=== PATIENT | male | born 1955 | race Caucasian/White ===

== ENCOUNTER 2020-10-01 20:00 | Outpatient (CLI) | payer MEDICARE, OTHER, SELFPAY | END 2020-10-01 20:01 | disposition home or self-care (01) | LOC: SLEEP 10-02 09:19 | PROVIDERS: Family Provider Family Medicine; PCP Family Medicine; Visit Provider Family Medicine | DX: G47.10 Hypersomnia, unspecified (principal); R06.83 Snoring; R53.83 Other fatigue; G47.33 Obstructive sleep apnea (adult) (pediatric) | CPT/HCPCS: 95811 ==

== ENCOUNTER → 2021-08-19 16:14 | Outpatient (BNVA) | payer MEDICARE, SELFPAY | PROVIDERS: Family Provider Family Medicine; PCP Family Medicine; Visit Provider Internal Medicine Cardiovascular Disease | DX: I20.0 Unstable angina (principal); R06.02 Shortness of breath; R07.9 Chest pain, unspecified; I25.2 Old myocardial infarction; I50.22 Chronic systolic (congestive) heart failure; Z79.82 Long term (current) use of aspirin; Z98.890 Other specified postprocedural states | CPT/HCPCS: 80048; 85025; 85610; 87635 ==

== ENCOUNTER 2021-08-26 13:05 | Observation (INO) | payer MEDICARE, SELFPAY ==
--- NOTE | 2021-08-24 17:51 | P.HP_ITS ---
Providers/Chief Complaint Admitting Physician: Juwan Gregory MD Primary Care Provider: Kyle Corrigan MD Chief Complaint: pre-dehydration History of Present Illness Garrett Mares is a 66 year old male past medical history significant for morbid obesity, congestive heart failure, multivessel coronary artery disease with history of prior LAD RCA stents, chronic renal failure with worsening of renal function, questionable compliance with food despite of optimization of medicine and worsening of chest pain shortness of breath with lifestyle limiting characteristics suggestive of unstable angina was admitted for IV hydration before proceeding with left heart cath/PCI. Patient creatinine is 2.0. Patient has been explained all risk benefit and alternative for the procedure patient understand risk for contrast-induced nephropathy leading to transient or permanent dialysis, patient understand risk for major minor bleed hematoma vascular injury urgent emergent CABG stroke and infection. He would like to proceed with it. Medications/Allergies Home Medications Medication Instructions Recorded Confirmed Last Taken Type insulin lispro protamine-lispro 100 unit SUBCUT DAILY 11/29/19 08/25/21 1 Day Ago History 100 unit/mL (75-25) subcutaneous ~08/24/21 pen metformin 1,000 mg tablet 1,000 mg PO BID 11/29/19 08/25/21 1 Day Ago History ~08/24/21 montelukast 10 mg tablet 10 mg PO DAILY 11/29/19 08/25/21 1 Day Ago History ~08/24/21 aspirin 81 mg tablet,delayed 81 mg PO DAILY 90 Days #90 tab 12/03/19 08/25/21 1 Day Ago Rx release ~08/24/21 citalopram 40 mg tablet 40 mg PO DAILY tab 08/18/20 08/25/21 Unknown History insulin glargine U-300 conc 300 120 unit SUBCUT DAILY ml 08/18/20 08/25/21 1 Day Ago History unit/mL (1.5 mL) subcutaneous pen ~08/24/21 ticagrelor 90 mg tablet 90 mg PO BID #180 tab 11/11/20 08/25/21 1 Day Ago Rx ~08/24/21 furosemide 40 mg tablet 40 mg PO DAILY #90 tab 01/04/21 08/25/21 Unknown Rx valsartan 320 mg tablet 320 mg PO DAILY 90 Days #90 tab 01/04/21 08/25/21 1 Day Ago Rx ~08/24/21 carvedilol 25 mg tablet 25 mg PO BID #180 tab 01/08/21 08/25/21 1 Day Ago Rx ~08/24/21 isosorbide mononitrate 60 mg 60 mg PO BID #180 tab 01/14/21 08/25/21 1 Day Ago Rx tablet,extended release 24 hr ~08/24/21 amlodipine 5 mg tablet 5 mg PO DAILY #90 tab 04/09/21 08/25/21 1 Day Ago Rx ~08/24/21 nitroglycerin 0.4 mg sublingual 0.4 mg SUBLINGUAL Q5M PRN #25 tab 07/30/21 08/25/21 Unknown Rx tablet spironolactone 25 mg tablet 25 mg PO DAILY tab 08/19/21 08/25/21 1 Day Ago Hist ory ~08/24/21 gabapentin 100 mg PO TID 08/24/21 08/25/21 1 Day Ago History ~08/24/21 potassium chloride 20 meq PO DAILY 08/24/21 08/25/21 Unknown History rosuvastatin 20 mg PO DAILY 08/24/21 08/25/21 1 Day Ago History ~08/24/21 Allergies Allergy/AdvReac Type Severity Reaction Status Date / Time sulfabenzamide Allergy Unknown Unknown Verified 11/29/19 08:34 PFSH Acute PFSH: Medical History (Updated 08/25/21 @ 20:02 by Juwan Gregory MD) CAD (coronary artery disease) CHF (congestive heart failure) History of non-ST elevation myocardial infarction (NSTEMI) HTN (hypertension) Hyperlipidemia Family History Other CAD (coronary artery disease) Hypertension Social History Smoking and tobacco status: former smoker History of recent travel: No Physical Exam Narrative: EXAM NARRATIVE: GENERAL: Patient is alert, awake and oriented x3. NECK: No jugular vein distension. HEENT: No cyanosis. No icterus. No pallor. HEART: Regular S1 and S2. No murmur, rub or gallop. LUNGS: Clear to auscultate bilaterally. ABDOMEN: Soft, nontender and nondistended. Positive bowel sounds. No guarding, rebound or tenderness. CENTRAL NERVOUS SYSTEM: Grossly nonfocal. EXTREMITIES: Lower extremities without edema bilaterally. Data : 08/25/21 03:30 08/25/21 14:12 A&P Assessment and plan (1) Unstable angina: For worsening of shortness of breath chest pain which is lifestyle limiting and crippling despite of optimization of medicine is suggestive of unstable angina. We will proceed with left heart cath/PCI if indicated. We will admit patient for IV hydration in order to prevent contrast-induced nephropathy. Patient is high risk for developing complications such as bleeding hematoma due to prior history of torturous difficult anatomy and high BMI Status: Acute (2) Renal failure (ARF), acute on chronic: Will start patient on IV hydration I will discontinue all diuretics Status: Acute Qualifiers: Acute renal failure type: unspecified Chronic kidney disease stage: stage 3 (moderate) Chronic kidney disease stage 3 subtype: stage 3b (GFR 30-44) Qualified Code(s): N17.9 - Acute kidney failure, unspecified; N18.32 - Chronic kidney disease, stage 3b (3) CHF (congestive heart failure): Appeared well compensated continue to monitor. Status: Acute Qualifiers: Heart failure type: systolic Heart failure chronicity: chronic Qualified Code(s): I50.22 - Chronic systolic (congestive) heart failure (4) HTN (hypertension): Well-controlled continue current regimen. Status: Acute Qualifiers: Hypertension type: essential hypertension Qualified Code(s): I10 - Essential (primary) hypertension Attestations Medical Necessity Statement*: I am expecting his stay to cross more than 2 midnights. 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
[2021-08-24] MEDS: enoxaparin 40 mg/0.4 mL Syringe SUBCUT (19:09)
[2021-08-24] MEDS: insulin lispro 100 unit/1 mL 14 UNIT SUBCUT (19:10)
[2021-08-24] MEDS: sodium chloride 0.9% 1,000 ML 50 ML IV (19:11)
[2021-08-24 20:05] VITALS: BMI 46.0
--- NOTE | 2021-08-24 20:07 | PC.NURSE ---
admitted into room 106..direct admit...at 1815.alert and oriented x 4.denies pain at present.sr on monitor.plan is to hydrate pt prior to cardiac angiogram in future.oriented to room environment.instructed to contact staff for any chest pain,sob,or for any concerns at all.pt verb understanding of instructions.
[2021-08-24] MEDS: sodium chloride 0.9% 1,000 ML 100 ML IV (20:12)
--- NOTE | 2021-08-24 20:13 | PC.NURSE ---
after ivf's just started at 50 cc/hr as ordered..dr caballero changed rate to 100cc/hr...so used same bag that was ordered for 50cc/hr...so not to charge pt for another bag of ns
[2021-08-24 20:47] LABS: Glucose Point of Care 429 mg/dL (70-110)
[2021-08-24 20:59] VITALS: BP 154/73; PULSE 86; RESP 22; TEMP 36.8; O2SAT 93
[2021-08-24 21:00] VITALS: BP 154/73; PULSE 86; RESP 22; TEMP 36.8; O2SAT 93
[2021-08-24 22:35] LABS: Glucose Point of Care 388 mg/dL (70-110)
[2021-08-24] MEDS: insulin lispro 100 unit/1 mL SUBCUT (23:02)
[2021-08-24] MEDS: ticagrelor 90 mg Tablet PO (23:05)
[2021-08-24] MEDS: gabapentin 100 mg Capsule PO (23:05)
[2021-08-24] MEDS: atorvastatin 40 mg Tablet 80 MG PO (23:05)
[2021-08-24] MEDS: isosorbide mononitrate ER 60 mg Tablet PO (23:06)
[2021-08-24] MEDS: carvedilol 25 mg Tablet PO (23:06)
[2021-08-24 23:30] VITALS: BP 107/62; PULSE 80; RESP 22; TEMP 36.6; O2SAT 95
[2021-08-25] VITALS (9 sets, daily range): BP systolic 118–153; BP diastolic 61–71; PULSE 74–79; RESP 15–21; TEMP 36.1–37.1; O2SAT 90–97
--- NOTE | 2021-08-25 | XACV_ITS ---
Ht: 170 cm Wt: 133 kg BSA: 2.58 m2 Gender: Male : 1955 Any Known Allergies: Sulfa Exam Priority: Routine Procedure(s): Procedure Description: Diagnostic procedure Procedure Description: PCI procedure Procedure Description: Drug Eluting Coronary Stent Procedure Description: PTCA Procedure Description: Miscellaneous Procedure Description: ACT Procedure Description: Coronary Angiography Bri FELDER; Diagnostic Cath Status: Urgent Diagnostic Findings * Left Main has no disease. * Left Anterior Descending has no disease. * Proximal Right Coronary Artery: subtotal occlusion, FAUSTINA: 0 flow. * Mid Right Coronary Artery to Distal Right Coronary Artery: total occlusion, FAUSTINA: 0 flow. * Proximal Circumflex: critical 95% stenosis, FAUSTINA: 3 flow. * Coronary angiography shows right dominance. Interventional Findings * Proximal Right Coronary Artery: 99% stenosis treated with a AB TREK 3.00X12 RX BALLOON, and MDT R FARZAD 3.5X12 TYRESE. 0% residual stenosis, FAUSTINA: 3 flow. * Proximal Circumflex: 95% stenosis treated with a AB TREK 2.50X12 RX BALLOON, MDT R FARZAD 4.0X15 TYRESE, and MDT ANTONINO EUPHORA RX 4.80C20RK BALLOON. 0% residual stenosis, FAUSTINA: 3 flow. Conclusions 1. For unstable angina patient underwent left heart cath after giving IV fluid for chronic venous renal failure in the hospital. Radial approach was switched to femoral approach due to tortuosity and difficult engagement. Please note that patient has high BMI due to body habitus body habitus image quality was not good.. 2. 1-Left main was normal2-LAD has luminal irregularity with patent previously placed ostial and proximal stent3-LCx has ostial high-grade 95% stenosis which is the culprit vessel4-RCA has chronically occluded mid segment, proximal RCA has 95% hazy stenosis. 3. There is total occlusion coronary artery disease with two vessel disease. 4. Proximal Right Coronary Artery was treated with a Balloon, and Drug Eluting Stent. 5. Proximal Circumflex was treated with a Balloon, Drug Eluting Stent, and Balloon. Recommendations * Continue current medical management and risk factor modification. Interventional RX Recommendation: PCI w/o planned CABG Diagnostic RX Recommendation: PCI w/o planned CABG Pressures Phase:Rest AO : 128 / 60 ( 85 ) @ 3:05:00 PM 139 / 66 ( 92 ) @ 3:32:00 PM 131 / 67 ( 88 ) @ 4:20:00 PM 120 / 63 ( 83 ) @ 4:30:00 PM 72 / 35 ( 51 ) @ 4:40:00 PM 138 / 68 ( 96 ) @ 4:46:00 PM 154 / 72 ( 105 ) @ 4:56:00 PM 154 / 67 ( 103 ) @ 5:02:00 PM 140 / 70 ( 98 ) @ 5:15:00 PM Clinical Evaluation EBL: 5mL-10mL Procedural Details Procedure Consent Obtained. Pre-Procedure Time Out. Identified patient by full name and date of as verbalized by the patient/guarantor. Does the consent match the physician's order: Yes. Accurate & Complete Informed Consent: Yes. Inpatient/Outpatient History & Physical on Chart: Yes. If H&P is completed, is and addenduem needed: No; If yes, is the addendum complete: N/A. Visualize and Verify Site with Patient/Guarantor: N/A. Relevant Radiology Images available: N/A. Pre-op teaching completed and patient verbalized understanding. The risks, benefits, and alternatives of sedation and/or procedure were discussed by physician. The patient agrees to continue. Procedure started. [facility] Clinical Fraility Score: 4: Vulnerable. Audiology Director Indications: Worsening Angina. Chest Pain Symptom Assessment: Typical Angina Symptoms. Cardiovascular Instability: Yes, if yes, Persistant Ischemic Symptoms. Correct patient, site and procedure confirmed by cath team. PERRLA. Strong, equal hand manager tax bilaterally. Lungs clear x 5 lobes. IV Site on Arrival: 20 gauge in the left anticubital. IV Fluids: 0.9% NaCl at KVO. 0 mL infused prior to paint laboratory technician. Oxygen started at 2liters/min via nasal canula. Baseline sample Acquired. HR: 81 BPM. Physician notified. right groin was prepped with chloroprep then draped in the usual sterile fashion. right radial was prepped with chloroprep then draped in the usual sterile fashion. Physician arrived. Equipment: 6F - Radial. Cardiac Cath Pack. ACIST Manifold Kit Model BT 2000. Heparinized Saline (2 units/mL), 1000 mL bag. Physician scrubbed in. Immediate Pre-Procedure Time Out. Correct Patient: Yes; Correct Procedure: Yes; Correct Site: Yes; Correct Patient Position: Yes; Correct Supplies: Yes; Dried Flammable Prep: Yes; Blood Products Available: N/A;. Lidocaine 1% infiltrated to the right radial. Arterial access obtained. A 5 angolan TIG catheter in over wire. Catheter removed over the exchange wire. A ClearAccess 5 Fr Joseph Radial Catheter, 110cm was advanced over the wire and used for Left coronary angiography. Catheter removed over the exchange wire. Unable to seat catheter using radial approach. Physician moving to femoral approach. A 5 angolan JR4 catheter in over wire. Family updated. Multiple views taken of right coronary artery. Inventory is CRD 6 FR XB 3.5 GUIDE. Catheter removed over the exchange wire. 6 angolan XB 3.5 guide catheter was inserted over the wire. Guide catheter out. A JJ 6F JL4 100cm Diagnostic Catheter was advanced over the wire and used for Left coronary angiography. Catheter removed over the exchange wire. A 6 angolan AL1 catheter in over wire. Catheter removed over the exchange wire. A 5 angolan TIG catheter in over wire. A 5 angolan AL1 catheter in over wire. Catheter out. Catheter out. A 5 angolan JL4 catheter in over wire. Catheter out. Physician having difficulty trying to engage catheters to left coronary arteries due anatomy tortuorosity. A 5 angolan Joseph catheter in over wire. Lidocaine 1% infiltrated to the right groin. Arterial access obtained. Catheter out. A 5 angolan JL4 catheter in over wire. Multiple views taken of left coronary artery. Catheter removed over the standard wire. 6 angolan XB 3.5 guide catheter was inserted over the wire. Family updated. Inventory is CaseR[place]gar XT .014 190cm Str. Guidewire. [place] guidewire was advanced through the guide catheter to lesion in the prox Circ. SAWYER Frances FARZAD 4.0x15 TYRESE inserted over the wire. Unable to cross lesion. Intact stent removed. Inflation number : 1 A AB TREK 2.50X12 RX BALLOON was prepped and advanced across the Prox CX , then inflated to 16 RAE for 0:21 seconds. Balloon out. Inflation Number : 2 A MDT R FARZAD 4.0X15 TYRESE -Lot Number# [id number] exp date 11/25/2022 was prepped and advanced across the Prox CX. The stent was deployed at 12 RAE for 0:23 seconds. Inflation number : 3 A SAWYER MUÑIZ EUPHORA RX [id number] BALLOON was prepped and advanced across the Prox CX , then inflated to 12 RAE for 0:22 seconds. Balloon and wire out. Guide catheter out. ACT drawn. Results 182 seconds. Therapeutic limits - pre-heparin administration 90-150 seconds and monitoring heparin during a vascular procedure >250 seconds. 6 angolan JR 4 guide catheter was inserted over the wire. [place] guidewire was advanced through the guide catheter to lesion in the prox RCA. Wire out. Guide catheter out. 6 angolan AL 0.75 guide catheter was inserted over the wire. Family updated. [place] guidewire was advanced through the guide catheter to lesion in the prox RCA. Inflation number : 1 A AB TREK 3.00X12 RX BALLOON was prepped and advanced across the Prox RCA , then inflated to 15 RAE for 0:13 seconds. Inflation number: 2 The AB TREK 3.00X12 RX BALLOON was reinflated across the Prox RCA, to 12 RAE for 0:17 seconds. Balloon out. Inventory is CRD 6FR AL .75 GUIDE. Inventory is CRD 6FR JR 4 GUIDE 100cm. Inflation Number : 3 A SAWYER R FARZAD 3.5X12 TYRESE -Lot Number# [id number] exp date 09/11/2022 was prepped and advanced across the Prox RCA. The stent was deployed at 12 RAE for 0:23 seconds. Stent balloon out over wire. ACT drawn. Results 291 seconds. Therapeutic limits - pre-heparin administration 90-150 seconds and monitoring heparin during a vascular procedure >250 seconds. Wire out. Guide catheter out. A Right femoral angiogram was performed to determine safe placement of closure device. A Right femoral angiogram was performed to determine safe placement of closure device. A Perclose ([employer]) was successful obtaining hemostatsis at the Right Femoral artery insertion site. Perclose placed without complications. No signs or symptoms of hematoma noted. Sterile dressing applied per usual sterile fashion. Medication's Wasted: Lidocaine 1% = 10 mL. Total IV fluids: 202 mL. Medication's Wasted: Nitro = 49.6 mg. Medication's Wasted: Heparin = 2000 units. Contrast type used: Omnipaque 300 mgI/mL, 500 mL bottle. Post Procedure: Pulses reassessed and unchanged. A TR Band was successful obtaining hemostatsis at the Right Radial artery insertion site. TR band placed. Hemostasis obtained. PERRLA. Strong, equal hand manager tax bilaterally. No VTE prophylaxis required. Complications: none. Estimated blood loss: 5mL-10mL. Post-op diagnosis: significant ostial circ and RCA disease. Procedure completed. Patient transferred by bed to 1st floor. Vital chart was stopped. Access Site Site: Right Radial artery Sheath Size: 6 Fr Hemostasis Method: TR Band Hemostasis Success: Successful Site: Right Femoral artery Sheath Size: 6 Fr Hemostasis Method: Perclose ([employer]) Hemostasis Success: Successful Procedure Medications Start: 4:52 PM Stop: 4:52 PM Medication: Versed Amount: 1 mg Route: I.V. Start: 4:52 PM Stop: 4:52 PM Medication: Fentanyl Amount: 50 mcg Route: I.V. Start: 4:56 PM Stop: 4:56 PM Medication: Versed Amount: 1 mg Route: I.V. Start: 5:02 PM Stop: 5:02 PM Medication: Nitrogylcerin Amount: 200 mcg Route: I.A. Start: 5:05 PM Stop: 5:05 PM Medication: Heparin Amount: 5000 units Route: I.V. Start: 5:18 PM Stop: 5:18 PM Medication: Fentanyl Amount: 50 mcg Route: I.V. Start: 5:47 PM Stop: 5:47 PM Medication: Verapamil Amount: 5 mg Route: I.A. Start: 5:47 PM Stop: 5:47 PM Medication: Nitrogylcerin Amount: 200 mcg Route: I.A. Start: 5:48 PM Stop: 5:48 PM Medication: Versed Amount: 1 mg Route: I.V. Start: 6:15 PM Stop: 6:15 PM Medication: Fentanyl Amount: 50 mcg Route: I.V. Start: 6:18 PM Stop: 6:18 PM Medication: Versed Amount: 1 mg Route: I.V. Start: 6:36 PM Stop: 6:36 PM Medication: Heparin Amount: 8000 units Route: I.V. Start: 6:42 PM Stop: 6:42 PM Medication: Fentanyl Amount: 25 mcg Route: I.V. Start: 6:50 PM Stop: 6:50 PM Medication: Fentanyl Amount: 25 mcg Route: I.V. Start: 6:53 PM Stop: 6:53 PM Medication: Versed Amount: 1 mg Route: I.V. Start: 6:58 PM Stop: 6:58 PM Medication: Heparin Amount: 6000 units Route: I.V. Start: 7:10 PM Stop: 7:10 PM Medication: Versed Amount: 1 mg Route: I.V. I, the attending physician, have reviewed and verified all procedure medications. Yes, all medications given per verbal order History/Risk Factors Hypertension: Yes Dyslipidemia: Yes Peripheral Arterial Disease (PAD): No Myocardial Infarction (NE): No Obesity: Yes Renal Disease: No Prior Interventions PCI: No CABG: No Valve Surgery: No Report Signatures Finalized by Juwan Gregory MD on 09/07/2021 07:17 PM
[2021-08-25 04:31] LABS: Blood Urea Nitrogen 43 mg/dL (8-23); Calcium 8.6 mg/dL (8.5-10.5); Carbon Dioxide 24 mmol/L (22-29); Glomerular Filtration Rate 37.8 mL/min (90-130); Glucose 198 mg/dL (65-115)
[2021-08-25] MEDS: sodium chloride 0.9% 1,000 ML 100 ML IV ×5 (05:31→20:18)
[2021-08-25 05:50] LABS: Basophils # 0.1 10^3/uL (0.0-0.1); Basophils % 0.6 %; Eosinophils # 0.2 10^3/uL (0.0-0.8); Eosinophils % 2.1 %; Hematocrit 37.3 % (42.0-52.0); Hemoglobin 11.8 g/dL (11.7-16.6); Lymphocytes # 2.7 10^3/uL (0.8-4.8); Lymphocytes % 31.3 %; Mean Corpuscular HGB Conc 31.6 g/dL (30.0-36.0); Mean Corpuscular Volume 94.9 fl (80-94); Mean Platelet Volume 10.3 fL (7.4-10.4); Monocytes % 11.3 %; Neutrophils % 54.3 %; Nucleated Red Blood Cells % 0 %; Platelet Count 359 10^3/cmm (130-400); Red Blood Count 3.93 10^6/uL (4.1-5.3); Red Cell Distribution Width 13.2 % (12.1-15.1); White Blood Count 8.5 10^3/uL (4.0-10.0)
[2021-08-25 06:00] LABS: Anion Gap 16.5 (5-19); Chloride 99 mmol/L (98-107); Osmolality Calculated 296 mOsm/kg (285-295); Potassium 4.5 mmol/L (3.5-5.1); Sodium 135 mmol/L (136-145)
--- NOTE | 2021-08-25 06:19 | PC.NURSE ---
Frequent safety and comfort rounds continue. Orders and/or nursing care completed as indicated. Patient monitored for response to intervention and treatment. Education provided includes npo after midnight for procedure. Patient and/or telephone service representative verbalized understanding. Will continue to monitor.
--- NOTE | 2021-08-25 06:35 | PC.NURSE ---
Patient was npo after midnight for possible cath today. Elevated creatine yesterday. Redraw today was creatine 1.8. Consent signed and patient prepped for surgery in case it should be done. Will pass information to oncoming nurse.
[2021-08-25 06:37] LABS: Glucose Point of Care 251 mg/dL (70-110)
[2021-08-25] MEDS: amlodipine 5 mg Tablet PO (08:43)
[2021-08-25] MEDS: isosorbide mononitrate ER 60 mg Tablet PO ×2 (08:43→22:54)
[2021-08-25] MEDS: losartan 50 mg Tablet 100 MG PO (08:43)
[2021-08-25] MEDS: carvedilol 25 mg Tablet PO ×2 (08:43→22:54)
[2021-08-25] MEDS: gabapentin 100 mg Capsule PO ×3 (08:43→22:53)
[2021-08-25] MEDS: aspirin 81 mg EC Tablet PO (08:43)
[2021-08-25] MEDS: montelukast sodium 10 mg Tablet PO (08:43)
[2021-08-25] MEDS: citalopram 20 mg Tablet 40 MG PO (08:43)
[2021-08-25] MEDS: ticagrelor 90 mg Tablet PO ×2 (08:44→22:54)
--- NOTE | 2021-08-25 10:16 | PC.CHAP ---
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 patternmaker metal visit [] Patient/Family/Request visit [] Outpatient visit [] Follow-up visit [] Physician referral [] Code/Alert [x] Routine visit [] Staff referral [] Actively dying [] Patient sleeping [x] Family support [] [] Out of room [] Palliative care [] [] Receiving care in room [] Pre-surgical visit [] Trauma [] Long length of stay [] ICU visit [] Other: Relational/Emotional Strength [] Patient feels connected with others/family/visitors/staff [] Distress [] Loneliness/isolation [] Abandonment Spirituality of Patient [] Person of Ines [] Attends Yazidi of their Ines [] Believes in Prayer [] Reads Bible or Temple materials [] There are Spiritual issues to be addressed Cyber Systems Engineer Interventions [x] Prayer [x] Active listening [x] Non-anxious presence [x] Spiritual/emotional support [] Crisis/trauma care [] Spiritual counseling [] Bereavement support [] Provided bereavement packet [] Provided Bible/devotional materials [] Provided toy/stuffed animal, coloring book to patient or family member [] Provided Communion [] Anointing/[place] [] Salvation [x] Completed spiritual assessment [] Other: Impact on Illness or Injury [] Angry [] Fearful [] Anxious [] Often cries [] Exhaustion [] Unable to work [] Unable to attend temple [] Unable to walk/stand [] Unable to read [] Unable to drive [] Unable to eat/drink [] Unable to sleep [] Unable to be with family [] Patient intubated [] Other: Summary resting well- and daughter present... see to needs Time spent with patient 5 min
[2021-08-25] MEDS: insulin lispro 100 unit/1 mL SUBCUT ×2 (12:04→22:51)
--- NOTE | 2021-08-25 12:35 | PM.PN ---
Subjective Subjective: Interval history: Patient creatinine 1.8 today. I will continue to IV hydrate him and recheck creatinine in the evening. Further plan will be advised until then we will keep him n.p.o. Patient continues to have episodes of chest pains upon slightest movement with Medications: Reviewed: Yes Vitals/I&O/Wt Last Vital Signs Temp 98.1 F 08/25/21 08:20 Pulse 76 08/25/21 08:20 Resp 20 H 08/25/21 08:20 BP 153/61 08/25/21 08:43 Pulse Ox 97 08/25/21 08:20 08/24/21 08/25/21 08/25/21 22:59 06:59 14:59 Intake Total 0 / 0 2676.667 / 2676.667 Output Total 200 / 200 350 / 350 Balance 0 / 0 2476.667 / 2476.667 -350 / -350 Weight last 48 hrs Weight 293 lb 11.2 oz Physical Exam Narrative: EXAM NARRATIVE: GENERAL: Patient is alert, awake and oriented x3. NECK: No jugular vein distension. HEENT: No cyanosis. No icterus. No pallor. HEART: Regular S1 and S2. No murmur, rub or gallop. LUNGS: Clear to auscultate bilaterally. ABDOMEN: Soft, nontender and nondistended. Positive bowel sounds. No guarding, rebound or tenderness. CENTRAL NERVOUS SYSTEM: Grossly nonfocal. EXTREMITIES: Lower extremities without edema bilaterally. Const: COMMON NORMALS: alert Resp: COMMON NORMALS: clear to auscultation bilaterally AUSCULTATION: clear to auscultation bilaterally Neuro: SENSORIUM/ORIENTATION: Yes alert Data : 08/25/21 03:30 08/25/21 14:12 A&P Assessment and plan (1) Unstable angina: For worsening of shortness of breath chest pain which is lifestyle limiting and crippling despite of optimization of medicine is suggestive of unstable angina. We will proceed with left heart cath/PCI if indicated. We will admit patient for IV hydration in order to prevent contrast-induced nephropathy. Patient is high risk for developing complications such as bleeding hematoma due to prior history of torturous difficult anatomy and high BMI. Patient had episodes of chest pain continue nitro continue optimal medical regimen. Once creatinine is better we will proceed with left heart cath Status: Acute (2) Renal failure (ARF), acute on chronic: Continue IV fluid recheck BMP in the evening Status: Acute Qualifiers: Acute renal failure type: unspecified Chronic kidney disease stage: stage 3 (moderate) Chronic kidney disease stage 3 subtype: stage 3b (GFR 30-44) Qualified Code(s): N17.9 - Acute kidney failure, unspecified; N18.32 - Chronic kidney disease, stage 3b (3) CHF (congestive heart failure): Appeared well compensated continue to monitor. Status: Acute Qualifiers: Heart failure type: systolic Heart failure chronicity: chronic Qualified Code(s): I50.22 - Chronic systolic (congestive) heart failure (4) HTN (hypertension): Well-controlled continue current regimen. Status: Acute Qualifiers: Hypertension type: essential hypertension Qualified Code(s): I10 - Essential (primary) hypertension Attestations Medical Necessity Statement*: Patient require continuation hospitalization for above defined care. 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
[2021-08-25 12:48] LABS: Glucose Point of Care 362 mg/dL (70-110)
[2021-08-25 14:40] LABS: Blood Urea Nitrogen 37 mg/dL (8-23); Calcium 8.5 mg/dL (8.5-10.5); Carbon Dioxide 23 mmol/L (22-29); Chloride 101 mmol/L (98-107); Glomerular Filtration Rate 46.7 mL/min (90-130); Glucose 237 mg/dL (65-115); Osmolality Calculated 292 mOsm/kg (285-295); Sodium 133 mmol/L (136-145)
--- NOTE | 2021-08-25 16:45 | W.PM.OPSUD ---
Surgery/Procedure H&P Update DATE OF PROCEDURE: August 25, 2021 DATE H&P PERFORMED: 08/24/21 H&P UPDATE INFORMATION: I have reviewed H&P completed within last 30 days, I have examined patient prior to procedure and No changes to prior documentation PREOP DIAGNOSIS: Unstable angina, history of coronary artery disease history of stents CHF PATIENT REASSESSED PRIOR TO SEDATION, WITH NO CHANGE NOTED: Yes PHYSICAL EXAM: alert, oriented x 3 and clear to auscultation bilaterally AIRWAY EVAL/ANESTHESIA PLAN: ASA II, Risks, benefits & alternatives of sedation and/or procedure discussed and Patient agrees to continue as planned ADDITIONAL INFORMATION: All risk benefit and alternative for the procedure including contrast-induced nephropathy leading to short-term and long-term permanent dialysis, major minor surgery CABG in case of emergency stroke bleeding major minor transfusion infection hematoma vascular injury was explained to the patient. He understood it and would like to proceed with it. He is a candidate for DAPT. Today patient creatinine after 24 hours of IV fluid improved to 1.5 which is almost his baseline. Since his heart failure patient I would not like to give any more fluid at this point we will proceed with left heart cath/PCI if indicated since patient continues to have unstable angina-like picture despite of optimization of medicine.
[2021-08-25] MEDS: fentaNYL 50 mcg/mL INJ 2mL IVP (20:17)
--- NOTE | 2021-08-25 20:26 | ECG_ITS ---
[facility] Test Date: 2021-08-25 Pat Name: Garrett Mares Department: Room: 108 Gender: Male Electrophysiology Technologist: : 1955 Requested By: Juwan Gregory Order Number: [id number] Rosita MD: Sarahi Rasumssen M.D. Measurements Intervals [place] Rate: 67 P: 84 NH: 236 QRS: -66 QRSD: 150 T: 7 QT: 460 QTc: 488 Interpretive Statements SINUS RHYTHM WITH FIRST DEGREE AV BLOCK WITH OCCASIONAL SUPRAVENTRICULAR PREMATURE COMPLEXES RIGHT BUNDLE BRANCH BLOCK [120+ ms QRS DURATION, UPRIGHT V1, 40+ ms S IN I/aVL/V4/V5/V6] LEFT ANTERIOR FASCICULAR BLOCK [QRS AXIS <= -45, QR IN I, RS IN II] POSSIBLE ANTERIOR MYOCARDIAL INFARCTION , PROBABLY OLD [30 ms Q WAVE IN V3/V4, OR R < 0.2 mV IN V4] Compared to ECG 08/03/2018 09:48:45 Left anterior fascicular block now present Myocardial infarct finding still present Electronically Signed On 08-26-2021 22:37:56 FLUSH TESTER by Sarahi Rasmussen M.D. [id number]
--- NOTE | 2021-08-25 20:29 | PC.NURSE ---
patient back to room from label fuser tender at 1999 Dr. Gregory at bedside at 2014 dressing to right groin redressed at this time due to saturation, bed side orders received from Dr. Gregory for zofran iV 4mg and stat EKG for baseline, patient currently in stable condition.
[2021-08-25] MEDS: ondansetron 2 mg/ML SDV 2 mL 4 MG IVP (20:30)
[2021-08-25 22:45] LABS: Glucose Point of Care 222 mg/dL (70-110)
[2021-08-25] MEDS: HYDROcodone-acetaminophen 5-325 mg Tablet 1 TAB PO (22:52)
[2021-08-25] MEDS: atorvastatin 40 mg Tablet 80 MG PO (22:53)
[2021-08-25 23:24] LABS: Partial Thromboplastin Time > 250.0 SECONDS (23.9-36.7)
[2021-08-26] VITALS (9 sets, daily range): BP systolic 113–143; BP diastolic 47–72; PULSE 72–87; RESP 21–36; TEMP 36.4–37.3; O2SAT 95–97
[2021-08-26 03:49] LABS: Basophils # 0.1 10^3/uL (0.0-0.1); Basophils % 0.5 %; Eosinophils # 0.1 10^3/uL (0.0-0.8); Eosinophils % 0.9 %; Hematocrit 34.7 % (42.0-52.0); Hemoglobin 11.3 g/dL (11.7-16.6); Lymphocytes # 1.9 10^3/uL (0.8-4.8); Lymphocytes % 19.1 %; Mean Corpuscular HGB Conc 32.6 g/dL (30.0-36.0); Mean Corpuscular Hemoglobin 30.2 pg (28.0-34.0); Mean Corpuscular Volume 92.8 fl (80-94); Mean Platelet Volume 9.9 fL (7.4-10.4); Monocytes # 0.9 10^3/uL (0.2-0.9); Neutrophils % 70.2 %; Nucleated Red Blood Cells % 0 %; Platelet Count 343 10^3/cmm (130-400); Red Blood Count 3.74 10^6/uL (4.1-5.3); Red Cell Distribution Width 13.2 % (12.1-15.1); White Blood Count 9.8 10^3/uL (4.0-10.0)
[2021-08-26 04:14] LABS: Blood Urea Nitrogen 31 mg/dL (8-23); Calcium 8.4 mg/dL (8.5-10.5); Carbon Dioxide 22 mmol/L (22-29); Chloride 102 mmol/L (98-107); Glomerular Filtration Rate 43.3 mL/min (90-130); Glucose 237 mg/dL (65-115); Osmolality Calculated 292 mOsm/kg (285-295); Sodium 134 mmol/L (136-145)
[2021-08-26] MEDS: sodium chloride 0.9% 1,000 ML 100 ML IV ×3 (04:16→22:00)
--- NOTE | 2021-08-26 07:10 | PC.NURSE ---
Upon bedside report pt present lying in bed resting and talking to staff. Pts drsg to groin dry and intact no swelling hematoma or bleeding noted. Pt had no c/o pain or discomfort at present time. No needs voiced. Call button in reach. Will cont to monitor.
[2021-08-26] MEDS: isosorbide mononitrate ER 60 mg Tablet PO ×2 (10:01→22:00)
[2021-08-26] MEDS: gabapentin 100 mg Capsule PO ×3 (10:01→22:00)
[2021-08-26] MEDS: citalopram 20 mg Tablet 40 MG PO (10:02)
[2021-08-26] MEDS: losartan 50 mg Tablet 100 MG PO (10:02)
[2021-08-26] MEDS: carvedilol 25 mg Tablet PO ×2 (10:02→22:00)
[2021-08-26] MEDS: aspirin 81 mg EC Tablet PO (10:03)
[2021-08-26] MEDS: ticagrelor 90 mg Tablet PO ×2 (10:03→22:00)
[2021-08-26] MEDS: amlodipine 5 mg Tablet PO (10:03)
[2021-08-26] MEDS: montelukast sodium 10 mg Tablet PO (10:03)
[2021-08-26 10:10] LABS: Glucose Point of Care 355 mg/dL (70-110)
[2021-08-26] MEDS: insulin lispro 100 unit/1 mL SUBCUT ×4 (10:14→22:04)
[2021-08-26 17:04] LABS: Glucose Point of Care 246 mg/dL (70-110)
--- NOTE | 2021-08-26 19:40 | P.PN_ITS ---
Subjective Subjective: Interval history: Patient post PCI appeared to be stable from a coronary disease perspective heart creatinine has slightly worsened patient had high-dose contrast due to complicated PCI large body habitus tortuosity of the arteries and difficult anatomy. Medications: Reviewed: Yes Vitals/I&O/Wt Last Vital Signs Temp 97.5 F L 08/26/21 08:00 Pulse 86 08/26/21 14:00 Resp 36 H 08/26/21 13:27 BP 113/47 08/26/21 13:27 Pulse Ox 95 08/26/21 13:27 08/26/21 08/26/21 08/26/21 06:59 14:59 22:59 Intake Total 1796.667 / 3161.667 963.333 / 963.333 Output Total 1100 / 1450 Balance 696.667 / 1711.667 963.333 / 963.333 Weight last 48 hrs Weight 293 lb 11.2 oz Physical Exam Narrative: EXAM NARRATIVE: GENERAL: Patient is alert, awake and oriented x3. NECK: No jugular vein distension. HEENT: No cyanosis. No icterus. No pallor. HEART: Regular S1 and S2. No murmur, rub or gallop. LUNGS: Clear to auscultate bilaterally. ABDOMEN: Soft, nontender and nondistended. Positive bowel sounds. No guarding, rebound or tenderness. CENTRAL NERVOUS SYSTEM: Grossly nonfocal. EXTREMITIES: Lower extremities without edema bilaterally. Const: COMMON NORMALS: alert Resp: COMMON NORMALS: clear to auscultation bilaterally AUSCULTATION: clear to auscultation bilaterally Neuro: SENSORIUM/ORIENTATION: Yes alert Data : 08/26/21 03:23 08/26/21 03:23 A&P Assessment and plan (1) Unstable angina: Status post PCI to ostial circumflex and ostial RCA. Good angiographic result was achieved continue current regimen. No hematoma of the right groin Status: Acute (2) Renal failure (ARF), acute on chronic: Creatinine slightly worsened I will continue IV fluid since patient got a lot of contrast load Status: Acute Qualifiers: Acute renal failure type: unspecified Chronic kidney disease stage: stage 3 (moderate) Chronic kidney disease stage 3 subtype: stage 3b (GFR 30-44) Qualified Code(s): N17.9 - Acute kidney failure, unspecified; N18.32 - Chronic kidney disease, stage 3b (3) CHF (congestive heart failure): Appear to be stable and could well compensated continue to monitor closely. Status: Acute Qualifiers: Heart failure type: systolic Heart failure chronicity: chronic Q ualified Code(s): I50.22 - Chronic systolic (congestive) heart failure (4) HTN (hypertension): Well-controlled continue current regimen. Status: Acute Qualifiers: Hypertension type: essential hypertension Qualified Code(s): I10 - Essential (primary) hypertension Attestations Medical Necessity Statement*: Patient require continuation hospitalization for the better defined care. Coding Level of Care Code Acute Kitchen Assistant for [facility] Fwd Diagnoses Unstable angina I20.0 Renal failure (ARF), acute on chronic N17.9; N18.32 Acute renal failure type: unspecified Chronic kidney disease stage: stage 3 (moderate) Chronic kidney disease stage 3 subtype: stage 3b (GFR 30-44) CHF (congestive heart failure) I50.22 Heart failure type: systolic Heart failure chronicity: chronic HTN (hypertension) I10 Hypertension type: essential hypertension
[2021-08-26] MEDS: atorvastatin 40 mg Tablet 80 MG PO (21:59)
[2021-08-26 22:05] LABS: Glucose Point of Care 342 mg/dL (70-110)
[2021-08-27] VITALS (7 sets, daily range): BP systolic 108–152; BP diastolic 49–73; PULSE 80–89; RESP 17–20; TEMP 36.5–36.7; O2SAT 97
[2021-08-27 06:50] LABS: Glucose Point of Care 240 mg/dL (70-110)
[2021-08-27 08:26] LABS: Anion Gap 14.5 (5-19); Blood Urea Nitrogen 29 mg/dL (8-23); Calcium 8.2 mg/dL (8.5-10.5); Carbon Dioxide 21 mmol/L (22-29); Chloride 103 mmol/L (98-107); Glomerular Filtration Rate 40.4 mL/min (90-130); Glucose 212 mg/dL (65-115); Osmolality Calculated 290 mOsm/kg (285-295); Potassium 4.5 mmol/L (3.5-5.1); Sodium 134 mmol/L (136-145)
[2021-08-27] MEDS: aspirin 81 mg EC Tablet PO (09:22)
[2021-08-27] MEDS: amlodipine 5 mg Tablet PO (09:23)
[2021-08-27] MEDS: losartan 50 mg Tablet 100 MG PO (09:23)
[2021-08-27] MEDS: citalopram 20 mg Tablet 40 MG PO (09:23)
[2021-08-27] MEDS: montelukast sodium 10 mg Tablet PO (09:23)
[2021-08-27] MEDS: isosorbide mononitrate ER 60 mg Tablet PO (09:23)
[2021-08-27] MEDS: gabapentin 100 mg Capsule PO (09:24)
[2021-08-27] MEDS: carvedilol 25 mg Tablet PO (09:24)
[2021-08-27] MEDS: ticagrelor 90 mg Tablet PO (09:37)
[2021-08-27] MEDS: insulin lispro 100 unit/1 mL SUBCUT ×2 (09:37→12:10)
--- NOTE | 2021-08-27 11:23 | PC.NURSE ---
Pt lying in bed resting with eyes closed. Pt using C-pap during HS. Resp even and non-labored no distress noted. Pt had no c/o pain or discomfort at the present time. No needs voiced. Call button in reach. Will cont to monitor.
[2021-08-27 11:37] LABS: Glucose Point of Care 310 mg/dL (70-110)
--- NOTE | 2021-08-27 11:44 | P.DS_ITS ---
Discharge Providers Date of Discharge: August 27, 2021 Attending Provider at Discharge: Juwan Gregory MD Primary Care Provider: Kyle Corrigan MD Diagnoses at Discharge Discharge Diagnosis (1) Unstable angina: Status: Resolved (2) Renal failure (ARF), acute on chronic: Status: Acute Qualifiers: Acute renal failure type: unspecified Chronic kidney disease stage: stage 3 (moderate) Chronic kidney disease stage 3 subtype: stage 3b (GFR 30-44) Qualified Code(s): N17.9 - Acute kidney failure, unspecified; N18.32 - Chronic kidney disease, stage 3b (3) CHF (congestive heart failure): Status: Acute Qualifiers: Heart failure chronicity: chronic Heart failure type: systolic Qualified Code(s): I50.22 - Chronic systolic (congestive) heart failure (4) HTN (hypertension): Status: Acute Qualifiers: Hypertension type: essential hypertension Qualified Code(s): I10 - Essential (primary) hypertension Reason for Visit 2 Reason for Visit: pre-dehydration Hospital Course Hospital Course 68-year-old male past medical history significant for obesity hypertension hyperlipidemia history of acute coronary syndrome for unstable angina chronic renal failure was admitted to the hospital where IV hydration was performed. Patient underwent left heart cath after stabilizing the renal function and after giving IV fluid. He was noted to have significant ostial 95% circumflex stenosis and significant 99% proximal RCA stenosis. Both were treated with drug-eluting stent. Postop care remains uncomplicated. He was given IV fluid postop. This morning patient is walking around without any difficulty. Creatinine has stabilized. He is being discharged home. We will recheck creatinine in 3 days. We will continue antiplatelet. We will resume home medicine. He will follow-up with Ms. Aishwarya Jones in 7 days and with me in 4 weeks. Physical Exam Narrative: EXAM NARRATIVE: GENERAL: Patient is alert, awake and oriented x3. NECK: No jugular vein distension. HEENT: No cyanosis. No icterus. No pallor. HEART: Regular S1 and S2. No murmur, rub or gallop. LUNGS: Clear to auscultate bilaterally. ABDOMEN: Soft, nontender and nondistended. Positive bowel sounds. No guarding, rebound or tenderness. CENTRAL NERVOUS SYSTEM: Grossly nonfocal. EXTREMITIES: Lower extremities without edema bilaterally. Const: COMMON NORMALS: alert Resp: COMMON NORMALS: clear to auscultation bilaterally AUSCULTATION: clear to auscultation bilaterally Neuro: SENSORIUM/ORIENTATION: Yes alert Discharge Data Data Completed and Pending: Pending at discharge Category Date Time Status PATIENT SCHEDULER request for service Routin e Exams 08/25/21 08:30 Taken Labs from last 24 hours 08/27/21 08/27/21 08/27/21 11:32 07:53 06:34 Sodium 134 L Potassium 4.5 Chloride 103 Carbon Dioxide 21 L Anion Gap 14.5 BUN 29 H Creatinine 1.7 H GFR Calculation 40.4 L Glucose 212 H POC Glucose 310 H 240 H Calculated Osmolal ity 290 Calcium 8.2 L 08/26/21 08/26/21 08/25/21 22:01 16:53 03:30 Sodium 135 L Potassium 4.5 Chloride 99 Carbon Dioxide 24 Anion Gap 16.5 BUN 43 H Creatinine 1.8 H GFR Calculation 37.8 L Glucose 198 H POC Glucose 342 H 246 H Calculated Osmolal ity 296 H Calcium 8.6 Vitals: Last Vital Signs Temp 98.0 F 08/27/21 08:24 Pulse 81 08/27/21 08:24 Resp 20 H 08/27/21 08:24 BP 152/67 08/27/21 08:24 Pulse Ox 97 08/27/21 08:24 Discharge Plan Discharge Patient Disposition: Home Prescriptions: Continued metformin 1,000 mg tablet 1,000 mg PO BID RF: 0 montelukast 10 mg tablet 10 mg PO DAILY RF: 0 Humalog Mix 75-25 KwikPen 100 unit/mL (75-25) insulin pen 100 unit SUBCUT DAILY RF: 0 citalopram 40 mg tablet 40 mg PO DAILY RF: 0 Toujeo SoloStar U-300 Insulin 300 unit/mL (1.5 mL) insulin pen 120 unit SUBCUT DAILY RF: 0 aspirin [Adult Low Dose Aspirin] 81 mg tablet,delayed release (DR/EC) 81 mg PO DAILY 90 Days Qty: 90 RF: 3 Brilinta 90 mg tablet 90 mg PO BID Qty: 180 RF: 3 furosemide [Lasix] 40 mg tablet 40 mg PO DAILY Qty: 90 RF: 3 valsartan 320 mg tablet 320 mg PO DAILY 90 Days Qty: 90 RF: 3 carvedilol 25 mg tablet 25 mg PO BID Qty: 180 RF: 3 isosorbide mononitrate 60 mg tablet extended release 24 hr 60 mg PO BID Qty: 180 RF: 3 amlodipine 5 mg tablet 5 mg PO DAILY Qty: 90 RF: 3 nitroglycerin [Nitrostat] 0.4 mg tablet, sublingual 0.4 mg SUBLINGUAL Q5M PRN (Reason: chest pain) Qty: 25 RF: 2 rosuvastatin 10 mg tablet 20 mg PO DAILY RF: 0 gabapentin 100 mg Tablet 100 mg PO TID RF: 0 potassium chloride 10 mEq Tablet Extended Release 20 meq PO DAILY RF: 0 Discontinued spironolactone 25 mg tablet 25 mg PO DAILY RF: 0 Discharge Orders: Discharge Order (Routine); Ordered 08/27/21 Ordered By: Juwan Gregory Referrals: Juwan Gregory MD [Physician] - ([facility] will be calling to schedule a cardiology followup with Dr. Gregory to be seen in 4 to 6 weeks. If you don't hear from them by Monday, Please give them a call. Thank you) Aishwarya Jones FNP [Nurse Practitioner] - 09/08/21 9:00 am ([facility] will be calling to schedule a post Procedure followup with JOVANNI Montaño to be seen in 1 week. If you don't hear from them by Monday morning, Please give them a call. Thank you) Discharge Diet: Diabetic Discharge Activity: Increase activity as tolerated Patient Instructions: Heart Failure (DC), Coronary Angioplasty (DC), Acute Kidney Injury (DC), Chronic Kidney Disease Diet (DC), CHF Stoplight, Post Angiogram Home Care Instructions Activity Restrictions/Additional Instructions: On Monday, please come to [facility] lab and give them blood for your kidney function test. Please check in at the admissions desk prior to going to the Lab. Thank You. Follow-up with Ms. Aishwarya Jones in 7 days. Follow-up with Dr. Gregory in 4 to 6 weeks. If you have any problem over the weekend call info print press operator and then talked with Dr. Gregory or come to ER. Discharge Attestations Time Spent in Discharge Care*: less than 30 min Specific Discharge Activities: educating patient Quality Metrics Clinical Quality Measures During this hospital stay, did patient experience: None Coding Level of Care Code Established Pt Acute Chg FW DC note Patient Type Established History Detailed Exam Detailed Medical Decision Making Moderate Complexity Diagnoses Unstable angina I20.0 Renal failure (ARF), acute on chronic N17.9; N18.32 Acute renal failure type: unspecified Chronic kidney disease stage: stage 3 (moderate) Chronic kidney disease stage 3 subtype: stage 3b (GFR 30-44) CHF (congestive heart failure) I50.22 Heart failure chronicity: chronic Heart failure type: systolic HTN (hypertension) I10 Hypertension type: essential hypertension
[2021-08-27] MEDS: FUROsemide 10 mg/mL SDV 10mL 80 MG IVP (12:09)
--- NOTE | 2021-08-27 13:26 | PC.CHAP ---
Pastoral Care Encounter/Spiritual Assessment Type of Contact [] Declined forensic manager visit [] Patient/Family/Request visit [] Outpatient visit [xx] Follow-up visit [] Physician referral [] Code/Alert [xx] Routine visit [] Staff referral [] Actively dying [] Patient sleeping [] Family support [] [] Out of room [] Palliative care [] [] Receiving care in room [] Pre-surgical visit [] Trauma [] Long length of stay [] ICU visit [] Other: Relational/Emotional Strength [xx] Patient feels connected with others/family/visitors/staff [] Distress [] Loneliness/isolation [] Abandonment Spirituality of Patient [xx] Person of Ines [] Attends Scientology of their Ines [xx] Believes in Prayer [xx] Reads Bible or Christian materials [] There are Spiritual issues to be addressed Abstract Clerk Interventions [xx] Prayer [xx] Active listening [xx] Non-anxious presence [] Spiritual/emotional support [] Crisis/trauma care [] Spiritual counseling [] Bereavement support [] Provided bereavement packet [xx] Provided Bible/devotional materials [] Provided toy/stuffed animal, coloring book to patient or family member [] Provided Communion [] Anointing/Harvey [] Salvation [xx] Completed spiritual assessment [] Other: Impact on Illness or Injury [] Angry [] Fearful [] Anxious [] Often cries [] Exhaustion [] Unable to work [] Unable to attend restorationism [xx] Unable to walk/stand [] Unable to read [] Unable to drive [] Unable to eat/drink [] Unable to sleep [] Unable to be with family [] Patient intubated [] Other: Summary Patient on oxygen mask but awake and wanting prayer and to talk some. Patient requested I ask nurse to untangle his wires, line, hoses, etc. Abstract Clerk complied and nurse responded immediately. Time spent with patient 6 minutes
== END 2021-08-27 13:30 | disposition home or self-care (01) ==
LOC: CCL 08-27 14:46 → CSU 08-27 14:46
PROVIDERS: Admitting Provider Internal Medicine Cardiovascular Disease; PCP Family Medicine; Visit Provider Internal Medicine Cardiovascular Disease
DX: I20.0 Unstable angina (principal); I12.9 Hypertensive chronic kidney disease with stage 1 through stage 4 chronic kidney disease, or unspecified chronic kidney disease; N18.32 Chronic kidney disease, stage 3b; N17.9 Acute kidney failure, unspecified; I11.0 Hypertensive heart disease with heart failure; I50.22 Chronic systolic (congestive) heart failure; E66.01 Morbid (severe) obesity due to excess calories; Z68.42 Body mass index [BMI] 45.0-49.9, adult; E78.5 Hyperlipidemia, unspecified; E11.9 Type 2 diabetes mellitus without complications; I25.2 Old myocardial infarction; Z79.82 Long term (current) use of aspirin; Z79.4 Long term (current) use of insulin; Z79.84 Long term (current) use of oral hypoglycemic drugs
CPT/HCPCS: 36415; 36416; 80048; 82962; 85025; 85347; 85730; 93005; 93454; 96372; C1725; C1760; C1769; C1874; C1887; C1894; C9600; C9601; G0378; J1644; J1650; J1815; J1940; J2250; J2405; J3010; J3490; J7030; Q9967

== ENCOUNTER 2021-08-30 14:13 | Outpatient (CLI) | payer MEDICARE, SELFPAY ==
[2021-08-30 15:21] LABS: Anion Gap 21.8 (5-19); Blood Urea Nitrogen 37 mg/dL (8-23); Calcium 8.7 mg/dL (8.5-10.5); Carbon Dioxide 18 mmol/L (22-29); Chloride 97 mmol/L (98-107); Glomerular Filtration Rate 37.8 mL/min (90-130); Glucose 137 mg/dL (65-115); Osmolality Calculated 285 mOsm/kg (285-295); Potassium 4.8 mmol/L (3.5-5.1); Sodium 132 mmol/L (136-145)
== END 2021-08-30 14:14 | disposition home or self-care (01) ==
LOC: LAB 14:30
PROVIDERS: PCP Family Medicine; Visit Provider Internal Medicine Cardiovascular Disease
DX: I25.2 Old myocardial infarction (principal); I50.22 Chronic systolic (congestive) heart failure
CPT/HCPCS: 36415; 80048

== ENCOUNTER → 2021-09-08 09:42 | Outpatient (BNVA) | payer MEDICARE, SELFPAY | PROVIDERS: PCP Family Medicine; Visit Provider Nurse Practitioner Family | DX: I25.110 Atherosclerotic heart disease of native coronary artery with unstable angina pectoris (principal) | CPT/HCPCS: 80048 ==

== ENCOUNTER → 2022-05-03 14:40 | Outpatient (BNVA) | payer MEDICARE, SELFPAY | PROVIDERS: PCP Family Medicine; Visit Provider Internal Medicine | DX: I25.110 Atherosclerotic heart disease of native coronary artery with unstable angina pectoris (principal); I13.0 Hypertensive heart and chronic kidney disease with heart failure and stage 1 through stage 4 chronic kidney disease, or unspecified chronic kidney disease; N18.32 Chronic kidney disease, stage 3b; I50.9 Heart failure, unspecified; Z87.891 Personal history of nicotine dependence; N17.9 Acute kidney failure, unspecified; E78.5 Hyperlipidemia, unspecified | CPT/HCPCS: 99213; 99214 ==

== ENCOUNTER 2022-09-26 11:26 | Inpatient (IN) | payer MEDICARE, SELFPAY ==
[2022-09-26] VITALS (51 sets, daily range): BP systolic 144–172; BP diastolic 69–86; PULSE 0–122; RESP 12–32; TEMP 36.8–37.2; O2SAT 92–98; BMI 45.2; BMI 47.7
--- NOTE | 2022-09-26 11:28 | ED_ITS ---
HPI - SOB/Dyspnea General: Chief Complaint: Shortness of Breath/Dyspnea Stated Complaint: RESP. DISTRESS Time Seen by Provider: 09/26/22 11:27 History of Present Illness: HPI Narrative: Mr. Mares is a 67-year-old gentleman with history of CAD, hypertension, h yperlipidemia, CHF, CKD, JOSE JUAN with nighttime BiPAP use presenting to the emergency department due to respiratory distress. He reports a few day history of diarrhea and abdominal symptoms however this morning approximately 1 and half hours prior to arrival he began developing respiratory distress. EMS initially found the patient to be wheezing though he improved with breathing treatment. Respiratory distress subsequently recurred and the patient is now requiring oxygen without a history of baseline oxygen. EMS identified the patient as having low 80s oxygen saturation on room air with associated respiratory distress. Intensity symptoms currently is moderate at rest but becomes severe with exertion. No other specific changes in health, exacerbating, or alleviating factors identified. Onset (ago): day(s) Timing: progressively worsening Severity: severe Exacerbating factors: exertion Relieving factors: nothing Known history of: congestive heart failure and other Review of Systems General: Reports: 10 or more systems reviewed and unremarkable except in HPI and below [facility] ED PFSH: Medical History (Updated 09/30/22 @ 00:01 by ) BMI 45.0-49.9, adult CAD (coronary artery disease) CHF (congestive heart failure) Chronic kidney disease, stage 3b CVA (cerebral vascular accident) Diabetes mellitus, type II Diabetic neuropathy History of non-ST elevation myocardial infarction (NSTEMI) HTN (hypertension) Hyperlipidemia Sleep apnea Surgical History (Updated 09/26/22 @ 19:37 by Gwendolyn Dickerson MD) S/P cervical spinal fusion S/P PTCA (percutaneous transluminal coronary angioplasty) Reports 7 stents and angioplasty x 3 Family History Other CAD (coronary artery disease) Hypertension Social History (Updated 09/26/22 @ 19:40 by Gwendolyn Dickerson MD) Smoking and tobacco status: former smoker Alcohol intake: current Physical Exam Const: COMMON NORMALS: alert GENERAL APPEARANCE: cooperative, well developed and ill appearing (Somewhat) HENMT: COMMON NORMALS: normocephalic and atraumatic HEAD & SCALP: normocephalic and atraumatic THROAT: posterior oropharynx normal Eye: COMMON NORMALS: conjunctivae normal CONJUNCTIVA: Yes conjunctivae normal SCLERA: sclerae normal Neck/C-Spine: COMMON NORMALS: supple GENERAL: Yes trachea midline Resp: EFFORT & INSPECTION: Yes tachypneic and Yes respiratory distress AUSCULTATION: diminished lung sounds Cardio: COMMON NORMALS: regular rate and regular rhythm RATE: regular rate RHYTHM: regular rhythm GI: COMMON NORMALS: Soft to palpation PALPATION: Yes Soft to palpation and No Tenderness to palpation present (GI) Extremity: GENERAL: Yes normal exam except as noted and No edema Neuro: COMMON NORMALS: moves all extremities SENSORIUM/ORIENTATION: Yes alert and No Orientation impaired Psych: COMMON NORMALS: mental status grossly normal and Normal thought process present THOUGHT PROCESS: Normal thought process present Course Vital Signs: Vital signs: Vital Signs Temperature 98.2 F 09/29/22 20:44 Pulse Rate 72 09/29/22 20:44 Respiratory Rate 18 09/29/22 20:44 Blood Pressure 134/74 09/29/22 20:44 Pulse Oximetry 92 09/29/22 20:44 Oxygen Delivery Me thod 09/29/22 16:00 Oxygen Flow Rate 2 09/29/22 08:45 Fraction of Inspir ed Oxygen 30 09/29/22 04:00 MDM - SOB/Dyspnea Medical Decision Making 67-year-old gentleman presenting with shortness of breath. Respiratory distress on initial exam with adequate mentation. RT called to bedside and BiPAP ordered. EKG demonstrates sinus rhythm with right bundle branch block, no STEMI. Labs notable for leukocytosis, normal hemoglobin. ABG on BiPAP is improved with appropriate compensation. Metabolic panel with no significant derangement to explain symptoms. 2-hour delta troponin is negative. BNP is mildly elevated. Viral PCR pending. Chest x-ray with bilateral patchy infiltrates cardiomegaly, no lobar consolidation or pneumothorax. During ED course patient given antibiotics for community-acquired pneumonia as well as RT treatments. Upon reassessment his work of breathing improved with BiPAP. Most likely etiology of patient symptoms is community-acquired pneumonia with respiratory distress requiring BiPAP for acute hypoxic respiratory failure. The results of ED evaluation were discussed with the patient including plan for admission due to requirement for level of care not available if discharged to prevent significant worsening/deterioration. Patient agreeable with plan. Discussed with hospitalist service who was agreeable to admit patient. Medical Records I reviewed the patient's medical records. Lab Data I reviewed the patient's lab results. 09/26/22 12:00 09/26/22 12:00 Labs/Radiology: Radiology Impressions Chest X-Ray 09/26/22 11:34 Impression: 1. Bilateral patchy bilateral opacities which could represent atelectasis, effusion, pneumonia or pulmonary vascular congestion. 2. Cardiomegaly and atherosclerosis. Laboratory Results WBC 15.2 10^3/uL (4.0-10.0) H 09/26/22 12:00 RBC 4.57 10^6/uL (4.1-5.3) 09/26/22 12:00 Hgb 13.5 g/dL (11.7-16.6) 09/26/22 12:00 Hct 41.6 % (42.0-52.0) L 09/26/22 12:00 MCV 91.0 fl (80-94) 09/26/22 12:00 MCH 29.5 pg (28.0-34.0) 09/26/22 12:00 MCHC 32.5 g/dL (30.0-36.0) 09/26/22 12:00 RDW 13.8 % (12.1-15.1) 09/26/22 12:00 Plt Count 306 10^3/cmm (130-400) 09/26/22 12:00 MPV 9.7 fL (7.4-10.4) 09/26/22 12:00 Neut % (Auto) 82.5 % 09/26/22 12:00 Lymph % (Auto) 8.0 % 09/26/22 12:00 Lynn % (Auto) 7.8 % 09/26/22 12:00 Eos % (Auto) 0.9 % 09/26/22 12:00 Baso % (Auto) 0.3 % 09/26/22 12:00 Neut # (Auto) 12.51 10^3/uL (1.8-7.7) H 09/26/22 12:00 Lymph # (Auto) 1.2 10^3/uL (0.8-4.8) 09/26/22 12:00 Lynn # (Auto) 1.2 10^3/uL (0.2-0.9) H 09/26/22 12:00 Eos # (Auto) 0.1 10^3/uL (0.0-0.8) 09/26/22 12:00 Baso # (Auto) 0.0 10^3/uL (0.0-0.1) 09/26/22 12:00 Nucleated RBC % (auto) 0 % 09/26/22 12:00 Nucleated RBCs # 0.0 /100WBC 09/26/22 12:00 Specimen Type Arterial 09/26/22 11:47 Sample Site Radial, left 09/26/22 11:47 ABG pH 7.37 (7.35-7.45) 09/26/22 11:47 ABG pCO2 35.6 mmHg (35-45) 09/26/22 11:47 ABG pO2 91.5 mmHg (80.0-100.0) 09/26/22 11:47 ABG HCO3 20.8 mmol/L (22-26) L 09/26/22 11:47 ABG O2 Saturation 97.8 09/26/22 11:47 ABG Base Excess -3.9 mmol/L (-2.0-2.0) L 09/26/22 11:47 Rishabh Test Pos 09/26/22 11:47 A-a O2 Gradient 19.5 mmHg (5-10) H 09/26/22 11:47 Hematocrit 40.9 % (42-52) L 09/26/22 11:47 Hgb O2 Saturation 96.1 % (95-100) 09/26/22 11:47 Carboxyhemoglobin 1.3 %THgb (0.4-20.1) 09/26/22 11:47 Methemoglobin 0.4 % (0.4-1.5) 09/26/22 11:47 Total Hemoglobin 13.3 g/dL (14-18) L 09/26/22 11:47 Sodium 138.0 mmol/L (131-143) 09/26/22 11:47 Potassium 4.2 mmol/L (3.5-5.0) 09/26/22 11:47 Glucose 124.0 mg/dL (70-115) H 09/26/22 11:47 Ionized Calcium 1.2 mmol/L (1.1-1.4) 09/26/22 11:47 O2 Delivery Device Bipap 09/26/22 11:47 FiO2 40.0 % 09/26/22 11:47 Advisor To Command In [employer] ID Cak 09/26/22 11:47 Sodium 139 mmol/L (136-145) 09/27/22 04:57 Potassium 4.1 mmol/L (3.5-5.1) 09/27/22 04:57 Chloride 103 mmol/L (98-107) 09/27/22 04:57 Carbon Dioxide 23 mmol/L (22-29) 09/27/22 04:57 Anion Gap 17.1 (5-19) 09/27/22 04:57 BUN 7 mg/dL (8-23) L 09/27/22 04:57 Creatinine 1.3 mg/dL (0.7-1.2) H 09/27/22 04:57 GFR Calculation 54.9 mL/min (90-130) L 09/27/22 04:57 Glucose 204 mg/dL (65-115) H 09/27/22 04:57 POC Glucose 314 mg/dL (70-110) H 09/27/22 11:38 Calculated Osmolality 292 mOsm/kg (285-295) 09/27/22 04:57 Lactic Acid 0.9 mmol/L (0.5-2.2) 09/26/22 11:12 Calcium 8.7 mg/dL (8.5-10.5) 09/27/22 04:57 Phosphorus 2.8 mg/dL (2.5-4.5) 09/27/22 04:57 Magnesium 2.2 mg/dL (1.7-2.3) 09/27/22 04:57 Total Bilirubin 0.5 mg/dL (0.15-1.2) 09/26/22 12:00 AST 25 U/L (0-40) 09/26/22 12:00 ALT 37 U/L (0-41) 09/26/22 12:00 Alkaline Phosphatase 57 U/L (40-130) 09/26/22 12:00 Troponin T Baseline 33 ng/L (0-15) H 09/26/22 12:00 Troponin T 120 Minute 32.59 ng/L (0-15) H 09/26/22 15:21 Delta Troponin T -0.41 ABS# (0-10) L 09/26/22 15:21 Troponin T Hi Sens 6Hr 34.48 ng/L (0-15) H 09/26/22 19:01 Troponin T Hi Sens 6Hr Delta 1.48 ng/L (0-12) 09/26/22 19:01 C-Reactive Protein 11.8 mg/L (0.0-4.9) H 09/26/22 12:00 NT-Pro-B Natriuret Pep 1753 pg/mL (0-125) H 09/26/22 12:00 Total Protein 6.6 g/dL (6.6-8.7) 09/26/22 12:00 Albumin 3.8 g/dL (3.5-5.2) 09/26/22 12:00 Globulin 2.8 g/dL (1.3-4.6) 09/26/22 12:00 Procalcitonin 0.09 ng/mL (0-0.5) 09/26/22 12:00 Nasal Influ A H1 2008 PCR Not detected (NOT DETECT) 09/26/22 11:58 Adenovirus (PCR) Not detected (NOT DETECT) 09/26/22 11:58 C. pneumoniae DNA (PCR) Not detected (NOT DETECT) 09/26/22 11:58 Coronavirus 229E (PCR) Not detected (NOT DETECT) 09/26/22 11:58 Human Metapneumovir PCR Not detected (NOT DETECT) 09/26/22 11:58 Influenza A (H1) PCR Not detected (NOT DETECT) 09/26/22 11:58 Influenza A (H3) PCR Not detected (NOT DETECT) 09/26/22 11:58 Influenza Type A (PCR) Not detected (NOT DETECT) 09/26/22 11:58 Influenza Type B (PCR) Not detected (NOT DETECT) 09/26/22 11:58 M. pneumoniae (PCR) Not detected (NOT DETECT) 09/26/22 11:58 Parainfluenza 1 (PCR) Not detected (NOT DETECT) 09/26/22 11:58 Parainfluenza 2 (PCR) Not detected (NOT DETECT) 09/26/22 11:58 Parainfluenza 3 (PCR) Not detected (NOT DETECT) 09/26/22 11:58 Parainfluenza 4 (PCR) Not detected (NOT DETECT) 09/26/22 11:58 RSV Type A (PCR) Not detected (NOT DETECT) 09/26/22 11:58 RSV Type B (PCR) Not detected (NOT DETECT) 09/26/22 11:58 Entero/Rhino (PCR) Not detected (NOT DETECT) 09/26/22 11:58 SARS-CoV-2 (PCR) Not detected (NOT DETECT) 09/26/22 11:58 Critical Care Time Critical Care Time: Critical Care Time: Yes Total Critical Care Time: 35 Attestation: Due to a high probability of clinically significant, possibly life threatening deterioration, the patient required my highest level of attention and preparedness to intervene emergently and I personally spent this critical care time directly and personally managing the patient. This critical care time included obtaining a history; examining the patient; pulse oximetry; ordering and review of laboratory and imaging studies; arranging urgent treatment with development of a management plan; evaluation of patient's response to treatment; frequent reassessment; and, discussions with other providers as applicable. It was exclusive of separately billable procedures. Primary system involved is respiratory Discharge Plan Discharge Patient Disposition: Placed in Observation Admit Provider: Gwendolyn Dickerson Clinical Impression: Pneumonia, Acute respiratory distress, Acute hypoxemic respiratory failure Discharge Diet: Cardiac Discharge Activity: Resume usual activity Coding Level of Care Code ED Button Cutting Machine Operator for Chg Fwd Exam Comprehensive
--- NOTE | 2022-09-26 11:34 | XR_ITS ---
WS: [id number] Portable AP upright chest, 09/26/2022 Clinical Data: Respiratory distress Comparison: Portable chest, 03/18/2018. Findings: There are bilateral patchy bilateral opacities which may represent atelectasis, effusion, p neumonia or pulmonary vascular congestion. The heart is enlarged. No pneumothorax is seen. The aortic arch and descending thoracic aorta show calcification and tortuosity. There are monitor leads on the chest wall. XR/XR chest 1V portable [id number] Impression: 1. Bilateral patchy bilateral opacities which could represent atelectasis, effu kishan, pneumonia or pulmonary vascular congestion. 2. Cardiomegaly and atherosclerosis.
--- NOTE | 2022-09-26 11:35 | ECG_ITS ---
[facility] Test Date: 2022-09-26 Pat Name: Garrett Mares Department: Room: Gender: Male Customer Success Representative: : 1955 Requested By: Luis Carrington Order Number: [id number] Rosita MD: Ryan Sheffield M.D. Measurements Intervals [place] Rate: 89 P: -70 [place]: 196 QRS: -61 QRSD: 138 T: 31 QT: 387 QTc: 472 Interpretive Statements SINUS RHYTHM LEFT AXIS DEVIATION [QRS AXIS < -30] RIGHT BUNDLE BRANCH BLOCK [120+ ms QRS DURATION, UPRIGHT V1, 40+ ms S IN I/aVL/V4/V5/V6] POSSIBLE ANTERIOR MYOCARDIAL INFARCTION , PROBABLY OLD [30 ms Q WAVE IN V3/V4, OR R < 0.2 mV IN V4] INTERPRETATION BASED ON A DEFAULT AGE OF 40 YEARS Compared to ECG 08/25/2021 21:17:22 Left-axis deviation now present First degree AV block no longer present Left anterior fascicular block no longer present Myocardial infarct finding still present Electronically Signed On 09-26-2022 15:00:14 RECYCLING TECHNICIAN by Ryan Sheffield M.D. [id number]
[2022-09-26] MEDS: ipratropium-albuterol 3 mL Neb INHALATION (11:48)
[2022-09-26 11:58] LABS: ABG PCO2 35.6 mmHg (35-45); ABG PH Result 7.37 (7.35-7.45); Alveolar-Arterial Oxygen Gradi 19.5 mmHg (5-10); Arterial Blood Gas Hematocrit 40.9 % (42-52); Base Excess ABG -3.9 mmol/L (-2.0-2.0); Blood Gas Allen Test Pos; Blood Gas Operator Identificat CAK; Blood Gas Sample Site Radial, left; Blood Gas Sample Type Arterial; Carboxyhemoglobin 1.3 %THgb (0.4-20.1); HCO3 ABG 20.8 mmol/L (22-26); HGB O2 Sat 96.1 % (95-100); Ionized Calcium Level - ABG 1.2 mmol/L (1.1-1.4); Methemoglobin 0.4 % (0.4-1.5); Oxygen Device BIPAP; Oxygen Saturation ABG 97.8; PO2 ABG 91.5 mmHg (80.0-100.0); Potassium Level - ABG 4.2 mmol/L (3.5-5.0); Total Hemoglobin 13.3 g/dL (14-18)
[2022-09-26 12:16] LABS: Basophils % 0.3 %; Eosinophils # 0.1 10^3/uL (0.0-0.8); Eosinophils % 0.9 %; Hematocrit 41.6 % (42.0-52.0); Hemoglobin 13.5 g/dL (11.7-16.6); Lymphocytes # 1.2 10^3/uL (0.8-4.8); Mean Corpuscular HGB Conc 32.5 g/dL (30.0-36.0); Mean Corpuscular Hemoglobin 29.5 pg (28.0-34.0); Mean Platelet Volume 9.7 fL (7.4-10.4); Monocytes # 1.2 10^3/uL (0.2-0.9); Monocytes % 7.8 %; Neutrophils # 12.51 10^3/uL (1.8-7.7); Neutrophils % 82.5 %; Nucleated Red Blood Cells % 0 %; Platelet Count 306 10^3/cmm (130-400); Red Blood Count 4.57 10^6/uL (4.1-5.3); Red Cell Distribution Width 13.8 % (12.1-15.1); White Blood Count 15.2 10^3/uL (4.0-10.0)
[2022-09-26 12:35] LABS: Troponin(5th) Baseline 33 ng/L (0-15)
[2022-09-26 12:43] LABS: NT Pro B Type Natriuretic Pept 1753 pg/mL (0-125); Procalcitonin 0.09 ng/mL (0-0.5)
[2022-09-26 12:54] LABS: Alanine Aminotransferase 37 U/L (0-41); Albumin Level 3.8 g/dL (3.5-5.2); Alkaline Phosphatase 57 U/L (40-130); Blood Urea Nitrogen 25 mg/dL (8-23); C Reactive Protein 11.8 mg/L (0.0-4.9); Calcium 8.6 mg/dL (8.5-10.5); Carbon Dioxide 23 mmol/L (22-29); Chloride 104 mmol/L (98-107); Globulin 2.8 g/dL (1.3-4.6); Glomerular Filtration Rate 60.2 mL/min (90-130); Glucose 125 mg/dL (65-115); Osmolality Calculated 286 mOsm/kg (285-295); Sodium 135 mmol/L (136-145); Total Bilirubin 0.5 mg/dL (0.15-1.2); Total Protein 6.6 g/dL (6.6-8.7)
[2022-09-26 12:59] LABS: Anion Gap 12.9 (5-19); Aspartate Amino Transferase 25 U/L (0-40); Potassium 4.9 mmol/L (3.5-5.1)
[2022-09-26] MEDS: cefTRIAXone 1,000 MG in sodium chloride 0.9% (plus) 50 ML 100 MG IV (13:15)
[2022-09-26 13:48] LABS: Lactic Sepsis W/Reflex 0.9 mmol/L (0.5-2.2)
[2022-09-26 13:54] LABS: Adenovirus Not Detected (NOT DETECT); Chlamydia Pneumoniae Not Detected (NOT DETECT); Coronavirus 229E,HKU1,NL63,OC4 Not Detected (NOT DETECT); Human Metapneumovirus Not Detected (NOT DETECT); Human Rhinovirus/Enterovirus Not Detected (NOT DETECT); Influenza A Not Detected (NOT DETECT); Influenza A H1 Not Detected (NOT DETECT); Influenza A H1-2009 Not Detected (NOT DETECT); Influenza A H3 Not Detected (NOT DETECT); Influenza B Not Detected (NOT DETECT); Mycoplasma Pneumoniae Not Detected (NOT DETECT); Parainfluenza Virus Type 1 Not Detected (NOT DETECT); Parainfluenza Virus Type 2 Not Detected (NOT DETECT); Parainfluenza Virus Type 3 Not Detected (NOT DETECT); Parainfluenza Virus Type 4 Not Detected (NOT DETECT); Respiratory Syncytial Virus A Not Detected (NOT DETECT); Respiratory Syncytial Virus B Not Detected (NOT DETECT); SARS-COV-2 Not Detected (NOT DETECT)
--- NOTE | 2022-09-26 14:06 | PC.PHAR ---
pt states he takes care of his own medications-rx filled 12/23/21 90d/s for amlodipine 5mg daily pt states still taking-rx filled 07/26/22 90d/s for celexa 40mg daily-pts daughter states the pt has been taking celexa 40mg po up to three times a day states she fixed the pts pill convention planner back to just one tab once a day- rx filled 09/19/22 90d/s plavix 75mg daily pt not started taking-rx filled 08/22/22 30d/s brilinta 90mg bid pt states medication was too expensive states med is being changed to plavix states not started taking plavix-rx filled 03/23/22 90d/s for kcl 20meq daily pt states taking 10meq daily-rx written 05/03/22 5meq [address] [facility] states never got that rx-rx filled 09/22/22 90d/s for gabapentin 100mg tid pt states he just takes 100mg bid-notes are made in the pharmacy comments
[2022-09-26] MEDS: doxycycline 100 MG in sodium chloride 0.9% (plus) 100 ML IV (14:24)
--- NOTE | 2022-09-26 14:51 | ECG_ITS ---
[facility] Test Date: 2022-09-26 Pat Name: Garrett Mares Department: Room: Gender: Male Cardiovascular Surgical Tech: : 1955 Requested By: Luis Carrington Order Number: [id number] Rosita MD: Ryan Sheffield M.D. Measurements Intervals [place] Rate: 75 P: 0 [place]: 0 QRS: -66 QRSD: 130 T: 23 QT: 401 QTc: 449 Interpretive Statements Sinus rhythm RIGHT BUNDLE BRANCH BLOCK [120+ ms QRS DURATION, UPRIGHT V1, 40+ ms S IN I/aVL/V4/V5/V6] POSSIBLE ANTERIOR MYOCARDIAL INFARCTION , PROBABLY OLD [30 ms Q WAVE IN V3/V4, OR R < 0.2 mV IN V4] Possible INFERIOR MYOCARDIAL INFARCTION , PROBABLY OLD [40+ ms Q WAVE AND/OR ST/T ABNORMALITY IN II/aVF] Compared to ECG 09/26/2022 11:38:32 Sinus rhythm no longer present Left-axis deviation no longer present Myocardial infarct finding still present Electronically Signed On 09-26-2022 15:03:40 SUPPORT TEAM ASSOC by Ryan Sheffield M.D. [id number]
[2022-09-26 15:42] LABS: Troponin 5 2HR 32.59 ng/L (0-15); Troponin 5 2HR Delta -0.41 ABS# (0-10)
--- NOTE | 2022-09-26 16:40 | PM.HP ---
Providers/Chief Complaint Admitting Physician: Gwendolyn Dickerson MD Primary Care Provider: Kyle Corrigan MD Chief Complaint: RESP. DISTRESS History of Present Illness Garrett Mares is a 67 year old male who presented to the emergency room with chief complaint of difficulty breathing. Patient has for the most part been in his usual state of health recently. For about 3 days he has been having nausea, loose stools several times a day and one episode of vomiting. No report of any fever. Not been complaining much of respiratory symptoms. He may have been a little bit more short of breath yesterday. He slept okay last night. He woke up this morning and started going about his usual activities of the day and noted that he was very short of breath. This initially slowly worsened and then acutely worsened to the point that he was not able to breathe not only with exertion but also at rest. Upright positioning same to be best for him. EMS was called. Oxygen saturations were in the 80s. Oxygen therapy was given and initially patient seemed better but he continued to be hypoxic. He was placed on BiPAP and brought in. He continued to be significantly short of breath. Work-up in the emergency room showed bilateral opacities with a broad differential. He received antibiotics for coverage for pneumonia as well as breathing treatment. White count was noted to be 15,000 with left shift. No known sick contacts. In talking with him because he had been having stomach problems, he had some canned chicken noodle soup yesterday. He does not normally eat that kind of soup and noted that it was very salty tasting. He admits to some weight gain recently. He has had some swelling. He thought he might be fluid overloaded. He denies any episodes of chest pain. He has a known history of coronary artery disease with multiple stents. Last intervention was in August 2021. He has known sleep apnea and reports compliance with his CPAP therapy. Hospitalist were contacted for admission for further treatment and evaluation as indicated. Review of Systems Const: Reports: change in appetite, change in weight (gain), fatigue and malaise; Denies: fever(s) or chills Eyes: Denies: change in vision ENMT: Denies: throat pain or nasal congestion Card: Reports: edema, dyspnea on exertion and orthopnea; Denies: chest pain or syncope Resp: Reports: dyspnea; Denies: productive cough, pain on inspiration, hemoptysis or chest congestion GI: Reports: nausea, vomiting (once) and diarrhea (several times per day for 3 days); Denies: abdominal pain, constipation or hematochezia : Reports: difficulty urinating, difficulty starting urination, change in urine stream, nocturia and other (850 ml urinary retention post void documented on floor) Musc: Reports: neck pain (chronic) and muscle weakness (today when unable to breathe) Skin/Breast: Reports: sores; Denies: rash Neuro: Reports: numbness in extremities and weakness in extremities (general more than focal today primarily ); Denies: headache(s) or frequent falls Psych: Reports: anxiety (when could not breathe) Jatinder/Lymph: Denies: easy bruising or easy bleeding Medications/Allergies Home Medications Medication Instructions Recorded Confirmed Last Taken Type montelukast 10 mg tablet 10 mg PO BEDTIME 11/29/19 09/26/22 09/25/22 History citalopram 40 mg tablet 40 mg PO QPM 08/18/20 09/26/22 09/25/22 History see pharmacy comment carvedilol 25 mg tablet 25 mg PO BID #180 tabs 11/08/21 09/26/22 09/25/22 Rx isosorbide mononitrate 60 mg 60 mg PO BID #180 tabs 11/08/21 09/26/22 09/25/22 Rx tablet,extended release 24 hr amlodipine 5 mg tablet 5 mg PO DAILY #90 tabs 12/31/21 09/26/22 09/25/22 Rx rx filled 12/23/21 90 clopidogrel 75 mg tablet (Plavix) 75 mg PO DAILY #90 tabs 09/19/22 09/26/22 Unknown Rx aspirin 81 mg tablet,delayed 81 mg PO QAM 09/26/22 09/26/22 09/25/22 History release (Adult Low Dose Aspirin) furosemide 40 mg tablet 40 mg PO QAM 09/26/22 09/26/22 09/25/22 History gabapentin 100 mg capsule 100 mg PO BID 09/26/22 09/26/22 09/25/22 History insulin degludec 200 unit/mL (3 120 unit SUBCUT QAM 09/26/22 09/26/22 09/25/22 History mL) subcutaneous pen (Tresiba FlexTouch U-200 insulin) insulin lispro-aabc 200 unit/mL (3 See Rx Instructions .Route .COMPLEX 09/26/22 09/26/22 09/25/22 History mL) subcutaneous pen (Lyumjev KwikPen U-200 Insulin) nitroglycerin 0.4 mg sublingual 0.4 mg sublingual Q5M PRN Chest 09/26/22 09/26/22 09/25/22 History tablet (Nitrostat) Pain potassium chloride 20 mEq 10 meq PO QAM 09/26/22 09/26/22 09/25/22 History tablet,extended release rosuvastatin 20 mg tablet 20 mg PO BEDTIME 09/26/22 09/26/22 09/25/22 History ticagrelor 90 mg tablet (Brilinta) 90 mg PO BID 09/26/22 09/26/22 09/25/22 History see pharmacy commet valsartan 320 mg tablet 320 mg PO QAM 09/26/22 09/26/22 09/25/22 History Allergies Allergy/AdvReac Type Severity Reaction Status Date / Time sulfabenzamide Allergy Unknown Unknown Verified 05/03/22 14:53 Additional Medication Information HAS STOPPED taking Brilinta and now taking Plavix as per instruction from Dr Barrios per patient PFSH Acute PFSH: Medical History (Updated 09/26/22 @ 20:03 by Gwendolyn Dickerson MD) BMI 45.0-49.9, adult CAD (coronary artery disease) CHF (congestive heart failure) Chronic kidney disease, stage 3b CVA (cerebral vascular accident) Diabetes mellitus, type II Diabetic neuropathy History of non-ST elevation myocardial infarction (NSTEMI) HTN (hypertension) Hyperlipidemia Sleep apnea Surgical History (Updated 09/26/22 @ 19:37 by Gwendolyn Dickerson MD) S/P cervical spinal fusion S/P PTCA (percutaneous transluminal coronary angioplasty) Reports 7 stents and angioplasty x 3 Family History Other CAD (coronary artery disease) Hypertension Social History (Updated 09/26/22 @ 19:40 by Gwendolyn Dickerson MD) Smoking and tobacco status: former smoker Alcohol intake: current Substance/Drug Use: never Vitals/I&O/Wt Last Vital Signs Temp 98.2 F 09/26/22 11:35 Pulse 78 09/26/22 16:10 Resp 19 H 09/26/22 15:05 BP 144/74 09/26/22 15:00 Pulse Ox 96 09/26/22 16:10 O2 Del Method 09/26/22 11:45 O2 Flow Rate 6 09/26/22 11:35 FiO2 30 09/26/22 16:10 09/26/22 09/26/22 09/26/22 06:59 14:59 22:59 Intake Total 50 / 50 Balance 50 / 50 Weight last 48 hrs Weight 131.088 kg Data 09/26/22 12:00 09/26/22 12:00 Other Labs: Radiology Impressions Chest X-Ray 09/26/22 11:34 Impression: 1. Bilateral patchy bilateral opacities which could represent atelectasis, effusion, pneumonia or pulmonary vascular congestion. 2. Cardiomegaly and atherosclerosis. Laboratory Results WBC 15.2 10^3/uL (4.0-10.0) H 09/26/22 12:00 RBC 4.57 10^6/uL (4.1-5.3) 09/26/22 12:00 Hgb 13.5 g/dL (11.7-16.6) 09/26/22 12:00 Hct 41.6 % (42.0-52.0) L 09/26/22 12:00 MCV 91.0 fl (80-94) 09/26/22 12:00 MCH 29.5 pg (28.0-34.0) 09/26/22 12:00 MCHC 32.5 g/dL (30.0-36.0) 09/26/22 12:00 RDW 13.8 % (12.1-15.1) 09/26/22 12:00 Plt Count 306 10^3/cmm (130-400) 09/26/22 12:00 MPV 9.7 fL (7.4-10.4) 09/26/22 12:00 Neut % (Auto) 82.5 % 09/26/22 12:00 Lymph % (Auto) 8.0 % 09/26/22 12:00 [place] % (Auto) 7.8 % 09/26/22 12:00 Eos % (Auto) 0.9 % 09/26/22 12:00 Baso % (Auto) 0.3 % 09/26/22 12:00 Neut # (Auto) 12.51 10^3/uL (1.8-7.7) H 09/26/22 12:00 Lymph # (Auto) 1.2 10^3/uL (0.8-4.8) 09/26/22 12:00 [place] # (Auto) 1.2 10^3/uL (0.2-0.9) H 09/26/22 12:00 Eos # (Auto) 0.1 10^3/uL (0.0-0.8) 09/26/22 12:00 Baso # (Auto) 0.0 10^3/uL (0.0-0.1) 09/26/22 12:00 Nucleated RBC % (auto) 0 % 09/26/22 12:00 Nucleated RBCs # 0.0 /100WBC 09/26/22 12:00 Specimen Type Arterial 09/26/22 11:47 Sample Site Radial, left 09/26/22 11:47 ABG pH 7.37 (7.35-7.45) 09/26/22 11:47 ABG pCO2 35.6 mmHg (35-45) 09/26/22 11:47 ABG pO2 91.5 mmHg (80.0-100.0) 09/26/22 11:47 ABG HCO3 20.8 mmol/L (22-26) L 09/26/22 11:47 ABG O2 Saturation 97.8 09/26/22 11:47 ABG Base Excess -3.9 mmol/L (-2.0-2.0) L 09/26/22 11:47 Rishabh Test Pos 09/26/22 11:47 A-a O2 Gradient 19.5 mmHg (5-10) H 09/26/22 11:47 Hematocrit 40.9 % (42-52) L 09/26/22 11:47 Hgb O2 Saturation 96.1 % (95-100) 09/26/22 11:47 Carboxyhemoglobin 1.3 %THgb (0.4-20.1) 09/26/22 11:47 Methemoglobin 0.4 % (0.4-1.5) 09/26/22 11:47 Total Hemoglobin 13.3 g/dL (14-18) L 09/26/22 11:47 Sodium 138.0 mmol/L (131-143) 09/26/22 11:47 Potassium 4.2 mmol/L (3.5-5.0) 09/26/22 11:47 Glucose 124.0 mg/dL (70-115) H 09/26/22 11:47 Ionized Calcium 1.2 mmol/L (1.1-1.4) 09/26/22 11:47 O2 Delivery Device Bipap 09/26/22 11:47 FiO2 40.0 % 09/26/22 11:47 Boring Mill Operator For Metal ID Cak 09/26/22 11:47 Sodium 135 mmol/L (136-145) L 09/26/22 12:00 Potassium 4.9 mmol/L (3.5-5.1) 09/26/22 12:00 Chloride 104 mmol/L (98-107) 09/26/22 12:00 Carbon Dioxide 23 mmol/L (22-29) 09/26/22 12:00 Anion Gap 12.9 (5-19) 09/26/22 12:00 BUN 25 mg/dL (8-23) H 09/26/22 12:00 Creatinine 1.2 mg/dL (0.7-1.2) 09/26/22 12:00 GFR Calculation 60.2 mL/min (90-130) L 09/26/22 12:00 Glucose 125 mg/dL (65-115) H 09/26/22 12:00 Calculated Osmolality 286 mOsm/kg (285-295) 09/26/22 12:00 Lactic Acid 0.9 mmol/L (0.5-2.2) 09/26/22 11:12 Calcium 8.6 mg/dL (8.5-10.5) 09/26/22 12:00 Total Bilirubin 0.5 mg/dL (0.15-1.2) 09/26/22 12:00 AST 25 U/L (0-40) 09/26/22 12:00 ALT 37 U/L (0-41) 09/26/22 12:00 Alkaline Phosphatase 57 U/L (40-130) 09/26/22 12:00 Troponin T Baseline 33 ng/L (0-15) H 09/26/22 12:00 Troponin T 120 Minute 32.59 ng/L (0-15) H 09/26/22 15:21 Delta Troponin T -0.41 ABS# (0-10) L 09/26/22 15:21 C-Reactive Protein 11.8 mg/L (0.0-4.9) H 09/26/22 12:00 NT-Pro-B Natriuret Pep 1753 pg/mL (0-125) H 09/26/22 12:00 Total Protein 6.6 g/dL (6.6-8.7) 09/26/22 12:00 Albumin 3.8 g/dL (3.5-5.2) 09/26/22 12:00 Globulin 2.8 g/dL (1.3-4.6) 09/26/22 12:00 Procalcitonin 0.09 ng/mL (0-0.5) 09/26/22 12:00 Nasal Influ A H1 2008 PCR Not detected (NOT DETECT) 09/26/22 11:58 Adenovirus (PCR) Not detected (NOT DETECT) 09/26/22 11:58 C. pneumoniae DNA (PCR) Not detected (NOT DETECT) 09/26/22 11:58 Coronavirus 229E (PCR) Not detected (NOT DETECT) 09/26/22 11:58 Human Metapneumovir PCR Not detected (NOT DETECT) 09/26/22 11:58 Influenza A (H1) PCR Not detected (NOT DETECT) 09/26/22 11:58 Influenza A (H3) PCR Not detected (NOT DETECT) 09/26/22 11:58 Influenza Type A (PCR) Not detected (NOT DETECT) 09/26/22 11:58 Influenza Type B (PCR) Not detected (NOT DETECT) 09/26/22 11:58 M. pneumoniae (PCR) Not detected (NOT DETECT) 09/26/22 11:58 Parainfluenza 1 (PCR) Not detected (NOT DETECT) 09/26/22 11:58 Parainfluenza 2 (PCR) Not detected (NOT DETECT) 09/26/22 11:58 Parainfluenza 3 (PCR) Not detected (NOT DETECT) 09/26/22 11:58 Parainfluenza 4 (PCR) Not detected (NOT DETECT) 09/26/22 11:58 RSV Type A (PCR) Not detected (NOT DETECT) 09/26/22 11:58 RSV Type B (PCR) Not detected (NOT DETECT) 09/26/22 11:58 Entero/Rhino (PCR) Not detected (NOT DETECT) 09/26/22 11:58 SARS-CoV-2 (PCR) Not detected (NOT DETECT) 09/26/22 11:58 Micro: Microbiology 09/26/22 11:34 Blood Culture - Preliminary Blood SPECIMEN COLLECTED 09/26/22 11:22 Blood Culture - Preliminary Blood SPECIMEN COLLECTED A&P Assessment and plan (1) Acute respiratory distress: With hypoxemia requiring oxygen and bipap therapy. Not usually on oxygen, though uses cpap at night at home. Reports seeming fine couple days ago and not too bad yesterday given the GI symptoms he has been experiencing, but acutely worse this am after getting up and trying to attend to usual ADLs. Differential includes infection, pulmonary edema, ischemia, emboli among others. Currently CHF seems more likely based on available information. 2-hour delta without significant change. (2) CHF (congestive heart failure): Acute on chronic systolic CHF. Clinically appears to be cause of acute respiratory issues, especially consider the increased salt intake described, progressive shortness of breath with sudden worsening, edema, imaging, laboratory work up and considering past history. Qualifiers: Heart failure type: systolic Heart failure chronicity: acute on chronic Qualified Code(s): I50.23 - Acute on chronic systolic (congestive) heart failure (3) Pneumonia: Diagnosis per ED. Certainly within differential but seem less likely at this point with more information. Unremarkable procalcitonin. Negative viral panel. Has elevated wbc at presentation and CRP 11.8, but that could be from stress of respiratory distress described. No recent fever. Has had one episode of vomiting and other GI symptoms. Received Rocephin and doxycycline in ED. Blood cultures pending. (4) Urinary retention: Bladder volume at bladder scanning >800 ml after urinating 450 ml. Been a developing issue for him. Not had identified previously. (5) Gastroenteritis: Recent nausea, one episode of vomitng and diarhea for several days. May be viral in nature or related to fluid overload, medications,other comorbidities. (6) Chronic kidney disease, stage 3b: With baseline creatinine around 1.6 per review of old records so suspect he is a fluid overloaded currently. (7) CAD (coronary artery disease): With multiple stents and history of angioplasty. Follows with Dr Barrios outpatient. Rcently changed from Brilinta and aspirin to Plavix and aspirin. On carvedilol and isosobide. Denies chest pain but respiratory symptoms today came on suddenly. Last cardiac catheterization was in August 2021 via femoral approach. At that time patient had angioplasty with stenting of the proximal right coronary artery and proximal circumflex. Qualifiers: Coronary Disease-Associated Artery/Lesion type: [place] artery [place] vs. transplanted heart: [place] heart Associated angina: with unstable angina Qualified Code(s): I25.110 - Atherosclerotic heart disease of [place] coronary artery with unstable angina pectoris (8) HTN (hypertension): Currently controlled. Chronically on amlodipine, coreg, lasix, isosorbide, and valsartan at home. Qualifiers: Hypertension type: essential hypertension Qualified Code(s): I10 - Essential (primary) hypertension (9) Diabetes mellitus, type II: With neuropathy. On high dose insulin therapy at home with 120 units of Tresiba (U200 insulin) daily and 40 unit plus sliding scale (max 150 units) shorter acting insulin. (10) Hyperlipidemia: Chronically on crestor Qualifiers: Hyperlipidemia type: other hyperlipidemia Qualified Code(s): E78.49 - Other hyperlipidemia (11) Sleep apnea: On home cpap. Sleep study from September 2020 did demonstrate nocturnal hypoxemia and an optimal CPAP pressure setting at 14 cm, with auto titrating range of 12-16 recommended. (12) BMI 45.0-49.9, adult: With recent weight gain reported. Obesity hypoventilation may be a contributing factor. Plan Observation admission for now Continue oxygen and BiPAP, weaning as able IV Lasix with close monitoring of urine output Increase usual potassium replacement Monitor renal function Daniel catheter secondary to urinary retention Start Flomax Watch for recurrent GI symptoms that would necessitate further evaluation Continue doxycycline presently Follow-up pending blood cultures EKG as needed recurrent acute symptoms or chest pain Continue serial cardiac enzymes Limited echocardiogram to assess current EF - last was 51% in 2017 Continue home aspirin and Plavix, patient reports he was recently taken off of Brilinta Continue home statin therapy Continue home isosorbide at usual dosing Continue home carvedilol Continue home ARB Holding home amlodipine Monitor blood pressures for need to adjust therapy Lower dose of long and short acting insulin than usual, monitoring blood sugars closely Will need CPAP at night for treatment of usual obstructive sleep apnea once able to come off of continuous BiPAP Other home medications as ordered Supportive care otherwise Findings, concerns and plans were discussed with patient and he was given an opportunity to ask questions Upon discharge anticipate follow-up with primary care provider and possibly cardiology depending on overall clinical course. He may end up going home with transient Daniel catheter and need an outpatient trial of voiding after Flomax has had some time to begin working. He may also require oxygen therapy. He was noted to have nocturnal hypoxemia 2 years ago and with changes in weight may have progressed to the point that he needs supplemental oxygen at night and/or with exertion. Full code Attestations Medical Necessity Statement*: Currently anticipate stay less than 2 midnights in a patient with known coronary artery disease and history of CHF with acute respiratory distress as described. Clinically appears to be secondary to acute on chronic CHF. Plans are as noted above. Coding Level of Care Code Acute Director Of District Office for Luna Booth Diagnoses Acute respiratory distress R06.03 CHF (congestive heart failure) I50.23 Heart failure type: systolic Heart failure chronicity: acute on chronic Pneumonia J18.9 Urinary retention R33.9 Gastroenteritis K52.9 Chronic kidney disease, stage 3b N18.32 CAD (coronary artery disease) I25.110 Coronary Disease-Associated Artery/Lesion type: [place] artery [place] vs. transplanted heart: [place] heart Associated angina: with unstable angina HTN (hypertension) I10 Hypertension type: essential hypertension Diabetes mellitus, type II E11.9 Hyperlipidemia E78.49 Hyperlipidemia type: other hyperlipidemia Sleep apnea G47.30 BMI 45.0-49.9, adult Z68.42
--- NOTE | 2022-09-26 17:40 | ECG_ITS ---
[facility] Test Date: 2022-09-26 Pat Name: Garrett Mares Department: Room: 275 Gender: Male Matchbook Maker: : 1955 Requested By: Luis Carrington Order Number: [id number] Rosita MD: Sarahi Rasmussen M.D. Measurements Intervals [place] Rate: 90 P: 82 WV: 222 QRS: -80 QRSD: 132 T: 43 QT: 336 QTc: 412 Interpretive Statements SINUS RHYTHM WITH FIRST DEGREE AV BLOCK RIGHT BUNDLE BRANCH BLOCK [120+ ms QRS DURATION, UPRIGHT V1, 40+ ms S IN I/aVL/V4/V5/V6] POSSIBLE ANTERIOR MYOCARDIAL INFARCTION , PROBABLY OLD [30 ms Q WAVE IN V3/V4, OR R < 0.2 mV IN V4] INFERIOR MYOCARDIAL INFARCTION , PROBABLY OLD [40+ ms Q WAVE AND/OR ST/T ABNORMALITY IN II/aVF] Compared to ECG 09/26/2022 14:51:55 First degree AV block now present Myocardial infarct finding still present Electronically Signed On 09-28-2022 0:09:26 ADJUNCT WRITING INSTRUCTOR by Sarahi Rasmussen M.D. [id number]
[2022-09-26 17:48] LABS: Glucose Point of Care 84 mg/dL (70-110)
[2022-09-26 20:26] LABS: Troponin 5 6HR 34.48 ng/L (0-15)
[2022-09-26 20:40] LABS: Troponin 5 6HR Delta 1.48 ng/L (0-12)
[2022-09-26] MEDS: tamsulosin 0.4 mg Capsule PO (20:54)
[2022-09-26] MEDS: atorvastatin 40 mg Tablet PO (20:54)
[2022-09-26] MEDS: FUROsemide 10 mg/mL SDV 4mL 40 MG IVP (20:54)
[2022-09-26] MEDS: citalopram 20 mg Tablet 40 MG PO (20:54)
[2022-09-26] MEDS: enoxaparin 40 mg/0.4 mL Syringe SUBCUT (20:54)
[2022-09-26] MEDS: carvedilol 25 mg Tablet PO (20:54)
[2022-09-26] MEDS: isosorbide mononitrate ER 60 mg Tablet PO (20:54)
[2022-09-26] MEDS: montelukast sodium 10 mg Tablet PO (20:54)
[2022-09-26 20:58] LABS: Glucose Point of Care 89 mg/dL (70-110)
[2022-09-27] VITALS (11 sets, daily range): BP systolic 131–150; BP diastolic 69–79; PULSE 62–88; RESP 16–29; TEMP 36.6–37.9; O2SAT 94–98
--- NOTE | 2022-09-27 05:15 | PC.NURSE ---
Patient stated that his blood sugar isn't being checked as frequently as he desired and that nursing staff/doctor weren't staying on top of it. Patient demonstrated to nurse that he has a Andres 2 sensor on his arm, which he uses to check his blood sugar often. Patient also stated that he wasn't being given important snacks for diabetics, such as peanut butter crackers. Patient was given peanut butter crackers and nurse informed patient that his desires on treatment and blood sugar checks would be relayed. Patient had no further needs or questions at this time.
[2022-09-27 05:37] LABS: Anion Gap 17.1 (5-19); Blood Urea Nitrogen 7 mg/dL (8-23); Calcium 8.7 mg/dL (8.5-10.5); Carbon Dioxide 23 mmol/L (22-29); Chloride 103 mmol/L (98-107); Glomerular Filtration Rate 54.9 mL/min (90-130); Glucose 204 mg/dL (65-115); Magnesium 2.2 mg/dL (1.7-2.3); Osmolality Calculated 292 mOsm/kg (285-295); Phosphorus 2.8 mg/dL (2.5-4.5); Potassium 4.1 mmol/L (3.5-5.1); Sodium 139 mmol/L (136-145)
[2022-09-27] MEDS: aspirin 81 mg EC Tablet PO (06:31)
[2022-09-27] MEDS: FUROsemide 10 mg/mL SDV 4mL 40 MG IVP ×2 (06:31→20:16)
[2022-09-27 06:39] LABS: Glucose Point of Care 204 mg/dL (70-110)
--- NOTE | 2022-09-27 08:17 | USCV_ITS ---
Garrett Mares Age: 67 Gender: M : 1955 Exam Date: 09/27/2022 08:35 Ordering Phys: Maurizio Alves MD Technologist: Marino Aguirre Exam Location: [facility] [place] Indication: cardiomyopathty ? ef BP: 134 / 74 HR: 72 Rhythm: Sinus Technical Quality: Adequate MEASUREMENTS (Male / Female) Normal Values 2D ECHO LV Diastolic Diameter PLAX 5.6 cm 4.2 - 5.9 / 3.9 - 5.3 cm LV Systolic Diameter PLAX 3.7 cm IVS Diastolic Thickness 1.1 cm 0.6 - 1.0 / 0.6 - 0.9 cm IVS Systolic Thickness 1.5 cm LVPW Diastolic Thickness 1.4 cm 0.6 - 1.0 / 0.6 - 0.9 cm LVPW Systolic Thickness 1.5 cm LVOT Diameter 2.1 cm LV Ejection Fraction 2D Teich 63.7 % LV Ejection Fraction MOD 2C 68.9 % LV Ejection Fraction 2C AL 69.6 % LA Diameter 4.4 cm M-MODE Aortic Annulus Diameter 3.2 cm LA Ao Ratio MM 1.5 MV E Point Septal Separation 1.1 cm DOPPLER AV Peak Velocity 101.0 cm/s LVOT Peak Velocity 104.0 cm/s AV Area Cont Eq vti 3.6 cm squared AV Area Cont Eq pk 3.5 cm squared MV Area PHT 5.4 cm squared Mitral E to A Ratio 4.7 MV E' Velocity 89.5 cm/s Mitral E to MV E' Ratio 21.9 Mitral E to LV E' Lateral Ratio 20.4 Mitral E to LV E' Septal Ratio 24.1 TR Peak Velocity 97.0 cm/s TR Peak Gradient 3.8 mmHg TV Peak E Velocity 68.0 cm/s Right Atrial Pressure 3.0 mmHg Pulmonary Artery Systolic Pressu 6.8 mmHg FINDINGS Left Ventricle Normal left ventricular size borderline low ejection fraction of 50%( visual). Mild diffuse hypokinesia of the LV apex. Right Ventricle Possibly of normal size Right Atrium Could not be visualized Left Atrium Mildly increased left atrial size. Mitral Valve Thickened mitral valve. Aortic Valve Minimally thickened aortic valve Tricuspid Valve Could not be visualized well Pulmonic Valve Could not be visualized well Pericardium No pericardial effusion. Aorta Normal aortic annulus size. IVC Inferior vena cava not visualized. CONCLUSIONS Normal left ventricular size borderline low ejection fraction of 50%( visual). Mild diffuse hypokinesia of the LV apex. Mildly increased left atrial size. Minimally thickened aortic and mitral valves There is no pericardial effusion. Echo contrast was used for endocardial delineation and LV ejection fraction estimation. Comparison with the previous study is difficult because of the difference in the technical quality. Dr Sarahi Rasmussen MD [facility] (Electronically Signed) Final Date: 27 September 2022 13:54 S
[2022-09-27] MEDS: insulin lispro 100 unit/1 mL SUBCUT ×4 (09:08→22:11)
[2022-09-27] MEDS: insulin glargine 100 units/1 mL 60 UNIT SUBCUT (09:08)
[2022-09-27] MEDS: gabapentin 100 mg Capsule PO ×2 (09:10→17:11)
[2022-09-27] MEDS: losartan 50 mg Tablet 100 MG PO (09:10)
[2022-09-27] MEDS: potassium chloride ER 20 mEq Tablet PO (09:10)
[2022-09-27] MEDS: tamsulosin 0.4 mg Capsule PO (09:10)
[2022-09-27] MEDS: clopidogrel 75 mg Tablet PO (09:11)
[2022-09-27] MEDS: carvedilol 25 mg Tablet PO ×2 (09:14→20:16)
[2022-09-27] MEDS: isosorbide mononitrate ER 60 mg Tablet PO ×2 (09:14→20:15)
[2022-09-27] MEDS: perflutren protein-a microsphr 0.22 mg/mL SDV 3 mL IV (10:17)
--- NOTE | 2022-09-27 10:39 | PC.CHAP ---
Pastoral Care Encounter/Spiritual Assessment Type of Contact [] Declined spinner box visit [] Patient/Family/Request visit [] Outpatient visit [] Follow-up visit [] Physician referral [] Code/Alert [x] Routine visit [] Staff referral [] Actively dying [] Patient sleeping [] Family support [] [] Out of room [] Palliative care [] [] Receiving care in room [] Pre-surgical visit [] Trauma [] Long length of stay [] ICU visit [] Other: Relational/Emotional Strength [x] Patient feels connected with others/family/visitors/staff [] Distress [] Loneliness/isolation [] Abandonment Spirituality of Patient [x] Person of Ines [x] Attends Spiritism of their Ines [x] Believes in Prayer [] Reads Bible or Jainism materials [] There are Spiritual issues to be addressed Solid Waste Landfill Technician Interventions [x] Prayer []x Active listening []x Non-anxious presence x[x] Spiritual/emotional support [] Crisis/trauma care [] Spiritual counseling [] Bereavement support [] Provided bereavement packet [] Provided Bible/devotional materials [] Provided toy/stuffed animal, coloring book to patient or family member [] Provided Communion [] Anointing/[place] [] Salvation [] Completed spiritual assessment [] Other: Impact on Illness or Injury [] Angry [] Fearful [] Anxious [] Often cries [] Exhaustion [] Unable to work [] Unable to attend mandaeism [] Unable to walk/stand [] Unable to read [] Unable to drive [] Unable to eat/drink [] Unable to sleep [] Unable to be with family [] Patient intubated [] Other: Summary patient feeling better Time spent with patient 10 min
[2022-09-27 11:41] LABS: Glucose Point of Care 314 mg/dL (70-110)
[2022-09-27] MEDS: azithromycin 500 MG in sodium chloride 0.9% 250 ML 250 MG IV (11:44)
[2022-09-27] MEDS: acetaminophen 325 mg Tablet 650 MG PO (12:26)
[2022-09-27] MEDS: cefTRIAXone 1,000 MG in sodium chloride 0.9% (plus) 50 ML 100 MG IV (12:53)
--- NOTE | 2022-09-27 13:08 | P.PN_ITS ---
Subjective Subjective: Patient was seen this morning, he sitting up at side of bed, enjoying breakfast, he tells me that he feels a lot better, no history of smoking, Vitals/I&O/Wt Last Vital Signs Temp 98.7 F 09/27/22 12:00 Pulse 69 09/27/22 12:00 Resp 22 H 09/27/22 12:00 BP 143/72 09/27/22 12:00 Pulse Ox 98 09/27/22 12:00 O2 Del Method 09/27/22 12:00 O2 Flow Rate 6 09/26/22 11:35 FiO2 39 09/27/22 12:00 09/26/22 09/27/22 09/27/22 22:59 06:59 14:59 Intake Total 820 / 870 730 / 730 Output Total 2775 / 2775 1999 Balance 820 / 870 -2775 / -1905 -1270 / -1270 Weight last 48 hrs Weight 135.669 kg Weight 138.436 kg Weight 131.088 kg Physical Exam Const: COMMON NORMALS: no acute distress and patient oriented x3 Resp: COMMON NORMALS: normal respiratory effort, No retractions, No use of accessory muscles and clear to auscultation bilaterally AUSCULTATION: clear to auscultation bilaterally Cardio: COMMON NORMALS: regular rate, regular rhythm, S1 normal heart sound p resent and S2 normal heart sound present RATE: regular rate RHYTHM: regular rhythm HEART SOUNDS: S1 normal heart sound present and S2 normal heart sound present GI: COMMON NORMALS: Normal to inspection, nondistended, normoactive bowel sounds present and non-tender Extremity: COMMON NORMALS: no pedal edema Neuro: COMMON NORMALS: patient oriented x3 Psych: COMMON NORMALS: mental status grossly normal Urinary Catheter Management: Daniel: Cath Placed During This Visit: yes Reason for Continuing Indwelling Catheter: Acute Urinary Retention or Obstruction Urinary Catheter Date of Insertion: 09/26/22 Urinary Catheter Time of Insertion: 19:45 Data 09/26/22 12:00 09/27/22 04:57 Micro: Microbiology 09/26/22 11:34 Blood Culture - Preliminary Blood NEGATIVE TO DATE 09/26/22 11:22 Blood Culture - Preliminary Blood NEGATIVE TO DATE A&P Assessment and plan (1) Acute respiratory distress: With hypoxemia requiring oxygen and bipap therapy. Not usually on oxygen, though uses cpap at night at home. Reports seeming fine couple days ago and not too bad yesterday given the GI symptoms he has been experiencing, but acutely worse this am after getting up and trying to attend to usual ADLs. Likely a combination of fluid overload, and pneumonia (2) CHF (congestive heart failure): Acute on chronic systolic CHF. Clinically appears to be cause of acute respiratory issues, especially consider the increased salt intake described, progressive shortness of breath with sudden worsening, edema, imaging, lab oratory work up and considering past history. - -4 L, continue Lasix therapy monitor urine output, monitor creatinine monitor potassium, -Daniel catheter in place Qualifiers: Heart failure type: systolic Heart failure chronicity: acute on chronic Qualified Code(s): I50.23 - Acute on chronic systolic (congestive) heart failure (3) Pneumonia: Diagnosis per ED. Certainly within differential but seem less likely at this point with more information. Unremarkable procalcitonin. Negative viral panel. Has elevated wbc at presentation and CRP 11.8, but that could be from stress of respiratory distress described. No recent fever. Has had one episode of vomiting and other GI symptoms. Received Rocephin and doxycycline in ED. Blood cultures pending. -Continue Rocephin, add azithromycin -Monitor respiratory cultures, blood cultures (4) Urinary retention: Bladder volume at bladder scanning >800 ml after urinating 450 ml. Been a developing issue for him. Not had identified previously. (5) Gastroenteritis: Recent nausea, one episode of vomitng and diarhea for several days. May be viral in nature or related to fluid overload, medications,other comorbidities. (6) Chronic kidney disease, stage 3b: With baseline creatinine around 1.6 per review of old records so suspect he is a fluid overloaded currently. (7) CAD (coronary artery disease): With multiple stents and history of angioplasty. Follows with Dr Barrios outpatient. Rcently changed from Brilinta and aspirin to Plavix and aspirin. On carvedilol and isosobide. Denies chest pain but respiratory symptoms today came on suddenly. Last cardiac catheterization was in August 2021 via femoral approach. At that time patient had angioplasty with stenting of the proximal right coronary artery and proximal circumflex. Qualifiers: Coronary Disease-Associated Artery/Lesion type: [place] artery [place] vs. transplanted heart: [place] heart Associated angina: with unstable angina Qualified Code(s): I25.110 - Atherosclerotic heart disease of [place] coronary artery with unstable angina pectoris (8) HTN (hypertension): Currently controlled. Chronically on amlodipine, coreg, lasix, isosorbide, and valsartan at home. Qualifiers: Hypertension type: essential hypertension Qualified Code(s): I10 - Essential (primary) hypertension (9) Diabetes mellitus, type II: With neuropathy. On high dose insulin therapy at home with 120 units of Tresiba (U200 insulin) daily and 40 unit plus sliding scale (max 150 units) shorter acting insulin. (10) Hyperlipidemia: Chronically on crestor Qualifiers: Hyperlipidemia type: other hyperlipidemia Qualified Code(s): E78.49 - Other hyperlipidemia (11) Sleep apnea: On home cpap. Sleep study from September 2020 did demonstrate nocturnal hypoxemia and an optimal CPAP pressure setting at 14 cm, with auto titrating range of 12-16 recommended. (12) BMI 45.0-49.9, adult: With recent weight gain reported. Obesity hypoventilation may be a contributing factor. Plan Switch to inpatient Plan for today Continue oxygen and BiPAP, weaning as able IV Lasix with close monitoring of urine output Monitor renal function Start antibiotic therapy Attestations Medical Necessity Statement*: Patient requires hospitalization for fluid o verload, pneumonia Coding Level of Care Code Acute [employer] for [facility] Diagnoses Acute respiratory distress R06.03 CHF (congestive heart failure) I50.23 Heart failure type: systolic Heart failure chronicity: acute on chronic Pneumonia J18.9 Urinary retention R33.9 Gastroenteritis K52.9 Chronic kidney disease, stage 3b N18.32 CAD (coronary artery disease) I25.110 Coronary Disease-Associated Artery/Lesion type: [place] artery [place] vs. transplanted heart: [place] heart Associated angina: with unstable angina HTN (hypertension) I10 Hypertension type: essential hypertension Diabetes mellitus, type II E11.9 Hyperlipidemia E78.49 Hyperlipidemia type: other hyperlipidemia Sleep apnea G47.30 BMI 45.0-49.9, adult Z68.42
[2022-09-27 16:55] LABS: Glucose Point of Care 158 mg/dL (70-110)
[2022-09-27] MEDS: enoxaparin 40 mg/0.4 mL Syringe SUBCUT (20:15)
[2022-09-27] MEDS: montelukast sodium 10 mg Tablet PO (20:15)
[2022-09-27] MEDS: atorvastatin 40 mg Tablet PO (20:16)
[2022-09-27] MEDS: citalopram 20 mg Tablet 40 MG PO (20:16)
[2022-09-27 22:04] LABS: Glucose Point of Care 245 mg/dL (70-110)
[2022-09-28] VITALS (9 sets, daily range): BP systolic 108–136; BP diastolic 63–69; PULSE 62–100; RESP 8–19; TEMP 36.6–37; O2SAT 95–98
[2022-09-28 04:56] LABS: Anion Gap 16.7 (5-19); Blood Urea Nitrogen 40 mg/dL (8-23); Calcium 8.3 mg/dL (8.5-10.5); Carbon Dioxide 24 mmol/L (22-29); Chloride 99 mmol/L (98-107); Glomerular Filtration Rate 46.5 mL/min (90-130); Glucose 202 mg/dL (65-115); NT Pro B Type Natriuretic Pept 2132 pg/mL (0-125); Osmolality Calculated 298 mOsm/kg (285-295); Potassium 3.7 mmol/L (3.5-5.1); Sodium 136 mmol/L (136-145)
[2022-09-28] MEDS: aspirin 81 mg EC Tablet PO (05:01)
[2022-09-28 06:24] LABS: Glucose Point of Care 159 mg/dL (70-110)
[2022-09-28] MEDS: losartan 50 mg Tablet 100 MG PO (08:31)
[2022-09-28] MEDS: insulin lispro 100 unit/1 mL SUBCUT ×4 (08:31→21:27)
[2022-09-28] MEDS: gabapentin 100 mg Capsule PO ×2 (08:31→17:00)
[2022-09-28] MEDS: potassium chloride ER 20 mEq Tablet PO (08:31)
[2022-09-28] MEDS: clopidogrel 75 mg Tablet PO (08:31)
[2022-09-28] MEDS: tamsulosin 0.4 mg Capsule PO (08:31)
[2022-09-28] MEDS: insulin glargine 100 units/1 mL 60 UNIT SUBCUT (08:32)
[2022-09-28] MEDS: carvedilol 25 mg Tablet PO ×2 (08:35→20:06)
[2022-09-28] MEDS: isosorbide mononitrate ER 60 mg Tablet PO ×2 (08:35→20:06)
[2022-09-28 12:27] LABS: Glucose Point of Care 225 mg/dL (70-110)
[2022-09-28] MEDS: azithromycin 500 MG in sodium chloride 0.9% 250 ML 250 MG IV (12:31)
[2022-09-28] MEDS: FUROsemide 10 mg/mL SDV 4mL 40 MG IVP (12:32)
--- NOTE | 2022-09-28 12:43 | PM.PN ---
Subjective Subjective: Patient was seen this morning, he tells me that he feels a lot better, still having some edema, some shortness of breath, no fevers, no chills Vitals/I&O/Wt Last Vital Signs Temp 98.2 F 09/28/22 08:30 Pulse 100 09/28/22 08:30 Resp 14 09/28/22 08:30 BP 134/68 09/28/22 08:31 Pulse Ox 95 09/28/22 08:30 O2 Del Method 09/28/22 08:30 O2 Flow Rate 2 09/28/22 08:30 FiO2 30 09/28/22 08:00 09/27/22 09/28/22 09/28/22 22:59 06:59 14:59 Intake Total 240 / 1500 0 / 1500 360 / 360 Output Total 1600 / 4900 700 / 5600 Balance -1360 / -3400 -700 / -4100 360 / 360 Weight last 48 hrs Weight 134.354 kg Weight 135.669 kg Weight 138.436 kg Physical Exam Const: COMMON NORMALS: no acute distress and patient oriented x3 Resp: COMMON NORMALS: normal respiratory effort, No retractions, No use of accessory muscles and clear to auscultation bilaterally AUSCULTATION: clear to auscultation bilaterally Cardio: COMMON NORMALS: regular rate, regular rhythm, S1 normal heart sound present and S2 normal heart sound present RATE: regular rate RHYTHM: regular rhythm HEART SOUNDS: S1 normal heart sound present and S2 normal heart sound present GI: COMMON NORMALS: Normal to inspection, nondistended, normoactive bowel sounds present and non-tender Extremity: NARRATIVE EXTREMITY EXAM: Nonpitting edema Neuro: COMMON NORMALS: patient oriented x3 Psych: COMMON NORMALS: mental status grossly normal Urinary Catheter Management: Daniel: Cath Placed During This Visit: yes Reason for Continuing Indwelling Catheter: Acute Urinary Retention or Obstruction Urinary Catheter Date of Insertion: 09/26/22 Urinary Catheter Time of Insertion: 19:45 Data 09/26/22 12:00 09/28/22 03:30 Micro: Microbiology 09/26/22 11:34 Blood Culture - Preliminary Blood NEGATIVE TO DATE 09/26/22 11:22 Blood Culture - Preliminary Blood NEGATIVE TO DATE A&P Assessment and plan (1) Acute respiratory distress: With hypoxemia requiring oxygen and bipap therapy. Not usually on oxygen, though uses cpap at night at home. Reports seeming fine couple days ago and not too bad yesterday given the GI symptoms he has been experiencing, but acutely worse this am after getting up and trying to attend to usual ADLs. Likely a combination of fluid overload, and pneumonia Cardiac echocardiogram shows ?Normal left ventricular size borderline low ejection fraction of ?50%( visual).? ?Mild diffuse hypokinesia of the LV apex. ?Mildly increased left atrial size. ?Minimally thickened aortic and mitral valves ?There is no pericardial effusion. ?Echo contrast was used for endocardial delineation and LV ?ejection fraction estimation. ?Comparison with the previous study is difficult because of the ?difference in the technical quality. -We will have patient follow-up with cardiology as outpatient, no chest pain presently is on aspirin, Plavix -6-hour troponin 34, no significant delta troponin, no chest pain, (2) CHF (congestive heart failure): Acute on chronic systolic CHF. Clinically appears to be cause of acute respiratory issues, especially consider the increased salt intake described, progressive shortness of breath with sudden worsening, edema, imaging, laboratory work up and considering past history. - -6 L, decrease Lasix therapy to 40 every 24 hours Qualifiers: Heart failure type: systolic Heart failure chronicity: acute on chronic Qualified Code(s): I50.23 - Acute on chronic systolic (congestive) heart failure (3) Pneumonia: Diagnosis per ED. Certainly within differential but seem less likely at this point with more information. Unremarkable procalcitonin. Negative viral panel. Has elevated wbc at presentation and CRP 11.8, but that could be from stress of respiratory distress described. No recent fever. Has had one episode of vomiting and other GI symptoms. Received Rocephin and doxycycline in ED. Blood cultures pending. -Continue Rocephin, add azithromycin -Monitor respiratory cultures, blood cultures (4) Urinary retention: Bladder volume at bladder scanning >800 ml after urinating 450 ml. Been a developing issue for him. Not had identified previously. (5) Gastroenteritis: Recent nausea, one episode of vomitng and diarhea for several days. May be viral in nature or related to fluid overload, medications,other comorbidities. (6) Chronic kidney disease, stage 3b: With baseline creatinine around 1.6 per review of old records so suspect he is a fluid overloaded currently. (7) CAD (coronary artery disease): With multiple stents and history of angioplasty. Follows with Dr Barrios outpatient. Rcently changed from Brilinta and aspirin to Plavix and aspirin. On carvedilol and isosobide. Denies chest pain but respiratory symptoms today came on suddenly. Last cardiac catheterization was in August 2021 via femoral approach. At that time patient had angioplasty with stenting of the proximal right coronary artery and proximal circumflex. Qualifiers: Coronary Disease-Associated Artery/Lesion type: [place] artery [place] vs. transplanted heart: [place] heart Associated angina: with unstable angina Qualified Code(s): I25.110 - Atherosclerotic heart disease of [place] coronary artery with unstable angina pectoris (8) HTN (hypertension): Currently controlled. Chronically on amlodipine, coreg, lasix, isosorbide, and valsartan at home. Qualifiers: Hypertension type: essential hypertension Qualified Code(s): I10 - Essential (primary) hypertension (9) Diabetes mellitus, type II: With neuropathy. On high dose insulin therapy at home with 120 units of Tresiba (U200 insulin) daily and 40 unit plus sliding scale (max 150 units) shorter acting insulin. (10) Hyperlipidemia: Chronically on crestor Qualifiers: Hyperlipidemia type: other hyperlipidemia Qualified Code(s): E78.49 - Other hyperlipidemia (11) Sleep apnea: On home cpap. Sleep study from September 2020 did demonstrate nocturnal hypoxemia and an optimal CPAP pressure setting at 14 cm, with auto titrating range of 12-16 recommended. (12) BMI 45.0-49.9, adult: With recent weight gain reported. Obesity hypoventilation may be a contributing factor. Plan nt Plan for today Continue oxygen and BiPAP, weaning as able Decrease Lasix therapy to once daily given elevated creatinine Monitor renal function Continue antibiotic therapy Attestations Medical Necessity Statement*: Patient requires hospitalization for fluid overload due to systolic CHF, pneumonia Coding Level of Care Code Acute Staff [employer] for [facility] Diagnoses Acute respiratory distress R06.03 CHF (congestive heart failure) I50.23 Heart failure type: systolic Heart failure chronicity: acute on chronic Pneumonia J18.9 Urinary retention R33.9 Gastroenteritis K52.9 Chronic kidney disease, stage 3b N18.32 CAD (coronary artery disease) I25.110 Coronary Disease-Associated Artery/Lesion type: [place] artery [place] vs. transplanted heart: [place] heart Associated angina: with unstable angina HTN (hypertension) I10 Hypertension type: essential hypertension Diabetes mellitus, type II E11.9 Hyperlipidemia E78.49 Hyperlipidemia type: other hyperlipidemia Sleep apnea G47.30 BMI 45.0-49.9, adult Z68.42
[2022-09-28] MEDS: cefTRIAXone 1,000 MG in sodium chloride 0.9% (plus) 50 ML 100 MG IV (15:03)
[2022-09-28 16:41] LABS: Glucose Point of Care 241 mg/dL (70-110)
[2022-09-28] MEDS: enoxaparin 40 mg/0.4 mL Syringe SUBCUT (20:06)
[2022-09-28] MEDS: citalopram 20 mg Tablet 40 MG PO (20:06)
[2022-09-28] MEDS: montelukast sodium 10 mg Tablet PO (20:06)
[2022-09-28 21:08] LABS: Glucose Point of Care 240 mg/dL (70-110)
[2022-09-28] MEDS: atorvastatin 40 mg Tablet PO (21:27)
[2022-09-29] VITALS (10 sets, daily range): BP systolic 124–154; BP diastolic 66–77; PULSE 63–72; RESP 8–22; TEMP 36.4–37.1; O2SAT 92–98
[2022-09-29 05:58] LABS: Anion Gap 13.3 (5-19); Blood Urea Nitrogen 43 mg/dL (8-23); Calcium 8.2 mg/dL (8.5-10.5); Carbon Dioxide 26 mmol/L (22-29); Chloride 101 mmol/L (98-107); Glomerular Filtration Rate 46.5 mL/min (90-130); Glucose 184 mg/dL (65-115); NT Pro B Type Natriuretic Pept 1505 pg/mL (0-125); Osmolality Calculated 298 mOsm/kg (285-295); Potassium 4.3 mmol/L (3.5-5.1); Sodium 136 mmol/L (136-145)
[2022-09-29] MEDS: aspirin 81 mg EC Tablet PO (06:17)
[2022-09-29 06:29] LABS: Glucose Point of Care 180 mg/dL (70-110)
--- NOTE | 2022-09-29 10:50 | P.DS_ITS ---
Discharge Providers Date of Admission: 09/27/22 14:35 Date of Discharge: September 29, 2022 Attending Provider at Admission: Gwendolyn Dickerson MD Attending Provider at Discharge: Maurizio Alves MD Primary Care Provider: Kyle Corrigan MD Diagnoses at Discharge Discharge Diagnosis (1) Acute respiratory distress: Status: Acute (2) CHF (congestive heart failure): Status: Chronic Qualifiers: Heart failure chronicity: acute on chronic Heart failure type: systolic Qualified Code(s): I50.23 - Acute on chronic systolic (congestive) heart failure (3) Pneumonia: Status: Acute (4) Urinary retention: Status: Acute (5) Gastroenteritis: Status: Acute (6) Chronic kidney disease, stage 3b: Status: Chronic (7) CAD (coronary artery disease): Status: Chronic Qualifiers: Associated angina: with unstable angina Coronary Disease-Associated Artery/Lesion type: [place] artery [place] vs. transplanted heart: [place] heart Qualified Code(s): I25.110 - Atherosclerotic heart disease of [place] coronary artery with unstable angina pectoris (8) HTN (hypertension): Status: Acute Qualifiers: Hypertension type: essential hypertension Qualified Code(s): I10 - Essential (primary) hypertension (9) Diabetes mellitus, type II: Status: Acute (10) Hyperlipidemia: Status: Chronic Qualifiers: Hyperlipidemia type: other hyperlipidemia Qualified Code(s): E78.49 - Other hyperlipidemia (11) Sleep apnea: Status: Chronic (12) BMI 45.0-49.9, adult: Status: Chronic Reason for Visit Reason for Visit: RESP. DISTRESS Hospital Course Hospital Course This is a 67-year-old male with a past medical history of morbid obesity, CAD, CHF, CKD stage III, history of CVA, history of type 2 diabetes mellitus, hypertension, hyperlipidemia, sleep apnea who presents to [facility] for shortness of breath Patient was admitted to [facility] for shortness of breath secondary to systolic diastolic CHF exacerbation and pneumonia, admitted to general medical floors requiring BiPAP, overall clinically improved, on 2 1 to 2 L nasal cannula For his pneumonia, received broad-spectrum antibiotic therapy, cultures remain negative to date, remained afebrile, discharged on doxycycline For his acute systolic diastolic CHF exacerbation, patient was diuresed as inpatient, -7 L, overall clinically improved. Discharged on Lasix therapy, spironolactone with close follow-up with cardiology as outpatient Patient's echocardiogram did show borderline low ejection fraction 50%, mild diffuse hypokinesis of the left ventricular apex, he is status post CAD and stenting is on aspirin and Plavix, he had no chest pain complaints, I will have him follow-up with cardiology in the next week or so. He was advised if he has any chest pain or palpitations or worsening shortness of breath go to the emergency room Physical Exam Const: COMMON NORMALS: no acute distress and patient oriented x3 Resp: COMMON NORMALS: normal respiratory effort, No retractions, No use of accessory muscles and clear to auscultation bilaterally AUSCULTATION: clear to auscultation bilaterally Cardio: COMMON NORMALS: regular rate, regular rhythm, S1 normal heart sound present and S2 normal heart sound present RATE: regular rate RHYTHM: regular rhythm HEART SOUNDS: S1 normal heart sound present and S2 normal heart sound present GI: COMMON NORMALS: Normal to inspection, nondistended, normoactive bowel sounds present and non-tender Extremity: COMMON NORMALS: no pedal edema Neuro: COMMON NORMALS: patient oriented x3 Psych: COMMON NORMALS: mental status grossly normal Urinary Catheter Management: Daniel: Cath Placed During This Visit: yes Reason for Continuing Indwelling Catheter: Accurate Measurement of Urinary Output in Critically Ill Patients Urinary Catheter Date of Insertion: 09/26/22 Urinary Catheter Time of Insertion: 19:45 Discharge Data Studies Completed and Pending Completed Studies During Hospitalization Category Date Time Status XR chest 1V portable [id number] Stat Exams 09/26/22 11:34 Completed CV. echo wo/w contrast [id number] Routine Ultrasound 09/27/22 08:17 Completed Pending at discharge Category Date Time Status Basic Metabolic Panel AM LABS Lab 09/30/22 04:00 Ordered Blood Culture Stat Lab 09/26/22 11:34 Results NT Pro B Type Natriuretic Pept QAM Lab 09/30/22 06:00 Ordered Radiology Impressions Chest X-Ray 09/26/22 11:34 Impression: 1. Bilateral patchy bilateral opacities which could represent atelectasis, effusion, pneumonia or pulmonary vascular congestion. 2. Cardiomegaly and atherosclerosis. Laboratory Results WBC 15.2 10^3/uL (4.0-10.0) H 09/26/22 12:00 RBC 4.57 10^6/uL (4.1-5.3) 09/26/22 12:00 Hgb 13.5 g/dL (11.7-16.6) 09/26/22 12:00 Hct 41.6 % (42.0-52.0) L 09/26/22 12:00 MCV 91.0 fl (80-94) 09/26/22 12:00 MCH 29.5 pg (28.0-34.0) 09/26/22 12:00 MCHC 32.5 g/dL (30.0-36.0) 09/26/22 12:00 RDW 13.8 % (12.1-15.1) 09/26/22 12:00 Plt Count 306 10^3/cmm (130-400) 09/26/22 12:00 MPV 9.7 fL (7.4-10.4) 09/26/22 12:00 Neut % (Auto) 82.5 % 09/26/22 12:00 Lymph % (Auto) 8.0 % 09/26/22 12:00 Jackson % (Auto) 7.8 % 09/26/22 12:00 Eos % (Auto) 0.9 % 09/26/22 12:00 Baso % (Auto) 0.3 % 09/26/22 12:00 Neut # (Auto) 12.51 10^3/uL (1.8-7.7) H 09/26/22 12:00 Lymph # (Auto) 1.2 10^3/uL (0.8-4.8) 09/26/22 12:00 Jackson # (Auto) 1.2 10^3/uL (0.2-0.9) H 09/26/22 12:00 Eos # (Auto) 0.1 10^3/uL (0.0-0.8) 09/26/22 12:00 Baso # (Auto) 0.0 10^3/uL (0.0-0.1) 09/26/22 12:00 Nucleated RBC % (auto) 0 % 09/26/22 12:00 Nucleated RBCs # 0.0 /100WBC 09/26/22 12:00 Specimen Type Arterial 09/26/22 11:47 Sample Site Radial, left 09/26/22 11:47 ABG pH 7.37 (7.35-7.45) 09/26/22 11:47 ABG pCO2 35.6 mmHg (35-45) 09/26/22 11:47 ABG pO2 91.5 mmHg (80.0-100.0) 09/26/22 11:47 ABG HCO3 20.8 mmol/L (22-26) L 09/26/22 11:47 ABG O2 Saturation 97.8 09/26/22 11:47 ABG Base Excess -3.9 mmol/L (-2.0-2.0) L 09/26/22 11:47 Rishabh Test Pos 09/26/22 11:47 A-a O2 Gradient 19.5 mmHg (5-10) H 09/26/22 11:47 Hematocrit 40.9 % (42-52) L 09/26/22 11:47 Hgb O2 Saturation 96.1 % (95-100) 09/26/22 11:47 Carboxyhemoglobin 1.3 %THgb (0.4-20.1) 09/26/22 11:47 Methemoglobin 0.4 % (0.4-1.5) 09/26/22 11:47 Total Hemoglobin 13.3 g/dL (14-18) L 09/26/22 11:47 Sodium 138.0 mmol/L (131-143) 09/26/22 11:47 Potassium 4.2 mmol/L (3.5-5.0) 09/26/22 11:47 Glucose 124.0 mg/dL (70-115) H 09/26/22 11:47 Ionized Calcium 1.2 mmol/L (1.1-1.4) 09/26/22 11:47 O2 Delivery Device Bipap 09/26/22 11:47 FiO2 40.0 % 09/26/22 11:47 Senior Sales Engineer ID Cak 09/26/22 11:47 Sodium 136 mmol/L (136-145) 09/29/22 04:53 Potassium 4.3 mmol/L (3.5-5.1) 09/29/22 04:53 Chloride 101 mmol/L (98-107) 09/29/22 04:53 Carbon Dioxide 26 mmol/L (22-29) 09/29/22 04:53 Anion Gap 13.3 (5-19) 09/29/22 04:53 BUN 43 mg/dL (8-23) H 09/29/22 04:53 Creatinine 1.5 mg/dL (0.7-1.2) H 09/29/22 04:53 GFR Calculation 46.5 mL/min (90-130) L 09/29/22 04:53 Glucose 184 mg/dL (65-115) H 09/29/22 04:53 POC Glucose 180 mg/dL (70-110) H 09/29/22 06:24 Calculated Osmolality 298 mOsm/kg (285-295) H 09/29/22 04:53 Lactic Acid 0.9 mmol/L (0.5-2.2) 09/26/22 11:12 Calcium 8.2 mg/dL (8.5-10.5) L 09/29/22 04:53 Phosphorus 2.8 mg/dL (2.5-4.5) 09/27/22 04:57 Magnesium 2.2 mg/dL (1.7-2.3) 09/27/22 04:57 Total Bilirubin 0.5 mg/dL (0.15-1.2) 09/26/22 12:00 AST 25 U/L (0-40) 09/26/22 12:00 ALT 37 U/L (0-41) 09/26/22 12:00 Alkaline Phosphatase 57 U/L (40-130) 09/26/22 12:00 Troponin T Baseline 33 ng/L (0-15) H 09/26/22 12:00 Troponin T 120 Minute 32.59 ng/L (0-15) H 09/26/22 15:21 Delta Troponin T -0.41 ABS# (0-10) L 09/26/22 15:21 Troponin T Hi Sens 6Hr 34.48 ng/L (0-15) H 09/26/22 19:01 Troponin T Hi Sens 6Hr Delta 1.48 ng/L (0-12) 09/26/22 19:01 C-Reactive Protein 11.8 mg/L (0.0-4.9) H 09/26/22 12:00 NT-Pro-B Natriuret Pep 1505 pg/mL (0-125) H 09/29/22 04:53 Total Protein 6.6 g/dL (6.6-8.7) 09/26/22 12:00 Albumin 3.8 g/dL (3.5-5.2) 09/26/22 12:00 Globulin 2.8 g/dL (1.3-4.6) 09/26/22 12:00 Procalcitonin 0.09 ng/mL (0-0.5) 09/26/22 12:00 Nasal Influ A H1 2009 PCR Not detected (NOT DETECT) 09/26/22 11:58 Adenovirus (PCR) Not detected (NOT DETECT) 09/26/22 11:58 C. pneumoniae DNA (PCR) Not detected (NOT DETECT) 09/26/22 11:58 Coronavirus 229E (PCR) Not detected (NOT DETECT) 09/26/22 11:58 Human Metapneumovir PCR Not detected (NOT DETECT) 09/26/22 11:58 Influenza A (H1) PCR Not detected (NOT DETECT) 09/26/22 11:58 Influenza A (H3) PCR Not detected (NOT DETECT) 09/26/22 11:58 Influenza Type A (PCR) Not detected (NOT DETECT) 09/26/22 11:58 Influenza Type B (PCR) Not detected (NOT DETECT) 09/26/22 11:58 M. pneumoniae (PCR) Not detected (NOT DETECT) 09/26/22 11:58 Parainfluenza 1 (PCR) Not detected (NOT DETECT) 09/26/22 11:58 Parainfluenza 2 (PCR) Not detected (NOT DETECT) 09/26/22 11:58 Parainfluenza 3 (PCR) Not detected (NOT DETECT) 09/26/22 11:58 Parainfluenza 4 (PCR) Not detected (NOT DETECT) 09/26/22 11:58 RSV Type A (PCR) Not detected (NOT DETECT) 09/26/22 11:58 RSV Type B (PCR) Not detected (NOT DETECT) 09/26/22 11:58 Entero/Rhino (PCR) Not detected (NOT DETECT) 09/26/22 11:58 SARS-CoV-2 (PCR) Not detected (NOT DETECT) 09/26/22 11:58 Vitals Last Vital Signs Temp 97.6 F 09/29/22 07:47 Pulse 68 09/29/22 08:45 Resp 22 H 09/29/22 07:47 BP 128/66 09/29/22 07:47 Pulse Ox 96 09/29/22 08:45 O2 Del Method 09/29/22 07:47 O2 Flow Rate 2 09/29/22 08:45 FiO2 30 09/29/22 04:00 Discharge Plan Discharge Patient Disposition: Home Condition: Stable Prescriptions: New doxycycline hyclate 100 mg tablet 100 mg PO BID 5 Days Qty: 10 0RF tamsulosin 0.4 mg Capsule 0.4 mg PO DAILY 30 Days Qty: 30 0RF spironolactone [Aldactone] 25 mg tablet 25 mg PO DAILY 30 Days Qty: 30 0RF Continued montelukast 10 mg tablet 10 mg PO BEDTIME citalopram 40 mg tablet 40 mg PO QPM carvedilol 25 mg tablet 25 mg PO BID Qty: 180 3RF isosorbide mononitrate 60 mg tablet extended release 24 hr 60 mg PO BID Qty: 180 3RF clopidogrel [Plavix] 75 mg tablet 75 mg PO DAILY Qty: 90 3RF Rx Instructions: rx filled 09/19/22 90d/s pt not started taking Nitrostat 0.4 mg Tablet, Sublingual 0.4 mg SUBLINGUAL Q5M PRN (Reason: Chest Pain) Rx Instructions: do not exceed 3 doses per episode gabapentin 100 mg capsule 100 mg PO BID Tresiba FlexTouch U-200 200 unit/mL (3 mL) insulin pen 120 unit SUBCUT QAM MDD 150 units Lyumjev KwikPen U-200 Insulin 200 unit/mL (3 mL) insulin pen See Rx Instructions .ROUTE .COMPLEX Rx Instructions: 40 units plus sliding scale (max 150 units) Adult Low Dose Aspirin 81 mg tablet,delayed release (DR/EC) 81 mg PO QAM rosuvastatin 20 mg tablet 20 mg PO BEDTIME potassium chloride 20 mEq tablet extended release 10 meq PO QAM 30 Days Qty: 30 0RF Changed furosemide 40 mg tablet 40 mg PO QAM 30 Days Qty: 30 0RF Discontinued amlodipine 5 mg tablet 5 mg PO DAILY Qty: 90 3RF Brilinta 90 mg tablet 90 mg PO BID valsartan 320 mg tablet 320 mg PO QAM Discharge Orders: Discharge Order (Routine); Ordered 09/29/22 Ordered By: Maurizio Alves Referrals: Joey Barrios M.D [Physician] - 1 week Kyle Corrigan MD [Primary Care Provider] - 1-3 days Discharge Diet: Cardiac Discharge Activity: Resume usual activity Patient Instructions: Opioid Safety Activity Restrictions/Additional Instructions: - If you have worsening shortness of breath please go to the emergency room -I have discharged on Lasix 40 once daily with potassium replacement 10 mEq once a day -If you feel short of breath or you develop edema or gain more than 2 to 3 pounds -You can take an extra Lasix 40 mg in the evening with potassium 10 meq in the evening , for a total of 3 days -If you continue to feel short of breath beyond this, see primary care or go to the emergency room -Please follow-up with cardiology in 1 week -Take antibiotics as prescribed Discharge Attestations Time Spent in Discharge Care*: less than 30 min Quality Metrics Clinical Quality Measures [ No reported AMI, CVA or VTE this stay] Coding Level of Care Code Acute Chg FW DC note Exam Detailed Diagnoses Acute respiratory distress R06.03 CHF (congestive heart failure) I50.23 Heart failure chronicity: acute on chronic Heart failure type: systolic Pneumonia J18.9 Urinary retention R33.9 Gastroenteritis K52.9 Chronic kidney disease, stage 3b N18.32 CAD (coronary artery disease) I25.110 Associated angina: with unstable angina Coronary Disease-Associated Artery/Lesion type: [place] artery [place] vs. transplanted heart: [place] heart HTN (hypertension) I10 Hypertension type: essential hypertension Diabetes mellitus, type II E11.9 Hyperlipidemia E78.49 Hyperlipidemia type: other hyperlipidemia Sleep apnea G47.30 BMI 45.0-49.9, adult Z68.42
[2022-09-29] MEDS: potassium chloride ER 20 mEq Tablet PO (10:52)
[2022-09-29] MEDS: clopidogrel 75 mg Tablet PO (10:52)
[2022-09-29] MEDS: losartan 50 mg Tablet 100 MG PO (10:52)
[2022-09-29] MEDS: tamsulosin 0.4 mg Capsule PO (10:53)
[2022-09-29] MEDS: gabapentin 100 mg Capsule PO (10:53)
[2022-09-29] MEDS: insulin glargine 100 units/1 mL 60 UNIT SUBCUT (10:54)
[2022-09-29 11:12] LABS: Glucose Point of Care 360 mg/dL (70-110)
[2022-09-29] MEDS: isosorbide mononitrate ER 60 mg Tablet PO (11:55)
[2022-09-29] MEDS: FUROsemide 10 mg/mL SDV 4mL 40 MG IVP (11:56)
[2022-09-29] MEDS: azithromycin 500 MG in sodium chloride 0.9% 250 ML 250 MG IV (11:56)
[2022-09-29] MEDS: carvedilol 25 mg Tablet PO (11:56)
[2022-09-29] MEDS: insulin lispro 100 unit/1 mL SUBCUT (11:58)
[2022-09-29] MEDS: cefTRIAXone 1,000 MG in sodium chloride 0.9% (plus) 50 ML 100 MG IV (14:16)
[2022-09-29 16:12] LABS: Glucose Point of Care 200 mg/dL (70-110)
--- NOTE | 2022-09-29 17:38 | PC.NURSE ---
1645 16 [place] adkins catheter placed per aseptic technique. without difficulty. obtained 500 ml of clear yellow urine. Patient tolerated procedure well. 1725 Parient dressed and adkins care taught to patient and his daughter. both vouced understanding. Discharge instructions given to patient and daughter both voiced understanding. 1740 Patient discharged to home with adkins catheter, patient taken to private car per wheel chair per staff. patient in stable condition.
--- NOTE | 2022-09-29 20:39 | PC.NURSE ---
1725 Discharge instructions given to patient and daughter both voiced understanding. CAUTI education given at 1645 both voiced understanding and gave demo.
--- NOTE | 2022-09-29 20:41 | PC.NURSE ---
1740 Patient discharged to home per private car, with family. Taken to car per wheelchair accompained per staff. patient in stable condition. personal belongings with patient and patient dressed in street clothes.
== END 2022-09-29 17:40 | disposition home or self-care (01) | DRG 193 ==
LOC: ER 14:03 → MEDSURG 15:15
PROVIDERS: Admitting Provider Hospitalist; Emergency Provider Emergency Medicine; PCP Family Medicine; Visit Provider Family Medicine
DX: J18.9 Pneumonia, unspecified organism (principal); I50.23 Acute on chronic systolic (congestive) heart failure; I13.0 Hypertensive heart and chronic kidney disease with heart failure and stage 1 through stage 4 chronic kidney disease, or unspecified chronic kidney disease; Z68.42 Body mass index [BMI] 45.0-49.9, adult; N18.32 Chronic kidney disease, stage 3b; E11.22 Type 2 diabetes mellitus with diabetic chronic kidney disease; R33.9 Retention of urine, unspecified; K52.9 Noninfective gastroenteritis and colitis, unspecified; I25.10 Atherosclerotic heart disease of native coronary artery without angina pectoris; Z95.5 Presence of coronary angioplasty implant and graft; E78.49 Other hyperlipidemia; G47.30 Sleep apnea, unspecified; E66.01 Morbid (severe) obesity due to excess calories; Z86.73 Personal history of transient ischemic attack (TIA), and cerebral infarction without residual deficits; Z79.02 Long term (current) use of antithrombotics/antiplatelets; Z79.82 Long term (current) use of aspirin; E11.42 Type 2 diabetes mellitus with diabetic polyneuropathy; I25.2 Old myocardial infarction; Z98.1 Arthrodesis status; Z87.891 Personal history of nicotine dependence
CPT/HCPCS: 36415; 36416; 36600; 51702; 51798; 71045; 80048; 80051; 80053; 82330; 82805; 82962; 83605; 83735; 83880; 84100; 84145; 84484; 85025; 86140; 87040; 87486; 87581; 87633; 93005; 94640; 94660; 94760; 96365; 96367; 96372; 97110; 97161; 99285; C8929; G0378; J0456; J0696; J1650; J1815; J1940; J3490; J7050; Q9956

== ENCOUNTER → 2022-10-26 12:52 | Outpatient (BNVA) | payer MEDICARE, SELFPAY | PROVIDERS: PCP Family Medicine; Visit Provider Urology | DX: R33.9 Retention of urine, unspecified (principal) | CPT/HCPCS: 51798; 81003; 87086; 99203 ==

== ENCOUNTER 2023-03-07 17:49 | Emergency (ER) | payer MEDICARE, SELFPAY ==
--- NOTE | 2023-03-07 17:50 | XRR_ITS ---
PROCEDURE INFORMATION: Exam: XR Chest Exam date and time: 03/07/2023 5:56 PM Age: 67 years old Clinical indication: Shortness of breath; Additional info: SOB TECHNIQUE: Imaging protocol: Radiologic exam of the chest. Views: 1 view. COMPARISON: CR XR chest 1V portable [id number] 09/26/2022 12:02 PM FINDINGS: Lungs: Normal lung volumes. Mild bilateral perihilar interstitial opacities are seen, right greater than left. Some prominence of bilateral hilar regions are seen. These findings may represent mild asymmetric pulmonary edema, although interstitial pneumonia cannot be excluded. Recommend correlation with clinical findings and follow-up. Pleural spaces: No pleural effusion. No pneumothorax. Heart/Mediastinum: The heart size is normal.There is a mildly tortuous thoracic aorta. The trachea is midline. Bones/joints: No acute osseous abnormalities seen. XR/XR chest 1V portable [id number] IMPRESSION: Mild bilateral perihilar interstitial opacities, right greater than left. Some prominence of bilateral hilar regions. These findings may represent mild asymmetric pulmonary edema, although interstitial pneumonia cannot be excluded. Recommend correlation with clinical findings and follow-up.
--- NOTE | 2023-03-07 17:50 | ECG_ITS ---
[facility] Test Date: 2023-03-07 Pat Name: Garrett Mares Department: Room: Gender: Male Director Of Claims: : 1955 Requested By: Song Melendez Order Number: [id number] Rosita MD: Sarahi Rasmussen M.D. Measurements Intervals [place] Rate: 89 P: 105 SD: 243 QRS: -65 QRSD: 132 T: 5 QT: 364 QTc: 445 Interpretive Statements SINUS RHYTHM WITH FIRST DEGREE AV BLOCK RIGHT BUNDLE BRANCH BLOCK [120+ ms QRS DURATION, UPRIGHT V1, 40+ ms S IN I/aVL/V4/V5/V6] POSSIBLE ANTERIOR MYOCARDIAL INFARCTION , PROBABLY OLD [30 ms Q WAVE IN V3/V4, OR R < 0.2 mV IN V4] INFERIOR MYOCARDIAL INFARCTION , PROBABLY OLD [40+ ms Q WAVE AND/OR ST/T ABNORMALITY IN II/aVF] Compared to ECG 09/26/2022 17:40:52 No significant changes Electronically Signed On 03-08-2023 22:17:33 CDT by Sarahi Rasmussen M.D. [id number]
[2023-03-07 17:58] VITALS: BP 189/93; PULSE 92; RESP 20; TEMP 36.6; O2SAT 94; BMI 44.4
[2023-03-07 18:12] VITALS: BP 181/123; PULSE 91; RESP 16; O2SAT 93
[2023-03-07 18:44] VITALS: BP 189/103; PULSE 82; RESP 23; O2SAT 95
--- NOTE | 2023-03-07 18:45 | W.ED.SOB ---
HPI - SOB/Dyspnea General: Chief Complaint: Shortness of Breath/Dyspnea Stated Complaint: SOB Time Seen by Provider: 03/07/23 18:13 History of Present Illness: HPI Narrative: Patient is a 67-year-old male who comes to the ED with shortness of breath. Past medical history of CAD, CHF, CKD stage III, hypertension, hyperlipidemia and diabetes. Patient is not on any oxygen at home. He has been having worsening shortness of breath that started approximately 4 days ago. Shortness of breath worsens with exertion and patient says after getting up and walking a few feet he feels exhausted and shortness of breath worsens. He also reports shortness of breath worsening when he lays flat. Patient says he does not weigh himself daily, so he is unaware of any recent weight change/fluid retention. Denies any new or worsening lower extremity edema. Denies any chest pain, cough, fevers, nausea/vomiting, abdominal pain, bladder or bowel symptoms. Patient says he takes 40 mg of furosemide daily and states that he took an extra 40 mg dose today. Associated symptoms: Reports orthopnea; Deny abdominal pain, chest pain, fever(s), nausea, palpitations or vomiting Review of Systems Const: Denies: fever(s), chills or fatigue Eyes: Denies: change in vision or eye discomfort ENMT: Denies: throat pain, odynophagia, nasal discharge or nasal congestion Card: Reports: dyspnea on exertion and orthopnea; Denies: chest pain, palpitations, edema or swelling of feet/ankles Resp: Reports: dyspnea; Denies: productive cough or non-productive cough GI: Denies: abdominal pain, nausea, vomiting, diarrhea, constipation or hematochezia : Denies: flank pain, difficulty urinating, dysuria or hematuria Musc: Denies: neck pain, back pain or extremity swelling Skin/Breast: Denies: rash or new lesions Neuro: Denies: headache(s), numbness in extremities or weakness in extremities PFS ED PFSH: Medical History BMI 45.0-49.9, adult BPH loc w urin obs/LUTS CAD (coronary artery disease) CHF (congestive heart failure) Chronic kidney disease, stage 3b CVA (cerebral vascular accident) Diabetes mellitus, type II Diabetic neuropathy History of non-ST elevation myocardial infarction (NSTEMI) HTN (hypertension) Hyperlipidemia Sleep apnea Surgical History S/P cervical spinal fusion S/P PTCA (percutaneous transluminal coronary angioplasty) Reports 7 stents and angioplasty x 3 Family History Mother , AT AGE 75 Hypertension Diabetes Father , AT AGE 72 Diabetes Hypertension Other CAD (coronary artery disease) Social History Smoking and tobacco status: former smoker Alcohol intake: current Alcohol intake frequency: few times a month Substance/Drug Use: never Marital status: Current occupational status: retired Physical Exam Const: COMMON NORMALS: patient oriented x3 and alert GENERAL APPEARANCE: cooperative NUTRITIONAL APPEARANCE: obese morbidly obese HENMT: COMMON NORMALS: normocephalic HEAD & SCALP: normocephalic MOUTH: Normal oral and palatal mucosa present THROAT: posterior oropharynx normal and uvula midline Neck/C-Spine: COMMON NORMALS: supple GENERAL: Yes normal visual inspection Resp: COMMON NORMALS: normal respiratory effort, No retractions, No use of accessory muscles and clear to auscultation bilaterally AUSCULTATION: clear to auscultation bilaterally and diminished lung sounds on the right in the lower lung mijares Cardio: COMMON NORMALS: regular rate, regular rhythm, S1 normal heart sound present, S2 normal heart sound present, No gallops present (Cardio), No clicks present (Cardio), No murmurs present (Cardio) and Peripheral pulses 2+ throughout RATE: regular rate RHYTHM: regular rhythm HEART SOUNDS: S1 normal heart sound present and S2 normal heart sound present PERIPHERAL PULSES: Peripheral pulses 2+ throughout GI: COMMON NORMALS: Normal to inspection, nondistended, normoactive bowel sounds present, Soft to palpation, non-tender and no masses PALPATION: Yes Soft to palpation : COMMON NORMALS: Yes no CVA tenderness BLADDER/KIDNEY EXAM: Yes no CVA tenderness Back/Pelvis: COMMON NORMALS: no CVA tenderness Extremity: GENERAL: Yes normal exam except as noted Neuro: COMMON NORMALS: patient oriented x3 SENSORIUM/ORIENTATION: Yes alert GAIT: Yes Normal gait present Skin: GENERAL SKIN EXAM: dry skin Course Vital Signs: Vital signs: Vital Signs Temperature 97.9 F 03/07/23 17:58 Pulse Rate 82 03/07/23 18:44 Respiratory Rate 23 H 03/07/23 18:44 Blood Pressure 189/103 03/07/23 18:44 Pulse Oximetry 95 03/07/23 20:58 Oxygen Delivery Me thod Room Air 03/07/23 18:44 Oxygen Flow Rate 2 03/07/23 20:58 MDM - SOB/Dyspnea Medical Decision Making Patient is a 67-year-old male who comes to the ED with shortness of breath. Past medical history of CAD, CHF, CKD stage III, hypertension, hyperlipidemia and diabetes. Patient is not on any oxygen at home. He has been having worsening shortness of breath that started approximately 4 days ago. Shortness of breath worsens with exertion and patient says after getting up and walking a few feet he feels exhausted and shortness of breath worsens. He also reports shortness of breath worsening when he lays flat. Patient says he does not weigh himself daily, so he is unaware of any recent weight change/fluid retention. Denies any new or worsening lower extremity edema. Denies any chest pain, cough, fevers, nausea/vomiting, abdominal pain, bladder or bowel symptoms. Patient says he takes 40 mg of furosemide daily and states that he took an extra 40 mg dose today. Vitals are stable. Patient appears nontoxic and in no acute distress. He has some diminished lung sounds on the right lower lung but rest of exam is benign. Chest x-ray shows some mild bilateral perihilar interstitial opacities with right greater than left which is likely due to pulmonary edema but interstitial pneumonia cannot be excluded. CBC and CMP unremarkable. COVID-negative. BNP's 2297 which is up slightly from 1505 back in September 2022. Sinus rhythm with first-degree AV block. 89 bpm, no ST segment elevation or depression seen. Patient was given IV Lasix here in the ED and Home O2 eval performed and patient qualified for 2 L of oxygen continuously via nasal cannula. An order was placed with home health for patient to be sent home with oxygen today. He was diagnosed with CHF exacerbation and was discharged home. I sent him with a prescription for an antibiotic just to cover potential secondary lung infection although mild infiltrates in the lung are likely from pulmonary edema. Patient told to follow-up with PCP within the next week for reevaluation and to contact his urban planning teacher tomorrow to set up a follow-up appointment. Patient understood and agreed with plan. Dr. Melendez reviewed case and agreed with plan. Lab Data I reviewed the patient's lab results. 03/07/23 18:28 03/07/23 18:28 Labs/Radiology: Radiology Impressions Chest X-Ray 03/07/23 17:50 IMPRESSION: Mild bilateral perihilar interstitial opacities, right greater than left. Some prominence of bilateral hilar regions. These findings may represent mild asymmetric pulmonary edema, although interstitial pneumonia cannot be excluded. Recommend correlation with clinical findings and follow-up. Laboratory Results WBC 11.7 10^3/uL (4.0-10.0) H 03/07/23 18: RBC 4.72 10^6/uL (4.1-5.3) 03/07/23 18: Hgb 14.0 g/dL (11.7-16.6) 03/07/23 18: Hct 43.1 % (42.0-52.0) 03/07/23 18: MCV 91.3 fl (80-94) 03/07/23 18: MCH 29.7 pg (28.0-34.0) 03/07/23 18: MCHC 32.5 g/dL (30.0-36.0) 03/07/23 18: RDW 14.3 % (12.1-15.1) 03/07/23 18: Plt Count 373 10^3/cmm (130-400) 03/07/23 18: MPV 9.8 fL (7.4-10.4) 03/07/23 18:28 Neut % (Auto) 73.6 % 03/07/23 18: Lymph % (Auto) 15.4 % 03/07/23 18: [place] % (Auto) 8.3 % 03/07/23 18: Eos % (Auto) 1.9 % 03/07/23 18: Baso % (Auto) 0.5 % 03/07/23 18:28 Neut # (Auto) 8.64 10^3/uL (1.8-7.7) H 03/07/23 18:28 Lymph # (Auto) 1.8 10^3/uL (0.8-4.8) 03/07/23 18:28 [place] # (Auto) 1.0 10^3/uL (0.2-0.9) H 03/07/23 18:28 Eos # (Auto) 0.2 10^3/uL (0.0-0.8) 03/07/23 18: Baso # (Auto) 0.1 10^3/uL (0.0-0.1) 03/07/23 18: Nucleated RBC % (auto) 0 % 03/07/23 18: Nucleated RBCs # 0.0 /100WBC 03/07/23 18: PT 13.60 SECONDS (12.1-14.9) 03/07/23 18: INR 1.01 (0.8-1.2) 03/07/23 18: Sodium 138 mmol/L (136-145) 03/07/23 18: Potassium 4.5 mmol/L (3.5-5.1) 03/07/23 18: Chloride 99 mmol/L (98-107) 03/07/23 18: Carbon Dioxide 29 mmol/L (22-29) 03/07/23 18: Anion Gap 14.5 (5-19) 03/07/23 18: BUN 20 mg/dL (8-23) 03/07/23 18: Creatinine 1.1 mg/dL (0.7-1.2) 03/07/23 18: GFR Calculation 66.6 mL/min (90-130) L 03/07/23 18: Glucose 222 mg/dL (65-115) H 03/07/23 18: Calculated Osmolality 295 mOsm/kg (285-295) 03/07/23 18: Calcium 8.5 mg/dL (8.5-10.5) 03/07/23 18: Total Bilirubin 0.6 mg/dL (0.15-1.2) 03/07/23 18: AST 16 U/L (0-40) 03/07/23 18: ALT 29 U/L (0-41) 03/07/23 18: Alkaline Phosphatase 69 U/L (40-130) 03/07/23 18:28 NT-Pro-B Natriuret Pep 2297 pg/mL (0-125) H 03/07/23 18:28 Total Protein 7.0 g/dL (6.6-8.7) 03/07/23 18:28 Albumin 3.9 g/dL (3.5-5.2) 03/07/23 18:28 Globulin 3.1 g/dL (1.3-4.6) 03/07/23 18:28 SARS-CoV-2 Ag (Rapid) negative (Negative) 03/07/23 18:44 EKG Data EKG 1: EKG Interpretation Date: 03/07/23 Interpretation: Sinus rhythm with first-degree AV block. 89 bpm, no ST segment elevation or depression seen. Dr. Melendez reviewed EKG and agreed. Discharge Plan Discharge Patient Disposition: Home Clinical Impression: CHF exacerbation Qualifiers: Heart failure type: unspecified Qualified Code(s): I50.9 - Heart failure, unspecified Condition: Stable Prescriptions: New doxycycline hyclate 100 mg capsule 100 mg PO BID 10 Days Qty: 20 0RF No Action montelukast 10 mg tablet 10 mg PO BEDTIME citalopram 40 mg tablet 40 mg PO QPM Trulicity 1.5 mg/0.5 mL pen injector SUBCUT .WEEKLY tamsulosin 0.4 mg capsule 0.4 mg PO .Twice daily Qty: 180 3RF carvedilol 25 mg tablet 25 mg PO BID Qty: 180 3RF clopidogrel [Plavix] 75 mg tablet 75 mg PO DAILY Qty: 90 3RF furosemide 40 mg tablet 40 mg PO QAM Qty: 90 3RF isosorbide mononitrate 60 mg tablet extended release 24 hr 60 mg PO BID Qty: 180 3RF Nitrostat 0.4 mg tablet, sublingual 0.4 mg SUBLINGUAL Q5M PRN (Reason: Chest Pain) Qty: 25 2RF Rx Instructions: do not exceed 3 doses per episode potassium chloride 10 mEq tablet extended release 10 meq PO QAM Qty: 90 3RF rosuvastatin 20 mg tablet 20 mg PO BEDTIME Qty: 90 3RF gabapentin 100 mg capsule 100 mg PO BID Tresiba FlexTouch U-200 200 unit/mL (3 mL) insulin pen 120 unit SUBCUT QAM MDD 150 units Lyumjev KwikPen U-200 Insulin 200 unit/mL (3 mL) insulin pen See Rx Instructions .ROUTE .COMPLEX Rx Instructions: 40 units plus sliding scale (max 150 units) Adult Low Dose Aspirin 81 mg tablet,delayed release (DR/EC) 81 mg PO QAM Discharge Orders: Discharge ED (Routine); Ordered 03/07/23 Ordered By: Azam Bowers Other Ambulatory Orders: DME: Oxygen (Order) Location: None Selected Ordered By: Azam Bowers Referrals: Kyle Corrigan MD [Primary Care Provider] - Discharge Diet: Regular Discharge Activity: Increase activity as tolerated Patient Instructions: Heart Failure (DC), Using Oxygen at Home (ED) Activity Restrictions/Additional Instructions: Follow-up with primary care doctor within the next week for reevaluation. Contact urban planning teacher tomorrow to set up a follow-up appointment with them as soon as possible. Wear your oxygen as prescribed at 2 L continuously. Continue taking all home medications as prescribed. Return to the ER or your medical provider if condition worsens. Please read and understand discharge instructions. Thank you for choosing [facility] for your healthcare needs today. Please realize this is an emergency room and that we are providing you with a medical screening exam and this may not be complete and all inclusive of all the testing and or work up that you may need to determine your ailment or severity of your illness. It is very important that you follow up as instructed or that you return to the Emergency Department should you have concerns or if your condition changes or worsens in any way. Coding Level of Care Code ED On Site Waste[employer] Systems Technician for Luna Booth
[2023-03-07 18:56] LABS: Basophils # 0.1 10^3/uL (0.0-0.1); Basophils % 0.5 %; Eosinophils # 0.2 10^3/uL (0.0-0.8); Eosinophils % 1.9 %; Hematocrit 43.1 % (42.0-52.0); Lymphocytes # 1.8 10^3/uL (0.8-4.8); Lymphocytes % 15.4 %; Mean Corpuscular HGB Conc 32.5 g/dL (30.0-36.0); Mean Corpuscular Hemoglobin 29.7 pg (28.0-34.0); Mean Corpuscular Volume 91.3 fl (80-94); Mean Platelet Volume 9.8 fL (7.4-10.4); Monocytes % 8.3 %; Neutrophils # 8.64 10^3/uL (1.8-7.7); Neutrophils % 73.6 %; Nucleated Red Blood Cells % 0 %; Platelet Count 373 10^3/cmm (130-400); Red Blood Count 4.72 10^6/uL (4.1-5.3); Red Cell Distribution Width 14.3 % (12.1-15.1); White Blood Count 11.7 10^3/uL (4.0-10.0)
[2023-03-07 19:10] LABS: INR 1.01 (0.8-1.2)
[2023-03-07 19:18] LABS: SARS Covid-2 Antigen negative (Negative)
[2023-03-07 19:28] LABS: Alanine Aminotransferase 29 U/L (0-41); Albumin Level 3.9 g/dL (3.5-5.2); Alkaline Phosphatase 69 U/L (40-130); Anion Gap 14.5 (5-19); Aspartate Amino Transferase 16 U/L (0-40); Blood Urea Nitrogen 20 mg/dL (8-23); Calcium 8.5 mg/dL (8.5-10.5); Carbon Dioxide 29 mmol/L (22-29); Chloride 99 mmol/L (98-107); Globulin 3.1 g/dL (1.3-4.6); Glomerular Filtration Rate 66.6 mL/min (90-130); Glucose 222 mg/dL (65-115); NT Pro B Type Natriuretic Pept 2297 pg/mL (0-125); Osmolality Calculated 295 mOsm/kg (285-295); Potassium 4.5 mmol/L (3.5-5.1); Sodium 138 mmol/L (136-145); Total Bilirubin 0.6 mg/dL (0.15-1.2)
[2023-03-07] MEDS: FUROsemide 10 mg/mL SDV 4mL 40 MG IVP (20:47)
[2023-03-07 20:58] VITALS: O2SAT 82; O2SAT 95
[2023-03-07] MEDS: doxycycline 100 mg Tablet PO (21:47)
== END 2023-03-07 21:48 | disposition home or self-care (01) ==
PROVIDERS: Emergency Medicine; Emergency Provider Physician Assistant; PCP Family Medicine
DX: I13.0 Hypertensive heart and chronic kidney disease with heart failure and stage 1 through stage 4 chronic kidney disease, or unspecified chronic kidney disease (principal); E11.22 Type 2 diabetes mellitus with diabetic chronic kidney disease; N18.32 Chronic kidney disease, stage 3b; I50.9 Heart failure, unspecified; Z79.85 Long-term (current) use of injectable non-insulin antidiabetic drugs; Z79.02 Long term (current) use of antithrombotics/antiplatelets; Z79.4 Long term (current) use of insulin; Z79.82 Long term (current) use of aspirin; Z20.822 Contact with and (suspected) exposure to COVID-19; Z87.891 Personal history of nicotine dependence; I25.10 Atherosclerotic heart disease of native coronary artery without angina pectoris; Z86.73 Personal history of transient ischemic attack (TIA), and cerebral infarction without residual deficits; I25.2 Old myocardial infarction; E78.5 Hyperlipidemia, unspecified
CPT/HCPCS: 36415; 71045; 80053; 83880; 85025; 85610; 87426; 93005; 94760; 96374; 99285; J1940

== ENCOUNTER → 2023-03-29 08:29 | Outpatient (BNVA) | payer MEDICARE, SELFPAY | PROVIDERS: PCP Family Medicine; Referring Provider Family Medicine; Visit Provider Internal Medicine | DX: E11.22 Type 2 diabetes mellitus with diabetic chronic kidney disease (principal); E11.42 Type 2 diabetes mellitus with diabetic polyneuropathy; E11.621 Type 2 diabetes mellitus with foot ulcer; I25.10 Atherosclerotic heart disease of native coronary artery without angina pectoris; Z86.73 Personal history of transient ischemic attack (TIA), and cerebral infarction without residual deficits; L97.509 Non-pressure chronic ulcer of other part of unspecified foot with unspecified severity; I50.9 Heart failure, unspecified; Z79.4 Long term (current) use of insulin; E78.49 Other hyperlipidemia | CPT/HCPCS: 99204 ==

== ENCOUNTER → 2023-05-01 15:36 | Outpatient (BNVA) | payer MEDICARE, SELFPAY | PROVIDERS: PCP Family Medicine; Visit Provider Nurse Practitioner Family | DX: I13.0 Hypertensive heart and chronic kidney disease with heart failure and stage 1 through stage 4 chronic kidney disease, or unspecified chronic kidney disease (principal); E11.22 Type 2 diabetes mellitus with diabetic chronic kidney disease; N18.32 Chronic kidney disease, stage 3b; I50.23 Acute on chronic systolic (congestive) heart failure; Z87.891 Personal history of nicotine dependence; Z79.4 Long term (current) use of insulin; I25.110 Atherosclerotic heart disease of native coronary artery with unstable angina pectoris; E78.5 Hyperlipidemia, unspecified | CPT/HCPCS: 80048; 83880; 99214 ==

== ENCOUNTER 2023-05-09 10:07 | Outpatient (CLI) | payer MEDICARE, SELFPAY ==
--- NOTE | 2023-05-09 10:00 | USCV_ITS ---
Garrett Mares Age: 67 Gender: M : 1955 Exam Date: 05/09/2023 11:05 Ordering Phys: Aishwarya Jones Technologist: MADDISON Exam Location: [facility] Indication: SHORTNESS OF BREATH BP: 132 / 62 HR: 79 Rhythm: Sinus Technical Quality: Poor because of body habitus MEASUREMENTS (Male / Female) Normal Values 2D ECHO LVOT Diameter 2.0 cm LV Ejection Fraction MOD 2C 42.0 % LV Ejection Fraction 2C AL 40.4 % LA Diameter 4.5 cm LA Width 4.2 cm LA Height 5.8 cm RA Width 4.4 cm RA Height 4.0 cm Aorta at Sinotubular Diameter 2.3 cm M-MODE Aortic Annulus Diameter 2.9 cm LA Ao Ratio MM 1.4 MV E Point Septal Separation 1.3 cm DOPPLER AV Peak Velocity 115.0 cm/s LVOT Peak Velocity 51.0 cm/s AV Area Cont Eq vti 1.4 cm squared AV Area Cont Eq pk 1.4 cm squared MV Peak Velocity 114.0 cm/s MV Area PHT 5.0 cm squared Mitral E to A Ratio 2.2 MV E' Velocity 82.0 cm/s TV Peak E Velocity 57.0 cm/s PV Peak Velocity 72.0 cm/s RV Acceleration Time 0.1 s RV Ejection Time 0.3 s RV AcT/ET 0.3 FINDINGS Left Ventricle Technically limited quality echocardiogram because of poor ultrasonic windows. Even with contrast limited visualization. Grossly LV systolic function is mildly reduced. Regional wall motion normalities cannot accurately be assessed because of limited visualization. Right Ventricle Not well visualized Right Atrium Not well visualized Left Atrium Not well visualized Mitral Valve Not well visualized. Trace mitral regurgitation. Aortic Valve Not well visualized. No significant stenosis. Tricuspid Valve Not well visualized Pulmonic Valve Not well visualized Pericardium Not well visualized Aorta Normal in size IVC Not well visualized CONCLUSIONS Technically limited quality echocardiogram because of poor ultrasonic windows. Even with contrast limited visualization. Grossly LV systolic function is mildly reduced. Regional wall motion abnormalities cannot accurately be assessed because of limited visualization. Trace mitral regurgitation. Valves are not well visualized Comparison with prior echocardiograms not possible because of very limited visualization of cardiac structures. Joey Barrios MD (Electronically Signed) Final Date: 20 May 2023 12:48 S
[2023-05-09] MEDS: perflutren protein-a microsphr 0.22 mg/mL SDV 3 mL IV (11:38)
== END 2023-05-09 10:08 | disposition home or self-care (01) ==
LOC: RAD 10:08
PROVIDERS: PCP Family Medicine; Visit Provider Nurse Practitioner Family
DX: I25.10 Atherosclerotic heart disease of native coronary artery without angina pectoris (principal); I50.9 Heart failure, unspecified
CPT/HCPCS: C8929; Q9956

== ENCOUNTER 2023-05-28 15:56 | Observation (INO) | payer MEDICARE, SELFPAY ==
--- NOTE | 2023-05-28 16:03 | ECG_ITS ---
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 Measurements Intervals [place] Rate: 80 P: 112 SD: 251 QRS: -66 QRSD: 135 T: -12 QT: 430 QTc: 498 Interpretive Statements SINUS RHYTHM WITH FIRST DEGREE AV BLOCK Right bundle branch block PROBABLE ANTERIOR MYOCARDIAL INFARCTION , OF INDETERMINATE AGE [35 ms Q WAVE IN V3/V4] INFERIOR MYOCARDIAL INFARCTION , PROBABLY OLD [40+ ms Q WAVE AND/OR ST/T ABNORMALITY IN II/aVF] Compared to ECG 03/07/2023 18:23:22 Myocardial infarct finding still present Electronically Signed On 05-28-2023 18:25:51 CDT by Ryan Sheffield M.D. [id number] f
--- NOTE | 2023-05-28 16:03 | XRR_ITS ---
PROCEDURE INFORMATION: Exam: XR Chest Exam date and time: 05/28/2023 4:29 PM Age: 67 years old Clinical indication: Chest wall pain; Prior surgery; Surgery date: 6+ months; Surgery type: Stints; Additional info: Chest pain TECHNIQUE: Imaging protocol: Radiologic exam of the chest. Views: 1 view. COMPARISON: CR (CHEST, ) 03/07/2023 5:56 PM FINDINGS: Lungs: Unremarkable. No consolidation. Pleural spaces: Unremarkable. No pleural effusion. No pneumothorax. Heart/Mediastinum: Cardiac silhouette is mild-moderately enlarged. Bones/joints: Unremarkable for age. XR/XR chest 1V portable [id number] IMPRESSION: Cardiomegaly otherwise negative chest.
[2023-05-28 16:04] VITALS: BP 144/74; PULSE 86; RESP 22; O2SAT 91
--- NOTE | 2023-05-28 16:13 | W.ED.CHESTPA ---
HPI - Chest Pain General: Chief Complaint: Chest Pain Stated Complaint: CP Time Seen by Provider: 05/28/23 16:03 Source: patient Mode of arrival: ambulatory History of Present Illness: 67-year-old male with history of coronary disease presents emergency room with complaint of left-sided chest pain began 2 hours ago had accompanying shortness of breath. He was at rest at the time but the chest pain initiated. He did take 2 sublingual nitro with moderate relief of symptoms. He has known history of coronary disease previous stents in the past as well as a history of COPD. MD complaint: chest pain Onset (ago): hour(s) Timing of current episode: episodic Prior episodes: Yes Onset: during rest Pain location: left chest Associated symptoms: Deny abdominal pain, diaphoresis, dyspnea, fever(s), leg edema, nausea, palpitations, sense of impending doom, syncope or vomiting Treatment prior to arrival: aspirin and nitroglycerin Review of Systems Const: Denies: fever(s), chills or diaphoresis ENMT: Denies: ear or mastoid pain, nasal discharge or nasal congestion Card: Denies: palpitations or syncope Resp: Denies: dyspnea GI: Denies: abdominal pain, nausea or vomiting : Denies: flank pain, dysuria, urinary frequency or urinary urgency Skin/Breast: Denies: rash or pruritus PFSH ED PFSH: Medical History BMI 45.0-49.9, adult BPH loc w urin obs/LUTS CAD (coronary artery disease) CHF (congestive heart failure) Chronic kidney disease, stage 3b CVA (cerebral vascular accident) Diabetes mellitus, type II Diabetic neuropathy History of non-ST elevation myocardial infarction (NSTEMI) HTN (hypertension) Hyperlipidemia Sleep apnea Surgical History S/P cervical spinal fusion S/P PTCA (percutaneous transluminal coronary angioplasty) Reports 7 stents and angioplasty x 3 Family History Mother , AT AGE 75 Hypertension Diabetes Father , AT AGE 72 Diabetes Hypertension Other CAD (coronary artery disease) Social History Smoking and tobacco status: former smoker Alcohol intake: current Alcohol intake frequency: few times a month Substance/Drug Use: never Marital status: Current occupational status: retired Physical Exam Const: GENERAL APPEARANCE: cooperative and comfortable ORIENTATION/CONSCIOUSNESS: Yes awake, Yes oriented to person, Yes oriented to place and Yes oriented to time HENMT: COMMON NORMALS: normocephalic, atraumatic and hearing grossly normal bilaterally HEAD & SCALP: normocephalic and atraumatic Resp: COMMON NORMALS: normal respiratory effort, No retractions, No use of accessory muscles and clear to auscultation bilaterally AUSCULTATION: clear to auscultation bilaterally Cardio: COMMON NORMALS: regular rate, regular rhythm and No murmurs present (Cardio) RATE: regular rate RHYTHM: regular rhythm GI: COMMON NORMALS: Soft to palpation and No hepatosplenomegaly present AUSCULTATION: Yes normoactive bowel sounds PALPATION: Yes Soft to palpation, No Tenderness to palpation present (GI), No Guarding due to palpation present (GI) and Yes No hepatosplenomegaly present Extremity: COMMON NORMALS: normal to inspection, capillary refill normal, no clubbing, cyanosis or edema, no calf tenderness and no pedal edema Neuro: SENSORIUM/ORIENTATION: Yes oriented to person, Yes oriented to place and Yes oriented to time Skin: COMMON NORMALS: no rashes or lesions noted GENERAL SKIN EXAM: no rashes or lesions noted Course Vital Signs: Vital signs: Vital Signs Pulse Rate 73 05/28/23 18:24 Respiratory Rate 22 H 05/28/23 16:04 Blood Pressure 151/80 05/28/23 18:24 Pulse Oximetry 98 05/28/23 18:24 Oxygen Delivery Me thod Room Air 05/28/23 16:53 MDM - Chest Pain Medical Decision Making Serial troponins unchanged. EKG does not show acute ST changes. Patient has significant cardiac risk factors and history with unstable angina recommend that we hospitalize and do early cardiac stress testing. Medical Records I reviewed the patient's medical records. Lab Data I reviewed the patient's lab results. 05/28/23 16:14 05/28/23 17:17 Radiology Impressions Chest X-Ray 05/28/23 16:03 IMPRESSION: Cardiomegaly otherwise negative chest. Laboratory Results WBC 10.7 10^3/uL (4.0-10.0) H 08/13/23 16:14 RBC 4.31 10^6/uL (4.1-5.3) 05/28/23 16:14 Hgb 12.8 g/dL (11.7-16.6) 05/28/23 16:14 Hct 40.8 % (42.0-52.0) L 05/28/23 16:14 MCV 94.7 fl (80-94) H 05/28/23 16:14 MCH 29.7 pg (28.0-34.0) 05/28/23 16:14 MCHC 31.4 g/dL (30.0-36.0) 05/28/23 16:14 RDW 14.1 % (12.1-15.1) 05/28/23 16:14 Plt Count 272 10^3/cmm (130-400) 05/28/23 16:14 MPV 10.1 fL (7.4-10.4) 05/28/23 16:14 Neut % (Auto) 71.2 % 05/28/23 16:14 Lymph % (Auto) 17.9 % 05/28/23 16:14 [place] % (Auto) 8.7 % 05/28/23 16:14 Eos % (Auto) 1.4 % 05/28/23 16:14 Baso % (Auto) 0.4 % 05/28/23 16:14 Neut # (Auto) 7.59 10^3/uL (1.8-7.7) 05/28/23 16:14 Lymph # (Auto) 1.9 10^3/uL (0.8-4.8) 05/28/23 16:14 [place] # (Auto) 0.9 10^3/uL (0.2-0.9) 05/28/23 16:14 Eos # (Auto) 0.2 10^3/uL (0.0-0.8) 05/28/23 16:14 Baso # (Auto) 0.0 10^3/uL (0.0-0.1) 05/28/23 16:14 Nucleated RBC % (auto) 0 % 05/28/23 16:14 Nucleated RBCs # 0.0 /100WBC 05/28/23 16:14 Sodium 137 mmol/L (136-145) 05/28/23 17:17 Potassium 3.7 mmol/L (3.5-5.1) 05/28/23 17:17 Chloride 99 mmol/L (98-107) 05/28/23 17:17 Carbon Dioxide 27 mmol/L (22-29) 05/28/23 17:17 Anion Gap 14.7 (5-19) 05/28/23 17:17 BUN 30 mg/dL (8-23) H 05/28/23 17:17 Creatinine 1.4 mg/dL (0.7-1.2) H 05/28/23 17:17 GFR Calculation 50.4 mL/min (90-130) L 05/28/23 17:17 Glucose 44 mg/dL (65-115) L 05/28/23 17:17 POC Glucose 62 mg/dL (70-110) L 05/28/23 18:36 Calculated Osmolality 287 mOsm/kg (285-295) 05/28/23 17:17 Calcium 8.8 mg/dL (8.5-10.5) 05/28/23 17:17 Total Bilirubin 0.6 mg/dL (0.15-1.2) 05/28/23 17:17 AST 16 U/L (0-40) 05/28/23 17:17 ALT 15 U/L (0-41) 05/28/23 17:17 Alkaline Phosphatase 57 U/L (40-130) 05/28/23 17:17 Troponin T Baseline 58 ng/L (0-15) H 05/28/23 17:17 Troponin T 120 Minute 59.57 ng/L (0-15) H 05/28/23 19:16 Delta Troponin T 1.57 ABS# (0-10) 05/28/23 19:16 Total Protein 6.7 g/dL (6.6-8.7) 05/28/23 17:17 Albumin 3.2 g/dL (3.5-5.2) L 05/28/23 17:17 Globulin 3.5 g/dL (1.3-4.6) 05/28/23 17:17 EKG Data EKG 1: EKG interpretation date: 05/28/23 EKG interpretation time: 16:14 Prior EKG tracings: available for review Interpretation: Normal sinus rhythm. Q waves in 3 and aVF no acute ST segment elevation elevation. There is a first-degree AV block unchanged from February 2023 Discharge Plan Discharge Patient Disposition: Admitted As Inpatient Admit Provider: Juwan Arambula Clinical Impression: Unstable angina pectoris, Diabetes mellitus, type II, History of continuous positive airway pressure (CPAP) therapy at home, Chronic kidney disease, stage 3b, CAD (coronary artery disease), CHF (congestive heart failure) Condition: Stable Coding Level of Care Code ED [place] Operator for Luna Booth
[2023-05-28] MEDS: aspirin 81 mg Chew Tablet 243 MG PO (16:31)
[2023-05-28 16:46] VITALS: BP 128/84; PULSE 79
[2023-05-28] MEDS: nitroglycerin 1 gm/inch oint Pkt 0.5 INCH TOPICAL (16:46)
[2023-05-28 16:53] VITALS: BP 172/98; PULSE 76; O2SAT 94
[2023-05-28 17:29] LABS: Basophils % 0.4 %; Eosinophils # 0.2 10^3/uL (0.0-0.8); Eosinophils % 1.4 %; Hematocrit 40.8 % (42.0-52.0); Hemoglobin 12.8 g/dL (11.7-16.6); Lymphocytes # 1.9 10^3/uL (0.8-4.8); Lymphocytes % 17.9 %; Mean Corpuscular HGB Conc 31.4 g/dL (30.0-36.0); Mean Corpuscular Hemoglobin 29.7 pg (28.0-34.0); Mean Corpuscular Volume 94.7 fl (80-94); Mean Platelet Volume 10.1 fL (7.4-10.4); Monocytes # 0.9 10^3/uL (0.2-0.9); Monocytes % 8.7 %; Neutrophils # 7.59 10^3/uL (1.8-7.7); Neutrophils % 71.2 %; Nucleated Red Blood Cells % 0 %; Platelet Count 272 10^3/cmm (130-400); Red Blood Count 4.31 10^6/uL (4.1-5.3); Red Cell Distribution Width 14.1 % (12.1-15.1); White Blood Count 10.7 10^3/uL (4.0-10.0)
[2023-05-28 17:58] LABS: Troponin(5th) Baseline 58 ng/L (0-15)
--- NOTE | 2023-05-28 18:03 | ECG_ITS ---
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 Measurements Intervals [place] Rate: 73 P: 95 MT: 254 QRS: -49 QRSD: 144 T: -60 QT: 420 QTc: 465 Interpretive Statements SINUS RHYTHM WITH FIRST DEGREE AV BLOCK LEFT AXIS DEVIATION [QRS AXIS < -30] RIGHT BUNDLE BRANCH BLOCK [120+ ms QRS DURATION, UPRIGHT V1, 40+ ms S IN I/aVL/V4/V5/V6] POSSIBLE ANTERIOR MYOCARDIAL INFARCTION , OF INDETERMINATE AGE [30 ms Q WAVE IN V3/V4, OR R < 0.2 mV IN V4] Compared to ECG 05/28/2023 16:10:05 Left-axis deviation now present Myocardial infarct finding still present Electronically Signed On 05-28-2023 18:27:55 CDT by Ryan Sheffield M.D. [id number]
[2023-05-28 18:07] LABS: Alanine Aminotransferase 15 U/L (0-41); Albumin Level 3.2 g/dL (3.5-5.2); Alkaline Phosphatase 57 U/L (40-130); Anion Gap 14.7 (5-19); Aspartate Amino Transferase 16 U/L (0-40); Blood Urea Nitrogen 30 mg/dL (8-23); Calcium 8.8 mg/dL (8.5-10.5); Carbon Dioxide 27 mmol/L (22-29); Chloride 99 mmol/L (98-107); Globulin 3.5 g/dL (1.3-4.6); Glomerular Filtration Rate 50.4 mL/min (90-130); Glucose 44 mg/dL (65-115); Osmolality Calculated 287 mOsm/kg (285-295); Potassium 3.7 mmol/L (3.5-5.1); Sodium 137 mmol/L (136-145); Total Bilirubin 0.6 mg/dL (0.15-1.2); Total Protein 6.7 g/dL (6.6-8.7)
[2023-05-28 18:24] VITALS: BP 151/80; PULSE 73; O2SAT 98
[2023-05-28 18:39] LABS: Glucose Point of Care 62 mg/dL (70-110)
[2023-05-28 19:51] LABS: Troponin 5 2HR 59.57 ng/L (0-15)
[2023-05-28 19:54] LABS: Troponin 5 2HR Delta 1.57 ABS# (0-10)
--- NOTE | 2023-05-28 20:53 | P.HP_ITS ---
Providers/Chief Complaint Admitting Physician: Juwan Arambula MD Primary Care Provider: Kyle Corrigan MD Chief Complaint: CP History of Present Illness Garrett Mares is a 67 year old male with history of coronary disease, uses 2 L of oxygen at baseline, lives with the family, presented with chief complaint of chest pain which started around noon. Patient is stating that he was resting when all of a sudden his heart experiencing left-sided pain which he is able to pinpoint it is reproducible as well, he did not notice any fever, nausea or vomiting, patient is stating that he is consistent with his diuretic regimen but he is not making much progress despite making aggressive urine, he is taking Lasix 40 mg p.o. twice daily along potassium supplementation. He follows up with Dr. Barrios outpatient, at the time of evaluation patient is chest pain- free Patient is stating that at home unknown he took 2 nitroglycerin 5 minutes apart which did not relieve his pain and that prompted his visit to the ER. Review of Systems Const: Denies: fever(s) Eyes: Denies: change in vision ENMT: Denies: throat pain Card: Reports: chest pain Resp: Denies: dyspnea GI: Denies: abdominal pain : Denies: flank pain Musc: Denies: neck pain Skin/Breast: Denies: rash Medications/Allergies Home Medications Medication Instructions Recorded Confirmed Last Taken Type montelukast 10 mg tablet 10 mg PO BEDTIME 11/29/19 05/28/23 05/27/23 History citalopram 40 mg tablet 40 mg PO QPM 08/18/20 05/28/23 05/28/23 History aspirin 81 mg tablet,delayed 81 mg PO [facility] 09/26/22 05/28/23 05/28/23 History release (Adult Low Dose Aspirin) gabapentin 100 mg capsule 100 mg PO BID 09/26/22 05/28/23 05/28/23 History insulin degludec 200 unit/mL (3 120 unit SUBCUT QA 09/26/22 05/28/23 05/28/23 History mL) subcutaneous pen (Tresiba FlexTouch U-200 insulin) carvedilol 25 mg tablet 25 mg PO BID #180 tabs 12/26/22 05/28/23 05/28/23 Rx clopidogrel 75 mg tablet (Plavix) 75 mg PO DAILY #90 tabs 12/26/22 05/28/23 05/28/23 Rx isosorbide mononitrate 60 mg 60 mg PO BID #180 tabs 12/26/22 05/28/23 05/28/23 Rx tablet,extended release 24 hr nitroglycerin 0.4 mg sublingual 0.4 mg sublingual Q5M PRN Chest 12/26/22 05/28/23 05/28/23 Rx tablet (Nitrostat) Pain #25 tabs rosuvastatin 20 mg tablet 20 mg PO BEDTIME #90 tabs 12/26/22 05/28/23 05/27/23 Rx FreeStyle Andres 2 Sensor (flash #4 ea 04/28/23 05/28/23 Unknown Rx glucose sensor) furosemide 40 mg tablet 40 mg PO BID 05/28/23 05/28/23 05/28/23 History insulin aspart U-100 100 unit/mL 40 sliding scale dose SUBCUT TID 05/28/23 05/28/23 05/28/23 History (3 mL) subcutaneous pen (Novolog FlexPen U-100 Insulin aspart) potassium chloride 10 mEq 10 meq PO BID 05/28/23 05/28/23 05/28/23 History tablet,extended release spironolactone 25 mg tablet 25 mg PO DAILY 05/28/23 05/28/23 05/28/23 History tamsulosin 0.4 mg capsule 0.4 mg PO BID 05/28/23 05/28/23 05/28/23 History Allergies Allergy/AdvReac Type Severity Reaction Status Date / Time sulfabenzamide Allergy Unknown Unknown Verified 05/01/23 16:01 Sulfa (Sulfonamide Allergy Unknown Verified 05/28/23 16:33 Antibiotics) PFSH Acute PFSH: Medical History BMI 45.0-49.9, adult BPH loc w urin obs/LUTS CAD (coronary artery disease) CHF (congestive heart failure) Chronic kidney disease, stage 3b CVA (cerebral vascular accident) Diabetes mellitus, type II Diabetic neuropathy History of non-ST elevation myocardial infarction (NSTEMI) HTN (hypertension) Hyperlipidemia Sleep apnea Surgical History S/P cervical spinal fusion S/P PTCA (percutaneous transluminal coronary angioplasty) Reports 7 stents and angioplasty x 3 Family History Mother , AT AGE 75 Hypertension Diabetes Father , AT AGE 72 Diabetes Hypertension Other CAD (coronary artery disease) Social History Smoking and tobacco status: former smoker Alcohol intake: current Alcohol intake frequency: few times a month Substance/Drug Use: never Marital status: Current occupational status: retired Vitals/I&O/Wt Last Vital Signs Pulse 73 05/28/23 18:24 Resp 22 H 05/28/23 16:04 BP 151/80 05/28/23 18:24 Pulse Ox 98 05/28/23 18:24 O2 Del Method Room Air 05/28/23 16:53 Weight last 48 hrs Weight 136.078 kg Physical Exam Narrative: Patient clinically fluid overload Currently on 2 L Distended abdomen nontender Positive crackles Morbidly obese GCS 15 Nonfocal neuro exam S1, S2 Pleasant and cooperative Appears stated age No genital swelling 3+ edema of legs Data 05/28/23 16:14 05/28/23 17:17 A&P Assessment and plan (1) Unstable angina pectoris: (2) HTN (hypertension): Qualifiers: Hypertension type: essential hypertension Qualified Code(s): I10 - Essential (primary) hypertension (3) CHF (congestive heart failure): (4) CAD (coronary artery disease): (5) Diabetes mellitus, type II: (6) Sleep apnea: (7) Chronic kidney disease, stage 3b: (8) BPH loc w urin obs/LUTS: Plan Unstable angina No active chest pain Patient's pain is reproducible Considering significant history and negative delta troponin I will add Lexiscan stress test for tomorrow N.p.o. after midnight Check D-dimer BNP has worsened Requested echo Acute preserved ejection fraction heart exacerbation Requested echo I will start him on IV Lasix along potassium Type 2 diabetes: I will add scheduled Premeal insulin along Lantus Check A1c level Dyslipidemia continue atorvastatin Patient has metabolic syndrome Will need a lot of counseling and education before discharge Hypertension: Hold spironolactone and ESTHELA inhibitor/ARB Manage pressure with Imdur and hydralazine, Coreg N.p.o. for midnight Stress test in the morning Full code Lives with family at home Attestations Medical Necessity Statement*: Is being discharged within 48 hours after stress test if it is negative Diagnoses Unstable angina pectoris I20.0 HTN (hypertension) I10 Hypertension type: essential hypertension CHF (congestive heart failure) I50.9 CAD (coronary artery disease) I25.10 Diabetes mellitus, type II E11.9 Sleep apnea G47.30 Chronic kidney disease, stage 3b N18.32 BPH loc w urin obs/LUTS N40.1
[2023-05-28 21:29] VITALS: BP 174/77; PULSE 76; RESP 23; O2SAT 99
--- NOTE | 2023-05-28 21:39 | ECG_ITS ---
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 Interpretive Statements NAME OF STUDY: LEXISCAN SESTAMIBI STRESS TEST INDICATION: Unstable Angina PROCEDURE: At the baseline, the blood pressure was 165/97 mmHg, oxygen saturation 98% with a heart rate of 88 bpm. The electrocardiogram showed sinus rhythm with first-degree AV block. Right bundle branch block. Left anterior fascicular block. The Lexiscan was infused over a period of 20 seconds. A total of 0.4 milligrams of Lexiscan was infused. The stress phase was continued for a total of 5 minutes. Heart rate at the end of the stress phase was 71 bpm, oxygen saturation 98% with a blood pressure 162/90 mmHg. The EKG at the peak infusion revealed no significant ST-T wave changes. Sestamibi was injected 20 seconds after the Lexiscan infusion. Blood pressure at the end of the recovery phase was 32 over 94 mmHg, oxygen saturation 97% with a heart rate of 90 bpm. CONCLUSION: 1. No significant EKG changes with the LexiScan infusion. 2. No LexiScan induced chest pain or cardiac arrhythmia. 3. Normal blood pressure and heart rate response. 4. Sestamibi/sestamibi perfusion scan pending; see separate report. Electronically Signed On 05-30-2023 12:22:24 CDT by Love Reynaga M.D. [id number]
[2023-05-28 22:00] VITALS: PULSE 83
[2023-05-28 22:00] LABS: D Dimer 1.04 ug/mIFEU (0-0.59)
[2023-05-28 22:12] LABS: Estmated Average Glucose 189; Hemoglobin A1C 8.2 % (4.0-6.0)
[2023-05-28 22:14] LABS: Glucose Point of Care 134 mg/dL (70-110)
[2023-05-28 22:22] LABS: Troponin 5 6HR 50.15 ng/L (0-15)
[2023-05-28] MEDS: FUROsemide 10 mg/mL SDV 10mL 60 MG IVP (22:28)
[2023-05-28] MEDS: montelukast sodium 10 mg Tablet PO (22:30)
[2023-05-28] MEDS: heparin 5,000 unit/mL INJ 1 mL 5000 UNIT SUBCUT (22:30)
--- NOTE | 2023-05-28 23:20 | ECG_ITS ---
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 Measurements Intervals [place] Rate: 81 P: 54 CA: 229 QRS: -64 QRSD: 152 T: -16 QT: 440 QTc: 511 Interpretive Statements SINUS RHYTHM WITH FIRST DEGREE AV BLOCK RIGHT BUNDLE BRANCH BLOCK [120+ ms QRS DURATION, UPRIGHT V1, 40+ ms S IN I/aVL/V4/V5/V6] LEFT ANTERIOR FASCICULAR BLOCK [QRS AXIS <= -45, QR IN I, RS IN II] Compared to ECG 05/28/2023 18:14:02 Left anterior fascicular block now present Left-axis deviation no longer present Myocardial infarct finding no longer present Electronically Signed On 05-29-2023 10:23:52 CDT by Ryan Sheffield M.D. [id number]
[2023-05-29] VITALS (12 sets, daily range): BP systolic 123–172; BP diastolic 58–87; PULSE 62–84; RESP 14–22; TEMP 36.4–37.1; O2SAT 93–98
[2023-05-29 05:39] LABS: Basophils # 0.1 10^3/uL (0.0-0.1); Basophils % 0.5 %; Eosinophils # 0.1 10^3/uL (0.0-0.8); Eosinophils % 1.4 %; Hematocrit 39.8 % (42.0-52.0); Hemoglobin 12.2 g/dL (11.7-16.6); Lymphocytes # 1.4 10^3/uL (0.8-4.8); Lymphocytes % 13.6 %; Mean Corpuscular HGB Conc 30.7 g/dL (30.0-36.0); Mean Corpuscular Hemoglobin 29.2 pg (28.0-34.0); Mean Corpuscular Volume 95.2 fl (80-94); Mean Platelet Volume 9.7 fL (7.4-10.4); Monocytes % 10.1 %; Neutrophils # 7.55 10^3/uL (1.8-7.7); Neutrophils % 74.1 %; Nucleated Red Blood Cells % 0 %; Platelet Count 270 10^3/cmm (130-400); Red Blood Count 4.18 10^6/uL (4.1-5.3); Red Cell Distribution Width 14.2 % (12.1-15.1); White Blood Count 10.2 10^3/uL (4.0-10.0)
[2023-05-29 06:00] LABS: Anion Gap 15.4 (5-19); Blood Urea Nitrogen 33 mg/dL (8-23); Calcium 8.7 mg/dL (8.5-10.5); Carbon Dioxide 31 mmol/L (22-29); Chloride 99 mmol/L (98-107); Glomerular Filtration Rate 50.4 mL/min (90-130); Glucose 154 mg/dL (65-115); Magnesium 2.1 mg/dL (1.7-2.3); Osmolality Calculated 302 mOsm/kg (285-295); Potassium 4.4 mmol/L (3.5-5.1); Sodium 141 mmol/L (136-145)
[2023-05-29 06:15] LABS: Glucose Point of Care 146 mg/dL (70-110)
[2023-05-29] MEDS: aspirin 81 mg EC Tablet PO (06:15)
[2023-05-29] MEDS: insulin lispro 100 unit/1 mL 15 UNIT SUBCUT ×3 (06:15→17:47)
[2023-05-29] MEDS: regadenoson 0.4 Mg/5 ml Syringe IVP (07:27)
--- NOTE | 2023-05-29 07:45 | PC.NURSE ---
at the stress test
--- NOTE | 2023-05-29 08:00 | NMCV_ITS ---
NM mark anthony perf SPECT r/s* [id number] Garrett Mares Age: 67 Gender: M : 1955 Exam Date: 05/29/2023 06:30 Ordering Phys: Juwan Arambula MD Technologist: GÉNESIS Hughes Exam Location: [facility] Indications: CHEST PAIN STRESS TEST Please see separate stress test report in [facility] for full findings IMAGE PROTOCOL Rest/Stress 1 Lexiscan Day Radiopharmaceutical Dose (mCi) Administration Site Administered by Rest: Tc-99m 11.0 IV GÉNESIS Coelho Sestamibi Stress:Tc-99m 33.0 IV GÉNESIS Coelho Sestamibi Rest: 29-May-2023 60 Discovery 630 Stress: 29-May-2023 30 Discovery 630 0.4mg Lexiscan. Supine position only as patient was unable to lay prone. SPECT RESULTS Technical Quality: Good Raw Data Analysis: Normal, Soft tissue attenuation Image Corrections: No attenuation or motion correction applied Summed Stress Score: 19 Summed Rest Score: 14 Summed Difference Score: 5 PERFUSION FINDINGS Moderate to large area of moderate to severely decreased aseptic in the basal mid and apical inferior, basal and mid inferolateral, apical lateral, apical anterior, mid anterior and apex. Some reversibility was noted in the inferolateral, inferior and apical anterior regions. FUNCTIONAL RESULTS (calculated via Gated SPECT) Stress Image LV EF (%): 28 Stress EDV (mL):211 TID: 1.01 Stress ESV (mL):152 FUNCTIONAL FINDINGS: LV wall motion analysis revealing severe diffuse hypokinesia of the left ventricle. LV cavity was moderately dilated. IMPRESSIONS #1. Myocardial perfusion imaging revealing moderate to large area of persistent decreased tracer uptake in the inferior, inferolateral, apical and apical anterior regions suggesting myocardial scarring in the distribution of the left circumflex artery, right coronary artery and possible distal and descending artery. small areas of reversibility, may suggest tacho-infarction ischemia. #2 diminished LV ejection fraction 28%. #3 multiple wall motion abnormalities as mentioned above #4 moderately dilated LV cavity Compared to the study from 03/19/2018, patient appears to have more ischemic burden. The LV ejection fraction remains essentially unchanged Dr Sarahi Rasmussen MD [facility] (Electronically Signed) Final Date: 29 May 2023 15:59 S
--- NOTE | 2023-05-29 08:34 | USCV_ITS ---
Garrett Mares Age: 67 Gender: M : 1955 Exam Date: 05/29/2023 10:00 Ordering Phys: Azam Nye MD Technologist: Marino Aguirre Exam Location: [facility] [place] Indication: CHF BP: / HR: Rhythm: Sinus Technical Quality: Technically difficult study MEASUREMENTS (Male / Female) Normal Values FINDINGS Left Ventricle Right Ventricle Right Atrium Left Atrium Mitral Valve Aortic Valve Tricuspid Valve Pulmonic Valve Pericardium Aorta IVC CONCLUSIONS There is a limited echocardiogram performed to assess LV systolic function. This is technically very limited quality echocardiogram with poor visualization. LV systolic function cannot be assessed as cardiac structures are not visualized Joey Barrios MD (Electronically Signed) Final Date: 29 May 2023 18:08 S
[2023-05-29] MEDS: gabapentin 100 mg Capsule PO ×2 (08:42→17:48)
[2023-05-29] MEDS: clopidogrel 75 mg Tablet PO (08:42)
[2023-05-29] MEDS: carvedilol 25 mg Tablet PO ×2 (08:42→17:48)
[2023-05-29] MEDS: potassium chloride ER 10 mEq Tablet PO ×2 (08:42→17:47)
[2023-05-29] MEDS: isosorbide mononitrate ER 60 mg Tablet PO ×2 (08:42→17:47)
[2023-05-29] MEDS: sennosides-docusate Tablet 1 TAB PO (08:42)
[2023-05-29] MEDS: tamsulosin 0.4 mg Capsule PO ×2 (08:42→17:47)
[2023-05-29] MEDS: insulin lispro 100 unit/1 mL 30 UNIT SUBCUT (09:02)
[2023-05-29] MEDS: heparin 5,000 unit/mL INJ 1 mL 5000 UNIT SUBCUT (09:03)
[2023-05-29] MEDS: FUROsemide 10 mg/mL SDV 10mL 60 MG IVP ×2 (09:03→20:55)
[2023-05-29 11:18] LABS: Glucose Point of Care 244 mg/dL (70-110)
[2023-05-29 16:26] LABS: Glucose Point of Care 267 mg/dL (70-110)
--- NOTE | 2023-05-29 19:30 | PM.PN ---
Subjective Subjective: Patient went for stress test this morning. He denies any active chest pain. He continues to endorse dyspnea on exertion. Denies fevers, chills, nausea or emesis. Medications: Reviewed: Yes Vitals/I&O/Wt Last Vital Signs Pulse 79 05/29/23 16:23 Resp 21 H 05/29/23 16:23 BP 142/87 05/29/23 16:23 Pulse Ox 98 05/29/23 16:23 O2 Del Method Nasal Cannula 05/29/23 09:15 O2 Flow Rate 2 05/29/23 09:15 05/29/23 05/29/23 05/29/23 06:59 14:59 22:59 Intake Total 480 / 720 240 / 240 240 / 480 Output Total 2900 / 2900 1800 / 1800 Balance -2420 / -2180 -1560 / -1560 240 / -1320 Weight last 48 hrs Weight 143.108 kg Weight 136.078 kg Physical Exam Narrative: General: Patient is awake and alert. Pleasant. Head: Normocephalic. Atraumatic. EOM intact. Neck: Elevated JVD. Cardiovascular: RRR. No gallops. Bilateral lower extremity edema is present. Lungs: Breath sounds diminished bilateral bases, no use of accessory muscles, no crackles or wheezes. Skin: No jaundice. No rashes. Abdomen: Normal bowel sounds, abdomen soft and nontender. Genito Urinary: Genital exam not performed since complaints not related. Rectal: Rectal exam not performed since no symptoms indicated blood loss. Extremities: No cyanosis or clubbing. Musculoskeletal: No swollen or erythematous joints. Neurological: Moves all 4 extremities. No myoclonus. Urinary Catheter Management: Daniel: Cath Placed During This Visit: yes Reason for Continuing Indwelling Catheter: Other Urinary Catheter Date of Insertion: 05/28/23 Urinary Catheter Time of Insertion: 21:00 Data 05/29/23 05:24 05/29/23 05:24 A&P Assessment and plan (1) Unstable angina pectoris: Associated with history of coronary artery disease with prior stents Stress test reviewed, abnormal Limited echo pending Continuous telemetry monitoring Continue DAPT with Plavix and aspirin Continue Coreg Cardiology consultation (2) CHF (congestive heart failure): Acute on chronic heart failure with preserved ejection fraction Limited echo pending Continue diuresis Strict I's and O's Daily weights (3) HTN (hypertension): Aldactone and ESTHELA/ARB was held on admission Continue Imdur Continue beta-alana Continue endralazine Qualifiers: Hypertension type: essential hypertension Qualified Code(s): I10 - Essential (primary) hypertension (4) Hyperlipidemia: Continue statin Qualifiers: Hyperlipidemia type: other hyperlipidemia Qualified Code(s): E78.49 - Other hyperlipidemia (5) Diabetes mellitus, type II: Continue current insulin regiment Avoid hypoglycemia (6) Sleep apnea: CPAP while sleeping (7) Chronic kidney disease, stage 3b: Renal function close to baseline Avoid nephrotoxins Plan DVT prophylaxis: Heparin CODE STATUS: Full code Attestations Medical Necessity Statement*: Patient with abnormal stress test in the setting of chest pain with known coronary disease as well as congestive heart failure requiring ongoing hospitalization for IV diuresis and cardiology evaluation. Coding Level of Care Code Acute Code for [facility] Diagnoses Unstable angina pectoris I20.0 CHF (congestive heart failure) I50.9 HTN (hypertension) I10 Hypertension type: essential hypertension Hyperlipidemia E78.49 Hyperlipidemia type: other hyperlipidemia Diabetes mellitus, type II E11.9 Sleep apnea G47.30 Chronic kidney disease, stage 3b N18.32
[2023-05-29] MEDS: montelukast sodium 10 mg Tablet PO (20:54)
[2023-05-29] MEDS: atorvastatin 40 mg Tablet 80 MG PO (20:54)
--- NOTE | 2023-05-29 21:12 | PC.NURSE ---
patient starting to have hematuria in [place], heparin held per Dr Arambula
[2023-05-29 22:13] LABS: Glucose Point of Care 224 mg/dL (70-110)
[2023-05-30] VITALS (10 sets, daily range): BP systolic 108–154; BP diastolic 61–93; PULSE 70–80; RESP 16–25; TEMP 36.4–37.1; O2SAT 90–98
[2023-05-30 05:02] LABS: Albumin Level 3.3 g/dL (3.5-5.2); Anion Gap 10.9 (5-19); Blood Urea Nitrogen 37 mg/dL (8-23); Calcium 8.4 mg/dL (8.5-10.5); Carbon Dioxide 33 mmol/L (22-29); Chloride 96 mmol/L (98-107); Glomerular Filtration Rate 46.5 mL/min (90-130); Glucose 153 mg/dL (65-115); Magnesium 2.1 mg/dL (1.7-2.3); Potassium 3.9 mmol/L (3.5-5.1); Sodium 136 mmol/L (136-145)
[2023-05-30] MEDS: insulin lispro 100 unit/1 mL 15 UNIT SUBCUT ×2 (06:34→11:16)
[2023-05-30 06:35] LABS: Glucose Point of Care 153 mg/dL (70-110)
[2023-05-30] MEDS: NON-FORMULARY MEDICATION (Insulin Degludec [Tresiba Flextouch U-200] 200 unit/mL (3 mL) in 120 EACH SUBCUT (06:35)
[2023-05-30] MEDS: aspirin 81 mg EC Tablet PO (06:36)
[2023-05-30] MEDS: potassium chloride ER 10 mEq Tablet PO ×2 (09:09→18:47)
[2023-05-30] MEDS: isosorbide mononitrate ER 60 mg Tablet PO ×2 (09:09→18:47)
[2023-05-30] MEDS: tamsulosin 0.4 mg Capsule PO ×2 (09:09→18:47)
[2023-05-30] MEDS: sennosides-docusate Tablet 1 TAB PO (09:09)
[2023-05-30] MEDS: gabapentin 100 mg Capsule PO ×2 (09:09→18:47)
[2023-05-30] MEDS: carvedilol 25 mg Tablet PO ×2 (09:09→18:47)
[2023-05-30] MEDS: clopidogrel 75 mg Tablet PO (09:09)
--- NOTE | 2023-05-30 09:32 | PC.CHAP ---
Pastoral Care Encounter/Spiritual Assessment Type of Contact [] Declined shed hand visit [] Patient/Family/Request visit [] Outpatient visit [] Follow-up visit [] Physician referral [] Code/Alert [x] Routine visit [] Staff referral [] Actively dying [] Patient sleeping [] Family support [] [] Out of room [] Palliative care [] [] Receiving care in room [] Pre-surgical visit [] Trauma [] Long length of stay [] ICU visit [] Other: Relational/Emotional Strength [x] Patient feels connected with others/family/visitors/staff [] Distress [] Loneliness/isolation [] Abandonment Spirituality of Patient [x] Person of Ines [] Attends Episcopalian of their Ines [x] Believes in Prayer [] Reads Bible or Adventist materials [] There are Spiritual issues to be addressed Antique Repairer Interventions [x] Prayer [x] Active listening [] Non-anxious presence [x] Spiritual/emotional support [] Crisis/trauma care [] Spiritual counseling [] Bereavement support [] Provided bereavement packet [] Provided Bible/devotional materials [] Provided toy/stuffed animal, coloring book to patient or family member [] Provided Communion [] Anointing/[place] [] Salvation x[] Completed spiritual assessment [] Other: Impact on Illness or Injury [] Angry [] Fearful [] Anxious [] Often cries [] Exhaustion [] Unable to work [] Unable to attend nondenominational [] Unable to walk/stand [] Unable to read [] Unable to drive [] Unable to eat/drink [] Unable to sleep [] Unable to be with family [] Patient intubated [] Other: Summary Time spent with patient 5 min
--- NOTE | 2023-05-30 10:02 | US_ITS ---
WS: [id number] Abdominal ultrasound, limited. History: Evaluate for ascites. Comparison: None. All 4 quadrants are imaged by ultrasound to evaluate for ascites. There is no peritoneal fluid identi fied. IMPRESSION: No peritoneal ascites.
[2023-05-30] MEDS: FUROsemide 10 mg/mL SDV 10mL 60 MG IVP ×2 (11:16→20:47)
[2023-05-30 11:33] LABS: Glucose Point of Care 246 mg/dL (70-110)
--- NOTE | 2023-05-30 11:56 | P.CONIM_ITS ---
Providers/Reason For Consult Consulting Physician/Specialty*: Dr. Reynaga, Cardiology Reason for Consult*: Abnormal stress test, CHF Attending Physician: Azam Nye MD Primary Care Provider: Kyle Corrigan MD History of Present Illness History of Present Illness Garrett Mares is a 67 year old male with past medical h/o morbid obesity (BMI- 49), JOSE JUAN/OHS on BiPap, on home oxygen 2L , hypertension, CHF, CAD (TYRESE to proximal circumflex and proximal RCA 08/25/2021), IDDM, diabetic neuropathy, HLD and CHF. He presented with chest pains on and off and worsening lower extremity swelling. He took NTG that did not help much. He tells me he takes 2 waterpills and makes urine but still kept retaining fluid over last several weeks and hence came to the hospital. Troponin T 58--> 60-->50. EKG with first degree AV block and bifascicular block. No significant ST-T wave changes. Minimal tacho-infarct ischemia on stress test. No actibe chest pains. I was asked to evaluate the patient with concern for drop in LV function 28% on last stress test. However, his previous echo was very TDS and LVEF on that was assessed at 50%. His 2 echos since then are uninterpretable . His last stress test in 2018 showed LVEF of 25%. Review of Systems Const: Denies: fever(s) Eyes: Denies: change in vision ENMT: Denies: throat pain Card: Reports: chest pain Resp: Reports: dyspnea; Denies: productive cough, non-productive cough, wheezing, pain on inspiration or chest congestion GI: Reports: bloating; Denies: abdominal pain, nausea, vomiting or hematochezia : Reports: hematuria; Denies: flank pain, dysuria or oliguria Musc: Reports: extremity swelling; Denies: neck pain or extremity pain Skin/Breast: Denies: rash Neuro: Denies: headache(s) or weakness in extremities Medications/Allergies Home Medications Medication Instructions Recorded Confirmed Last Taken Type montelukast 10 mg tablet 10 mg PO BEDTIME 11/29/19 05/28/23 05/27/23 History citalopram 40 mg tablet 40 mg PO QPM 08/18/20 05/28/23 05/28/23 History aspirin 81 mg tablet,delayed 81 mg PO QAM 09/26/22 05/28/23 05/28/23 History release (Adult Low Dose Aspirin) gabapentin 100 mg capsule 100 mg PO BID 09/26/22 05/28/23 05/28/23 History insulin degludec 200 unit/mL (3 120 unit SUBCUT QAM 09/26/22 05/28/23 05/28/23 History mL) subcutaneous pen (Tresiba FlexTouch U-200 insulin) carvedilol 25 mg tablet 25 mg PO BID #180 tabs 12/26/22 05/28/23 05/28/23 Rx clopidogrel 75 mg tablet (Plavix) 75 mg PO DAILY #90 tabs 12/26/22 05/28/23 05/28/23 Rx isosorbide mononitrate 60 mg 60 mg PO BID #180 tabs 12/26/22 05/28/23 05/28/23 Rx tablet,extended release 24 hr nitroglycerin 0.4 mg sublingual 0.4 mg sublingual Q5M PRN Chest 12/26/22 05/28/23 05/28/23 Rx tablet (Nitrostat) Pain #25 tabs rosuvastatin 20 mg tablet 20 mg PO BEDTIME #90 tabs 12/26/22 05/28/23 05/27/23 Rx FreeStyle Andres 2 Sensor (flash #4 ea 04/28/23 05/28/23 Unknown Rx glucose sensor) furosemide 40 mg tablet 40 mg PO BID 05/28/23 05/28/23 05/28/23 History insulin aspart U-100 100 unit/mL 40 sliding scale dose SUBCUT TID 05/28/2305/28/23 History (3 mL) subcutaneous pen (Novolog FlexPen U-100 Insulin aspart) potassium chloride 10 mEq 10 meq PO BID 05/28/23 05/28/23 05/28/23 History tablet,extended release spironolactone 25 mg tablet 25 mg PO DAILY 05/28/23 05/28/23 05/28/23 History tamsulosin 0.4 mg capsule 0.4 mg PO BID 05/28/23 05/28/23 05/28/23 History Allergies Allergy/AdvReac Type Severity Reaction Status Date / Time sulfabenzamide Allergy Unknown Unknown Verified 05/01/23 16:01 Sulfa (Sulfonamide Allergy Unknown Verified 05/28/23 16:33 Antibiotics) Current Medications Generic Name Dose Route Start Last Admin Trade Name Yenifer PRN Reason Stop Dose Admin Aspirin 81 mg 05/29/23 06:00 05/30/23 06:36 Aspirin 81 Mg Ec Tablet PO 81 mg QAM [facility] Administration Atorvastatin Calcium 80 mg 05/29/23 21:00 05/29/23 20:54 Atorvastatin 40 Mg Tablet PO 80 mg BEDTIME [facility] Administration Carvedilol 25 mg 05/29/23 09:00 05/30/23 09:09 Carvedilol 25 Mg Tablet PO 25 mg BID [facility] Administration Clopidogrel Bisulfate 75 mg 05/29/23 09:00 05/30/23 09:09 Clopidogrel 75 Mg Tablet PO 75 mg DAILY [facility] Administration Furosemide 60 mg 05/28/23 21:39 05/30/23 11:16 Furosemide 10 Mg/Ml Sdv 10ml IVP 60 mg Q12H [facility] Administration Gabapentin 100 mg 05/29/23 09:00 05/30/23 09:09 Gabapentin 100 Mg Capsule PO 100 mg BID [facility] Administration Heparin Sodium (Porcine) 5,000 unit 05/28/23 21:39 05/30/23 10:53 Heparin 5,000 Unit/Ml Inj 1 Ml SUBCUT Not Given Q12H [facility] Insulin Human Lispro 15 unit 05/29/23 07:00 05/30/23 11:16 Insulin Lispro 100 Unit/1 Ml SUBCUT 15 unit TIDAC [facility] Administration Isosorbide Mononitrate 60 mg 05/29/23 09:00 05/30/23 09:09 Isosorbide Mononitrate Er 60 Mg Tablet PO 60 mg BID [facility] Administration Montelukast Sodium 10 mg 05/28/23 21:39 05/29/23 20:54 Montelukast Sodium 10 Mg Tablet PO 10 mg BEDTIME [facility] Administration Non-Formulary Medication 120 unit 05/29/23 06:00 05/30/23 06:35 Insulin Degludec [Tresiba Flextouch U-200] SUBCUT 120 unit QAM [facility] Administration Potassium Chloride 10 meq 05/29/23 09:00 05/30/23 09:09 Potassium Chloride Er 10 Meq Tablet PO 10 meq BID [facility] Administration Senna/Docusate Sodium 1 tab 05/29/23 09:00 05/30/23 09:09 Sennosides-Docusate Tablet PO 1 tab DAILY [facility] Administration Tamsulosin HCl 0.4 mg 05/29/23 09:00 05/30/23 09:09 Tamsulosin 0.4 Mg Capsule PO 0.4 mg BID [facility] Administration PFSH Acute PFSH: Medical History BMI 45.0-49.9, adult BPH loc w urin obs/LUTS CAD (coronary artery disease) CHF (congestive heart failure) Chronic kidney disease, stage 3b CVA (cerebral vascular accident) Diabetes mellitus, type II Diabetic neuropathy History of non-ST elevation myocardial infarction (NSTEMI) HTN (hypertension) Hyperlipidemia Sleep apnea Surgical History S/P cervical spinal fusion S/P PTCA (percutaneous transluminal coronary angioplasty) Reports 7 stents and angioplasty x 3 Family History Mother , AT AGE 75 Hypertension Diabetes Father , AT AGE 72 Diabetes Hypertension Other CAD (coronary artery disease) Social History Smoking and tobacco status: former smoker Alcohol intake: current Alcohol intake frequency: few times a month Substance/Drug Use: never Marital status: Current occupational status: retired Vitals/I&O/Wt Last Vital Signs Temp 97.5 F L 05/30/23 10:57 Pulse 80 05/30/23 10:57 Resp 24 H 05/30/23 10:57 BP 154/90 05/30/23 10:57 Pulse Ox 97 05/30/23 10:57 O2 Del Method Nasal Cannula 05/30/23 10:57 O2 Flow Rate 2 05/30/23 08:07 05/29/23 05/30/23 05/30/23 22:59 06:59 14:59 Intake Total 461 / 701 100 / 801 236 / 236 Output Total 250 / 0 850 / 2900 Balance 211 / -1349 -750 / -2099 236 / 236 Weight last 48 hrs Weight 304 lb 7 oz Weight 315 lb 8 oz Weight 300 lb Physical Exam Const: COMMON NORMALS: no acute distress, patient oriented x3 and alert GENERAL APPEARANCE: cooperative, comfortable, well kempt, well hydrated and other (morbid obesity) HENMT: COMMON NORMALS: hearing grossly normal bilaterally, external ears normal and moist oral mucous membranes FACE & SINUS: normal facial exam NOSE: Normal septum present and No nasal discharge present; no Epistaxis present EXTERNAL EAR: Yes external ears normal MOUTH: lip normal Eye: COMMON NORMALS: EOMs intact bilaterally and no scleral icterus GENERAL EYE: appearance normal, both eyes and all related structures ALIGNMENT: Yes alignment normal Neck/C-Spine: COMMON NORMALS: no lymphadenopathy, supple and no JVD GENERAL: Yes normal visual inspection and Yes trachea midline CAROTIDS: Yes normal carotid upstroke Lymph: LYMPHATIC: no lymphadenopathy noted Chest: COMMONS NORMALS: normal inspection of the chest and normal palpation of entire chest wall CHEST: Yes Symmetrical chest wall rise and No tenderness Resp: COMMON NORMALS: clear to auscultation bilaterally EFFORT & INSPECTION: Yes able to speak in complete sentences, No tachypneic, No respiratory distress, No pursed lip breathing, No labored and No Actively coughing AUSCULTATION: clear to auscultation bilaterally, no crackles, no rales, no rhonchi and no wheezes Cardio: COMMON NORMALS: no JVD, regular rate, regular rhythm, S1 normal heart sound present, S2 normal heart sound present and Peripheral pulses 2+ throughout PALPATION: normal PMI RATE: regular rate RHYTHM: regular rhythm HEART SOUNDS: S1 normal heart sound present, S2 normal heart sound present, no click, no gallops and no murmurs BRUITS: no carotid bruits PERIPHERAL PULSES: Peripheral pulses 2+ throughout, radial pulses present, posterior tibial pulses present and dorsalis pedis present GI: COMMON NORMALS: non-tender AUSCULTATION: Yes normoactive bowel sounds PALPATION: No Tenderness to palpation present (GI), No Guarding due to pa lpation present (GI) and No Rigid due to palpation PERCUSSION: tympanic to percussion OTHER: Abdominal distention, firm to palpation. No fluid thrill. Lower abdominal wall edema+ Extremity: GENERAL: No clubbing, No cyanosis, Yes edema (3+ extending above knees) and No pallor Neuro: COMMON NORMALS: patient oriented x3, CN's II-XII intact bilaterally and no focal motor deficits SENSORIUM/ORIENTATION: Yes alert Psych: COMMON NORMALS: Normal thought process present and speech normal APPEARANCE: Yes well kempt SPEECH: Yes normal speech MOOD & AFFECT: Yes euthymic mood THOUGHT PROCESS: Normal thought process present THOUGHT CONTENT: Yes Normal thought content present Urinary Catheter Management: Daniel: Cath Placed During This Visit: yes Reason for Continuing Indwelling Catheter: Other Urinary Catheter Date of Insertion: 05/28/23 Urinary Catheter Time of Insertion: 21:00 Data 05/29/23 05:24 05/30/23 03:33 Other data: Lexiscan sestamibi stress test (05/29/23) ?IMPRESSIONS ?#1.? Myocardial perfusion imaging revealing moderate to large area of ?persistent decreased tracer uptake in the inferior, inferolateral, apical and ?apical anterior regions suggesting myocardial scarring in the distribution of ?the left circumflex artery, right coronary artery and possible distal and ?descending artery.? small areas of reversibility, may suggest tacho-infarction ?ischemia. ?#2 diminished LV ejection fraction 28%. ?#3 multiple wall motion abnormalities as mentioned above ?#4 moderately dilated LV cavity ?Compared to the study from 03/19/2018, patient appears to have more ischemic ?burden.? The LV ejection fraction remains essentially unchanged 09/27/22 Procedure(s): CV. echo wo/w contrast [id number] ?CONCLUSIONS ?Normal left ventricular size borderline low ejection fraction of ?50%( visual).? ?Mild diffuse hypokinesia of the LV apex. ?Mildly increased left atrial size. ?Minimally thickened aortic and mitral valves ?There is no pericardial effusion. ?Echo contrast was used for endocardial delineation and LV ?ejection fraction estimation. ?Comparison with the previous study is difficult because of the ?difference in the technical quality. Date of Service: 08/25/21 Procedure(s): INSTRUMENTAL MUSICIAN request for service Conclusions ? 1. For unstable angina patient underwent left heart cath after giving IV fluid for chronic venous renal failure in the hospital.? Radial approach was switched to femoral approach due to tortuosity and difficult engagement. Please note that patient has high BMI due to body habitus body habitus image quality was not good.. ? 2. 1-Left main was normal2-LAD has luminal irregularity with patent previously placed ostial and proximal stent3-LCx has ostial high-grade 95% stenosis which is the culprit vessel4-RCA has chronically occluded mid segment, proximal RCA has 95% hazy stenosis. ? 3. There is total occlusion coronary artery disease with two vessel disease. ? 4. Proximal Right Coronary Artery was treated with a Balloon, and Drug Eluting Stent. ? 5. Proximal Circumflex was treated with a Balloon, Drug Eluting Stent, and Balloon. 03/19/18 Request for Cardiac Stress Test CONCLUSION: 1. Unremarkable Lexiscan infusion.? 2. Nuclear imaging to follow.? Electronically Signed On 03-19-2018 18:08:08 CDT by Ryan Sheffield M.D. 03/19/18 NM MIBI/MIBI Stress/Rest [id number] ?IMPRESSIONS ?Medium-size area of old myocardial infarction versus scarring noted in mid to ?distal anterior and basal to distal inferior wall without tacho-infarct ?ischemia.? Left ventricle function is severely depressed.? There is anterior ?wall and inferior wall severe hypokinesis ?Juwan Gregory MD ? (Electronically Signed) INSTRUMENTAL MUSICIAN REPORTS Registration Date: 01/25/18 ?Procedure Summary ?#1 Left main ?#2 LAD has patent ostial and mid stent ?#3 LCx is luminal irregularities ?#4 RCA has proximal hazy 70% and mid 99% stenosis most likely thrombus ?Successful PCI to proximal and mid RCA with drug-eluting stent ?Successful PCI to mid and proximal RCA. Lesion was prepared with 2.5 x 15 ?AB TREK balloon, followed by deployment of MDT FARZAD 3.0 x 18 mm stent ?posted at high RAE of 12 mid and 3.0X18 mm in proximal segment to ensure ?proper approximation. Excellent angiographic result with FAUSTINA-3 flow was achieved. A&P Assessment and plan (1) Chest pain: Chest pain likely 2/2 CHF -troponins flat, no EKG changes. Mild tacho-infarct ischemia in inferior/IL and apical area. -No ongoing symptoms This is not ACS. May D/C heparin gtt -no left heart cath warranted at this time -Will continue to treat medically and assess his symptoms as an outpatient. (2) CHF (congestive heart failure): HFrEF (LVEF=28%) by stress test and some degree of cRV failure (by symptoms). Echo cannot be interpreted.No CT chest for patient in system -3.8 L LOS, currently on lasix 60 mg IV Q 12 with spironolactone -will add low dose metolazone in morning based on renal function and UO. -will consider adding entresto based on renal function on discharge. If unable to add entresto, will start on isodril-Hydralazine combo. -will benefit from outpatient cardiac MRI to assess function and viability. (3) CAD (coronary artery disease): continue ASA, statin , plavix and ISMN (4) Hyperlipidemia: Qualifiers: Hyperlipidemia type: other hyperlipidemia Qualified Code(s): E78.49 - Other hyperlipidemia (5) Diabetes mellitus, type II: (6) Sleep apnea: (7) Chronic kidney disease, stage 3b: Plan Morbid obesity Thank you for allowing me to participate in patient's care. Please feel free to call with questions or concerns. Coding Level of Care Code 47998 Diagnoses Chest pain R07.9 CHF (congestive heart failure) I50.9 CAD (coronary artery disease) I25.10 Hyperlipidemia E78.49 Hyperlipidemia type: other hyperlipidemia Diabetes mellitus, type II E11.9 Sleep apnea G47.30 Chronic kidney disease, stage 3b N18.32
--- NOTE | 2023-05-30 14:04 | PM.PN ---
Subjective Subjective: Patient is up to bedside chair this morning. He reports no further chest pain overnight. Continues to endorse dyspnea on exertion. Endorses severe lower extremity swelling. Reports he has been elevating his legs and doing what he can at home but history seems to continue to worsen. Also endorses associated weight gain. Medications: Reviewed: Yes Vitals/I&O/Wt Last Vital Signs Temp 97.5 F L 05/30/23 10:57 Pulse 80 05/30/23 10:57 Resp 24 H 05/30/23 10:57 BP 154/90 05/30/23 10:57 Pulse Ox 97 05/30/23 10:57 O2 Del Method Nasal Cannula 05/30/23 10:57 O2 Flow Rate 2 05/30/23 08:07 05/29/23 05/30/23 05/30/23 22:59 06:59 14:59 Intake Total 461 / 701 100 / 801 476 / 476 Output Total 250 / 2050 850 / 2900 Balance 211 / -1349 -750 / -2099 476 / 476 Weight last 48 hrs Weight 138.091 kg Weight 143.108 kg Weight 136.078 kg Physical Exam Narrative: General: Patient is awake and alert. Pleasant. Sitting in bedside chair. Head: Normocephalic. Atraumatic. EOM intact. Neck: Elevated JVD. Cardiovascular: RRR. No gallops. 3+ bilateral lower extremity edema to waist is present. Lungs: Breath sounds diminished bilateral bases, no use of accessory muscles, no crackles or wheezes. Skin: No jaundice. No rashes. Abdomen: Normal bowel sounds, abdomen supple and nontender. Extremities: No cyanosis or clubbing. Musculoskeletal: No swollen or erythematous joints. Neurological: Moves all 4 extremities. No myoclonus. Urinary Catheter Management: Daniel: Cath Placed During This Visit: yes Reason for Continuing Indwelling Catheter: Other Urinary Catheter Date of Insertion: 05/28/23 Urinary Catheter Time of Insertion: 21:00 Data 05/29/23 05:24 05/30/23 03:33 A&P Assessment and plan (1) Unstable angina pectoris: Associated with history of coronary artery disease with prior stents Stress test reviewed, abnormal Limited echo obtained, unfortunately poor visualization Continuous telemetry monitoring Continue DAPT with Plavix and aspirin Continue Coreg Cardiology consultation (2) CHF (congestive heart failure): Acute on chronic heart failure with preserved ejection fraction Remains severely fluid overloaded Continue IV diuresis Strict I's and O's, currently net -4.3 L Daily weights (3) HTN (hypertension): Aldactone and ESTHELA/ARB was held on admission Continue Imdur Continue beta-alana Continue hydralazine Qualifiers: Hypertension type: essential hypertension Qualified Code(s): I10 - Essential (primary) hypertension (4) Hyperlipidemia: Continue statin Qualifiers: Hyperlipidemia type: other hyperlipidemia Qualified Code(s): E78.49 - Other hyperlipidemia (5) Diabetes mellitus, type II: Blood sugars elevated Continue long-acting insulin Increase mealtime insulin Avoid hypoglycemia (6) Sleep apnea: CPAP while sleeping (7) Chronic kidney disease, stage 3b: Renal function close to baseline Avoid nephrotoxins Continue to monitor kidney function while on IV diuresis Plan DVT prophylaxis: Heparin CODE STATUS: Full code Attestations Medical Necessity Statement*: Patient requires ongoing hospitalization for heart failure exacerbation requiring IV diuresis, telemetry monitoring, electrolyte monitoring, and cardiology evaluation. Coding Level of Care Code Acute Code for [facility] Fwd Diagnoses Unstable angina pectoris I20.0 CHF (congestive heart failure) I50.9 HTN (hypertension) I10 Hypertension type: essential hypertension Hyperlipidemia E78.49 Hyperlipidemia type: other hyperlipidemia Diabetes mellitus, type II E11.9 Sleep apnea G47.30 Chronic kidney disease, stage 3b N18.32
[2023-05-30 17:15] LABS: Glucose Point of Care 259 mg/dL (70-110)
[2023-05-30] MEDS: insulin lispro 100 unit/1 mL 22 UNIT SUBCUT (18:48)
[2023-05-30] MEDS: montelukast sodium 10 mg Tablet PO (20:25)
[2023-05-30] MEDS: atorvastatin 40 mg Tablet 80 MG PO (20:25)
[2023-05-30] MEDS: heparin 5,000 unit/mL INJ 1 mL 5000 UNIT SUBCUT (20:47)
[2023-05-31] VITALS (12 sets, daily range): BP systolic 120–144; BP diastolic 70–98; PULSE 57–73; RESP 16–22; TEMP 35.8–37.5; O2SAT 96–98
[2023-05-31] MEDS: morphine IR 15 mg Tablet PO (03:53)
[2023-05-31 06:27] LABS: Albumin Level 3.3 g/dL (3.5-5.2); Blood Urea Nitrogen 38 mg/dL (8-23); Calcium 8.6 mg/dL (8.5-10.5); Carbon Dioxide 35 mmol/L (22-29); Chloride 97 mmol/L (98-107); Glomerular Filtration Rate 46.5 mL/min (90-130); Glucose 101 mg/dL (65-115); Magnesium 2.3 mg/dL (1.7-2.3); Phosphorus 3.8 mg/dL (2.5-4.5); Sodium 139 mmol/L (136-145)
[2023-05-31 06:31] LABS: Anion Gap 11.5 (5-19); Potassium 4.5 mmol/L (3.5-5.1)
[2023-05-31 06:32] LABS: Glucose Point of Care 117 mg/dL (70-110)
[2023-05-31] MEDS: aspirin 81 mg EC Tablet PO (06:38)
[2023-05-31] MEDS: NON-FORMULARY MEDICATION (Insulin Degludec [Tresiba Flextouch U-200] 200 unit/mL (3 mL) in 120 EACH SUBCUT (06:38)
[2023-05-31] MEDS: insulin lispro 100 unit/1 mL 22 UNIT SUBCUT ×3 (06:40→18:13)
[2023-05-31] MEDS: polyethylene glycol 3350 Pkt 17 gm PO ×2 (08:44→18:13)
[2023-05-31] MEDS: potassium chloride ER 10 mEq Tablet PO ×2 (08:46→18:14)
[2023-05-31] MEDS: isosorbide mononitrate ER 60 mg Tablet PO ×2 (08:46→18:14)
[2023-05-31] MEDS: sennosides-docusate Tablet 1 TAB PO (08:47)
[2023-05-31] MEDS: carvedilol 25 mg Tablet PO ×2 (08:47→18:14)
[2023-05-31] MEDS: tamsulosin 0.4 mg Capsule PO ×2 (08:47→18:14)
[2023-05-31] MEDS: gabapentin 100 mg Capsule PO ×2 (08:47→18:14)
[2023-05-31] MEDS: clopidogrel 75 mg Tablet PO (08:47)
[2023-05-31] MEDS: metOLazone 5 MG Tablet PO (08:48)
--- NOTE | 2023-05-31 08:58 | P.PN_ITS ---
Subjective Subjective: Patient complains of 1 episode of chest discomfort last night that was described as sharp and stabbing and was relieved by morphine. No chest discomfort while walking to the restroom. He was seen sitting bedside in a recliner. Medications: Reviewed: Yes Vitals/I&O/Wt Last Vital Signs Temp 99.5 F 05/31/23 07:40 Pulse 57 L 05/31/23 07:56 Resp 17 05/31/23 07:56 BP 144/76 05/31/23 07:40 Pulse Ox 96 05/31/23 07:56 O2 Del Method Nasal Cannula 05/31/23 07:56 O2 Flow Rate 2 05/31/23 07:56 05/30/23 05/31/23 05/31/23 22:59 06:59 14:59 Intake Total 696 / 1394 Output Total 2350 / 2350 600 / 2950 Balance -1654 / -956 -600 / -1556 Weight last 48 hrs Weight 308 lb 11.2 oz Weight 304 lb 7 oz Physical Exam Const: COMMON NORMALS: no acute distress, patient oriented x3 and alert GENERAL APPEARANCE: cooperative, comfortable, well kempt, well hydrated and other (morbid obesity) HENMT: COMMON NORMALS: hearing grossly normal bilaterally, external ears normal and moist oral mucous membranes FACE & SINUS: normal facial exam NOSE: Normal septum present and No nasal discharge present; no Epistaxis present EXTERNAL EAR: Yes external ears normal MOUTH: lip normal Eye: COMMON NORMALS: EOMs intact bilaterally and no scleral icterus GENERAL EYE: appearance normal, both eyes and all related structures ALIGNMENT: Yes alignment normal Neck/C-Spine: COMMON NORMALS: no lymphadenopathy, supple and no JVD GENERAL: Yes normal visual inspection and Yes trachea midline CAROTIDS: Yes normal carotid upstroke Lymph: LYMPHATIC: no lymphadenopathy noted Chest: COMMONS NORMALS: normal inspection of the chest and normal palpation of entire chest wall CHEST: Yes Symmetrical chest wall rise and No tenderness Resp: COMMON NORMALS: clear to auscultation bilaterally EFFORT & INSPECTIO N: Yes able to speak in complete sentences, No tachypneic, No respiratory distress, No pursed lip breathing, No labored and No Actively coughing AUSCULTATION: clear to auscultation bilaterally, no crackles, no rales, no rhonchi and no wheezes Cardio: COMMON NORMALS: no JVD, regular rate, regular rhythm, S1 normal heart sound present, S2 normal heart sound present and Peripheral pulses 2+ throughout PALPATION: normal PMI RATE: regular rate RHYTHM: regular rhythm HEART SOUNDS: S1 normal heart sound present, S2 normal heart sound present, no click, no gallops and no murmurs BRUITS: no carotid bruits PERIPHERAL PULSES: Peripheral pulses 2+ throughout, radial pulses present, posterior tibial pulses present and dorsalis pedis present GI: COMMON NORMALS: Soft to palpation and non-tender AUSCULTATION: Yes normoactive bowel sounds PALPATION: Yes Soft to palpation, No Tenderness to palpation present (GI), No Guarding due to palpation present (GI) and No Rigid due to palpation PERCUSSION: tympanic to percussion OTHER: Abdominal distention, firm to palpation. No fluid thrill. Lower abdominal wall edema+ Extremity: GENERAL: No cyanosis, Yes edema (3+ extending above knees) and No pallor Neuro: COMMON NORMALS: patient oriented x3, CN's II-XII intact bilaterally and no focal motor deficits SENSORIUM/ORIENTATION: Yes alert Psych: COMMON NORMALS: Normal thought process present and speech normal APPEARANCE: Yes well kempt SPEECH: Yes normal speech MOOD & AFFECT: Yes euthymic mood THOUGHT PROCESS: Normal thought process present THOUGHT CON TENT: Yes Normal thought content present Urinary Catheter Management: Daniel: Cath Placed During This Visit: yes Reason for Continuing Indwelling Catheter: Other Urinary Catheter Date of Insertion: 05/28/23 Urinary Catheter Time of Insertion: 21:00 Data 05/29/23 05:24 05/31/23 05:37 A&P Assessment and plan (1) Chest pain: Chest pain likely 2/2 CHF -troponins flat, no EKG changes. Mild tacho-infarct ischemia in inferior/IL and apical area. This is not ACS. off heparin gtt -no left heart cath warranted at this time -Will continue to treat medically and assess his symptoms as an outpatient. (2) CHF (congestive heart failure): HFrEF (LVEF=28%) by stress test and some degree of RV failure (by symptoms). Echo cannot be interpreted.No CT chest for patient in system -5.8 L LOS, daily weight and 1500 ml fluid restriction currently on lasix 60 mg IV Q 12 with spironolactone -Low dose metolazone was addedd -will consider adding entresto based on renal function on discharge. If unable to add entresto, will start on isodril-Hydralazine combo. -will benefit from outpatient cardiac MRI to assess function and viability. (3) CAD (coronary artery disease): continue ASA, statin , plavix and ISMN (4) Hyperlipidemia: Qualifiers: Hyperlipidemia type: other hyperlipidemia Qualified Code(s): E78.49 - Other hyperlipidemia (5) Diabetes mellitus, type II: (6) Sleep apnea: JOSE JUAN/OHS on CPAP (7) Chronic kidney disease, stage 3b: Plan Morbid obesity Thank you for allowing me to participate in patient's care. Please feel free to call with questions or concerns. Attestations Medical Necessity Statement*: needs hospital stay for decompensated CHF Coding Level of Care Code 99090 Diagnoses Chest pain R07.9 CHF (congestive heart failure) I50.9 CAD (coronary artery disease) I25.10 Hyperlipidemia E78.49 Hyperlipidemia type: other hyperlipidemia Diabetes mellitus, type II E11.9 Sleep apnea G47.30 Chronic kidney disease, stage 3b N18.32
[2023-05-31] MEDS: FUROsemide 10 mg/mL SDV 10mL 60 MG IVP ×2 (09:41→21:04)
[2023-05-31] MEDS: heparin 5,000 unit/mL INJ 1 mL 5000 UNIT SUBCUT ×2 (09:43→21:05)
--- NOTE | 2023-05-31 10:25 | P.PN_ITS ---
Subjective Subjective: Patient denies chest pain overnight. Continues to endorse significant shortness of breath with minimal exertion. Edema similar to yesterday's exam. Plan start Zaroxolyn today. Discussed with patient and he is in agreement. Denies fevers, chills, nausea or emesis. Medications: Reviewed: Yes Vitals/I&O/Wt Last Vital Signs Temp 99.5 F 05/31/23 07:40 Pulse 57 L 05/31/23 07:56 Resp 17 05/31/23 07:56 BP 144/76 05/31/23 07:40 Pulse Ox 96 05/31/23 07:56 O2 Del Method Nasal Cannula 05/31/23 07:56 O2 Flow Rate 2 05/31/23 07:56 05/30/23 05/31/23 05/31/23 22:59 06:59 14:59 Intake Total 696 / 1394 480 / 480 Output Total 2350 / 2350 600 / 2950 Balance -1654 / -956 -600 / -1556 480 / 480 Weight last 48 hrs Weight 140.024 kg Weight 138.091 kg Physical Exam Narrative: General: Patient is awake, alert, and sitting in bedside chair. Head: Normocephalic. Atraumatic. EOM intact. Neck: Elevated JVD. Cardiovascular: RRR. No gallops. 3+ bilateral lower extremity edema to waist, similar to yesterday's exam. Lungs: Breath sounds diminished bilateral bases, no use of accessory muscles, no crackles or wheezes. Skin: No jaundice. No rashes. Abdomen: Normal bowel sounds, abdomen supple and nontender. Extremities: No cyanosis or clubbing. Musculoskeletal: No swollen or erythematous joints. Neurological: Moves all 4 extremities. No myoclonus. Urinary Catheter Management: Daniel: Cath Placed During This Visit: yes Reason for Continuing Indwelling Catheter: Other Urinary Catheter Date of Insertion: 05/28/23 Urinary Catheter Time of Insertion: 21:00 Data 05/29/23 05:24 05/31/23 05:37 A&P Assessment and plan (1) Unstable angina pectoris: Associated with history of coronary artery disease with prior stents Poor visualizations on both recent echoes Continuous telemetry monitoring Continue DAPT with Plavix and aspirin Continue Coreg Cardiology following, w/ presentation favoring symptomatic CHF, not ACS (2) CHF (congestive heart failure): Acute on chronic heart failure with preserved ejection fraction Remains severely fluid overloaded Continue IV diuresis Strict I's and O's Daily weights Trial of Zaroxolyn today Hold off on Aldactone given potassium level and initiate duration of metolazone Appreciate cardiology recommendations (3) HTN (hypertension): Aldactone and ESTHELA/ARB was held on admission Continue Imdur Continue beta-alana Continue hydralazine Qualifiers: Hypertension type: essential hypertension Qualified Code(s): I10 - Essential (primary) hypertension (4) Hyperlipidemia: Continue statin Qualifiers: Hyperlipidemia type: other hyperlipidemia Qualified Code(s): E78.49 - Other hyperlipidemia (5) Diabetes mellitus, type II: A.m. glucose satisfactory, continue with current long-acting insulin Daytime glucose readings elevated, continue with current dose, may need to increase again Avoid hypoglycemia (6) Sleep apnea: CPAP while sleeping (7) Chronic kidney disease, stage 3b: Renal function close to baseline Avoid nephrotoxins Continue to monitor kidney function while on IV diuresis Plan DVT prophylaxis: Heparin CODE STATUS: Full code Attestations Medical Necessity Statement*: Patient remains severely fluid overloaded heart failure exacerbation requiring ongoing hospitalization for IV and oral diuresis, telemetry monitoring, and leong pportive care. Coding Level of Care Code Acute Code for [facility] Fwd Diagnoses Unstable angina pectoris I20.0 CHF (congestive heart failure) I50.9 HTN (hypertension) I10 Hypertension type: essential hypertension Hyperlipidemia E78.49 Hyperlipidemia type: other hyperlipidemia Diabetes mellitus, type II E11.9 Sleep apnea G47.30 Chronic kidney disease, stage 3b N18.32
[2023-05-31 11:13] LABS: Glucose Point of Care 135 mg/dL (70-110)
[2023-05-31 16:25] LABS: Glucose Point of Care 166 mg/dL (70-110)
[2023-05-31] MEDS: montelukast sodium 10 mg Tablet PO (21:04)
[2023-05-31] MEDS: atorvastatin 40 mg Tablet 80 MG PO (21:04)
[2023-06-01] VITALS (10 sets, daily range): BP systolic 128–168; BP diastolic 48–82; PULSE 54–80; RESP 13–26; TEMP 36.6–36.7; O2SAT 91–97
[2023-06-01 03:55] LABS: Basophils % 0.4 %; Eosinophils # 0.2 10^3/uL (0.0-0.8); Hematocrit 41.1 % (42.0-52.0); Hemoglobin 12.7 g/dL (11.7-16.6); Lymphocytes # 1.5 10^3/uL (0.8-4.8); Lymphocytes % 13.9 %; Mean Corpuscular HGB Conc 30.9 g/dL (30.0-36.0); Mean Corpuscular Hemoglobin 29.1 pg (28.0-34.0); Mean Corpuscular Volume 94.3 fl (80-94); Mean Platelet Volume 9.4 fL (7.4-10.4); Monocytes # 1.1 10^3/uL (0.2-0.9); Monocytes % 10.3 %; Neutrophils # 7.77 10^3/uL (1.8-7.7); Nucleated Red Blood Cells % 0 %; Platelet Count 292 10^3/cmm (130-400); Red Blood Count 4.36 10^6/uL (4.1-5.3); White Blood Count 10.6 10^3/uL (4.0-10.0)
[2023-06-01 04:26] LABS: Magnesium 2.4 mg/dL (1.7-2.3)
[2023-06-01] MEDS: NON-FORMULARY MEDICATION (Insulin Degludec [Tresiba Flextouch U-200] 200 unit/mL (3 mL) in 120 EACH SUBCUT (06:16)
[2023-06-01] MEDS: aspirin 81 mg EC Tablet PO (06:19)
[2023-06-01 06:48] LABS: Glucose Point of Care 65 mg/dL (70-110)
[2023-06-01] MEDS: metOLazone 5 MG Tablet PO (09:23)
[2023-06-01] MEDS: heparin 5,000 unit/mL INJ 1 mL 5000 UNIT SUBCUT ×2 (09:23→21:27)
[2023-06-01] MEDS: tamsulosin 0.4 mg Capsule PO ×2 (09:23→17:21)
[2023-06-01] MEDS: isosorbide mononitrate ER 60 mg Tablet PO ×2 (09:23→17:22)
[2023-06-01] MEDS: gabapentin 100 mg Capsule PO ×2 (09:23→17:22)
[2023-06-01] MEDS: clopidogrel 75 mg Tablet PO (09:23)
[2023-06-01] MEDS: potassium chloride ER 10 mEq Tablet PO ×2 (09:23→17:21)
[2023-06-01] MEDS: carvedilol 25 mg Tablet PO ×2 (09:23→17:22)
[2023-06-01] MEDS: sennosides-docusate Tablet 1 TAB PO (09:23)
[2023-06-01] MEDS: FUROsemide 10 mg/mL SDV 10mL 60 MG IVP (09:24)
[2023-06-01] MEDS: polyethylene glycol 3350 Pkt 17 gm PO ×2 (09:24→17:22)
[2023-06-01 09:49] LABS: Anion Gap 14.5 (5-19); Blood Urea Nitrogen 41 mg/dL (8-23); Calcium 9.3 mg/dL (8.5-10.5); Carbon Dioxide 37 mmol/L (22-29); Chloride 94 mmol/L (98-107); Glomerular Filtration Rate 46.5 mL/min (90-130); Glucose 54 mg/dL (65-115); Osmolality Calculated 300 mOsm/kg (285-295); Potassium 4.5 mmol/L (3.5-5.1); Sodium 141 mmol/L (136-145)
--- NOTE | 2023-06-01 10:38 | PM.PN ---
Subjective Subjective: doing well. concerns about finger sticks Medications: Reviewed: Yes Vitals/I&O/Wt Last Vital Signs Temp 97.8 F 06/01/23 07:35 Pulse 59 L 06/01/23 08:00 Resp 17 06/01/23 08:00 BP 162/82 06/01/23 07:35 Pulse Ox 94 06/01/23 08:00 O2 Del Method Nasal Cannula 06/01/23 08:00 O2 Flow Rate 2 06/01/23 08:00 05/31/23 06/01/23 06/01/23 22:59 06:59 14:59 Intake Total 840 / 1320 0 / 1320 240 / 240 Output Total 1150 / 2250 1865 / 4115 Balance -310 / -930 -1865 / -2795 240 / 240 Weight last 48 hrs Weight 298 lb Weight 308 lb 11.2 oz Physical Exam Const: COMMON NORMALS: no acute distress, patient oriented x3 and alert GENERAL APPEARANCE: cooperative, comfortable, well kempt, well hydrated and other (morbid obesity) HENMT: COMMON NORMALS: hearing grossly normal bilaterally, external ears normal and moist oral mucous membranes FACE & SINUS: normal facial exam EXTERNAL EAR: Yes external ears normal Eye: COMMON NORMALS: EOMs intact bilaterally and no scleral icterus GENERAL EYE: appearance normal, both eyes and all related structures ALIGNMENT: Yes alignment normal Neck/C-Spine: COMMON NORMALS: no lymphadenopathy, supple and no JVD GENERAL: Yes normal visual inspection and Yes trachea midline CAROTIDS: Yes normal carotid upstroke Chest: COMMONS NORMALS: normal inspection of the chest and normal palpation of entire chest wall CHEST: Yes Symmetrical chest wall rise and No tenderness Resp: COMMON NORMALS: clear to auscultation bilaterally EFFORT & INSPECTION: Yes able to speak in complete sentences and No respiratory distress AUSCULTATION: clear to auscultation bilaterally, no crackles, no rales, no rhonchi and no wheezes Cardio: COMMON NORMALS: no JVD, regular rate, regular rhythm, S1 normal heart sound present, S2 normal heart sound present and Peripheral pulses 2+ throughout PALPATION: normal PMI RATE: regular rate RHYTHM: regular rhythm HEART SOUNDS: S1 normal heart sound present, S2 normal heart sound present, no click, no gallops and no murmurs BRUITS: no carotid bruits PERIPHERAL PULSES: Peripheral pulses 2+ throughout, radial pulses present, posterior tibial pulses present and dorsalis pedis present GI: COMMON NORMALS: Soft to palpation and non-tender AUSCULTATION: Yes normoactive bowel sounds PALPATION: Yes Soft to palpation, No Tenderness to palpation present (GI), No Guarding due to palpation present (GI) and No Rigid due to palpation PERCUSSION: tympanic to percussion OTHER: Abdominal distention, firm to palpation. No fluid thrill. Lower abdominal wall edema+ Extremity: GENERAL: No clubbing, No cyanosis, Yes edema (trace ) and No pallor Neuro: COMMON NORMALS: patient oriented x3, CN's II-XII intact bilaterally and no focal motor deficits SENSORIUM/ORIENTATION: Yes alert Psych: COMMON NORMALS: Normal thought process present and speech normal APPEARANCE: Yes well kempt SPEECH: Yes normal speech MOOD & AFFECT: Yes euthymic mood THOUGHT PROCESS: Normal thought process present THOUGHT CONTENT: Yes Normal thought content present Urinary Catheter Management: Daniel: Cath Placed During This Visit: yes Reason for Continuing Indwelling Catheter: Accurate Measurement of Urinary Output in Critically Ill Patients Urinary Catheter Date of Insertion: 05/28/23 Urinary Catheter Time of Insertion: 21:00 Data 06/01/23 03:39 06/02/23 03:06 A&P Assessment and plan (1) Chest pain: Chest pain likely 2/2 CHF -troponins flat, no EKG changes. Mild tacho-infarct ischemia in inferior/IL and apical area. This is not ACS. off heparin gtt -no left heart cath warranted at this time -Will continue to treat medically and assess his symptoms as an outpatient. (2) CHF (congestive heart failure): HFrEF (LVEF=28%) by stress test and some degree of RV failure (by symptoms). Echo cannot be interpreted.No CT chest for patient in system -12 L LOS, daily weight and 1500 ml fluid restriction will change to PO lasix and Low dose metolazone was addedd -will d/c metolazone in am -will consider adding entresto based on renal function on discharge. If unable to add entresto, will start on isodril-Hydralazine combo. -will benefit from outpatient cardiac MRI to assess function and viability. (3) CAD (coronary artery disease): continue ASA, statin , plavix and ISMN (4) Hyperlipidemia: Qualifiers: Hyperlipidemia type: other hyperlipidemia Qualified Code(s): E78.49 - Other hyperlipidemia (5) Diabetes mellitus, type II: (6) Sleep apnea: JOSE JUAN/OHS on CPAP (7) Chronic kidney disease, stage 3b: Plan Morbid obesity Thank you for allowing me to participate in patient's care. Please feel free to call with questions or concerns. Attestations Medical Necessity Statement*: needs hospital stay for medication optimization Coding Level of Care Code Acute Code for [facility] Fwd Diagnoses Chest pain R07.9 CHF (congestive heart failure) I50.9 CAD (coronary artery disease) I25.10 Hyperlipidemia E78.49 Hyperlipidemia type: other hyperlipidemia Diabetes mellitus, type II E11.9 Sleep apnea G47.30 Chronic kidney disease, stage 3b N18.32
[2023-06-01] MEDS: insulin lispro 100 unit/1 mL 22 UNIT SUBCUT (11:35)
[2023-06-01 11:48] LABS: Glucose Point of Care 399 mg/dL (70-110)
[2023-06-01 11:48] LABS: Glucose Point of Care 502 mg/dL (70-110)
--- NOTE | 2023-06-01 15:09 | P.PN_ITS ---
Subjective Subjective: Patient denies chest pain overnight. Continues to endorse significant shortness of breath with minimal exertion. Edema similar to yesterday's exam. Plan start Zaroxolyn today. Discussed with patient and he is in agreement. Denies fevers, chills, nausea or emesis. Medications: Reviewed: Yes Vitals/I&O/Wt Last Vital Signs Temp 97.9 F 06/01/23 12:00 Pulse 64 06/01/23 12:00 Resp 16 06/01/23 12:00 BP 128/48 06/01/23 12:00 Pulse Ox 97 06/01/23 12:00 O2 Del Method Nasal Cannula 06/01/23 12:00 O2 Flow Rate 2 06/01/23 08:00 06/01/23 06/01/23 06/01/23 06:59 14:59 22:59 Intake Total 0 / 1320 480 / 480 Output Total 1865 / 4115 1999 Balance -1865 / -2795 -1520 / -1520 Weight last 48 hrs Weight 135.171 kg Weight 140.024 kg Physical Exam Narrative: General: Patient is awake, alert, and sitting in bedside chair. Head: Normocephalic. Atraumatic. EOM intact. Neck: Elevated JVD. Cardiovascular: RRR. No gallops. 3+ bilateral lower extremity edema to waist, similar to yesterday's exam. Lungs: Breath sounds diminished bilateral bases, no use of accessory muscles, no crackles or wheezes. Skin: No jaundice. No rashes. Abdomen: Normal bowel sounds, abdomen supple and nontender. Extremities: No cyanosis or clubbing. Musculoskeletal: No swollen or erythematous joints. Neurological: Moves all 4 extremities. No myoclonus. Urinary Catheter Management: Daniel: Cath Placed During This Visit: yes Reason for Continuing Indwelling Catheter: Accurate Measurement of Urinary Output in Critically Ill Patients Urinary Catheter Date of Insertion: 05/28/23 Urinary Catheter Time of Insertion: 21:00 Data 06/01/23 03:39 06/01/23 03:39 A&P Assessment and plan (1) CHF (congestive heart failure): Acute on chronic heart failure with preserved ejection fraction Remains fluid overloaded, but responding to diuresis Continue IV and oral diuresis Strict I's and O's Daily weights Appreciate cardiology recommendations (2) Heart disease: Presentation not consisent with ACS, evalatuated by cardiology Continue DAPT with Plavix and aspirin Continue Coreg (3) HTN (hypertension): Aldactone and ESTHELA/ARB was held on admission Continue Imdur Continue beta-alana Continue hydralazine Qualifiers: Hypertension type: essential hypertension Qualified Code(s): I10 - Essential (primary) hypertension (4) Hyperlipidemia: Continue statin Qualifiers: Hyperlipidemia type: other hyperlipidemia Qualified Code(s): E78.49 - Other hyperlipidemia (5) Diabetes mellitus, type II: Continue long acting insulin Daytime blood glucose uncontrolled, increasing scheduled mealtime insulin Start sliding scale insulin correction, high intensity Avoid hypoglycemia (6) Sleep apnea: CPAP while sleeping (7) Chronic kidney disease, stage 3b: Renal function close to baseline Avoid nephrotoxins Continue to monitor kidney function while on IV diuresis Plan DVT prophylaxis: Heparin CODE STATUS: Full code Attestations Medical Necessity Statement*: Patient remains in volume overload state and congestive heart failure exacerbation requiring on going hospitalization for IV diuresis and cardiology evaluation. Coding Level of Care Code Acute Code for [facility] Diagnoses CHF (congestive heart failure) I50.9 Heart disease I51.9 HTN (hypertension) I10 Hypertension type: essential hypertension Hyperlipidemia E78.49 Hyperlipidemia type: other hyperlipidemia Diabetes mellitus, type II E11.9 Sleep apnea G47.30 Chronic kidney disease, stage 3b N18.32
[2023-06-01] MEDS: insulin lispro 100 unit/1 mL 30 UNIT SUBCUT (17:21)
[2023-06-01] MEDS: FUROsemide 40 mg Tablet 80 MG PO (17:21)
--- NOTE | 2023-06-01 17:47 | PC.NURSE ---
Patient reports itching in the buttocks region received orders for hydroxyzine 50mg TID prn
[2023-06-01] MEDS: insulin lispro 100 unit/1 mL SUBCUT (18:18)
[2023-06-01] MEDS: hyDROXYzine 25 mg Capsule 50 MG PO (18:18)
--- NOTE | 2023-06-01 18:28 | PC.NURSE ---
8 units of insulin given for blood glucose reading of 181 per chaka reading.
[2023-06-01 21:00] LABS: Glucose Point of Care 88 mg/dL (70-110)
[2023-06-01] MEDS: atorvastatin 40 mg Tablet 80 MG PO (21:26)
[2023-06-01] MEDS: montelukast sodium 10 mg Tablet PO (21:26)
[2023-06-02] VITALS (9 sets, daily range): BP systolic 124–166; BP diastolic 50–86; PULSE 60–79; RESP 15–25; TEMP 36.3–37.5; O2SAT 90–96
[2023-06-02 03:45] LABS: Albumin Level 3.5 g/dL (3.5-5.2); Anion Gap 13.5 (5-19); Blood Urea Nitrogen 49 mg/dL (8-23); Calcium 9.6 mg/dL (8.5-10.5); Carbon Dioxide 40 mmol/L (22-29); Chloride 90 mmol/L (98-107); Glomerular Filtration Rate 33.4 mL/min (90-130); Glucose 80 mg/dL (65-115); Phosphorus 4.1 mg/dL (2.5-4.5); Potassium 4.5 mmol/L (3.5-5.1); Sodium 139 mmol/L (136-145)
[2023-06-02 06:12] LABS: Glucose Point of Care 178 mg/dL (70-110)
[2023-06-02] MEDS: aspirin 81 mg EC Tablet PO (06:19)
[2023-06-02] MEDS: NON-FORMULARY MEDICATION (Insulin Degludec [Tresiba Flextouch U-200] 200 unit/mL (3 mL) in 120 EACH SUBCUT (06:20)
--- NOTE | 2023-06-02 08:10 | PM.PN ---
Subjective Subjective: No new complaints. Creatinine increased Medications: Reviewed: Yes Vitals/I&O/Wt Last Vital Signs Temp 97.6 F 06/02/23 04:39 Pulse 62 06/02/23 06:00 Resp 22 H 06/02/23 04:39 BP 139/63 06/02/23 04:39 Pulse Ox 91 06/02/23 04:39 O2 Del Method Nasal Cannula 06/01/23 20:00 O2 Flow Rate 2 06/01/23 20:00 06/01/23 06/02/23 06/02/23 22:59 06:59 14:59 Intake Total 380 / 860 Output Total 825 / 2825 1450 / 4275 Balance -825 / -2345 -1070 / -3415 Weight last 48 hrs Weight 298 lb Physical Exam Const: COMMON NORMALS: no acute distress, patient oriented x3 and alert GENERAL APPEARANCE: cooperative, comfortable, well kempt, well hydrated and other (morbid obesity) HENMT: COMMON NORMALS: hearing grossly normal bilaterally, external ears normal and moist oral mucous membranes FACE & SINUS: normal facial exam NOSE: Normal septum present and No nasal discharge present; no Epistaxis present EXTERNAL EAR: Yes external ears normal MOUTH: lip normal Eye: COMMON NORMALS: EOMs intact bilaterally and no scleral icterus GENERAL EYE: appearance normal, both eyes and all related structures ALIGNMENT: Yes alignment normal Neck/C-Spine: COMMON NORMALS: no lymphadenopathy, supple and no JVD GENERAL: Yes normal visual inspection and Yes trachea midline CAROTIDS: Yes normal carotid upstroke Lymph: LYMPHATIC: no lymphadenopathy noted Chest: COMMONS NORMALS: normal inspection of the chest and normal palpation of entire chest wall CHEST: Yes Symmetrical chest wall rise and No tenderness Resp: COMMON NORMALS: clear to auscultation bilaterally EFFORT & INSPECTION: Yes able to speak in complete sentences, No tachypneic, No respiratory distress, No pursed lip breathing, No labored and No Actively coughing AUSCULTATION: clear to auscultation bilaterally, no crackles, no rales, no rhonchi and no wheezes Cardio: COMMON NORMALS: no JVD, regular rate, regular rhythm, S1 normal heart sound present, S2 normal heart sound present and Peripheral pulses 2+ throughout PALPATION: normal PMI RATE: regular rate RHYTHM: regular rhythm HEART SOUNDS: S1 normal heart sound present, S2 normal heart sound present, no click, no gallops and no murmurs BRUITS: no carotid bruits PERIPHERAL PULSES: Peripheral pulses 2+ throughout, radial pulses present, posterior tibial pulses present and dorsalis pedis present GI: COMMON NORMALS: Soft to palpation and non-tender AUSCULTATION: Yes normoactive bowel sounds PALPATION: Yes Soft to palpation, No Tenderness to palpation present (GI), No Guarding due to palpation present (GI) and No Rigid due to palpation PERCUSSION: tympanic to percussion OTHER: Abdominal distention, firm to palpation. No fluid thrill. Lower abdominal wall edema+ (improved) Extremity: GENERAL: No clubbing, No cyanosis, Yes edema (trace-1+) and No pallor Neuro: COMMON NORMALS: patient oriented x3, CN's II-XII intact bilaterally and no focal motor deficits SENSORIUM/ORIENTATION: Yes alert Psych: COMMON NORMALS: Normal thought process present and speech normal APPEARANCE: Yes well kempt SPEECH: Yes normal speech MOOD & AFFECT: Yes euthymic mood THOUGHT PROCESS: Normal thought process present THOUGHT CONTENT: Yes Normal thought content present Urinary Catheter Management: Daniel: Cath Placed During This Visit: yes Reason for Continuing Indwelling Catheter: Accurate Measurement of Urinary Output in Critically Ill Patients Urinary Catheter Date of Insertion: 05/28/23 Urinary Catheter Time of Insertion: 21:00 Data 06/01/23 03:39 06/02/23 03:06 A&P Assessment and plan (1) Chest pain: Chest pain likely 2/2 CHF; no recurrence -troponins flat, no EKG changes. Mild tacho-infarct ischemia in inferior/IL and apical area. This is not ACS. off heparin gtt -no left heart cath warranted at this time -Will continue to treat medically and assess his symptoms as an outpatient. (2) CHF (congestive heart failure): HFrEF (LVEF=28%) by stress test and some degree of RV failure (by symptoms). Echo cannot be interpreted.No CT chest for patient in system -12 L LOS, daily weight and 1500 ml fluid restriction will hold PO lasix and metolazone -will consider adding entresto based on renal function on discharge. If unable to add entresto based on BP, will start on isodril-Hydralazine combo. -will benefit from outpatient cardiac MRI to assess function and viability if possible. (3) CAD (coronary artery disease): continue ASA, statin , plavix and ISMN (4) Hyperlipidemia: Qualifiers: Hyperlipidemia type: other hyperlipidemia Qualified Code(s): E78.49 - Other hyperlipidemia (5) Diabetes mellitus, type II: (6) Sleep apnea: JOSE JUAN/OHS on CPAP Contraction alkalosis: will add acetazolamide in morning if metabolic alkalosis worsens (7) Chronic kidney disease, stage 3b: Plan Morbid obesity Thank you for allowing me to participate in patient's care. Please feel free to call with questions or concerns. Attestations Medical Necessity Statement*: needs hospital stay for med titration for CHF and MIRI on CKD Coding Level of Care Code 31079 Diagnoses Chest pain R07.9 CHF (congestive heart failure) I50.9 CAD (coronary artery disease) I25.10 Hyperlipidemia E78.49 Hyperlipidemia type: other hyperlipidemia Diabetes mellitus, type II E11.9 Sleep apnea G47.30 Chronic kidney disease, stage 3b N18.32
[2023-06-02] MEDS: clopidogrel 75 mg Tablet PO (08:40)
[2023-06-02] MEDS: heparin 5,000 unit/mL INJ 1 mL 5000 UNIT SUBCUT ×2 (08:40→21:30)
[2023-06-02] MEDS: isosorbide mononitrate ER 60 mg Tablet PO ×2 (08:40→17:37)
[2023-06-02] MEDS: potassium chloride ER 10 mEq Tablet PO ×2 (08:40→17:37)
[2023-06-02] MEDS: gabapentin 100 mg Capsule PO ×2 (08:40→17:37)
[2023-06-02] MEDS: tamsulosin 0.4 mg Capsule PO ×2 (08:40→17:37)
[2023-06-02] MEDS: sennosides-docusate Tablet 1 TAB PO (08:41)
[2023-06-02] MEDS: polyethylene glycol 3350 Pkt 17 gm PO (08:42)
[2023-06-02] MEDS: carvedilol 25 mg Tablet PO ×2 (08:47→17:37)
--- NOTE | 2023-06-02 10:34 | P.PN_ITS ---
Subjective Subjective: Patient reports edema is slightly better. Was able to work with therapy. Denies fevers, chills, nausea or emesis. Discussed bump in creatinine and he is agreeable to staying. Medications: Reviewed: Yes Vitals/I&O/Wt Last Vital Signs Temp 97.4 F L 06/02/23 08:52 Pulse 62 06/02/23 08:52 Resp 15 06/02/23 08:52 BP 134/50 06/02/23 08:52 Pulse Ox 95 06/02/23 08:15 O2 Del Method Nasal Cannula 06/02/23 08:15 O2 Flow Rate 2 06/02/23 08:15 06/01/23 06/02/23 06/02/23 22:59 06:59 14:59 Intake Total 380 / 860 Output Total 825 / 2825 1450 / 4275 Balance -825 / -2345 -1070 / -3415 Weight last 48 hrs Weight 135.171 kg Physical Exam Narrative: General: Patient is awake, alert, and sitting in bedside chair. Appears fatigued. Head: Normocephalic. Atraumatic. EOM intact. Neck: Elevated JVD. Cardiovascular: RRR. No gallops. 2+ bilateral lower extremity edema. Lungs: Breath sounds diminished bilateral bases, no use of accessory muscles, no crackles or wheezes. Skin: No jaundice. No rashes. Abdomen: Normal bowel sounds, abdomen supple and nontender. Extremities: No cyanosis or clubbing. Musculoskeletal: No swollen or erythematous joints. Neurological: Moves all 4 extremities. No myoclonus. Urinary Catheter Management: Daniel: Cath Placed During This Visit: yes Reason for Continuing Indwelling Catheter: Accurate Measurement of Urinary Output in Critically Ill Patients Urinary Catheter Date of Insertion: 05/28/23 Urinary Catheter Time of Insertion: 21:00 Data 06/01/23 03:39 06/02/23 03:06 A&P Assessment and plan (1) CHF (congestive heart failure): Acute on chronic heart failure with preserved ejection fraction Continue oral Lasix Hold further metolazone given bump in creatinine Strict I's and O's Daily weights Appreciate cardiology recommendations Possibility of adding Entresto in the future (2) Heart disease: Continue aspirin and Plavix Continue Coreg (3) HTN (hypertension): Aldactone and ESTHELA/ARB was held on admission Continue Imdur Continue beta-alana Continue hydralazine Qualifiers: Hypertension type: essential hypertension Qualified Code(s): I10 - Essential (primary) hypertension (4) Hyperlipidemia: Continue statin Qualifiers: Hyperlipidemia type: other hyperlipidemia Qualified Code(s): E78.49 - Other hyperlipidemia (5) Diabetes mellitus, type II: Continue long acting insulin Daytime blood glucose uncontrolled, increasing scheduled mealtime insulin Start sliding scale insulin correction, high intensity Avoid hypoglycemia (6) Sleep apnea: CPAP while sleeping (7) Chronic kidney disease, stage 3b: Renal function now elevated to Avoid nephrotoxins Continue to monitor kidney function Repeat creatinine in the morning Plan DVT prophylaxis: Heparin CODE STATUS: Full code Attestations Medical Necessity Statement*: Patient in heart failure exacerbation requiring diuresis and careful monitoring of kidney function now with elevated creatinine requiring ongoing hospitalization for serial labs and close monitoring. Coding Level of Care Code Acute Code for [facility] Fwd Diagnoses CHF (congestive heart failure) I50.9 Heart disease I51.9 HTN (hypertension) I10 Hypertension type: essential hypertension Hyperlipidemia E78.49 Hyperlipidemia type: other hyperlipidemia Diabetes mellitus, type II E11.9 Sleep apnea G47.30 Chronic kidney disease, stage 3b N18.32
[2023-06-02] MEDS: insulin lispro 100 unit/1 mL 40 UNIT SUBCUT ×2 (11:10→17:37)
[2023-06-02 11:48] LABS: Glucose Point of Care 378 mg/dL (70-110)
[2023-06-02] MEDS: insulin lispro 100 unit/1 mL SUBCUT (12:25)
--- NOTE | 2023-06-02 15:56 | PC.NURSE ---
orders to hold 1600 lasix d/t increased creatinine of 2.0
[2023-06-02 17:37] LABS: Glucose Point of Care 189 mg/dL (70-110)
[2023-06-02 21:07] LABS: Glucose Point of Care 139 mg/dL (70-110)
[2023-06-02] MEDS: montelukast sodium 10 mg Tablet PO (21:29)
[2023-06-02] MEDS: atorvastatin 40 mg Tablet 80 MG PO (21:29)
[2023-06-03] VITALS (7 sets, daily range): BP systolic 123–156; BP diastolic 5–87; PULSE 69–73; RESP 18–29; TEMP 36.6–37.1; O2SAT 92–96
[2023-06-03 03:29] LABS: Albumin Level 3.6 g/dL (3.5-5.2); Anion Gap 9.5 (5-19); Blood Urea Nitrogen 50 mg/dL (8-23); Calcium 9.4 mg/dL (8.5-10.5); Chloride 89 mmol/L (98-107); Glomerular Filtration Rate 40.3 mL/min (90-130); Glucose 94 mg/dL (65-115); Phosphorus 4.1 mg/dL (2.5-4.5); Potassium 4.5 mmol/L (3.5-5.1); Sodium 135 mmol/L (136-145)
[2023-06-03 03:33] LABS: Carbon Dioxide 41 mmol/L (22-29)
[2023-06-03 06:30] LABS: Glucose Point of Care 88 mg/dL (70-110)
[2023-06-03] MEDS: aspirin 81 mg EC Tablet PO (06:31)
[2023-06-03] MEDS: NON-FORMULARY MEDICATION (Insulin Degludec [Tresiba Flextouch U-200] 200 unit/mL (3 mL) in 120 EACH SUBCUT (06:31)
[2023-06-03] MEDS: tamsulosin 0.4 mg Capsule PO (08:43)
[2023-06-03] MEDS: isosorbide mononitrate ER 60 mg Tablet PO (08:43)
[2023-06-03] MEDS: carvedilol 25 mg Tablet PO (08:43)
[2023-06-03] MEDS: gabapentin 100 mg Capsule PO (08:43)
[2023-06-03] MEDS: acetaZOLAMIDE 250 mg Tablet PO (08:43)
[2023-06-03] MEDS: clopidogrel 75 mg Tablet PO (08:44)
[2023-06-03] MEDS: potassium chloride ER 10 mEq Tablet PO (08:44)
[2023-06-03] MEDS: heparin 5,000 unit/mL INJ 1 mL 5000 UNIT SUBCUT (08:45)
[2023-06-03] MEDS: polyethylene glycol 3350 Pkt 17 gm PO (09:01)
[2023-06-03] MEDS: sennosides-docusate Tablet 1 TAB PO (09:01)
[2023-06-03] MEDS: insulin lispro 100 unit/1 mL SUBCUT (11:28)
[2023-06-03] MEDS: insulin lispro 100 unit/1 mL 40 UNIT SUBCUT (11:30)
--- NOTE | 2023-06-03 15:59 | PC.NURSE ---
pt received discharge this morning.states he called to come and pick him up.at 14:00..still no ride. called.states she just received call from pt to come and pick him up. showed up about 15:00.then she disappeared and was not available by phone.was found at [facility] waiting room by staff.discharge instructions given and explained.pt verb understanding of instructions.discharged via w/c to exit at this time.spouse to drive pt home
--- NOTE | 2023-06-06 14:48 | PM.DCS ---
Discharge Providers Date of Admission: 05/28/23 21:39 Date of Discharge: June 06, 2023 Attending Provider at Admission: Juwan Arambula MD Attending Provider at Discharge: Azam Nye MD Consults: Cardiology Primary Care Provider: Kyle Corrigan MD Diagnoses at Discharge Discharge Diagnosis (1) Chest pain: Status: Resolved (2) CHF (congestive heart failure): Status: Chronic (3) CAD (coronary artery disease): Status: Chronic (4) Hyperlipidemia: Status: Chronic Qualifiers: Hyperlipidemia type: other hyperlipidemia Qualified Code(s): E78.49 - Other hyperlipidemia (5) Diabetes mellitus, type II: Status: Acute (6) Sleep apnea: Status: Chronic (7) Chronic kidney disease, stage 3b: Status: Chronic Reason for Visit Reason for Visit: CP Hospital Course Hospital Course Garrett Mares is a 67-year-old male with a past medical history significant for coronary artery disease status post multiple stents, chronic hypoxic respiratory failure on 2L, insulin dependent type 2 diabetes mellitus, and hypertension who presented with chest pain. Initial concern was for unstable angina. Cardiology consulted and followed. Acute coronary syndrome considered but ruled out. Patient found to have acute on chronic heart failure with preserved ejection fraction. He was treated with IV diuresis. He worked well with therapy. Home health was establish. CHF education provided. Symptoms improved. Patient discharged to home in stable condition. He is to follow up with cardiology for cardiac MRI referral and PCP for further care. Physical Exam Narrative: General: Patient is awake and alert. No acute distress. Head:? Normocephalic. Atraumatic. EOM intact. Neck: Elevated JVD. Cardiovascular: RRR. No gallops.? 1+ bilateral lower extremity edema. Lungs: Breath sounds diminished bilateral bases, no use of accessory muscles, no crackles or wheezes. Skin: No jaundice. No rashes. Abdomen: Normal bowel sounds, abdomen supple and nontender. Extremities: No cyanosis or clubbing. Musculoskeletal: No swollen or erythematous joints. Neurological: Moves all 4 extremities. No myoclonus. Urinary Catheter Management: Daniel: Cath Placed During This Visit: yes, but has since been removed by the nurse Reason for Continuing Indwelling Catheter: Accurate Measurement of Urinary Output in Critically Ill Patients Urinary Catheter Date of Insertion: 05/28/23 Urinary Catheter Time of Insertion: 21:00 Date Urinary Catheter Removed: 06/03/23 Time Urinary Catheter Discontinued: 10:49 Discharge Data Studies Completed and Pending Completed Studies During Hospitalization Category Date Time Status Sestamibi Stress Test Request Routine Exams 05/28/23 21:39 Completed XR chest 1V portable [id number] Stat Exams 05/28/23 16:03 Completed NM mark anthony perf SPECT r/s* [id number] Routine Nuc Med 05/29/23 08:00 Completed CV. echo limited [id number] Routine Ultrasound 05/29/23 08:34 Completed US abdomen lmt fluid [id number] Routine Ultrasound 05/30/23 10:02 Completed Radiology Impressions Chest X-Ray 05/28/23 16:03 IMPRESSION: Cardiomegaly otherwise negative chest. Laboratory Results WBC 10.6 10^3/uL (4.0-10.0) H 06/01/23 03:39 RBC 4.36 10^6/uL (4.1-5.3) 06/01/23 03:39 Hgb 12.7 g/dL (11.7-16.6) 06/01/23 03:39 Hct 41.1 % (42.0-52.0) L 06/01/23 03:39 MCV 94.3 fl (80-94) H 06/01/23 03:39 MCH 29.1 pg (28.0-34.0) 06/01/23 03:39 MCHC 30.9 g/dL (30.0-36.0) 06/01/23 03:39 RDW 14.0 % (12.1-15.1) 06/01/23 03:39 Plt Count 292 10^3/cmm (130-400) 06/01/23 03:39 MPV 9.4 fL (7.4-10.4) 06/01/23 03:39 Neut % (Auto) 73.0 % 06/01/23 03:39 Lymph % (Auto) 13.9 % 06/01/23 03:39 Toole % (Auto) 10.3 % 06/01/23 03:39 Eos % (Auto) 2.0 % 06/01/23 03:39 Baso % (Auto) 0.4 % 06/01/23 03:39 Neut # (Auto) 7.77 10^3/uL (1.8-7.7) H 06/01/23 03:39 Lymph # (Auto) 1.5 10^3/uL (0.8-4.8) 06/01/23 03:39 Toole # (Auto) 1.1 10^3/uL (0.2-0.9) H 06/01/23 03:39 Eos # (Auto) 0.2 10^3/uL (0.0-0.8) 06/01/23 03:39 Baso # (Auto) 0.0 10^3/uL (0.0-0.1) 06/01/23 03:39 Nucleated RBC % (auto) 0 % 06/01/23 03:39 Nucleated RBCs # 0.0 /100WBC 06/01/23 03:39 D-Dimer 1.04 ug/mIFEU (0-0.59) H 05/28/23 21:37 Sodium 135 mmol/L (136-145) L 06/03/23 02:55 Potassium 4.5 mmol/L (3.5-5.1) 06/03/23 02:55 Chloride 89 mmol/L (98-107) L 06/03/23 02:55 Carbon Dioxide 41 mmol/L (22-29) H 06/03/23 02:55 Anion Gap 9.5 (5-19) 06/03/23 02:55 BUN 50 mg/dL (8-23) H 06/03/23 02:55 Creatinine 1.7 mg/dL (0.7-1.2) H 06/03/23 02:55 GFR Calculation 40.3 mL/min (90-130) L 06/03/23 02:55 Glucose 94 mg/dL (65-115) 06/03/23 02:55 POC Glucose 88 mg/dL (70-110) 06/03/23 06:24 Estimat Average Glucose 189 05/28/23 16:19 Hemoglobin A1c 8.2 % (4.0-6.0) H 05/28/23 16:19 Calculated Osmolality 300 mOsm/kg (285-295) H 06/01/23 03:39 Calcium 9.4 mg/dL (8.5-10.5) 06/03/23 02:55 Phosphorus 4.1 mg/dL (2.5-4.5) 06/03/23 02:55 Magnesium 2.4 mg/dL (1.7-2.3) H 06/01/23 03:39 Total Bilirubin 0.6 mg/dL (0.15-1.2) 05/28/23 17:17 AST 16 U/L (0-40) 05/28/23 17:17 ALT 15 U/L (0-41) 05/28/23 17:17 Alkaline Phosphatase 57 U/L (40-130) 05/28/23 17:17 Troponin T Baseline 58 ng/L (0-15) H 05/28/23 17:17 Troponin T 120 Minute 59.57 ng/L (0-15) H 05/28/23 19:16 Delta Troponin T 1.57 ABS# (0-10) 05/28/23 19:16 Troponin T Hi Sens 6Hr 50.15 ng/L (0-15) H 05/28/23 21:37 Troponin T Hi Sens 6Hr Delta -7.85 ng/L (0-12) L 05/28/23 21:37 Total Protein 6.7 g/dL (6.6-8.7) 05/28/23 17:17 Albumin 3.6 g/dL (3.5-5.2) 06/03/23 02:55 Globulin 3.5 g/dL (1.3-4.6) 05/28/23 17:17 Vitals Last Vital Signs Temp 98.3 F 06/03/23 12:00 Pulse 73 06/03/23 12:00 Resp 18 06/03/23 12:00 BP 133/5 06/03/23 12:00 Pulse Ox 96 06/03/23 12:00 O2 Del Method Nasal Cannula 06/03/23 12:00 O2 Flow Rate 1 06/03/23 07:50 Discharge Plan Discharge Patient Disposition: Home Health Service Condition: Stable Prescriptions: Continued montelukast 10 mg tablet 10 mg PO BEDTIME citalopram 40 mg tablet 40 mg PO QPM carvedilol 25 mg tablet 25 mg PO BID Qty: 180 3RF clopidogrel [Plavix] 75 mg tablet 75 mg PO DAILY Qty: 90 3RF isosorbide mononitrate 60 mg tablet extended release 24 hr 60 mg PO BID Qty: 180 3RF Nitrostat 0.4 mg tablet, sublingual 0.4 mg SUBLINGUAL Q5M PRN (Reason: Chest Pain) Qty: 25 2RF Rx Instructions: do not exceed 3 doses per episode rosuvastatin 20 mg tablet 20 mg PO BEDTIME Qty: 90 3RF (DME) FreeStyle Andres 2 Sensor Kit See Rx Instructions .ROUTE .MEDSUPPLY Qty: 4 5RF Rx Instructions: change every 14 days gabapentin 100 mg capsule 100 mg PO BID insulin degludec [Tresiba FlexTouch U-200] 200 unit/mL (3 mL) insulin pen 120 unit SUBCUT QAM MDD 150 units aspirin [Adult Low Dose Aspirin] 81 mg tablet,delayed release (DR/EC) 81 mg PO QAM spironolactone 25 mg tablet 25 mg PO DAILY Novolog FlexPen U-100 Insulin 100 unit/mL (3 mL) insulin pen 40 sliding scale dose SUBCUT TID potassium chloride 10 mEq tablet extended release 10 meq PO BID tamsulosin 0.4 mg capsule 0.4 mg PO BID Changed furosemide 40 mg tablet 60 mg PO BID 30 Days Qty: 90 1RF Discharge Orders: Discharge Order (Routine); Ordered 06/03/23 Ordered By: Azam Nye Ref[facility]: [facility] [place]) [Outside] Aishwarya Jones FNP [Nurse Practitioner] - 4-7 days (Hospital Follow Up, MRI referral Please call Aishwarya Jones's Office on Monday at [phone] to schedule a follow up appointment for 4-7 days. Thank you.) Kyle Corrigan MD [Primary Care Provider] - 06/05/23 1:30 pm Discharge Diet: Advance as tolerated, Usual diet, Cardiac and Low Salt Discharge Activity: Resume usual activity, Increase activity as tolerated and As per PT/OT instructions Patient Instructions: Furosemide (By mouth) (Lasix), Heart Failure (DC), CHF Stoplight, Chest Pain Stoplight, Opioid Safety Activity Restrictions/Additional Instructions: 1. Increase activity as tolerated. 2. Keep daily weights, record on log 3. Low sodium diet, recommend salt substitute such as Ms. Dash or similar Discharge Attestations Time Spent in Discharge Care*: greater than 30 min Quality Metrics Clinical Quality Measures [ No reported AMI, CVA or VTE this stay] Coding Level of Care Code Acute Code for [facility] Fwd Diagnoses Chest pain R07.9 CHF (congestive heart failure) I50.9 CAD (coronary artery disease) I25.10 Hyperlipidemia E78.49 Hyperlipidemia type: other hyperlipidemia Diabetes mellitus, type II E11.9 Sleep apnea G47.30 Chronic kidney disease, stage 3b N18.32
== END 2023-06-03 16:04 | disposition home health service (06) ==
LOC: ER 16:50 → CSU 20:34
PROVIDERS: Admitting Provider Internal Medicine; Emergency Provider Family Medicine; PCP Family Medicine; Visit Provider Internal Medicine
DX: I13.0 Hypertensive heart and chronic kidney disease with heart failure and stage 1 through stage 4 chronic kidney disease, or unspecified chronic kidney disease (principal); I50.20 Unspecified systolic (congestive) heart failure; N18.32 Chronic kidney disease, stage 3b; E11.22 Type 2 diabetes mellitus with diabetic chronic kidney disease; E11.40 Type 2 diabetes mellitus with diabetic neuropathy, unspecified; I25.110 Atherosclerotic heart disease of native coronary artery with unstable angina pectoris; I25.2 Old myocardial infarction; E78.5 Hyperlipidemia, unspecified; I44.0 Atrioventricular block, first degree; I45.2 Bifascicular block; G47.33 Obstructive sleep apnea (adult) (pediatric); E66.01 Morbid (severe) obesity due to excess calories; Z86.73 Personal history of transient ischemic attack (TIA), and cerebral infarction without residual deficits; Z79.82 Long term (current) use of aspirin; Z79.02 Long term (current) use of antithrombotics/antiplatelets; Z79.4 Long term (current) use of insulin; Z87.891 Personal history of nicotine dependence; Z95.5 Presence of coronary angioplasty implant and graft; Z99.81 Dependence on supplemental oxygen; Z88.2 Allergy status to sulfonamides
CPT/HCPCS: 36415; 36416; 51702; 71045; 76705; 78452; 80048; 80053; 80069; 82962; 83036; 83735; 84484; 85025; 85378; 93005; 93017; 93308; 94660; 96361; 96372; 96374; 96375; 96376; 97110; 97116; 97161; 99285; A9500; G0378; J1644; J1815; J1940; J2785; J3370

== ENCOUNTER → 2023-06-29 12:51 | Outpatient (BNVA) | payer MEDICARE, SELFPAY | PROVIDERS: PCP Family Medicine; Visit Provider Internal Medicine | DX: E78.49 Other hyperlipidemia; E11.22 Type 2 diabetes mellitus with diabetic chronic kidney disease; N18.30 Chronic kidney disease, stage 3 unspecified; E11.649 Type 2 diabetes mellitus with hypoglycemia without coma; Z79.4 Long term (current) use of insulin | CPT/HCPCS: 99215 ==

== ENCOUNTER 2023-06-30 11:23 | Emergency (ER) | payer MEDICARE, SELFPAY ==
[2023-06-30 11:24] VITALS: BP 118/83; PULSE 105; RESP 18; TEMP 36.6; O2SAT 91; BMI 45.1
--- NOTE | 2023-06-30 11:29 | ECG_ITS ---
[facility] Test Date: 2023-06-30 Pat Name: Garrett Mares Department: Room: Gender: Male Icing Coater: : 1955 Requested By: Song Melendez Order Number: [id number] Rosita MD: Love Reynaga M.D. Measurements Intervals [place] Rate: 105 P: 79 [place]: 273 QRS: 264 QRSD: 161 T: 16 QT: 347 QTc: 459 Interpretive Statements SINUS TACHYCARDIA WITH FIRST DEGREE AV BLOCK RIGHT AXIS DEVIATION [QRS AXIS > 100] RIGHT BUNDLE BRANCH BLOCK [120+ ms QRS DURATION, UPRIGHT V1, 40+ ms S IN I/aVL/V4/V5/V6] POSSIBLE ANTERIOR MYOCARDIAL INFARCTION , PROBABLY OLD [30 ms Q WAVE IN V3/V4, OR R < 0.2 mV IN V4] Compared to ECG 05/28/2023 23:20:58 Right-axis deviation now present Myocardial infarct finding now present Sinus rhythm no longer present Left anterior fascicular block no longer present Electronically Signed On 06-30-2023 18:55:56 CDT by Love Reynaga M.D. [email or web address]
--- NOTE | 2023-06-30 11:37 | XR_ITS ---
WS: [id number] Exam: XR shoulder LT min 2V* [id number] Date/Time of Exam: 06/30/2023 11:37 AM Reason For Exam: injury No acute fracture or dislocation. Soft tissues are unremarkable. Small calcification seen along the i nferior margin of the glenoid fossa. IMPRESSION: 1. No fracture or other significant finding.
[2023-06-30 11:44] LABS: Basophils % 0.3 %; Eosinophils # 0.1 10^3/uL (0.0-0.8); Eosinophils % 0.4 %; Hematocrit 49.6 % (37-53); Lymphocytes # 1.4 10^3/uL (0.8-4.8); Lymphocytes % 9.8 %; Mean Corpuscular HGB Conc 32.1 g/dL (30-55); Mean Corpuscular Hemoglobin 28.4 pg (27-33); Mean Corpuscular Volume 88.7 fl (82-101); Mean Platelet Volume 9.9 fL (7.4-10.4); Monocytes # 1.1 10^3/uL (0.2-0.9); Monocytes % 7.8 %; Neutrophils # 11.23 10^3/uL (1.8-7.7); Neutrophils % 81.3 %; Nucleated Red Blood Cells % 0 %; Platelet Count 340 10^3/cmm (157-399); Red Blood Count 5.59 10^6/uL (3.85-5.65); Red Cell Distribution Width 13.9 % (12.1-15.1); White Blood Count 13.83 10^3/uL (3.29-11.43)
--- NOTE | 2023-06-30 12:03 | ED_ITS ---
HPI - Fall General: Chief Complaint: Fall Stated Complaint: weakness, fluid retention Time Seen by Provider: 06/30/23 11:24 Source: patient and EMS Mode of arrival: EMS Limitations: no limitations History of Present Illness: 68-year-old male states that he got up this morning to go to the bathroom and fell on the floor and states was not able to get back up. He states he typically walks with a cane did not use his cane when he got up this morning. States he had fell also a couple days ago and landed on his left shoulder is been having some left shoulder pain denies hitting his head denies any head or neck pain he denies any confusion he had some mild weakness but no severe weakness. Associated symptoms-after fall: Denies abdominal pain, chest pain, headache(s) or neck pain Review of Systems Const: Denies: fever(s), chills, body aches or change in appetite Eyes: Denies: blurry vision or eye discomfort ENMT: Denies: throat pain or dental pain Card: Denies: chest pain Resp: Denies: dyspnea GI: Denies: abdominal pain, nausea, vomiting or diarrhea : Denies: dysuria Musc: Reports: extremity pain; Denies: neck pain or back pain Skin/Breast: Denies: rash Neuro: Denies: headache(s) PFSH ED PFSH: Medical History BMI 45.0-49.9, adult BPH loc w urin obs/LUTS CAD (coronary artery disease) CHF (congestive heart failure) Chronic kidney disease, stage 3b CVA (cerebral vascular accident) Diabetes mellitus, type II Diabetic neuropathy History of non-ST elevation myocardial infarction (NSTEMI) HTN (hypertension) Hyperlipidemia Sleep apnea Surgical History S/P cervical spinal fusion S/P PTCA (percutaneous transluminal coronary angioplasty) Reports 7 stents and angioplasty x 3 Family History Mother , AT AGE 75 Hypertension Diabetes Father , AT AGE 72 Diabetes Hypertension Other CAD (coronary artery disease) Social History Smoking and tobacco status: former smoker Alcohol intake: current Alcohol intake frequency: few times a month Substance/Drug Use: never Marital status: Current occupational status: retired Physical Exam Const: COMMON NORMALS: no acute distress, patient oriented x3 and healthy appearing HENMT: COMMON NORMALS: normocephalic and atraumatic HEAD & SCALP: normocephalic and atraumatic Eye: COMMON NORMALS: Equal, round and reactive pupils present and EOMs intact bilaterally PUPIL: Yes Equal, round and reactive pupils present Neck/C-Spine: COMMON NORMALS: full ROM and supple Chest: COMMONS NORMALS: normal inspection of the chest and normal palpation of entire chest wall Resp: COMMON NORMALS: normal respiratory effort, No retractions, No use of accessory muscles and clear to auscultation bilaterally AUSCULTATION: clear to auscultation bilaterally Cardio: COMMON NORMALS: regular rate, regular rhythm and No murmurs present (Cardio) RATE: regular rate RHYTHM: regular rhythm GI: COMMON NORMALS: Normal to inspection, nondistended, normoactive bowel mikki nds present, Soft to palpation, non-tender and no masses PALPATION: Yes Soft to palpation Extremity: COMMON NORMALS: full ROM NARRATIVE EXTREMITY EXAM: Tenderness to left shoulder Neuro: COMMON NORMALS: patient oriented x3, moves all extremities and no focal motor deficits Psych: COMMON NORMALS: mental status grossly normal, Normal thought process present and cooperative THOUGHT PROCESS: Normal thought process present Skin: COMMON NORMALS: no rashes or lesions noted and no wounds GENERAL SKIN EXAM: no rashes or lesions noted Course Vital Signs: Vital signs: Vital Signs Temperature 97.9 F 06/30/23 11:24 Pulse Rate 105 H 06/30/23 11:24 Respiratory Rate 18 06/30/23 11:24 Blood Pressure 118/83 06/30/23 11:24 Pulse Oximetry 91 06/30/23 11:24 Oxygen Delivery Me thod Room Air 06/30/23 11:24 MDM - Fall Medical Decision Making Patient presents after a fall has been having some generalized weakness blood work here is all normal he feels much improved after fluids he is able to a mbulate with a walker. Patient's x-ray of his shoulder here is normal. His vital signs here been normal patient's son came and got him did discharge him with a walker to use at home he is to follow-up with PCP and return if worsening. Medical Records I reviewed the patient's medical records. Lab Data I reviewed the patient's lab results. 06/30/23 11:35 06/30/23 11:35 Laboratory Results WBC 13.83 10^3/uL (3.29-11.43) H 06/30/23 11:35 RBC 5.59 10^6/uL (3.85-5.65) 06/30/23 11:35 Hgb 15.90 g/dL (11.27-16.99) 06/30/23 11:35 Hct 49.6 % (37-53) 06/30/23 11:35 MCV 88.7 fl (82-101) 06/30/23 11:35 MCH 28.4 pg (27-33) 06/30/23 11:35 MCHC 32.1 g/dL (30-55) 06/30/23 11:35 RDW 13.9 % (12.1-15.1) 06/30/23 11:35 Plt Count 340 10^3/cmm (157-399) 06/30/23 11:35 MPV 9.9 fL (7.4-10.4) 06/30/23 11:35 Neut % (Auto) 81.3 % 06/30/23 11:35 Lymph % (Auto) 9.8 % 06/30/23 11:35 Falls % (Auto) 7.8 % 06/30/23 11:35 Eos % (Auto) 0.4 % 06/30/23 11:35 Baso % (Auto) 0.3 % 06/30/23 11:35 Neut # (Auto) 11.23 10^3/uL (1.8-7.7) H 06/30/23 11:35 Lymph # (Auto) 1.4 10^3/uL (0.8-4.8) 06/30/23 11:35 Falls # (Auto) 1.1 10^3/uL (0.2-0.9) H 06/30/23 11:35 Eos # (Auto) 0.1 10^3/uL (0.0-0.8) 06/30/23 11:35 Baso # (Auto) 0.0 10^3/uL (0.0-0.1) 06/30/23 11:35 Nucleated RBC % (auto) 0 % 06/30/23 11:35 Nucleated RBCs # 0.0 /100WBC 06/30/23 11:35 Sodium 133 mmol/L (136-145) L 06/30/23 11:35 Potassium 5.0 mmol/L (3.5-5.1) 06/30/23 11:35 Chloride 94 mmol/L (98-107) L 06/30/23 11:35 Carbon Dioxide 27 mmol/L (22-29) 06/30/23 11:35 Anion Gap 17.0 (5-19) 06/30/23 11:35 BUN 64 mg/dL (8-23) H 06/30/23 11:35 Creatinine 1.9 mg/dL (0.7-1.2) H 06/30/23 11:35 GFR Calculation 35.3 mL/min (90-130) L 06/30/23 11:35 Glucose 217 mg/dL (65-115) H 06/30/23 11:35 Calculated Osmolality 301 mOsm/kg (285-295) H 06/30/23 11:35 Calcium 9.9 mg/dL (8.5-10.5) 06/30/23 11:35 Total Bilirubin 0.5 mg/dL (0.15-1.2) 06/30/23 11:35 AST 16 U/L (0-40) 06/30/23 11:35 ALT 21 U/L (0-41) 06/30/23 11:35 Alkaline Phosphatase 74 U/L (40-130) 06/30/23 11:35 Creatine Kinase 164 U/L (39-308) 06/30/23 11:35 NT-Pro-B Natriuret Pep 3602 pg/mL (0-125) H 06/30/23 11:35 Total Protein 8.1 g/dL (6.6-8.7) 06/30/23 11:35 Albumin 4.0 g/dL (3.5-5.2) 06/30/23 11:35 Globulin 4.1 g/dL (1.3-4.6) 06/30/23 11:35 Urine Color Yellow (Yellow) 06/30/23 12:35 Urine Appearance Cloudy (CLEAR) A 06/30/23 12:35 Urine pH 7 (5-7) 06/30/23 12:35 Ur Specific [place] 1.005 (1.005-1.030) 06/30/23 12:35 Urine Protein Neg (Negative) 06/30/23 12:35 Urine Glucose (UA) 4+ (Normal) H 06/30/23 12:35 Urine Ketones Negative (Negative) 06/30/23 12:35 Urine Blood 2+ (Negative) H 06/30/23 12:35 Urine Nitrate Negative (Negative) 06/30/23 12:35 Urine Bilirubin Neg (Negative) 06/30/23 12:35 Urine Urobilinogen Norm mg/dL (Negative) 06/30/23 12:35 Ur Leukocyte Esterase Trace (Negative) H 06/30/23 12:35 Urine RBC 0-4 /hpf (0-2) H 06/30/23 12:35 Urine WBC 0-4 /hpf (0-5) H 06/30/23 12:35 Ur Squamous Epith Cells 0-4 /hpf (0-5) H 06/30/23 12:35 Amorphous Sediment Not Reportable 06/30/23 12:35 Urine Bacteria 4+ /hpf (NONE) H 06/30/23 12:35 Urine Mucus 1+ /hpf 06/30/23 12:35 All radiology interpretation(s) finalized by discharge Discharge Plan Discharge Patient Disposition: Home Condition: Stable Prescriptions: New Naprosyn 500 mg tablet 500 mg PO BID PRN (Reason: pain) Qty: 20 0RF No Action montelukast 10 mg tablet 10 mg PO BEDTIME citalopram 40 mg tablet 40 mg PO QPM carvedilol 25 mg tablet 25 mg PO BID Qty: 180 3RF clopidogrel [Plavix] 75 mg tablet 75 mg PO DAILY Qty: 90 3RF isosorbide mononitrate 60 mg tablet extended release 24 hr 60 mg PO BID Qty: 180 3RF Nitrostat 0.4 mg tablet, sublingual 0.4 mg SUBLINGUAL Q5M PRN (Reason: Chest Pain) Qty: 25 2RF Rx Instructions: do not exceed 3 doses per episode rosuvastatin 20 mg tablet 20 mg PO BEDTIME Qty: 90 3RF (DME) FreeStyle Andres 2 Sensor Kit See Rx Instructions .ROUTE .MEDSUPPLY Qty: 4 5RF Rx Instructions: change every 14 days nystatin 100,000 unit/gram ointment See Rx Instructions .ROUTE .COMPLEX Rx Instructions: topically as directed gabapentin 100 mg capsule 100 mg PO BID insulin degludec [Tresiba FlexTouch U-200] 200 unit/mL (3 mL) insulin pen 120 unit SUBCUT QAM MDD 150 units aspirin [Adult Low Dose Aspirin] 81 mg tablet,delayed release (DR/EC) 81 mg PO QAM spironolactone 25 mg tablet 25 mg PO DAILY insulin aspart U-100 [Novolog FlexPen U-100 Insulin] 100 unit/mL (3 mL) insu hailee pen 40 sliding scale dose SUBCUT TID potassium chloride 10 mEq tablet extended release 10 meq PO BID tamsulosin 0.4 mg capsule 0.4 mg PO BID furosemide 40 mg tablet 60 mg PO BID 30 Days Qty: 90 1RF Discharge Orders: Discharge ED (Routine); Ordered 06/30/23 Ordered By: Song Melendez Other Ambulatory Orders: DME: Ej (Order) Location: None Selected Ordered By: Song Melendez Referrals: Kyle Corrigan MD [Primary Care Provider] - Patient Instructions: Opioid Safety, Pain Management Coding Level of Care Code ED Sulfide Head Operator for Luna Booth
[2023-06-30 12:10] LABS: Alanine Aminotransferase 21 U/L (0-41); Alkaline Phosphatase 74 U/L (40-130); Aspartate Amino Transferase 16 U/L (0-40); Blood Urea Nitrogen 64 mg/dL (8-23); Calcium 9.9 mg/dL (8.5-10.5); Carbon Dioxide 27 mmol/L (22-29); Chloride 94 mmol/L (98-107); Creatine Phosphokinase 164 U/L (39-308); Globulin 4.1 g/dL (1.3-4.6); Glomerular Filtration Rate 35.3 mL/min (90-130); Glucose 217 mg/dL (65-115); NT Pro B Type Natriuretic Pept 3602 pg/mL (0-125); Osmolality Calculated 301 mOsm/kg (285-295); Sodium 133 mmol/L (136-145); Total Bilirubin 0.5 mg/dL (0.15-1.2); Total Protein 8.1 g/dL (6.6-8.7)
[2023-06-30 12:50] LABS: Add Urine Microscopic? YES; Bilirubin Urine Neg (Negative); Blood Urine 2+ (Negative); Glucose Urine UA 4+ (Normal); Ketones Urine Negative (Negative); Leukocyte Esterase Urine Trace (Negative); Nitrate Urine Negative (Negative); Protein Urine Neg (Negative); Specific Gravity, Urine 1.005 (1.005-1.030); Urine Appearance Cloudy (CLEAR); Urine Color Yellow (Yellow); Urobilinogen Urine Norm (Negative); pH Urine 7 (5-7)
[2023-06-30 12:51] LABS: Add Urine Culture? Yes; Bacteria Urine 4+ /hpf; Mucus Urine 1+ /hpf; RBC Urine 0-4 /hpf (0-2); Squamous Epithelial Cell Urine 0-4 /hpf (0-5); WBC Urine 0-4 /hpf (0-5)
--- NOTE | 2023-07-03 08:49 | PC.SOCIAL ---
HH Consult Spoke with Yariel at [facility] she reports that they discharged patient related to being independent with ADLs so they likely cannot accept patient back to services. Called and discussed options with patient. He is going to schedule a follow up appointment with Dr. Corrigan.
== END 2023-06-30 15:40 | disposition home or self-care (01) ==
PROVIDERS: Emergency Provider Emergency Medicine; PCP Family Medicine
DX: R53.1 Weakness (principal); Z79.02 Long term (current) use of antithrombotics/antiplatelets; Z79.82 Long term (current) use of aspirin; Z79.4 Long term (current) use of insulin; Z87.891 Personal history of nicotine dependence; I25.10 Atherosclerotic heart disease of native coronary artery without angina pectoris; I13.0 Hypertensive heart and chronic kidney disease with heart failure and stage 1 through stage 4 chronic kidney disease, or unspecified chronic kidney disease; E11.22 Type 2 diabetes mellitus with diabetic chronic kidney disease; N18.32 Chronic kidney disease, stage 3b; I50.9 Heart failure, unspecified; Z86.73 Personal history of transient ischemic attack (TIA), and cerebral infarction without residual deficits; I25.2 Old myocardial infarction; E78.5 Hyperlipidemia, unspecified
CPT/HCPCS: 73030; 80053; 81001; 82550; 83880; 85025; 87086; 93005; 99285

== ENCOUNTER 2023-09-03 15:24 | Emergency (ER) | payer MEDICARE, SELFPAY ==
[2023-09-03 15:25] VITALS: BP 147/97; PULSE 102; TEMP 37.4; O2SAT 94; BMI 48.4
--- NOTE | 2023-09-03 15:26 | XRR_ITS ---
PROCEDURE INFORMATION: Exam: XR Chest Exam date and time: 09/03/2023 3:39 PM Age: 68 years old Clinical indication: Cough and dyspnea; Prior surgery; Surgery date: 6+ months; Patient HX: Dyspnea; Cough; Ex smoker; HX cardiac stents TECHNIQUE: Imaging protocol: Radiologic exam of the chest. Views: 1 view. COMPARISON: CR (CHEST, ) 05/28/2023 4:29 PM FINDINGS: Lungs: Unremarkable. No consolidation. Pleural spaces: Unremarkable. No pleural effusion. No pneumothorax. Heart/Mediastinum: Cardiomegaly is identified. Bones/joints: Unremarkable. XR/XR chest 1V portable [id number] IMPRESSION: There are no acute concerning abnormalities.
--- NOTE | 2023-09-03 15:39 | ED_ITS ---
HPI - SOB/Dyspnea General: Chief Complaint: Upper Respiratory Infection Stated Complaint: FLU LIKE SYMPTOMS Time Seen by Provider: 09/03/23 15:25 Source: patient Mode of arrival: EMS History of Present Illness: HPI Narrative: 68-year-old male with flulike symptoms cough and congestion at home presents de nies chest pain no fever sweats chills myalgias headache no vomiting or diarrhea. No hemoptysis. Denies any hemoptysis. MD elicited complaint: shortness of breath and cough Exacerbating factors: nothing Relieving factors: nothing Known history of: congestive heart failure Associated symptoms: Reports chest congestion and cough; Deny abdominal pain, chest pain, diaphoresis, dizziness, extremity pain, fever(s), hemoptysis, lightheadedness, myalgias, nausea, orthopnea, palpitations, paresthesias, polydipsia, polyuria, rash, sense of impending doom, syncope or vomiting Review of Systems Const: Denies: fever(s), chills or diaphoresis Card: Denies: chest pain, palpitations, lightheadedness, syncope or orthopnea Resp: Reports: chest congestion; Denies: dyspnea or hemoptysis GI: Denies: abdominal pain, nausea or vomiting : Denies: dysuria, urinary frequency or urinary urgency Musc: Denies: neck pain, back pain or extremity pain Skin/Breast: Denies: rash Neuro: Denies: dizziness Endo: Denies: polyuria or polydipsia PFSH ED PFSH: Medical History BMI 45.0-49.9, adult BPH loc w urin obs/LUTS CAD (coronary artery disease) CHF (congestive heart failure) Chronic kidney disease, stage 3b CVA (cerebral vascular accident) Diabetes mellitus, type II Diabetic neuropathy History of non-ST elevation myocardial infarction (NSTEMI) HTN (hypertension) Hyperlipidemia Sleep apnea Surgical History S/P cervical spinal fusion S/P PTCA (percutaneous transluminal coronary angioplasty) Reports 7 stents and angioplasty x 3 Family History Mother , AT AGE 75 Hypertension Diabetes Father , AT AGE 72 Diabetes Hypertension Other CAD (coronary artery disease) Social History Smoking and tobacco/nicotine status: former use of tobacco/nicotine Alcohol intake: current Alcohol intake frequency: few times a month Substance/Drug Use: never Marital status: Current occupational status: retired Physical Exam Const: COMMON NORMALS: no acute distress GENERAL APPEARANCE: cooperative an d comfortable ORIENTATION/CONSCIOUSNESS: Yes awake, Yes oriented to person, Yes oriented to place and Yes oriented to time HENMT: COMMON NORMALS: normocephalic, atraumatic and hearing grossly normal bilaterally HEAD & SCALP: normocephalic and atraumatic Resp: COMMON NORMALS: normal respiratory effort, No retractions, No use of accessory muscles and clear to auscultation bilaterally AUSCULTATION: clear to auscultation bilaterally Cardio: COMMON NORMALS: regular rate, regular rhythm and No murmurs present (Cardio) RATE: regular rate RHYTHM: regular rhythm GI: COMMON NORMALS: Soft to palpation and No hepatosplenomegaly present AU SCULTATION: Yes normoactive bowel sounds PALPATION: Yes Soft to palpation, No Tenderness to palpation present (GI), No Guarding due to palpation present (GI) and Yes No hepatosplenomegaly present Extremity: COMMON NORMALS: normal to inspection, capillary refill normal, no clubbing, cyanosis or edema, no calf tenderness and no pedal edema Neuro: SENSORIUM/ORIENTATION: Yes oriented to person, Yes oriented to place and Yes oriented to time Skin: COMMON NORMALS: no rashes or lesions noted GENERAL SKIN EXAM: no rashes or lesions noted Course Vital Signs: Vital signs: Vital Signs Temperature 99.4 F 09/03/23 15:25 Pulse Rate 102 H 09/03/23 15:25 Blood Pressure 147/97 09/03/23 15:25 Pulse Oximetry 94 09/03/23 15:25 Oxygen Delivery Me thod Room Air 09/03/23 15:25 MDM - SOB/Dyspnea Medical Decision Making Patient is having productive cough he has no leukocytosis no acute infiltrates on chest x-ray his breathing is improved. We will discharge him home continue to use albuterol as needed doxycycline for 10 days prednisone taper starting tomorrow return if is further problems. Differential Diagnosis Likely acute exacerbation of chronic obstructive airways disease, congestive heart failure and community acquired pneumonia Medical Records I reviewed the patient's medical records. Lab Data I reviewed the patient's lab results. 09/03/23 15:34 09/03/23 15:34 Labs/Radiology: Laboratory Results WBC 10.86 10^3/uL (3.29-11.43) 09/03/23 15:34 RBC 4.54 10^6/uL (3.85-5.65) 09/03/23 15:34 Hgb 13.00 g/dL (11.27-16.99) 09/03/23 15:34 Hct 40.5 % (37-53) 09/03/23 15:34 MCV 89.2 fl (82-101) 09/03/23 15:34 MCH 28.6 pg (27-33) 09/03/23 15:34 MCHC 32.1 g/dL (30-55) 09/03/23 15:34 RDW 15.9 % (12.1-15.1) H 09/03/23 15:34 Plt Count 341 10^3/cmm (157-399) 09/03/23 15:34 MPV 9.7 fL (7.4-10.4) 09/03/23 15:34 Neut % (Auto) 74.5 % 09/03/23 15:34 Lymph % (Auto) 12.6 % 09/03/23 15:34 [place] % (Auto) 11.2 % 09/03/23 15:34 Eos % (Auto) 0.8 % 09/03/23 15:34 Baso % (Auto) 0.4 % 09/03/23 15:34 Neut # (Auto) 8.09 10^3/uL (1.8-7.7) H 09/03/23 15:34 Lymph # (Auto) 1.4 10^3/uL (0.8-4.8) 09/03/23 15:34 [place] # (Auto) 1.2 10^3/uL (0.2-0.9) H 09/03/23 15:34 Eos # (Auto) 0.1 10^3/uL (0.0-0.8) 09/03/23 15:34 Baso # (Auto) 0.0 10^3/uL (0.0-0.1) 09/03/23 15:34 Nucleated RBC % (auto) 0 % 09/03/23 15:34 Nucleated RBCs # 0.0 /100WBC 09/03/23 15:34 Sodium 136 mmol/L (136-145) 09/03/23 15:34 Potassium 3.9 mmol/L (3.5-5.1) 09/03/23 15:34 Chloride 100 mmol/L (98-107) 09/03/23 15:34 Carbon Dioxide 28 mmol/L (22-29) 09/03/23 15:34 Anion Gap 11.9 (5-19) 09/03/23 15:34 BUN 22 mg/dL (8-23) 09/03/23 15:34 Creatinine 1.2 mg/dL (0.7-1.2) 09/03/23 15:34 GFR Calculation 60.0 mL/min (90-130) L 09/03/23 15:34 Glucose 88 mg/dL (65-115) 09/03/23 15:34 Calculated Osmolality 285 mOsm/kg (285-295) 09/03/23 15:34 Calcium 8.8 mg/dL (8.5-10.5) 09/03/23 15:34 Total Bilirubin 0.9 mg/dL (0.15-1.2) 09/03/23 15:34 AST 15 U/L (0-40) 09/03/23 15:34 ALT 16 U/L (0-41) 09/03/23 15:34 Alkaline Phosphatase 63 U/L (40-130) 09/03/23 15:34 Total Protein 7.0 g/dL (6.6-8.7) 09/03/23 15:34 Albumin 3.5 g/dL (3.5-5.2) 09/03/23 15:34 Globulin 3.5 g/dL (1.3-4.6) 09/03/23 15:34 Ethyl Alcohol < 10 mg/dL (0-10) 09/03/23 15:34 Influenza Type A Ag negative (Negative) 09/03/23 15:48 Influenza Type B Ag negative (Negative) 09/03/23 15:48 SARS-CoV-2 Ag (Rapid) negative (Negative) 09/03/23 15:48 All radiology interpretation(s) finalized by discharge Discharge Plan Discharge Patient Disposition: Home Clinical Impression: Upper respiratory infection Condition: Stable Prescriptions: New doxycycline hyclate 100 mg capsule 100 mg PO BID 10 Days Qty: 20 0RF prednisone 20 mg tablet 20 mg PO TID Qty: 15 0RF Rx Instructions: 1 p.o. 3 times daily x3 days, 1 p.o. twice daily x2 days, 1 p.o. daily x2 days albuterol sulfate 90 mcg/actuation HFA aerosol inhaler 2 inh INHALATION Q4H PRN (Reason: shortness of breath or wheezing) Qty: 18 0RF No Action montelukast 10 mg tablet 10 mg PO BEDTIME citalopram 40 mg tablet 40 mg PO QPM carvedilol 25 mg tablet 25 mg PO BID Qty: 180 3RF clopidogrel [Plavix] 75 mg tablet 75 mg PO DAILY Qty: 90 3RF isosorbide mononitrate 60 mg tablet extended release 24 hr 60 mg PO BID Qty: 180 3RF Nitrostat 0.4 mg tablet, sublingual 0.4 mg SUBLINGUAL Q5M PRN (Reason: Chest Pain) Qty: 25 2RF Rx Instructions: do not exceed 3 doses per episode rosuvastatin 20 mg tablet 20 mg PO BEDTIME Qty: 90 3RF (DME) FreeStyle Andres 2 Sensor Kit See Rx Instructions .ROUTE .MEDSUPPLY Qty: 4 5RF Rx Instructions: change every 14 days nystatin 100,000 unit/gram ointment See Rx Instructions .ROUTE .COMPLEX Rx Instructions: topically as directed Naprosyn 500 mg tablet 500 mg PO BID PRN (Reason: pain) Qty: 20 0RF gabapentin 100 mg capsule 100 mg PO BID insulin degludec [Tresiba FlexTouch U-200] 200 unit/mL (3 mL) insulin pen 120 unit SUBCUT QAM MDD 150 units aspirin [Adult Low Dose Aspirin] 81 mg tablet,delayed release (DR/EC) 81 mg PO QAM spironolactone 25 mg tablet 25 mg PO DAILY insulin aspart U-100 [Novolog FlexPen U-100 Insulin] 100 unit/mL (3 mL) insulin pen 40 sliding scale dose SUBCUT TID potassium chloride 10 mEq tablet extended release 10 meq PO BID tamsulosin 0.4 mg capsule 0.4 mg PO BID furosemide 40 mg tablet 60 mg PO BID 30 Days Qty: 90 1RF Discharge Orders: Discharge ED (Routine); Ordered 09/03/23 Ordered By: Juanpablo Montes Referrals: Kyle Corrigan MD [Primary Care Provider] - Discharge Diet: Usual diet Discharge Activity: Increase activity as tolerated Patient Instructions: Opioid Safety, Pain Management Activity Restrictions/Additional Instructions: Thank you for choosing [facility] for your healthcare needs today. Please realize this is an emergency room and that we are providing you with a medical screening exam and this may not be complete and all inclusive of all the testing and or work up that you may need to determine your ailment or severity of your illness. It is very important that you follow up as instructed or that you return to the Emergency Department should you have concerns or if your condition changes or worsens in any way. Labs and imaging reviewed. We will discharge patient home on doxycycline steroid taper use albuterol as needed. Flu and COVID are pending we will contact patient when those are resulted. 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
--- NOTE | 2023-09-03 15:43 | ECG_ITS ---
[facility] Test Date: 2023-09-03 Pat Name: Garrett Mares Department: Room: Gender: Male Otolaryngology Surgeon: : 1955 Requested By: Juanpablo Hess Order Number: [id number] Rosita MD: Sarahi Rasmussen M.D. Measurements Intervals [place] Rate: 98 P: 0 [place]: 0 QRS: -66 QRSD: 140 T: -11 QT: 417 QTc: 533 Interpretive Statements ATRIAL FIBRILLATION RIGHT BUNDLE BRANCH BLOCK [120+ ms QRS DURATION, UPRIGHT V1, 40+ ms S IN I/aVL/V4/V5/V6] POSSIBLE ANTERIOR MYOCARDIAL INFARCTION , PROBABLY OLD [30 ms Q WAVE IN V3/V4, OR R < 0.2 mV IN V4] INFERIOR MYOCARDIAL INFARCTION , PROBABLY OLD [40+ ms Q WAVE AND/OR ST/T ABNORMALITY IN II/aVF] Compared to ECG 06/30/2023 11:29:37 Sinus tachycardia no longer present First degree AV block no longer present Right-axis deviation no longer present Myocardial infarct finding still present Electronically Signed On 09-03-2023 22:08:52 ENTERPRISE APPLICATION ADMINISTRATOR by Sarahi Rasmussen M.D. [id number]
[2023-09-03 16:01] LABS: Basophils % 0.4 %; Eosinophils # 0.1 10^3/uL (0.0-0.8); Eosinophils % 0.8 %; Hematocrit 40.5 % (37-53); Lymphocytes # 1.4 10^3/uL (0.8-4.8); Lymphocytes % 12.6 %; Mean Corpuscular HGB Conc 32.1 g/dL (30-55); Mean Corpuscular Hemoglobin 28.6 pg (27-33); Mean Corpuscular Volume 89.2 fl (82-101); Mean Platelet Volume 9.7 fL (7.4-10.4); Monocytes # 1.2 10^3/uL (0.2-0.9); Monocytes % 11.2 %; Neutrophils # 8.09 10^3/uL (1.8-7.7); Neutrophils % 74.5 %; Nucleated Red Blood Cells % 0 %; Platelet Count 341 10^3/cmm (157-399); Red Blood Count 4.54 10^6/uL (3.85-5.65); Red Cell Distribution Width 15.9 % (12.1-15.1); White Blood Count 10.86 10^3/uL (3.29-11.43)
[2023-09-03 16:13] LABS: Alanine Aminotransferase 16 U/L (0-41); Albumin Level 3.5 g/dL (3.5-5.2); Alkaline Phosphatase 63 U/L (40-130); Anion Gap 11.9 (5-19); Aspartate Amino Transferase 15 U/L (0-40); Blood Urea Nitrogen 22 mg/dL (8-23); Calcium 8.8 mg/dL (8.5-10.5); Carbon Dioxide 28 mmol/L (22-29); Chloride 100 mmol/L (98-107); Creatinine Clr Calc Pharmacy 76.1863; Globulin 3.5 g/dL (1.3-4.6); Glucose 88 mg/dL (65-115); Osmolality Calculated 285 mOsm/kg (285-295); Potassium 3.9 mmol/L (3.5-5.1); Sodium 136 mmol/L (136-145); Total Bilirubin 0.9 mg/dL (0.15-1.2)
[2023-09-03 16:17] LABS: Alcohol Level < 10 mg/dL (0-10)
[2023-09-03 16:45] LABS: Influenza A by IFA negative (Negative); Influenza B by IFA negative (Negative)
[2023-09-03 16:46] LABS: SARS Covid-2 Antigen negative (Negative)
== END 2023-09-03 16:51 | disposition home or self-care (01) ==
PROVIDERS: Emergency Provider Family Medicine; PCP Family Medicine
DX: J06.9 Acute upper respiratory infection, unspecified (principal); Z79.02 Long term (current) use of antithrombotics/antiplatelets; Z79.82 Long term (current) use of aspirin; Z79.4 Long term (current) use of insulin; Z11.52 Encounter for screening for COVID-19; I25.10 Atherosclerotic heart disease of native coronary artery without angina pectoris; I13.0 Hypertensive heart and chronic kidney disease with heart failure and stage 1 through stage 4 chronic kidney disease, or unspecified chronic kidney disease; E11.22 Type 2 diabetes mellitus with diabetic chronic kidney disease; N18.32 Chronic kidney disease, stage 3b; I50.9 Heart failure, unspecified; Z86.73 Personal history of transient ischemic attack (TIA), and cerebral infarction without residual deficits; E11.40 Type 2 diabetes mellitus with diabetic neuropathy, unspecified; I25.2 Old myocardial infarction; E78.5 Hyperlipidemia, unspecified; Z87.891 Personal history of nicotine dependence
CPT/HCPCS: 36415; 71045; 80053; 80307; 85025; 87426; 87804; 93005; 99285

== ENCOUNTER 2023-10-17 16:33 | Observation (INO) | payer MEDICARE, SELFPAY ==
[2023-10-17 16:40] VITALS: BP 116/58; PULSE 83; TEMP 36.5; O2SAT 93; BMI 45.9
[2023-10-17 16:59] LABS: Glucose Point of Care > 600 mg/dL (70-110)
[2023-10-17 17:31] LABS: Basophils % 0.5 %; Eosinophils # 0.1 10^3/uL (0.0-0.8); Eosinophils % 0.6 %; Hematocrit 44.9 % (37-53); Lymphocytes % 11.3 %; Mean Corpuscular HGB Conc 34.7 g/dL (30-55); Mean Corpuscular Hemoglobin 30.1 pg (27-33); Mean Corpuscular Volume 86.7 fl (82-101); Mean Platelet Volume 10.7 fL (7.4-10.4); Monocytes # 0.8 10^3/uL (0.2-0.9); Neutrophils # 6.68 10^3/uL (1.8-7.7); Neutrophils % 78.4 %; Nucleated Red Blood Cells % 0 %; Platelet Count 295 10^3/cmm (157-399); Red Blood Count 5.18 10^6/uL (3.85-5.65); Red Cell Distribution Width 13.1 % (12.1-15.1); White Blood Count 8.52 10^3/uL (3.29-11.43)
[2023-10-17] MEDS: sodium chloride 0.9% 1,000 ML 999 ML IV ×2 (17:43→18:55)
[2023-10-17 18:00] VITALS: BP 151/83; PULSE 77; O2SAT 90
[2023-10-17 18:02] LABS: Alanine Aminotransferase 18 U/L (0-41); Albumin Level 3.8 g/dL (3.5-5.2); Alkaline Phosphatase 96 U/L (40-130); Aspartate Amino Transferase 15 U/L (0-40); Blood Urea Nitrogen 37 mg/dL (8-23); Calcium 9.6 mg/dL (8.5-10.5); Carbon Dioxide 28 mmol/L (22-29); Chloride 83 mmol/L (98-107); Globulin 3.5 g/dL (1.3-4.6); Glomerular Filtration Rate 50.2 mL/min (90-130); Magnesium 2.4 mg/dL (1.7-2.3); Osmolality Calculated 303 mOsm/kg (285-295); Sodium 129 mmol/L (136-145); Total Bilirubin 0.7 mg/dL (0.15-1.2); Total Protein 7.3 g/dL (6.6-8.7)
[2023-10-17 18:07] LABS: Glucose 572 mg/dL (65-115); Ketone (Acetest) Serum Negative (Negative)
[2023-10-17 18:19] LABS: Anion Gap 22.2 (5-19); Potassium 4.2 mmol/L (3.5-5.1)
[2023-10-17 18:30] VITALS: BP 147/70; PULSE 82; RESP 18; O2SAT 93
--- NOTE | 2023-10-17 18:48 | ED_ITS ---
HPI - Weakness 2 General: Chief complaint: Weakness Stated complaint: fall with weakness Time Seen by Provider: 10/17/23 16:41 History of Present Illness: 68-year-old male presents emergency depa rtment complaining of weakness and elevated blood sugar. Patient endorses he has not used his insulin for about 1 month. Patient reports he is only been intermittently using his other medications. Upon further exploration, the patient has been severely depressed. He has not had any active suicidal ideations but has endorsed that he wishes his maker would take him. Patient reports he has plenty of insulin he could have used. He has had disrupted sleep where he cannot sleep at night and he takes intermittent naps during the day. He has had low energy. He barely gets out of bed. Today, he fell forward because his knees buckled on him. He is also developed a tremor in both arms but worse in the right arm, starting 2 days ago. He reports that he has had some trouble with his memory. He has been excessively thirsty and urinating more than usual. Glucose was greater than 600 on arrival. Associated symptoms: Denies chest pain, chills, dysuria, fever(s), nausea, syncope or vomiting Review of Systems 2 General: Reports: 10 or more systems reviewed and unremarkable except in HPI and below Narrative: Review of systems is positive for polyuria, polydipsia, malaise, depression, interrupted sleep, trouble with concentration, anhedonia, generalized weakness, legs giving out on him today, abrasions on both knees, not taking his medications as prescribed. Denies nausea, vomiting, diarrhea, overt altered mental status, focal neurologic deficits, chest pain, fever. Const: Denies: fever(s), chills or body aches Eyes: Denies: change in vision ENMT: Denies: throat pain Card: Denies: chest pain, edema or syncope Resp: Denies: dyspnea or productive cough GI: Denies: abdominal pain, nausea, vomiting or diarrhea : Denies: flank pain or dysuria Musc: Denies: neck pain, back pain or extremity pain Skin/Breast: Denies: erythema Neuro: Denies: numbness in extremities or lack of coordination PFSH ED 2 PFSH: Medical History BMI 45.0-49.9, adult BPH loc w urin obs/LUTS CAD (coronary artery disease) CHF (congestive heart failure) Chronic kidney disease, stage 3b CVA (cerebral vascular accident) Diabetes mellitus, type II Diabetic neuropathy History of non-ST elevation myocardial infarction (NSTEMI) HTN (hypertension) Hyperlipidemia Sleep apnea Surgical History S/P cervical spinal fusion S/P PTCA (percutaneous transluminal coronary angioplasty) Reports 7 stents and angioplasty x 3 Family History Mother , AT AGE 75 Hypertension Diabetes Father , AT AGE 72 Diabetes Hypertension Other CAD (coronary artery disease) Social History Smoking and tobacco/nicotine status: former use of tobacco/nicotine Alcohol intake: current Alcohol intake frequency: few times a month Substance/Drug Use: never Marital status: Current occupational status: retired Physical Exam 2 Narrative: EXAM NARRATIVE: Obese, restricted affect, no distress. Patient has a coarse tremor in his upper extremities, right greater than left. It reminds me of the nonpurposeful movements seen in patients with metabolic disturbances. He has normal alertness and orientation. His abdomen is soft and nontender. Suspect peripheral arterial disease right lower extremity greater than left lower extremity. There is mild edema in bilateral ankles. Patient screens positive for depression. He denies suicidal ideation. No psychotic content Const: COMMON NORMALS: no limitations and alert EXAM LIMITATIONS: no altered mental status HENMT: COMMON NORMALS: normocephalic, atraumatic and external ears normal H EAD & SCALP: normocephalic and atraumatic EXTERNAL EAR: Yes external ears normal MOUTH: no muffled voice Eye: COMMON NORMALS: EOMs intact bilaterally, conjunctivae normal and no scleral icterus CONJUNCTIVA: Yes conjunctivae normal Neck/C-Spine: COMMON NORMALS: no JVD GENERAL: Yes normal visual inspection and Yes trachea midline Resp: COMMON NORMALS: normal respiratory effort, No use of accessory muscles and clear to auscultation bilaterally AUSCULTATION: clear to auscultation bilaterally Cardio: COMMON NORMALS: no JVD, regular rate and regular rhythm RATE: r egular rate RHYTHM: regular rhythm GI: COMMON NORMALS: Soft to palpation and non-tender PALPATION: Yes Soft to palpation and No Guarding due to palpation present (GI) Extremity: COMMON NORMALS: normal to inspection Neuro: COMMON NORMALS: moves all extremities, no focal motor deficits and no sensory deficits noted SENSORIUM/ORIENTATION: Yes alert SPEECH: speech normal Psych: COMMON NORMALS: mental status grossly normal, Normal thought process present, cooperative and speech normal SPEECH: Yes normal speech THOUGHT PROCESS: Normal thought process present Skin: COMMON NORMALS: turgor normal and no jaundice GENERAL SKIN EXAM: t urgor normal Course 2 Vital Signs: Vital signs: Vital Signs Temperature 97.7 F 10/17/23 16:40 Pulse Rate 82 10/17/23 18:30 Respiratory Rate 18 10/17/23 18:30 Blood Pressure 147/70 10/17/23 18:30 Pulse Oximetry 93 10/17/23 18:30 Oxygen Delivery Me thod Room Air 10/17/23 18:30 MDM - Weakness Medical Decision Making 68-year-old male with metabolic syndrome who has recently been suffering from increasing depression. He has stopped taking his medications and has stopped caring about anything. His glucose is greater than 600. He has normal mental status. No signs of coma. Concern would be dehydration, DKA, renal failure, electrolyte abnormalities, etc. Additionally, the patient's major depression will need to be addressed. I will also need to screen for any infectious etiology. Update 1930 The patient's serum ketones are negative. The urine ketones are 1+. The anion gap is increased. The glucose is elevated. This is not likely traditional diabetic ketoacidosis with negative serum ketones and normal bicarb. With that being said he still requires aggressive treatment. I have ordered him 15 units of IV insulin and 2 L of IV fluids. He has pseudohyponatremia. His BUN is 37 and his creatinine is 1.4. This should be corrected with IV fluids. Urine analysis did suggest a UTI. Urine culture was sent and Rocephin was ordered. He is not septic. My plan is to admit the patient due to his hyperglycemia, major depression with anhedonia and no will to live, UTI and weakness. Discussed with Dr Arambula for obs admission. Lab Data 10/17/23 17:16 10/17/23 17:16 Laboratory Results WBC 8.52 10^3/uL (3.29-11.43) 10/17/23 17:16 RBC 5.18 10^6/uL (3.85-5.65) 10/17/23 17:16 Hgb 15.60 g/dL (11.27-16.99) 10/17/23 17:16 Hct 44.9 % (37-53) 10/17/23 17:16 MCV 86.7 fl (82-101) 10/17/23 17:16 MCH 30.1 pg (27-33) 10/17/23 17:16 MCHC 34.7 g/dL (30-55) 10/17/23 17:16 RDW 13.1 % (12.1-15.1) 10/17/23 17:16 Plt Count 295 10^3/cmm (157-399) 10/17/23 17:16 MPV 10.7 fL (7.4-10.4) H 10/17/23 17:16 Neut % (Auto) 78.4 % 10/17/23 17:16 Lymph % (Auto) 11.3 % 10/17/23 17:16 [place] % (Auto) 9.0 % 10/17/23 17:16 Eos % (Auto) 0.6 % 10/17/23 17:16 Baso % (Auto) 0.5 % 10/17/23 17:16 Neut # (Auto) 6.68 10^3/uL (1.8-7.7) 10/17/23 17:16 Lymph # (Auto) 1.0 10^3/uL (0.8-4.8) 10/17/23 17:16 [place] # (Auto) 0.8 10^3/uL (0.2-0.9) 10/17/23 17:16 Eos # (Auto) 0.1 10^3/uL (0.0-0.8) 10/17/23 17:16 Baso # (Auto) 0.0 10^3/uL (0.0-0.1) 10/17/23 17:16 Nucleated RBC % (auto) 0 % 10/17/23 17:16 Nucleated RBCs # 0.0 /100WBC 10/17/23 17:16 Sodium 129 mmol/L (136-145) L 10/17/23 17:16 Potassium 4.2 mmol/L (3.5-5.1) 10/17/23 17:16 Chloride 83 mmol/L (98-107) L 10/17/23 17:16 Carbon Dioxide 28 mmol/L (22-29) 10/17/23 17:16 Anion Gap 22.2 (5-19) H 10/17/23 17:16 BUN 37 mg/dL (8-23) H 10/17/23 17:16 Creatinine 1.4 mg/dL (0.7-1.2) H 10/17/23 17:16 GFR Calculation 50.2 mL/min (90-130) L 10/17/23 17:16 Glucose 572 mg/dL (65-115) H* 10/17/23 17:16 POC Glucose > 600 mg/dL (70-110) H* 10/17/23 16:57 Calculated Osmolality 303 mOsm/kg (285-295) H 10/17/23 17:16 Calcium 9.6 mg/dL (8.5-10.5) 10/17/23 17:16 Magnesium 2.4 mg/dL (1.7-2.3) H 10/17/23 17:16 Total Bilirubin 0.7 mg/dL (0.15-1.2) 10/17/23 17:16 AST 15 U/L (0-40) 10/17/23 17:16 ALT 18 U/L (0-41) 10/17/23 17:16 Alkaline Phosphatase 96 U/L (40-130) 10/17/23 17:16 Total Protein 7.3 g/dL (6.6-8.7) 10/17/23 17:16 Albumin 3.8 g/dL (3.5-5.2) 10/17/23 17:16 Globulin 3.5 g/dL (1.3-4.6) 10/17/23 17:16 Urine Color Light yellow (Yellow) 10/17/23 18:48 Urine Appearance Sl hazy (CLEAR) A 10/17/23 18:48 Urine pH 5 (5-7) 10/17/23 18:48 Ur Specific [place] 1.010 (1.005-1.030) 10/17/23 18:48 Urine Protein Neg (Negative) 10/17/23 18:48 Urine Glucose (UA) 4+ (Normal) H 10/17/23 18:48 Urine Ketones 1+ (Negative) H 10/17/23 18:48 Urine Blood Neg (Negative) 10/17/23 18:48 Urine Nitrate Positive (Negative) H 10/17/23 18:48 Urine Bilirubin Neg (Negative) 10/17/23 18:48 Urine Urobilinogen Norm mg/dL (Negative) 10/17/23 18:48 Ur Leukocyte Esterase Trace (Negative) H 10/17/23 18:48 Urine RBC 0-4 /hpf (0-2) H 10/17/23 18:48 Urine WBC 25-40 /hpf (0-5) H 10/17/23 18:48 Ur Squamous Epith Cells 0-4 /hpf (0-5) H 10/17/23 18:48 Ur Transition Epith Cell 0-4 /hpf 10/17/23 18:48 Amorphous Sediment Not Reportable 10/17/23 18:48 Urine Bacteria 1+ /hpf (NONE) H 10/17/23 18:48 Urine Mucus None /hpf 10/17/23 18:48 Serum Ketones Negative (Negative) 10/17/23 17:16 No radiology studies performed this visit Discharge Plan Discharge Patient Disposition: Placed in Observation Clinical Impression: Chronic hyperglycemia, Coarse tremors, Generalized weakness, Fall from standing, Abrasion of knee, bilateral, Acute UTI Major depression Qualifiers: Major depression recurrence: single episode Active/Remission status: currently active Major depression episode severity: severe Psychotic features: without psychotic features Qualified Code(s): F32.2 - Major depressive disorder, single episode, severe without psychotic features Coding Level of Care Code ED 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
[2023-10-17] MEDS: insulin regular-human 100 units/1 mL 15 UNIT IVP (18:52)
[2023-10-17 18:58] LABS: Blood Urine Neg (Negative); Glucose Urine UA 4+ (Normal); Ketones Urine 1+ (Negative); Protein Urine Neg (Negative); Urine Appearance SL Hazy (CLEAR); Urine Color Light yellow (Yellow); pH Urine 5 (5-7)
[2023-10-17 18:59] LABS: Add Urine Microscopic? YES; Bilirubin Urine Neg (Negative); Leukocyte Esterase Urine Trace (Negative); Nitrate Urine Positive (Negative); Urobilinogen Urine Norm (Negative)
[2023-10-17 19:12] LABS: RBC Urine 0-4 /hpf (0-2); Squamous Epithelial Cell Urine 0-4 /hpf (0-5); Transitional Epi Cells Urine 0-4 /hpf; WBC Urine 25-40 /hpf (0-5)
[2023-10-17 19:13] LABS: Add Urine Culture? Yes; Bacteria Urine 1+ /hpf
[2023-10-17 19:30] VITALS: BP 147/70; PULSE 88; O2SAT 94
[2023-10-17] MEDS: cefTRIAXone 1,000 MG in sodium chloride 0.9% (plus) 50 ML 100 MG IV (20:09)
[2023-10-17 21:04] VITALS: BP 132/112; PULSE 87; O2SAT 93
--- NOTE | 2023-10-17 21:14 | P.HP_ITS ---
Providers/Chief Complaint 2 Admitting Physician: Juwan Arambula MD Primary Care Provider: Kyle Corrigan MD Chief Complaint: fall with weakness History of Present Illness Garrett Mares is a 68 year old male history of insulin-dependent diabetes, takes 16 is of Lantus in the morning and 40 at night along sliding scale, lives alone but daughter check on him, has been struggling with depression, stating that he present to the hospital today for worsening of his weakness, excessive thirst and polyuria. Patient has not taken insulin for the last 30 days attributing this to his severe depression, patient is stating that he is depressed because of losing custody of his grandson who is 5 years old, he has no purpose to live but he has no ideation to hurt himself he is denying suicidal ideation, patient stating that he would like to be treated now and then continue with his insulin at home, his daughter was put on phone she heard our conversation, she was not aware that he was avoiding insulin for last 1 month. Patient has enough refills at home. He has not noticed any chest pain, cough, diarrhea, abdominal pain, fever. He is denying urinary tract infection symptoms. He has received antibiotics in the ER for possible UTI he has hyperglycemia without ketones, I have requested insulin drip we do not have ICU beds we will treat him in the ER because patient does not want to be transferred, he is in a gap is 22 without significant acidosis anion gap will most likely close in next few hours, will keep him n.p.o. start DKA protocol Start normal saline with potassium supplementation Review of Systems 2 Const: Denies: fever(s) Eyes: Denies: change in vision ENMT: Denies: throat pain Card: Denies: chest pain Resp: Denies: dyspnea GI: Denies: abdominal pain : Denies: flank pain Musc: Denies: neck pain Medications/Allergies Home Medications Medication Instructions Recorded Confirmed Last Taken Type montelukast 10 mg tablet 10 mg PO BEDTIME 11/29/19 06/30/23 06/29/23 History citalopram 40 mg tablet 40 mg PO QPM 08/18/20 06/30/23 06/29/23 History aspirin 81 mg tablet,delayed 81 mg PO QAM 09/26/22 06/30/23 06/29/23 History release (Adult Low Dose Aspirin) gabapentin 100 mg capsule 100 mg PO BID 09/26/22 06/30/23 06/29/23 History insulin degludec 200 unit/mL (3 120 unit SUBCUT QAM 09/26/22 06/30/23 06/29/23 History mL) subcutaneous pen (Tresiba FlexTouch U-200 insulin) carvedilol 25 mg tablet 25 mg PO BID #180 tabs 12/26/22 06/30/23 06/29/23 Rx clopidogrel 75 mg tablet (Plavix) 75 mg PO DAILY #90 tabs 12/26/22 06/30/23 06/29/23 Rx isosorbide mononitrate 60 mg 60 mg PO BID #180 tabs 12/26/22 06/30/23 06/29/23 Rx tablet,extended release 24 hr nitroglycerin 0.4 mg sublingual 0.4 mg sublingual Q5M PRN Chest 12/26/22 06/30/23 05/28/23 Rx tablet (Nitrostat) Pain #25 tabs rosuvastatin 20 mg tablet 20 mg PO BEDTIME #90 tabs 12/26/22 06/30/23 06/29/23 Rx FreeStyle Andres 2 Sensor (flash #4 ea 04/28/23 06/30/23 Unknown Rx glucose sensor) insulin aspart U-100 100 unit/mL 40 sliding scale dose SUBCUT TID 05/28/23 06/30/23 05/28/23 History (3 mL) subcutaneous pen (Novolog FlexPen U-100 Insulin aspart) potassium chloride 10 mEq 10 meq PO BID 05/28/23 06/30/23 06/29/23 History tablet,extended release spironolactone 25 mg tablet 25 mg PO DAILY 05/28/23 06/30/23 06/29/23 History tamsulosin 0.4 mg capsule 0.4 mg PO BID 05/28/23 06/30/23 06/29/23 History furosemide 40 mg tablet 60 mg (1.5 x 40 mg) PO BID 30 days 06/03/23 06/30/23 06/29/23 Rx #90 tabs naproxen 500 mg tablet (Naprosyn) 500 mg PO BID PRN pain #20 tabs 06/30/23 Unknown Rx nystatin 100,000 unit/gram topical See Rx Instructions .Route .COMPLEX 06/30/23 06/30/23 Unknown History ointment albuterol sulfate 90 mcg/actuation 2 inh inhalation Q4H PRN shortness 09/03/23 Unknown Rx aerosol inhaler of breath or wheezing #18 grams prednisone 20 mg tablet 20 mg PO TID #15 tabs 09/03/23 Unknown Rx Allergies Allergy/AdvReac Type Severity Reaction Status Date / Time sulfabenzamide Allergy Unknown Unknown Verified 10/17/23 16:44 Sulfa (Sulfonamide Allergy Unknown Verified 10/17/23 16:44 Antibiotics) PFSH Acute 2 PFSH: Medical History BPH loc w urin obs/LUTS Chronic kidney disease, stage 3b Diabetic neuropathy CVA (cerebral vascular accident) BMI 45.0-49.9, adult Sleep apnea Diabetes mellitus, type II CAD (coronary artery disease) Hyperlipidemia CHF (congestive heart failure) HTN (hypertension) History of non-ST elevation myocardial infarction (NSTEMI) Surgical History S/P cervical spinal fusion S/P PTCA (percutaneous transluminal coronary angioplasty) Reports 7 stents and angioplasty x 3 Family History Mother , AT AGE 75 Hypertension Diabetes Father , AT AGE 72 Diabetes Hypertension Other CAD (coronary artery disease) Social History Smoking and tobacco/nicotine status: former use of tobacco/nicotine Alcohol intake: current Alcohol intake frequency: few times a month Substance/Drug Use: never Marital status: Current occupational status: retired Vitals/I&O/Wt Last Vital Signs Temp 97.7 F 10/17/23 16:40 Pulse 87 10/17/23 21:04 Resp 18 10/17/23 18:30 BP 132/112 10/17/23 21:04 Pulse Ox 93 10/17/23 21:04 O2 Del Method Room Air 10/17/23 21:04 10/17/23 10/17/23 10/17/23 06:59 14:59 22:59 Intake Total 1000 / 1000 Balance 1000 / 1000 Weight last 48 hrs Weight 125.191 kg Physical Exam 2 Narrative: Awake and alert GCS 15 Morbid obese Metabolic syndrome Pleasant and cooperative Smell of urine in the room S1, S2 Nonfocal neuroexam Currently on room air Hemodynamically stable Awake and alert Not endorsing suicidal ideation Daughter was over the phone Data 10/17/23 17:16 10/17/23 17:16 A&P Assessment and plan (1) Major depression: Qualifiers: Active/Remission status: currently active Major depression episode severity: severe Major depression recurrence: single episode Psychotic features: without psychotic features Qualified Code(s): F32.2 - Major depressive disorder, single episode, severe without psychotic features (2) HTN (hypertension): Qualifiers: Hypertension type: essential hypertension Qualified Code(s): I10 - Essential (primary) hypertension (3) Diabetes mellitus, type II: (4) Chronic hyperglycemia: (5) BMI 45.0-49.9, adult: (6) Chronic kidney disease, stage 3b: (7) BPH loc w urin obs/LUTS: (8) History of continuous positive airway pressure (CPAP) therapy at home: (9) Sleep apnea: (10) Weakness: (11) Generalized weakness: Plan Hyperglycemia without DKA Patient has metabolic syndrome High anion gap gap without acidosis Serum ketones negative Will treat with DKA protocol Had normal saline with potassium supplementation and fluid Turn of insulin drip if potassium below 3.5 or anion gap closes Patient takes Lantus 6 units in the morning and 40 at night Check A1c level Patient is stating that he has not taken insulin last 35 days because of his severe depression No active suicidal ideation Patient is motivated to start taking his insulin back, daughter was made aware of his severe depression Patient has chronic kidney disease creatinine seems around baseline, Hypertension Add amlodipine and chlorthalidone low-dose Patient is stating that he has enough refills of insulin at home, I will admit him to ICU start insulin drip: IV fluids Patient is known complaining any signs of UTI he has received ceftriaxone in the ER I would not repeat the antibiotic dose at this point Full code Spent a lot of time in the ER counseling patient, depression screening, May benefit from a psych consult in the morning Attestations 2 Medical Necessity Statement*: More than 2 midnights anticipated for management of DKA, signs of depression Diagnoses Major depression F32.2 Active/Remission status: currently active Major depression episode severity: severe Major depression recurrence: single episode Psychotic features: without psychotic features Essential hypertension I10 Hypertension type: essential hypertension Diabetes mellitus, type II E11.9 Chronic hyperglycemia R73.9 BMI 45.0-49.9, adult Z68.42 Chronic kidney disease, stage 3b N18.32 BPH loc w urin obs/LUTS N40.1 History of continuous positive airway pressure (CPAP) therapy at home Z99.89 Sleep apnea G47.30 Weakness R53.1 Generalized weakness R53.1
[2023-10-17 21:21] LABS: Glucose Point of Care 374 mg/dL (70-110)
[2023-10-17 22:06] LABS: Estmated Average Glucose 289; Hemoglobin A1C 11.7 % (4.0-6.0)
[2023-10-17 22:22] LABS: Procalcitonin 0.08 ng/mL (0-0.5); Thyroid Stimulating Hormone 2.08 uIU/mL (0.27-4.20)
[2023-10-17 22:32] LABS: Blood Urea Nitrogen 36 mg/dL (8-23); Calcium 9.2 mg/dL (8.5-10.5); Carbon Dioxide 28 mmol/L (22-29); Chloride 92 mmol/L (98-107); Glomerular Filtration Rate 54.7 mL/min (90-130); Glucose 268 mg/dL (65-115); Osmolality Calculated 296 mOsm/kg (285-295); Sodium 134 mmol/L (136-145)
[2023-10-17 22:36] LABS: Anion Gap 17.8 (5-19); Potassium 3.8 mmol/L (3.5-5.1)
[2023-10-17] MEDS: heparin 5,000 unit/mL INJ 1 mL 5000 UNIT SUBCUT (23:39)
[2023-10-17] MEDS: chlorthalidone 25 mg Tablet 12.5 MG PO (23:39)
[2023-10-17 23:44] LABS: Glucose Point of Care 267 mg/dL (70-110)
[2023-10-17 23:47] VITALS: BP 133/76; PULSE 82; RESP 13; TEMP 36.8; O2SAT 91
[2023-10-18] VITALS (9 sets, daily range): BP systolic 132–157; BP diastolic 49–79; PULSE 74–86; RESP 15–18; TEMP 36.5–36.9; O2SAT 93–96; BMI 44.8
[2023-10-18] MEDS: insulin glargine 100 units/1 mL 60 UNIT SUBCUT ×2 (00:12→21:44)
[2023-10-18 00:48] LABS: Vitamin B12 824 pg/mL (232-1245)
[2023-10-18 01:35] LABS: Basophils % 0.5 %; Eosinophils % 0.4 %; Hematocrit 41.8 % (37-53); Lymphocytes # 1.3 10^3/uL (0.8-4.8); Lymphocytes % 16.8 %; Mean Corpuscular HGB Conc 33.7 g/dL (30-55); Mean Corpuscular Hemoglobin 29.6 pg (27-33); Mean Corpuscular Volume 87.8 fl (82-101); Mean Platelet Volume 10.4 fL (7.4-10.4); Monocytes # 0.8 10^3/uL (0.2-0.9); Neutrophils # 5.55 10^3/uL (1.8-7.7); Neutrophils % 71.9 %; Nucleated Red Blood Cells % 0 %; Platelet Count 295 10^3/cmm (157-399); Red Blood Count 4.76 10^6/uL (3.85-5.65); Red Cell Distribution Width 13.2 % (12.1-15.1); White Blood Count 7.72 10^3/uL (3.29-11.43)
--- NOTE | 2023-10-18 01:49 | PC.NURSE ---
When assessing the patient for suicide risk patient stated he sometimes wishes to go to sleep and not wake up. He elaborated that he does not have a plan to harm himself. He stated that he's been feeling very depressed recently.
[2023-10-18 01:55] LABS: Anion Gap 19.8 (5-19); Blood Urea Nitrogen 36 mg/dL (8-23); Calcium 8.9 mg/dL (8.5-10.5); Carbon Dioxide 25 mmol/L (22-29); Chloride 94 mmol/L (98-107); Glomerular Filtration Rate 54.7 mL/min (90-130); Glucose 318 mg/dL (65-115); Osmolality Calculated 301 mOsm/kg (285-295); Potassium 3.8 mmol/L (3.5-5.1); Sodium 135 mmol/L (136-145)
[2023-10-18 01:57] LABS: C Reactive Protein 12.3 mg/L (0.0-4.9); Magnesium 2.3 mg/dL (1.7-2.3); Phosphorus 5.5 mg/dL (2.5-4.5)
--- NOTE | 2023-10-18 03:20 | PC.NURSE ---
Pt found to have urinated in bed. Total linen change performed. Emily care provided. Pt repositioned and offered water. Pt tolerated well.
[2023-10-18 05:46] LABS: Anion Gap 18.6 (5-19); Blood Urea Nitrogen 34 mg/dL (8-23); Calcium 9.1 mg/dL (8.5-10.5); Carbon Dioxide 26 mmol/L (22-29); Chloride 95 mmol/L (98-107); Glucose 272 mg/dL (65-115); Osmolality Calculated 299 mOsm/kg (285-295); Potassium 3.6 mmol/L (3.5-5.1); Sodium 136 mmol/L (136-145)
[2023-10-18 06:22] LABS: Glucose Point of Care 326 mg/dL (70-110)
[2023-10-18] MEDS: insulin lispro 100 unit/1 mL SUBCUT ×3 (08:47→18:02)
[2023-10-18] MEDS: escitalopram 10 mg Tablet 20 MG PO (08:48)
[2023-10-18] MEDS: chlorthalidone 25 mg Tablet 12.5 MG PO (08:48)
[2023-10-18] MEDS: amlodipine 10 mg Tablet PO (08:48)
[2023-10-18] MEDS: heparin 5,000 unit/mL INJ 1 mL 5000 UNIT SUBCUT ×2 (08:49→21:44)
[2023-10-18] MEDS: flu vacc pf 2023-24 (6 mos+) 60 MCG IM (10:12)
--- NOTE | 2023-10-18 10:34 | PC.CHAP ---
Pastoral Care Encounter/Spiritual Assessment Type of Contact [] Declined senior telecommunications engineer visit [] Patient/Family/Request visit [] Outpatient visit [] Follow-up visit [] Physician referral [] Code/Alert [x] Routine visit [] Staff referral [] Actively dying [] Patient sleeping [] Family support [] [] Out of room [] Palliative care [] [] Receiving care in room [] Pre-surgical visit [] Trauma [] Long length of stay [] ICU visit [] Other: Relational/Emotional Strength [] Patient feels connected with others/family/visitors/staff [] Distress [x] Loneliness/isolation [] Abandonment Spirituality of Patient [] Person of Ines [] Attends Restorationism of their Ines [] Believes in Prayer [] Reads Bible or Sabianist materials [] There are Spiritual issues to be addressed Counter Manager Interventions [x] Prayer [x] Active listening [] Non-anxious presence [] Spiritual/emotional support [] Crisis/trauma care [] Spiritual counseling [] Bereavement support [] Provided bereavement packet [] Provided Bible/devotional materials [] Provided toy/stuffed animal, coloring book to patient or family member [] Provided Communion [] Anointing/[place] [] Salvation [] Completed spiritual assessment [] Other: Impact on Illness or Injury [] Angry [] Fearful [] Anxious [] Often cries [] Exhaustion [] Unable to work [] Unable to attend scientologist [] Unable to walk/stand [] Unable to read [] Unable to drive [] Unable to eat/drink [] Unable to sleep [] Unable to be with family [] Patient intubated [] Other: Summary Time spent with patient 15 min
[2023-10-18 11:14] LABS: Glucose Point of Care 483 mg/dL (70-110)
[2023-10-18 11:14] LABS: Glucose Point of Care > 600 mg/dL (70-110)
[2023-10-18 17:15] LABS: Glucose Point of Care 256 mg/dL (70-110)
--- NOTE | 2023-10-18 20:19 | P.PN_ITS ---
Subjective 2 Subjective: He reports he is feeling slightly better. Denies nausea or vomiting. Having some diarrhea. Vitals/I&O/Wt Last Vital Signs Temp 98.0 F 10/18/23 11:11 Pulse 83 10/18/23 18:45 Resp 16 10/18/23 18:45 BP 138/79 10/18/23 16:00 Pulse Ox 93 10/18/23 18:45 O2 Del Method Room Air 10/18/23 18:45 10/18/23 10/18/23 10/18/23 06:59 14:59 22:59 Intake Total 600 / 600 240 / 840 Output Total 550 / 550 650 / 1200 Balance 50 / 50 -410 / -360 Weight last 48 hrs Weight 125.9 kg Weight 125.191 kg Physical Exam 2 Narrative: Awake, alert, responsive. Const: COMMON NORMALS: alert GENERAL APPEARANCE: cooperative NUTRITIONAL APPEARANCE: obese ORIENTATION/CONSCIOUSNESS: Yes awake HENMT: COMMON NORMALS: oropharynx normal Neck/C-Spine: COMMON NORMALS: no JVD Resp: COMMON NORMALS: normal respiratory effort and clear to auscultation bilaterally AUSCULTATION: clear to auscultation bilaterally Cardio: COMMON NORMALS: no JVD, regular rhythm, S1 normal heart sound present, S2 normal heart sound present and No murmurs present (Cardio) RHYTHM: regular rhythm HEART SOUNDS: S1 normal heart sound present and S2 normal heart sound present GI: COMMON NORMALS: Normal to inspection, nondistended, normoactive bowel sounds present, Soft to palpation and non-tender PALPATION: Yes Soft to palpation Extremity: COMMON NORMALS: no joint enlargement and no pedal edema Neuro: COMMON NORMALS: moves all extremities SENSORIUM/ORIENTATION: Yes alert Skin: COMMON NORMALS: no rashes or lesions noted GENERAL SKIN EXAM: no rashes or lesions noted Data 10/18/23 01:27 10/18/23 05:16 A&P Assessment and plan (1) Major depression: Qualifiers: Active/Remission status: currently active Major depression episode severity: severe Major depression recurrence: single episode Psychotic features: without psychotic features Qualified Code(s): F32.2 - Major depressive disorder, single episode, severe without psychotic features (2) HTN (hypertension): Qualifiers: Hypertension type: essential hypertension Qualified Code(s): I10 - Essential (primary) hypertension (3) Diabetes mellitus, type II: (4) Chronic hyperglycemia: (5) BMI 45.0-49.9, adult: (6) Chronic kidney disease, stage 3b: (7) BPH loc w urin obs/LUTS: (8) History of continuous positive airway pressure (CPAP) therapy at home: (9) Sleep apnea: (10) Weakness: (11) Generalized weakness: Plan Hyperglycemia without DKA Patient has metabolic syndrome Combined acid-base disorder. High anion gap gap acidosis. Contraction alkalosis. Continue IV hydration. Continue subcutaneous insulin. Reassess chemistry. Anion gap noted with some improvement down to 18 on review. Reviewed BUN, still elevated at 34. Reviewed bicarb, slightly better at 26. Potassium reviewed, noted 3.6.Will give 20 mill equivalents of potassium. Reviewed magnesium, calcium, phosphorus.Reviewed Renal function. ReviewedTSH. Reviewed vitals, CBC. Reviewed A1c level, noted uncontrolled diabetes, A1c 11.7. Will benefit from optimization of diabetes control and treatment of depression as he has missed insulin in the last 35 days. Follow-up with primary provider. Depression: Lexapro. No suicidal ideation. Consider psychiatry consultation versus follow-up. Patient has chronic kidney disease creatinine seems around baseline, Hypertension: amlodipine and chlorthalidone UA with possible UTI: He is not having symptoms. Received a dose of ceftriaxone in ER antibiotic was not continued on admission. Follow-up urine culture. Discussed with him. Will request to confirm home medications. Attestations 2 Medical Necessity Statement*: Continue admission for assessment management of metabolic derangement with combined acid-base disorder, hyperglycemia, uncontrolled diabetes, depression. Diagnoses Major depression F32.2 Active/Remission status: currently active Major depression episode severity: severe Major depression recurrence: single episode Psychotic features: without psychotic features Essential hypertension I10 Hypertension type: essential hypertension Diabetes mellitus, type II E11.9 Chronic hyperglycemia R73.9 BMI 45.0-49.9, adult Z68.42 Chronic kidney disease, stage 3b N18.32 BPH loc w urin obs/LUTS N40.1 History of continuous positive airway pressure (CPAP) therapy at home Z99.89 Sleep apnea G47.30 Weakness R53.1 Generalized weakness R53.1
[2023-10-18 21:02] LABS: Glucose Point of Care 337 mg/dL (70-110)
[2023-10-18] MEDS: potassium chloride ER 20 mEq Tablet PO (21:44)
[2023-10-18 21:59] LABS: Phosphorus 3.5 mg/dL (2.5-4.5)
[2023-10-19] VITALS (8 sets, daily range): BP systolic 115–170; BP diastolic 68–88; PULSE 69–93; RESP 15–18; TEMP 36.6–37; O2SAT 95–98
[2023-10-19 05:09] LABS: Basophils % 0.5 %; Eosinophils # 0.1 10^3/uL (0.0-0.8); Eosinophils % 1.4 %; Hematocrit 43.2 % (37-53); Lymphocytes # 1.5 10^3/uL (0.8-4.8); Lymphocytes % 26.1 %; Mean Corpuscular HGB Conc 33.6 g/dL (30-55); Mean Corpuscular Hemoglobin 29.8 pg (27-33); Mean Corpuscular Volume 88.7 fl (82-101); Mean Platelet Volume 10.3 fL (7.4-10.4); Monocytes # 0.8 10^3/uL (0.2-0.9); Monocytes % 13.5 %; Neutrophils # 3.38 10^3/uL (1.8-7.7); Neutrophils % 58.3 %; Nucleated Red Blood Cells % 0 %; Platelet Count 297 10^3/cmm (157-399); Red Blood Count 4.87 10^6/uL (3.85-5.65); Red Cell Distribution Width 13.5 % (12.1-15.1); White Blood Count 5.79 10^3/uL (3.29-11.43)
[2023-10-19 05:36] LABS: Alanine Aminotransferase 14 U/L (0-41); Albumin Level 3.5 g/dL (3.5-5.2); Alkaline Phosphatase 64 U/L (40-130); Anion Gap 15.9 (5-19); Aspartate Amino Transferase 14 U/L (0-40); Blood Urea Nitrogen 31 mg/dL (8-23); Calcium 9.3 mg/dL (8.5-10.5); Carbon Dioxide 28 mmol/L (22-29); Chloride 97 mmol/L (98-107); Globulin 2.3 g/dL (1.3-4.6); Glomerular Filtration Rate 54.7 mL/min (90-130); Glucose 274 mg/dL (65-115); Magnesium 2.6 mg/dL (1.7-2.3); Osmolality Calculated 300 mOsm/kg (285-295); Potassium 3.9 mmol/L (3.5-5.1); Sodium 137 mmol/L (136-145); Total Bilirubin 0.5 mg/dL (0.15-1.2); Total Protein 5.8 g/dL (6.6-8.7)
[2023-10-19 06:37] LABS: Glucose Point of Care 234 mg/dL (70-110)
[2023-10-19] MEDS: escitalopram 10 mg Tablet 20 MG PO (09:26)
[2023-10-19] MEDS: amlodipine 10 mg Tablet PO (09:26)
[2023-10-19] MEDS: chlorthalidone 25 mg Tablet 12.5 MG PO (09:27)
[2023-10-19] MEDS: heparin 5,000 unit/mL INJ 1 mL 5000 UNIT SUBCUT ×2 (09:27→21:20)
[2023-10-19] MEDS: insulin lispro 100 unit/1 mL SUBCUT ×3 (09:27→17:31)
[2023-10-19 11:11] LABS: Glucose Point of Care 299 mg/dL (70-110)
[2023-10-19 14:31] LABS: Adenovirus Not Detected (NOT DETECT); Chlamydia Pneumoniae Not Detected (NOT DETECT); Coronavirus 229E,HKU1,NL63,OC4 Not Detected (NOT DETECT); Human Metapneumovirus Not Detected (NOT DETECT); Human Rhinovirus/Enterovirus Not Detected (NOT DETECT); Influenza A Not Detected (NOT DETECT); Influenza A H1 Not Detected (NOT DETECT); Influenza A H1-2009 Not Detected (NOT DETECT); Influenza A H3 Not Detected (NOT DETECT); Influenza B Not Detected (NOT DETECT); Mycoplasma Pneumoniae Not Detected (NOT DETECT); Parainfluenza Virus Type 1 Not Detected (NOT DETECT); Parainfluenza Virus Type 2 Not Detected (NOT DETECT); Parainfluenza Virus Type 3 Not Detected (NOT DETECT); Parainfluenza Virus Type 4 Not Detected (NOT DETECT); Respiratory Syncytial Virus A Not Detected (NOT DETECT); Respiratory Syncytial Virus B Not Detected (NOT DETECT); SARS-COV-2 Not Detected (NOT DETECT)
[2023-10-19 17:15] LABS: Glucose Point of Care 347 mg/dL (70-110)
[2023-10-19 20:43] LABS: Glucose Point of Care 438 mg/dL (70-110)
--- NOTE | 2023-10-19 20:54 | P.PN_ITS ---
Subjective 2 Subjective: He feels he is still lacking energy. Feeling depressed. He is agreeable to see psychiatry. Would be willing to admit to neuropsychiatric floor if indicated. Vitals/I&O/Wt Last Vital Signs Temp 98.2 F 10/19/23 19:00 Pulse 88 10/19/23 19:00 Resp 17 10/19/23 19:00 BP 138/74 10/19/23 19:00 Pulse Ox 97 10/19/23 19:00 O2 Del Method Nasal Cannula 10/19/23 19:00 O2 Flow Rate 2 10/19/23 03:14 10/19/23 10/19/23 10/19/23 06:59 14:59 22:59 Intake Total 720 / 720 Output Total 400 / 2000 Balance -400 / -1160 720 / 720 Weight last 48 hrs Weight 127.204 kg Weight 125.9 kg Physical Exam 2 Narrative: Awake, alert, responsive. Const: COMMON NORMALS: alert GENERAL APPEARANCE: cooperative NUTRITIONAL APPEARANCE: obese ORIENTATION/CONSCIOUSNESS: Yes awake HENMT: COMMON NORMALS: oropharynx normal Neck/C-Spine: COMMON NORMALS: no JVD Resp: COMMON NORMALS: normal respiratory effort and clear to auscultation bilaterally AUSCULTATION: clear to auscultation bilaterally Cardio: COMMON NORMALS: no JVD, regular rhythm, S1 normal heart sound present, S2 normal heart sound present and No murmurs present (Cardio) RHYTHM: regular rhythm HEART SOUNDS: S1 normal heart sound present and S2 normal heart sound present GI: COMMON NORMALS: Normal to inspection, nondistended, normoactive bowel sounds present, Soft to palpation and non-tender PALPATION: Yes Soft to palpation Extremity: COMMON NORMALS: no joint enlargement and no pedal edema Neuro: COMMON NORMALS: moves all extremities SENSORIUM/ORIENTATION: Yes alert Skin: COMMON NORMALS: no rashes or lesions noted GENERAL SKIN EXAM: no rashes or lesions noted Data 10/19/23 04:52 10/19/23 04:52 Micro: Microbiology 10/17/23 18:48 Urine Culture - Preliminary Urine,Clean Catch Coag negative Staphylococcus A&P Assessment and plan (1) Major depression: Qualifiers: Active/Remission status: currently active Major depression episode severity: severe Major depression recurrence: single episode Psychotic features: without psychotic features Qualified Code(s): F32.2 - Major depressive disorder, single episode, severe without psychotic features (2) HTN (hypertension): Qualifiers: Hypertension type: essential hypertension Qualified Code(s): I10 - Essential (primary) hypertension (3) Diabetes mellitus, type II: (4) Chronic hyperglycemia: (5) BMI 45.0-49.9, adult: (6) Chronic kidney disease, stage 3b: (7) BPH loc w urin obs/LUTS: (8) History of continuous positive airway pressure (CPAP) therapy at home: (9) Sleep apnea: (10) Weakness: (11) Generalized weakness: Plan Hyperglycemia without DKA Patient has metabolic syndrome Combined acid-base disorder. Reviewed vitals, anion gap, bicarb, no longer having acidosis. Still some contraction alkalosis. Bicarb 28. Reviewed BUN, creatinine, improvement in BUN, creatinine slightly worse at 1.3. Will restart some IV fluid. Potassium reviewed, 3.9. Magnesium reviewed, 2.6. Phosphorus reviewed. 3.5. He feels he is still lacking energy. Noted TSH is WNL. Hyperglycemia: Reviewed Accu-Cheks, still hyperglycemic. Increase Lantus to 64 units. Lack of energy: Given his persistent symptoms obtained respiratory viral panel, reviewed, noted negative. Reassess metabolic parameters but suspect possibly secondary to depression.Discussed with psychiatrist, appreciate consultation. UTI? Reviewed A1c level, noted uncontrolled diabetes, A1c 11.7. Will benefit from optimization of diabetes control and treatment of depression as he has missed insulin in the last 35 days. Follow-up with primary provider. Depression: Lexapro. Discussed with psychiatrist, appreciate consultation. Patient has chronic kidney disease creatinine seems around baseline, Hypertension: amlodipine and chlorthalidone UA with possible UTI: Still feeling tired. CoagulaseNegative staph growing in urine. Possibly Enterococcus. Follow-up. Will request to confirm home medications. Attestations 2 Medical Necessity Statement*: Continue hospitalization for assessment management of hyperglycemia, fatigue, possible UTI, depression. Diagnoses Major depression F32.2 Active/Remission status: currently active Major depression episode severity: severe Major depression recurrence: single episode Psychotic features: without psychotic features Essential hypertension I10 Hypertension type: essential hypertension Diabetes mellitus, type II E11.9 Chronic hyperglycemia R73.9 BMI 45.0-49.9, adult Z68.42 Chronic kidney disease, stage 3b N18.32 BPH loc w urin obs/LUTS N40.1 History of continuous positive airway pressure (CPAP) therapy at home Z99.89 Sleep apnea G47.30 Weakness R53.1 Generalized weakness R53.1
[2023-10-19] MEDS: insulin glargine 100 units/1 mL 64 UNIT SUBCUT (21:20)
[2023-10-19] MEDS: trazodone 50 mg Tablet 25 MG PO (21:20)
[2023-10-19] MEDS: lactated ringers 1,000 ML 30 ML IV (21:47)
[2023-10-20 03:31] VITALS: BP 176/92; PULSE 103; RESP 15; TEMP 36.6; O2SAT 95
[2023-10-20 05:32] LABS: Basophils % 0.4 %; Eosinophils % 0.1 %; Hematocrit 49.2 % (37-53); Lymphocytes # 0.6 10^3/uL (0.8-4.8); Lymphocytes % 8.8 %; Mean Corpuscular HGB Conc 32.1 g/dL (30-55); Mean Corpuscular Hemoglobin 29.4 pg (27-33); Mean Corpuscular Volume 91.4 fl (82-101); Mean Platelet Volume 10.7 fL (7.4-10.4); Monocytes # 0.9 10^3/uL (0.2-0.9); Monocytes % 12.5 %; Neutrophils # 5.48 10^3/uL (1.8-7.7); Neutrophils % 77.9 %; Nucleated Red Blood Cells % 0 %; Platelet Count 297 10^3/cmm (157-399); Red Blood Count 5.38 10^6/uL (3.85-5.65); Red Cell Distribution Width 13.6 % (12.1-15.1); White Blood Count 7.04 10^3/uL (3.29-11.43)
[2023-10-20 05:56] LABS: Alanine Aminotransferase 14 U/L (0-41); Albumin Level 3.5 g/dL (3.5-5.2); Alkaline Phosphatase 67 U/L (40-130); Aspartate Amino Transferase 14 U/L (0-40); Blood Urea Nitrogen 31 mg/dL (8-23); Calcium 9.6 mg/dL (8.5-10.5); Carbon Dioxide 26 mmol/L (22-29); Chloride 98 mmol/L (98-107); Globulin 3.4 g/dL (1.3-4.6); Glucose 270 mg/dL (65-115); Osmolality Calculated 300 mOsm/kg (285-295); Sodium 137 mmol/L (136-145); Total Bilirubin 0.5 mg/dL (0.15-1.2); Total Protein 6.9 g/dL (6.6-8.7)
[2023-10-20 06:42] LABS: Glucose Point of Care 382 mg/dL (70-110)
[2023-10-20 07:33] VITALS: PULSE 80; RESP 16; O2SAT 98
[2023-10-20 08:00] VITALS: BP 138/74; PULSE 80; RESP 18; TEMP 36.8; O2SAT 80
[2023-10-20] MEDS: escitalopram 10 mg Tablet 20 MG PO (09:12)
[2023-10-20] MEDS: insulin lispro 100 unit/1 mL SUBCUT ×3 (09:12→22:06)
[2023-10-20] MEDS: heparin 5,000 unit/mL INJ 1 mL 5000 UNIT SUBCUT ×2 (09:12→22:06)
[2023-10-20] MEDS: amlodipine 10 mg Tablet PO (09:12)
[2023-10-20] MEDS: chlorthalidone 25 mg Tablet 12.5 MG PO (09:13)
[2023-10-20 11:03] LABS: Glucose Point of Care > 600 mg/dL (70-110)
[2023-10-20 11:03] LABS: Glucose Point of Care 598 mg/dL (70-110)
[2023-10-20 12:00] VITALS: BP 144/83; PULSE 85; RESP 18; TEMP 36.9; O2SAT 97
[2023-10-20] MEDS: insulin lispro 100 unit/1 mL 22 UNIT SUBCUT (12:10)
--- NOTE | 2023-10-20 13:07 | W.PM.NPUH&PS ---
Providers/Chief Complaint Admitting Physician: Juwan Arambula MD Primary Care Provider: Kyle Corrigan MD Chief Complaint: fall with weakness HPI NPU History of Present Illness Garrett Mares is a 68 year old male who presented to the emergency department with the following report: Chief complaint: Weakness Stated complaint: fall with weakness Time Seen by Provider: 10/17/23 16:41 History of Present Illness: 68-year-old male presents emergency department complaining of weakness and elevated blood sugar. Patient endorses he has not used his insulin for about 1 month. Patient reports he is only been intermittently using his other medications. Upon further exploration, the patient has been severely depressed. He has not had any active suicidal ideations but has endorsed that he wishes his maker would take him. Patient reports he has plenty of insulin he could have used. He has had disrupted sleep where he cannot sleep at night and he takes intermittent naps during the day. He has had low energy. He barely gets out of bed. Today, he fell forward because his knees buckled on him. He is also developed a tremor in both arms but worse in the right arm, starting 2 days ago. He reports that he has had some trouble with his memory. He has been excessively thirsty and urinating more than usual. Glucose was greater than 600 on arrival. Associated symptoms: Denies chest pain, chills, dysuria, fever(s), nausea, syncope or vomiting He was admitted to [facility] for definitive treatment of those issues. It was noted that he was having significant distress surrounding his circumstances and a psychiatric consult was requested. Patient presents reporting that he has never had inpatient psychiatric care but has had some limited outpatient services. He reports he has been on Lexapro for his depression and anxiety for a long time but could not give an exact answer. He spent much of the time talking about the distress that he has gone through over the past 2 years trying to make sure his granddaughter was safe and getting custody of her. He continues to lament over the possibility of things changing and her not being safe. We reviewed his psychosocial history and there was no significant contributory issues from his developmental, addiction, family histories. We discussed the importance of him having someone to talk to and the recommendation for mental health follow-up. We also discussed the risks, benefits and alternatives of increasing the Lexapro to 30 mg p.o. daily and he understood and agreed to proceed as is documented in this note. Meds NPU Home Medications Medication Instructions Recorded Confirmed Last Taken Type montelukast 10 mg tablet 10 mg PO BEDTIME 11/29/19 10/18/23 06/29/23 History citalopram 40 mg tablet 40 mg PO QPM 08/18/20 10/18/23 06/29/23 History aspirin 81 mg tablet,delayed 81 mg PO QAM 09/26/22 10/18/23 06/29/23 History release (Adult Low Dose Aspirin) gabapentin 100 mg capsule 100 mg PO BID 09/26/22 10/18/23 06/29/23 History insulin degludec 200 unit/mL (3 60 unit SUBCUT QAM 09/26/22 10/18/23 06/29/23 History mL) subcutaneous pen (Tresiba FlexTouch U-200 insulin) carvedilol 25 mg tablet 25 mg PO BID #180 tabs 12/26/22 10/18/23 06/29/23 Rx clopidogrel 75 mg tablet (Plavix) 75 mg PO DAILY #90 tabs 12/26/22 10/18/23 06/29/23 Rx isosorbide mononitrate 60 mg 60 mg PO BID #180 tabs 12/26/22 10/18/23 06/29/23 Rx tablet,extended release 24 hr nitroglycerin 0.4 mg sublingual 0.4 mg sublingual Q5M PRN Chest 12/26/22 10/18/23 05/28/23 Rx tablet (Nitrostat) Pain #25 tabs rosuvastatin 20 mg tablet 20 mg PO BEDTIME #90 tabs 12/26/22 10/18/23 06/29/23 Rx FreeStyle Andres 2 Sensor (flash #4 ea 04/28/23 10/18/23 Unknown Rx glucose sensor) insulin aspart U-100 100 unit/mL 40 sliding scale dose SUBCUT TID 05/28/23 10/18/23 05/28/23 History (3 mL) subcutaneous pen (Novolog FlexPen U-100 Insulin aspart) potassium chloride 10 mEq 10 meq PO BID 05/28/23 10/18/23 06/29/23 History tablet,extended release spironolactone 25 mg tablet 25 mg PO DAILY 0810/18/23 06/29/23 History tamsulosin 0.4 mg capsule 0.4 mg PO BID 05/28/23 10/18/23 06/29/23 History furosemide 40 mg tablet 60 mg (1.5 x 40 mg) PO BID 30 days 06/03/23 10/18/23 06/29/23 Rx #90 tabs naproxen 500 mg tablet (Naprosyn) 500 mg PO BID PRN pain #20 tabs 06/30/23 10/18/23 Unknown Rx albuterol sulfate 90 mcg/actuation 2 inh inhalation Q4H PRN shortness 09/03/23 10/18/23 Unknown Rx aerosol inhaler of breath or wheezing #18 grams Allergies Allergy/AdvReac Type Severity Reaction Status Date / Time sulfabenzamide Allergy Unknown Unknown Verified 10/17/23 16:44 Sulfa (Sulfonamide Allergy Unknown Verified 10/17/23 16:44 Antibiotics) PFSH NPU PFSH: Medical History BPH loc w urin obs/LUTS Chronic kidney disease, stage 3b Diabetic neuropathy CVA (cerebral vascular accident) BMI 45.0-49.9, adult Sleep apnea Diabetes mellitus, type II CAD (coronary artery disease) Hyperlipidemia CHF (congestive heart failure) HTN (hypertension) History of non-ST elevation myocardial infarction (NSTEMI) Surgical History S/P cervical spinal fusion S/P PTCA (percutaneous transluminal coronary angioplasty) Reports 7 stents and angioplasty x 3 Family History Mother , AT AGE 75 Hypertension Diabetes Father , AT AGE 72 Diabetes Hypertension Other CAD (coronary artery disease) Social History Smoking and tobacco/nicotine status: former use of tobacco/nicotine Alcohol intake: current Alcohol intake frequency: few times a month Substance/Drug Use: never Marital status: Current occupational status: retired Mental Status Exam MSE Comments: This is a morbidly obese white male hospital gown with adequate grooming and eye contact. No abnormal movements. Cooperative with exam in mild distress. Speech was mostly normal rate and volume. Mood described as a little depressed and anxious, affect congruent. Thought process organized. Thought content: Patient denied suicidal or homicidal ideation, there were no delusions reported or noted, he denied any auditory or visual hallucinations. Attention and concentration appeared intact and memory appeared reliable but none were formally tested. He is alert and oriented x 3. Insight and judgment fair, impulse control fair. Vitals/I&O/Wt Last Vital Signs Temp 98.4 F 10/20/23 12:00 Pulse 85 10/20/23 12:00 Resp 18 10/20/23 12:00 BP 144/83 10/20/23 12:00 Pulse Ox 97 10/20/23 12:00 O2 Del Method Room Air 10/20/23 07:33 O2 Flow Rate 2 10/19/23 20:00 10/19/23 10/20/23 10/20/23 22:59 06:59 14:59 Intake Total 240 / 960 1280 / 1280 Balance 240 / 960 1280 / 1280 Weight last 48 hrs Weight 127.488 kg Weight 127.204 kg Data NPU 10/21/23 05:01 10/21/23 05:01 Micro: Microbiology 10/17/23 18:48 Urine Culture - Final Urine,Clean Catch Staphylococcus epidermidis Microbiology 10/17/23 18:48 Urine,Clean Catch Urine Culture - Final Staphylococcus epidermidis A&P Assessment and plan (1) Major depression: Qualifiers: Active/Remission status: currently active Major depression episode severity: severe Major depression recurrence: single episode Psychotic features: without psychotic features Qualified Code(s): F32.2 - Major depressive disorder, single episode, severe without psychotic features (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: (3) HTN (hypertension): Qualifiers: Hypertension type: essential hypertension Qualified Code(s): I10 - Essential (primary) hypertension (4) CHF (congestive heart failure): (5) CAD (coronary artery disease): (6) Heart disease: (7) Hyperlipidemia: Qualifiers: Hyperlipidemia type: other hyperlipidemia Qualified Code(s): E78.49 - Other hyperlipidemia (8) Diabetes mellitus, type II: (9) Chronic hyperglycemia: (10) BMI 45.0-49.9, adult: Plan This is a 68-year-old white male with a long history of depression and significant challenges surrounding the custody of his grandchild presenting with significant depression and anxiety but denying lethality and open to medication changes. 1. Continue current medication. Except: Increase Lexapro to 30 mg p.o. daily. 2. No credible lethality noted. 3. No need for inpatient psychiatric services. Agree with discharge when medically appropriate. 4. Recommend outpatient mental health referral. Attestations NPU Medical Necessity Statement*: N/A. Please see primary team note for medical necessity. Coding Level of Care Code Acute Code for [facility] Fwd Diagnoses Major depression F32.2 Active/Remission status: currently active Major depression episode severity: severe Major depression recurrence: single episode Psychotic features: without psychotic features Adjustment disorder with mixed disturbance of emotions and conduct F43.25 Essential hypertension I10 Hypertension type: essential hypertension Acute on chronic systolic congestive heart failure I50.9 Coronary artery disease involving [place] coronary artery of [place] heart with unstable angina pectoris I25.10 Heart disease I51.9 Other hyperlipidemia E78.49 Hyperlipidemia type: other hyperlipidemia Diabetes mellitus, type II E11.9 Chronic hyperglycemia R73.9 BMI 45.0-49.9, adult Z68.42
[2023-10-20] MEDS: escitalopram 10 mg Tablet PO (14:28)
[2023-10-20] MEDS: linezolid premix 600 MG/300 ML PREMIX 300 MG IV (14:29)
[2023-10-20 15:43] LABS: Glucose Point of Care 515 mg/dL (70-110)
[2023-10-20 15:44] LABS: Glucose Point of Care 438 mg/dL (70-110)
[2023-10-20 16:00] VITALS: BP 132/87; PULSE 92; RESP 18; TEMP 37.4; O2SAT 96
[2023-10-20 17:00] LABS: Glucose Point of Care 258 mg/dL (70-110)
[2023-10-20 20:00] VITALS: BP 138/82; PULSE 77; PULSE 79; RESP 16; RESP 18; TEMP 36.8; O2SAT 93; O2SAT 97
[2023-10-20 21:57] LABS: Glucose Point of Care 289 mg/dL (70-110)
[2023-10-20] MEDS: insulin glargine 100 units/1 mL 64 UNIT SUBCUT (22:05)
[2023-10-20] MEDS: trazodone 50 mg Tablet 25 MG PO (22:06)
--- NOTE | 2023-10-20 22:24 | P.PN_ITS ---
Subjective 2 Subjective: Very hyperglycemic this morning, blood glucose up into 500s. Still feels he is lacking energy, not feeling improved. Vitals/I&O/Wt Last Vital Signs Temp 98.2 F 10/20/23 20:00 Pulse 77 10/20/23 20:00 Resp 16 10/20/23 20:00 BP 138/82 10/20/23 20:00 Pulse Ox 97 10/20/23 20:00 O2 Del Method Room Air 10/20/23 20:00 O2 Flow Rate 2 10/19/23 20:00 10/20/23 10/20/23 10/20/23 06:59 14:59 22:59 Intake Total 1280 / 1280 1100 / 2380 Balance 1280 / 1280 1100 / 2380 Weight last 48 hrs Weight 127.488 kg Weight 127.204 kg Physical Exam 2 Narrative: Awake, alert, responsive. Const: COMMON NORMALS: alert GENERAL APPEARANCE: cooperative NUTRITIONAL APPEARANCE: obese ORIENTATION/CONSCIOUSNESS: Yes awake HENMT: COMMON NORMALS: oropharynx normal Neck/C-Spine: COMMON NORMALS: no JVD Resp: COMMON NORMALS: normal respiratory effort and clear to auscultation bilaterally AUSCULTATION: clear to auscultation bilaterally Cardio: COMMON NORMALS: no JVD, regular rhythm, S1 normal heart sound present, S2 normal heart sound present and No murmurs present (Cardio) RHYTHM: regular rhythm HEART SOUNDS: S1 normal heart sound present and S2 normal heart sound present GI: COMMON NORMALS: Normal to inspection, nondistended, normoactive bowel sounds present, Soft to palpation and non-tender PALPATION: Yes Soft to palpation Extremity: COMMON NORMALS: no joint enlargement and no pedal edema Neuro: COMMON NORMALS: moves all extremities SENSORIUM/ORIENTATION: Yes alert Skin: COMMON NORMALS: no rashes or lesions noted GENERAL SKIN EXAM: no rashes or lesions noted Data 10/20/23 04:50 10/20/23 04:50 Micro: Microbiology 10/17/23 18:48 Urine Culture - Final Urine,Clean Catch Staphylococcus epidermidis A&P Assessment and plan (1) Major depression: Qualifiers: Active/Remission status: currently active Major depression episode severity: severe Major depression recurrence: single episode Psychotic features: without psychotic features Qualified Code(s): F32.2 - Major depressive disorder, single episode, severe without psychotic features (2) HTN (hypertension): Qualifiers: Hypertension type: essential hypertension Qualified Code(s): I10 - Essential (primary) hypertension (3) Diabetes mellitus, type II: (4) Chronic hyperglycemia: (5) BMI 45.0-49.9, adult: (6) Chronic kidney disease, stage 3b: (7) BPH loc w urin obs/LUTS: (8) History of continuous positive airway pressure (CPAP) therapy at home: (9) Sleep apnea: (10) Weakness: (11) Generalized weakness: Plan Hyperglycemia without DKA Patient has metabolic syndrome Hyperglycemia: Severe hyperglycemia, BG up into 500s. Risk of DKA. Reviewed accuchecks. Increase SSI. Reviewed Accu-Cheks, still hyperglycemic. Increase Lantus to 70 units. Monitor for hypoglycemia. Combined acid-base disorder. AG reviewed, worse to 17. Increased insulin as above. Treat hyperglycemia. Increase IV fluid rate. With risk for fluid overload, monitor. He feels he is still lacking energy. Lack of energy: Worsened hyperglycemia. Treat as above. Risk of developing DKA. Anion gap with worsening of 17. Insulin increased. Continue IV hydration. Additionally appears to be having UTI, Staph epidermidis on review of urine culture. Obtain blood culture. Additionally active depression, Discussed with psychiatrist. Appreciate consultation. Reviewed A1c level, noted uncontrolled diabetes, A1c 11.7. Will benefit from optimization of diabetes control and treatment of depression as he has missed insulin in the last 35 days. Follow-up with primary provider. Depression: Lexapro. Discussed with psychiatrist. Patient has chronic kidney disease creatinine seems around baseline, Hypertension: amlodipine and chlorthalidone Requested to confirm home medications. Attestations 2 Medical Necessity Statement*: Continue admission for assessment of management of severe hyperglycemia, worsening anion gap metabolic acidosis, staphylococcal UTI. Symptomatic depression. Diagnoses Major depression F32.2 Active/Remission status: currently active Major depression episode severity: severe Major depression recurrence: single episode Psychotic features: without psychotic features Essential hypertension I10 Hypertension type: essential hypertension Diabetes mellitus, type II E11.9 Chronic hyperglycemia R73.9 BMI 45.0-49.9, adult Z68.42 Chronic kidney disease, stage 3b N18.32 BPH loc w urin obs/LUTS N40.1 History of continuous positive airway pressure (CPAP) therapy at home Z99.89 Sleep apnea G47.30 Weakness R53.1 Generalized weakness R53.1
[2023-10-21] VITALS (7 sets, daily range): BP systolic 125–144; BP diastolic 65–82; PULSE 77–95; RESP 16–18; TEMP 36.8–39.1; O2SAT 94–98; BMI 45.6
[2023-10-21] MEDS: linezolid premix 600 MG/300 ML PREMIX 300 MG IV ×2 (01:03→16:22)
[2023-10-21 05:39] LABS: Basophils % 0.5 %; Eosinophils % 0.5 %; Hematocrit 45.4 % (37-53); Lymphocytes # 0.5 10^3/uL (0.8-4.8); Lymphocytes % 9.9 %; Mean Corpuscular Hemoglobin 29.3 pg (27-33); Mean Corpuscular Volume 88.7 fl (82-101); Mean Platelet Volume 10.7 fL (7.4-10.4); Monocytes % 18.3 %; Neutrophils # 3.84 10^3/uL (1.8-7.7); Neutrophils % 70.3 %; Nucleated Red Blood Cells % 0 %; Platelet Count 257 10^3/cmm (157-399); Red Blood Count 5.12 10^6/uL (3.85-5.65); Red Cell Distribution Width 13.4 % (12.1-15.1); White Blood Count 5.47 10^3/uL (3.29-11.43)
[2023-10-21 06:08] LABS: Alanine Aminotransferase 17 U/L (0-41); Albumin Level 3.1 g/dL (3.5-5.2); Alkaline Phosphatase 51 U/L (40-130); Anion Gap 15.7 (5-19); Aspartate Amino Transferase 18 U/L (0-40); Blood Urea Nitrogen 25 mg/dL (8-23); Carbon Dioxide 26 mmol/L (22-29); Chloride 95 mmol/L (98-107); Globulin 3.3 g/dL (1.3-4.6); Glomerular Filtration Rate 66.4 mL/min (90-130); Glucose 151 mg/dL (65-115); Osmolality Calculated 283 mOsm/kg (285-295); Potassium 3.7 mmol/L (3.5-5.1); Sodium 133 mmol/L (136-145); Total Bilirubin 0.4 mg/dL (0.15-1.2); Total Protein 6.4 g/dL (6.6-8.7)
[2023-10-21 06:51] LABS: Glucose Point of Care 153 mg/dL (70-110)
[2023-10-21] MEDS: escitalopram 10 mg Tablet 30 MG PO (08:41)
[2023-10-21] MEDS: insulin lispro 100 unit/1 mL SUBCUT ×4 (08:41→21:20)
[2023-10-21] MEDS: chlorthalidone 25 mg Tablet 12.5 MG PO (08:42)
[2023-10-21] MEDS: amlodipine 10 mg Tablet PO (08:42)
[2023-10-21] MEDS: heparin 5,000 unit/mL INJ 1 mL 5000 UNIT SUBCUT ×2 (08:42→21:16)
[2023-10-21 11:46] LABS: Glucose Point of Care 233 mg/dL (70-110)
[2023-10-21 17:16] LABS: Glucose Point of Care 249 mg/dL (70-110)
[2023-10-21] MEDS: acetaminophen 500 mg Tablet PO (17:50)
--- NOTE | 2023-10-21 18:50 | P.NPUPN_ITS ---
Subjective NPU 2 Subjective: Patient presented today reporting that he is doing okay. He denies any new or pressing issues. He reported essentially feeling the same as yesterday. He denied any problems or side effects from the increase in the Lexapro. He reported they are continuing to do some lab work to make sure that he is okay and endorsed understanding the treatment he was receiving. Mental Status Exam 2 MSE Comments: This is a morbidly obese white male hospital gown with adequate grooming and eye contact. No abnormal movements. Cooperative with exam in mild distress. Speech was mostly normal rate and volume. Mood described as okay I guess, same as yesterday, affect congruent. Thought process organized. Thought content: Patient denied suicidal or homicidal ideation, there were no delusions reported or noted, he denied any auditory or visual hallucinations. Attention and concentration appeared intact and memory appeared reliable but none were formally tested. He is alert and oriented x 3. Insight and judgment fair, impulse control fair. Vitals/I&O/Wt Last Vital Signs Temp 98.2 F 10/21/23 20:00 Pulse 77 10/21/23 20:00 Resp 18 10/21/23 20:00 BP 129/80 10/21/23 20:00 Pulse Ox 96 10/21/23 20:00 O2 Del Method Nasal Cannula 10/21/23 20:00 O2 Flow Rate 3 10/21/23 20:00 10/21/23 14:59 Intake Total 240 / 240 Output Total Balance 240 / 240 Weight last 48 hrs Weight 90.628 kg Weight 128.094 kg Physical Exam 2 Urinary Catheter Management: Daniel: Cath Placed During This Visit: yes Reason for Continuing Indwelling Catheter: Acute Urinary Retention or Obstruction Urinary Catheter Date of Insertion: 10/21/23 Data NPU 10/22/23 04:55 10/22/23 04:55 A&P Assessment and plan (1) Major depression: Qualifiers: Active/Remission status: currently active Major depression episode severity: severe Major depression recurrence: single episode Psychotic features: without psychotic features Qualified Code(s): F32.2 - Major depressive disorder, single episode, severe without psychotic features (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: (3) HTN (hypertension): Qualifiers: Hypertension type: essential hypertension Qualified Code(s): I10 - Essential (primary) hypertension (4) CHF (congestive heart failure): (5) CAD (coronary artery disease): (6) Heart disease: (7) Hyperlipidemia: Qualifiers: Hyperlipidemia type: other hyperlipidemia Qualified Code(s): E78.49 - Other hyperlipidemia (8) Diabetes mellitus, type II: (9) Chronic hyperglycemia: (10) BMI 45.0-49.9, adult: Plan This is a 68-year-old white male with a long history of depression and significant challenges surrounding the custody of his grandchild presenting with significant depression and anxiety but denying lethality and open to medication changes. 1. Continue current medication. Except: Increased Lexapro to 30 mg p.o. daily. 2. No credible lethality noted. 3. No need for inpatient psychiatric services. Agree with discharge when medically appropriate. 4. Recommend outpatient mental health referral. 5. Will likely follow for an additional day and sign off tomorrow if no notable changes. Attestations NPU 2 Medical Necessity Statement*: N/A. Please see primary team note for medical necessity. Coding Level of Care Code Acute Code for [facility] Diagnoses Major depression F32.2 Active/Remission status: currently active Major depression episode severity: severe Major depression recurrence: single episode Psychotic features: without psychotic features Adjustment disorder with mixed disturbance of emotions and conduct F43.25 Essential hypertension I10 Hypertension type: essential hypertension Acute on chronic systolic congestive heart failure I50.9 Coronary artery disease involving [place] coronary artery of [place] heart with unstable angina pectoris I25.10 Heart disease I51.9 Other hyperlipidemia E78.49 Hyperlipidemia type: other hyperlipidemia Diabetes mellitus, type II E11.9 Chronic hyperglycemia R73.9 BMI 45.0-49.9, adult Z68.42
[2023-10-21] MEDS: trazodone 50 mg Tablet 25 MG PO (21:16)
[2023-10-21 21:17] LABS: Glucose Point of Care 174 mg/dL (70-110)
--- NOTE | 2023-10-21 22:28 | P.PN_ITS ---
Subjective 2 Subjective: She is still lacking energy. Feeling tired. Weak. Vitals/I&O/Wt Last Vital Signs Temp 98.2 F 10/21/23 20:00 Pulse 77 10/21/23 20:00 Resp 18 10/21/23 20:00 BP 129/80 10/21/23 20:00 Pulse Ox 96 10/21/23 20:00 O2 Del Method Nasal Cannula 10/21/23 20:00 O2 Flow Rate 3 10/21/23 20:00 10/21/23 10/21/23 10/21/23 06:59 14:59 22:59 Intake Total 1300.0 / 3920.0 240 / 240 300 / 540 Output Total 400 / 900 1650 / 1650 Balance 900.0 / 3020.0 240 / 240 -1350 / -1110 Weight last 48 hrs Weight 128.094 kg Weight 127.488 kg Physical Exam 2 Narrative: Awake, alert, responsive. Const: COMMON NORMALS: alert GENERAL APPEARANCE: cooperative NUTRITIONAL APPEARANCE: obese ORIENTATION/CONSCIOUSNESS: Yes awake HENMT: COMMON NORMALS: oropharynx normal Neck/C-Spine: COMMON NORMALS: no JVD Resp: COMMON NORMALS: normal respiratory effort and clear to auscultation bilaterally AUSCULTATION: clear to auscultation bilaterally Cardio: COMMON NORMALS: no JVD, regular rhythm, S1 normal heart sound present, S2 normal heart sound present and No murmurs present (Cardio) RHYTHM: regular rhythm HEART SOUNDS: S1 normal heart sound present and S2 normal heart sound present GI: COMMON NORMALS: Normal to inspection, nondistended, normoactive bowel sounds present, Soft to palpation and non-tender PALPATION: Yes Soft to palpation Extremity: COMMON NORMALS: no joint enlargement and no pedal edema Neuro: COMMON NORMALS: moves all extremities SENSORIUM/ORIENTATION: Yes alert Skin: COMMON NORMALS: no rashes or lesions noted GENERAL SKIN EXAM: no rashes or lesions noted Urinary Catheter Management: Daniel: Cath Placed During This Visit: yes Urinary Catheter Date of Insertion: 10/21/23 Data 10/21/23 05:01 10/21/23 05:01 A&P Assessment and plan (1) Major depression: Qualifiers: Active/Remission status: currently active Major depression episode severity: severe Major depression recurrence: single episode Psychotic features: without psychotic features Qualified Code(s): F32.2 - Major depressive disorder, single episode, severe without psychotic features (2) HTN (hypertension): Qualifiers: Hypertension type: essential hypertension Qualified Code(s): I10 - Essential (primary) hypertension (3) Diabetes mellitus, type II: (4) Chronic hyperglycemia: (5) BMI 45.0-49.9, adult: (6) Chronic kidney disease, stage 3b: (7) BPH loc w urin obs/LUTS: (8) History of continuous positive airway pressure (CPAP) therapy at home: (9) Sleep apnea: (10) Weakness: (11) Generalized weakness: Plan Hyperglycemia without DKA Patient has metabolic syndrome Fever: Today spiking a fever. Requested repeat blood culture. Continue linezolid. Follow-up urine culture. Reassess vitals. Hyperglycemia: Severe hyperglycemia, BG up into 500s. Risk of DKA. Reviewed accuchecks. Increase SSI. Reviewed Accu-Cheks, still hyperglycemic. Increase Lantus to 70 units. Monitor for hypoglycemia. Combined acid-base disorder. AG reviewed, worse to 17. Increased insulin as above. Treat hyperglycemia. Increase IV fluid rate. With risk for fluid overload, monitor. He feels he is still lacking energy. Lack of energy: Check CK. Hyperglycemia with good improvement with adjustment of insulin on review of Accu-Cheks. Reviewed anion gap, almost closed. Reviewed bicarb, with improvement. Additionally appears to be having UTI, Staph epidermidis on review of urine culture. Follow blood culture. Will assess kidney protocol CT. Additionally active depression, Discussed with psychiatrist. Appreciate consultation. Reviewed A1c level, noted uncontrolled diabetes, A1c 11.7. Will benefit from optimization of diabetes control and treatment of depression as he has missed insulin in the last 35 days. Follow-up with primary provider. Depression: Lexapro increased to 30 mg. Reviewed side cancer note. Patient has chronic kidney disease creatinine seems around baseline, Hypertension: amlodipine and chlorthalidone Requested to confirm home medications. Attestations 2 Medical Necessity Statement*: Continue hospitalization for assessment management of possible complicated UTI, fever, hyperglycemia, lack of energy, depression. Diagnoses Major depression F32.2 Active/Remission status: currently active Major depression episode severity: severe Major depression recurrence: single episode Psychotic features: without psychotic features Essential hypertension I10 Hypertension type: essential hypertension Diabetes mellitus, type II E11.9 Chronic hyperglycemia R73.9 BMI 45.0-49.9, adult Z68.42 Chronic kidney disease, stage 3b N18.32 BPH loc w urin obs/LUTS N40.1 History of continuous positive airway pressure (CPAP) therapy at home Z99.89 Sleep apnea G47.30 Weakness R53.1 Generalized weakness R53.1
[2023-10-21] MEDS: lactated ringers 1,000 ML 50 ML IV (23:33)
[2023-10-22] VITALS (8 sets, daily range): BP systolic 107–142; BP diastolic 61–84; PULSE 73–97; RESP 17–20; TEMP 36.3–37.3; O2SAT 93–99; BMI 32.2
[2023-10-22] MEDS: linezolid premix 600 MG/300 ML PREMIX 300 MG IV (04:30)
[2023-10-22 05:28] LABS: Basophils % 0.5 %; Eosinophils % 0.2 %; Hematocrit 46.3 % (37-53); Lymphocytes # 1.2 10^3/uL (0.8-4.8); Lymphocytes % 20.3 %; Mean Corpuscular HGB Conc 32.2 g/dL (30-55); Mean Corpuscular Hemoglobin 29.4 pg (27-33); Mean Corpuscular Volume 91.3 fl (82-101); Mean Platelet Volume 10.6 fL (7.4-10.4); Monocytes # 1.4 10^3/uL (0.2-0.9); Monocytes % 22.6 %; Neutrophils # 3.42 10^3/uL (1.8-7.7); Neutrophils % 56.1 %; Nucleated Red Blood Cells % 0 %; Platelet Count 238 10^3/cmm (157-399); Red Blood Count 5.07 10^6/uL (3.85-5.65); Red Cell Distribution Width 13.7 % (12.1-15.1)
[2023-10-22 05:47] LABS: Anion Gap 13.7 (5-19); Blood Urea Nitrogen 27 mg/dL (8-23); Calcium 8.8 mg/dL (8.5-10.5); Carbon Dioxide 29 mmol/L (22-29); Chloride 95 mmol/L (98-107); Glomerular Filtration Rate 50.2 mL/min (90-130); Glucose 121 mg/dL (65-115); Osmolality Calculated 284 mOsm/kg (285-295); Potassium 3.7 mmol/L (3.5-5.1); Sodium 134 mmol/L (136-145)
--- NOTE | 2023-10-22 06:14 | P.NPUPN_ITS ---
Subjective NPU 2 Subjective: Patient presented today reporting that things are going all right. He endorsed that he is having significant anxiety regularly. We discussed the risks, benefits and alternatives of adding BuSpar 10 mg p.o. twice daily and he understood and agreed to proceed as is documented in this note. He continues to be preoccupied with his granddaughter and worries about her making it challenging for him to just relax. Mental Status Exam 2 MSE Comments: This is a morbidly obese white male hospital gown with adequate grooming and eye contact. No abnormal movements. Cooperative with exam in mild distress. Speech was mostly normal rate and volume. Mood described as okay I guess, same as yesterday with significant anxiety, affect congruent. Thought process organized. Thought content: Patient denied suicidal or homicidal ideation, there were no delusions reported or noted, he denied any auditory or visual hallucinations. Attention and concentration appeared intact and memory appeared reliable but none were formally tested. He is alert and oriented x 3. Insight and judgment fair, impulse control fair. Vitals/I&O/Wt Last Vital Signs Temp 98.3 F 10/22/23 04:00 Pulse 90 10/22/23 04:00 Resp 18 10/22/23 04:00 BP 134/83 10/22/23 04:00 Pulse Ox 95 10/22/23 04:00 O2 Del Method Nasal Cannula 10/22/23 04:00 O2 Flow Rate 3 10/22/23 04:00 10/21/23 10/21/23 10/22/23 14:59 22:59 06:59 Intake Total 240 / 240 300 / 540 300 / 840 Output Total 1650 / 1650 350 / 2000 Balance 240 / 240 -1350 / -1110 -50 / -1160 Weight last 48 hrs Weight 90.628 kg Weight 128.094 kg Physical Exam 2 Urinary Catheter Management: Daniel: Cath Placed During This Visit: yes Reason for Continuing Indwelling Catheter: Acute Urinary Retention or Obstruction Urinary Catheter Date of Insertion: 10/21/23 Data NPU 10/22/23 04:55 10/22/23 04:55 A&P Assessment and plan (1) Major depression: Qualifiers: Active/Remission status: currently active Major depression episode severity: severe Major depression recurrence: single episode Psychotic features: without psychotic features Qualified Code(s): F32.2 - Major depressive disorder, single episode, severe without psychotic features (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: (3) HTN (hypertension): Qualifiers: Hypertension type: essential hypertension Qualified Code(s): I10 - Essential (primary) hypertension (4) CHF (congestive heart failure): (5) CAD (coronary artery disease): (6) Heart disease: (7) Hyperlipidemia: Qualifiers: Hyperlipidemia type: other hyperlipidemia Qualified Code(s): E78.49 - Other hyperlipidemia (8) Diabetes mellitus, type II: (9) Chronic hyperglycemia: (10) BMI 45.0-49.9, adult: Plan This is a 68-year-old white male with a long history of depression and significant challenges surrounding the custody of his grandchild presenting with significant depression and anxiety but denying lethality and open to medication changes. 1. Continue current medication. Except: Increased Lexapro to 30 mg p.o. daily. Add BuSpar 10 mg p.o. twice daily. 2. No credible lethality noted. 3. No need for inpatient psychiatric services. Agree with discharge when medically appropriate. 4. Recommend outpatient mental health referral. 5. Will continue to follow. Attestations NPU 2 Medical Necessity Statement*: N/A. Please see primary team note for medical necessity. Coding Level of Care Code Acute Code for [facility] Diagnoses Major depression F32.2 Active/Remission status: currently active Major depression episode severity: severe Major depression recurrence: single episode Psychotic features: without psychotic features Adjustment disorder with mixed disturbance of emotions and conduct F43.25 Essential hypertension I10 Hypertension type: essential hypertension Acute on chronic systolic congestive heart failure I50.9 Coronary artery disease involving [place] coronary artery of [place] heart with unstable angina pectoris I25.10 Heart disease I51.9 Other hyperlipidemia E78.49 Hyperlipidemia type: other hyperlipidemia Diabetes mellitus, type II E11.9 Chronic hyperglycemia R73.9 BMI 45.0-49.9, adult Z68.42
[2023-10-22 06:49] LABS: Glucose Point of Care 260 mg/dL (70-110)
--- NOTE | 2023-10-22 07:04 | PC.NURSE ---
Patient is covered up in bed with a sheet and blanket. Refuses gown. Clean gown at bedside for when patient changes his mind.
--- NOTE | 2023-10-22 08:00 | CTR_ITS ---
PROCEDURE INFORMATION: Exam: CT Abdomen And Pelvis Without Contrast Exam date and time: 10/22/2023 9:35 AM Age: 68 years old Clinical indication: Fever; Additional info: UTI, fever TECHNIQUE: Imaging protocol: Computed tomography of the abdomen and pelvis without contrast. Radiation optimization: All CT scans at this facility use at least one of these dose optimization techniques: automated exposure control; mA and/or kV adjustment per patient size (includes targeted exams where dose is matched to clinical indication); or iterative reconstruction. COMPARISON: US abdomen lmt fluid [id number] 05/30/2023 11:54 AM RADIATION DOSE METRICS: Total DLP (mGy-cm): 1256.36 FINDINGS: Lungs: Bilateral dependent atelectasis noted. There is mild bilateral peribronchial thickening in association with tiny ground-glass nodules in the left lung base and branching nodule in the right lung base, likely inflammatory in nature. Heart: Mildly enlarged heart. Coronary atherosclerotic calcifications seen. No pericardial effusion. Liver: Normal. No mass. Gallbladder and bile ducts: Normal. No calcified stones. No ductal dilation. Pancreas: Normal. No ductal dilation. Spleen: Normal. No splenomegaly. Adrenal glands: There is mild bilateral thickening of the adrenal glands, likely representing hyperplasia. Kidneys and ureters: Bilateral renal cysts noted, the largest on the right measuring 2.6 cm. There is a subcentimeter hyperdense focus along anterior aspect of the left mid to upper kidney, likely representing complex cyst with internal proteinaceous/hemorrhagic products. There is a 3 mm nonobstructing stone in the right upper kidney. No hydronephrosis. There is nonspecific mild stranding of the perirenal fat bilaterally. Stomach and bowel: Unremarkable. No obstruction. No mucosal thickening. Appendix: No evidence of appendicitis. Intraperitoneal space: Unremarkable. No free air. No significant fluid collection. Vasculature: No aortic aneurysm. No aortic dissection. Mild diffuse atherosclerotic disease is present. Lymph nodes: Unremarkable. No enlarged lymph nodes. Urinary bladder: The urinary bladder is decompressed with a Daniel catheter in place. There is diffuse thickening of the urinary bladder wall, concerning for cystitis. Reproductive: Unremarkable as visualized. Bones/joints: Degenerative changes of the spine seen. Soft tissues: Unremarkable. CT/CT kidney stone [id number] IMPRESSION: 1. Diffuse thickening of the urinary bladder wall, which given clinical history is consistent with cystitis. 2. Nonspecific mild stranding of the perirenal fat bilaterally. Pyelonephritis should be considered in the adequate clinical setting. COMMENTS: Consistent with the [employer]'s Incidental Findings Committee white paper (J Am Ras Radiol 2018): Any incidental renal lesion less than 1 cm or classified as too small to characterize, or any incidental cystic renal lesion characterized as simple-appearing, is likely benign. No follow-up imaging is recommended for these lesions per consensus recommendations based on imaging criteria.
[2023-10-22] MEDS: insulin lispro 100 unit/1 mL SUBCUT ×4 (09:12→22:08)
[2023-10-22] MEDS: heparin 5,000 unit/mL INJ 1 mL 5000 UNIT SUBCUT ×2 (09:12→22:08)
[2023-10-22] MEDS: chlorthalidone 25 mg Tablet 12.5 MG PO (09:13)
[2023-10-22] MEDS: escitalopram 10 mg Tablet 30 MG PO (09:13)
[2023-10-22] MEDS: amlodipine 10 mg Tablet PO (09:14)
[2023-10-22 11:11] LABS: Glucose Point of Care 342 mg/dL (70-110)
[2023-10-22 11:23] LABS: Glucose Point of Care 163 mg/dL (70-110)
[2023-10-22] MEDS: ciprofloxacin 400 MG/200 ML PREMIX 200 MG IV ×2 (13:14→22:09)
[2023-10-22] MEDS: BuSPIRONE 10 mg Tablet PO ×2 (13:15→17:13)
[2023-10-22 16:19] LABS: Glucose Point of Care 323 mg/dL (70-110)
[2023-10-22 21:57] LABS: Glucose Point of Care 329 mg/dL (70-110)
[2023-10-22] MEDS: insulin glargine 100 units/1 mL 70 UNIT SUBCUT (22:08)
[2023-10-22] MEDS: trazodone 50 mg Tablet 25 MG PO (22:09)
--- NOTE | 2023-10-22 23:36 | P.PN_ITS ---
Subjective 2 Subjective: He is not feeling better. Tired, lacking energy. Vitals/I&O/Wt Last Vital Signs Temp 99.2 F 10/22/23 19:51 Pulse 90 10/22/23 20:00 Resp 18 10/22/23 20:00 BP 107/65 10/22/23 19:51 Pulse Ox 94 10/22/23 20:00 O2 Del Method Nasal Cannula 10/22/23 20:00 O2 Flow Rate 2.5 10/22/23 20:00 10/22/23 10/22/23 10/23/23 14:59 22:59 06:59 Intake Total 480 / 480 2890 / 3370 Output Total 800 / 800 Balance 480 / 480 2090 / 2570 Weight last 48 hrs Weight 90.628 kg Weight 128.094 kg Physical Exam 2 Narrative: Awake, alert, responsive. Const: COMMON NORMALS: alert GENERAL APPEARANCE: cooperative NUTRITIONAL APPEARANCE: obese ORIENTATION/CONSCIOUSNESS: Yes awake HENMT: COMMON NORMALS: oropharynx normal Neck/C-Spine: COMMON NORMALS: no JVD Resp: COMMON NORMALS: normal respiratory effort and clear to auscultation bilaterally AUSCULTATION: clear to auscultation bilaterally Cardio: COMMON NORMALS: no JVD, regular rhythm, S1 normal heart sound present, S2 normal heart sound present and No murmurs present (Cardio) RHYTHM: regular rhythm HEART SOUNDS: S1 normal heart sound present and S2 normal heart sound present GI: COMMON NORMALS: Normal to inspection, nondistended, normoactive bowel sounds present, Soft to palpation and non-tender PALPATION: Yes Soft to palpation Extremity: COMMON NORMALS: no joint enlargement and no pedal edema Neuro: COMMON NORMALS: moves all extremities SENSORIUM/ORIENTATION: Yes alert Skin: COMMON NORMALS: no rashes or lesions noted GENERAL SKIN EXAM: no rashes or lesions noted Urinary Catheter Management: Daniel: Cath Placed During This Visit: yes Reason for Continuing Indwelling Catheter: Acute Urinary Retention or Obstruction Urinary Catheter Date of Insertion: 10/21/23 Data 10/22/23 04:55 10/22/23 04:55 A&P Assessment and plan (1) Major depression: Qualifiers: Active/Remission status: currently active Major depression episode severity: severe Major depression recurrence: single episode Psychotic features: without psychotic features Qualified Code(s): F32.2 - Major depressive disorder, single episode, severe without psychotic features (2) HTN (hypertension): Qualifiers: Hypertension type: essential hypertension Qualified Code(s): I10 - Essential (primary) hypertension (3) Diabetes mellitus, type II: (4) Chronic hyperglycemia: (5) BMI 45.0-49.9, adult: (6) Chronic kidney disease, stage 3b: (7) BPH loc w urin obs/LUTS: (8) History of continuous positive airway pressure (CPAP) therapy at home: (9) Sleep apnea: (10) Weakness: (11) Generalized weakness: Plan Hyperglycemia without DKA Patient has metabolic syndrome Complicated UTI: Although no additional fever since 10/21, no leukocytosis, but has not felt better with malaise, fatigue, with Staph epidermidis in urine, assessed CT abdomen pelvis kidney protocol, discussed with him finding of thickening of urinary bladder wall suggestive of UTI, as well as nonobstructive pyelonephritis suspected given his lack of improvement. No bacteremia so far. Discussed with him antibiotic switched to Cipro. Follow-up blood cultures. Fever: On 10/21, so far no additional fever. As above. Hyperglycemia: Still hyperglycemia, but morning value is 121, no room to go up on Lantus at current time. Continue high-dose sliding scale corrective insulin. Will add Premeal short acting insulin. Reassess glucose. Monitor as discussed with him insulin sensitivity may improve with improvement from UTI. Combined acid-base disorder. AG reviewed, improved. Continue to optimize treatment of hyperglycemia. Insulin as above. IVF. He feels he is still lacking energy. Lack of energy: Check CK. Hyperglycemia with good improvement with adjustment of insulin on review of Accu-Cheks. Reviewed anion gap, almost closed. Reviewed bicarb, with improvement. Additionally UTI Additionally active depression, Discussed with psychiatrist. Appreciate consultation. Reviewed A1c level, noted uncontrolled diabetes, A1c 11.7. Will benefit from optimization of diabetes control and treatment of depression as he has missed insulin in the last 35 days. Follow-up with primary provider. Depression: Lexapro increased to 30 mg. Reviewed side cancer note. Patient has chronic kidney disease creatinine seems around baseline, Hypertension: amlodipine, stop chlorthalidone Requested to confirm home medications. Attestations 2 Medical Necessity Statement*: Continue admission for assessment management of complicated UTI, difficult to control hyperglycemia. and High MDM includes number and complexity of problems actively addressed during encounter as documented Diagnoses Major depression F32.2 Active/Remission status: currently active Major depression episode severity: severe Major depression recurrence: single episode Psychotic features: without psychotic features Essential hypertension I10 Hypertension type: essential hypertension Diabetes mellitus, type II E11.9 Chronic hyperglycemia R73.9 BMI 45.0-49.9, adult Z68.42 Chronic kidney disease, stage 3b N18.32 BPH loc w urin obs/LUTS N40.1 History of continuous positive airway pressure (CPAP) therapy at home Z99.89 Sleep apnea G47.30 Weakness R53.1 Generalized weakness R53.1
[2023-10-23] VITALS (7 sets, daily range): BP systolic 110–141; BP diastolic 68–82; PULSE 67–87; RESP 17–20; TEMP 36.5–36.9; O2SAT 93–98; BMI 45.5
[2023-10-23 05:07] LABS: Basophils % 0.7 %; Eosinophils % 0.2 %; Hematocrit 42.1 % (37-53); Lymphocytes # 1.2 10^3/uL (0.8-4.8); Lymphocytes % 27.1 %; Mean Corpuscular HGB Conc 32.1 g/dL (30-55); Mean Corpuscular Hemoglobin 29.3 pg (27-33); Mean Corpuscular Volume 91.5 fl (82-101); Mean Platelet Volume 10.6 fL (7.4-10.4); Monocytes # 0.9 10^3/uL (0.2-0.9); Monocytes % 19.5 %; Neutrophils # 2.39 10^3/uL (1.8-7.7); Neutrophils % 52.3 %; Nucleated Red Blood Cells % 0 %; Platelet Count 211 10^3/cmm (157-399); Red Cell Distribution Width 13.5 % (12.1-15.1); White Blood Count 4.57 10^3/uL (3.29-11.43)
[2023-10-23 05:29] LABS: Creatine Phosphokinase 229 U/L (39-308)
[2023-10-23 05:30] LABS: Alanine Aminotransferase 26 U/L (0-41); Albumin Level 2.7 g/dL (3.5-5.2); Alkaline Phosphatase 43 U/L (40-130); Anion Gap 14.1 (5-19); Aspartate Amino Transferase 35 U/L (0-40); Blood Urea Nitrogen 30 mg/dL (8-23); Carbon Dioxide 26 mmol/L (22-29); Chloride 93 mmol/L (98-107); Glucose 174 mg/dL (65-115); Osmolality Calculated 280 mOsm/kg (285-295); Potassium 3.1 mmol/L (3.5-5.1); Sodium 130 mmol/L (136-145); Total Bilirubin 0.5 mg/dL (0.15-1.2); Total Protein 5.7 g/dL (6.6-8.7)
[2023-10-23] MEDS: lactated ringers 1,000 ML 50 ML IV (06:08)
[2023-10-23] MEDS: insulin lispro 100 unit/1 mL SUBCUT ×7 (06:08→22:00)
[2023-10-23 07:51] LABS: Glucose Point of Care 195 mg/dL (70-110)
[2023-10-23] MEDS: escitalopram 10 mg Tablet 30 MG PO (08:47)
[2023-10-23] MEDS: BuSPIRONE 10 mg Tablet PO ×2 (08:47→18:22)
[2023-10-23] MEDS: amlodipine 10 mg Tablet PO (08:47)
[2023-10-23] MEDS: heparin 5,000 unit/mL INJ 1 mL 5000 UNIT SUBCUT ×2 (08:47→22:00)
[2023-10-23 11:10] LABS: Glucose Point of Care 347 mg/dL (70-110)
[2023-10-23 11:32] LABS: Iron 19 ug/dL (59-158); Percent Saturation 11.1 % (20-50); Total Iron Binding Capacity 171 mcg/dl; Unsaturated Iron Binding 152 ug/dL (112-347)
[2023-10-23] MEDS: aspirin 81 mg EC Tablet PO (11:52)
[2023-10-23] MEDS: gabapentin 100 mg Capsule PO ×2 (11:52→18:22)
[2023-10-23] MEDS: magnesium hydroxide 30 mL UDC PO ×2 (11:52→21:59)
--- NOTE | 2023-10-23 13:08 | PM.CONSULT ---
Providers/Reason For Consult Consulting Physician/Specialty*: ISAURA Rasmussen MD/cardiology Reason for Consult*: Patient with abnormal stress test, presenting with progressive weakness; history of coronary disease and previous multivessel PCI Requesting Physician: Dr. Sosa Attending Physician: Francisco Murillo MD Primary Care Provider: Kyle Corrigan MD History of Present Illness History of Present Illness Garrett Mares is a 68 year old morbidly obese male who was admitted to the hospital the emergency room where he presented with the complaints of generalized weakness and a fall. He was found to have blood sugars in the 600 range. Apparently he also was found to be severely depressed and has not been taking insulin for almost a month. The blood sugar seems to be slowly getting under control. But the patient continues to have the feeling of weakness/fatigue. He also has a monitor shortness of breath and cough. He had a Myocardial perfusion imaging in May of last year. The perfusion scan revealed areas of fixed and reversible defects. Furthermore ischemic burden at this time compared to the previous study in 2018. This patient is a poor historian. According to him, he has been having episodes of chest pain at least once a month. He may take 1 or 2 sublingual nitro which relieves the pain. He described it as a pressure-like pain. Intensity might be mild to moderate. He has the baseline shortness of breath with activities. Denies any orthopnea or PND. No fever. Has been having a cough which is mostly dry. No fever or chills He had a cardiac catheterization in 2020. He had balloon angioplasty and stent placement in 3 of the vessels. Details as mentioned below. According to the patient, he always had chest pains even after the coronary intervention. Review of Systems Narrative: CONSTITUTIONAL: No fever or chills. Feeling of fatigue/tiredness EYES: No blurring of vision or other visual disturbances lately. ENT: No hoarseness of voice, auditory disturbances or sore throat. CARDIOVASCULAR: As mentioned above. RESPIRATORY: Shortness of breath and cough as mentioned above GASTROINTESTINAL: No hematemesis or melena. GENITOURINARY: Has a history of acute kidney injury INTEGUMENTARY: No skin rashes or history of skin cancer. NEURO: No transient ischemic attacks or amaurosis. PSYCHIATRIC: History of depressive illness HEMATOLOGIC: No bleeding disorders or significant anemia. ENDOCRINE: Diabetes is uncontrolled blood sugar, polyuria and polydipsia MUSCULOSKELETAL: No recent joint pain or swelling. ALLERGY/IMMUNOLOGY: As mentioned above. Medications/Allergies Home Medications Medication Instructions Recorded Confirmed Last Taken Type montelukast 10 mg tablet 10 mg PO BEDTIME 11/29/19 10/18/23 06/29/23 History citalopram 40 mg tablet 40 mg PO QPM 08/18/20 10/18/23 06/29/23 History aspirin 81 mg tablet,delayed 81 mg PO QAM 09/26/22 10/18/23 06/29/23 History release (Adult Low Dose Aspirin) gabapentin 100 mg capsule 100 mg PO BID 09/26/22 10/18/23 06/29/23 History insulin degludec 200 unit/mL (3 60 unit SUBCUT QAM 09/26/22 10/18/23 06/29/23 History mL) subcutaneous pen (Tresiba FlexTouch U-200 insulin) carvedilol 25 mg tablet 25 mg PO BID #180 tabs 12/26/22 10/18/23 06/29/23 Rx clopidogrel 75 mg tablet (Plavix) 75 mg PO DAILY #90 tabs 12/26/22 10/18/23 06/29/23 Rx isosorbide mononitrate 60 mg 60 mg PO BID #180 tabs 12/26/22 10/18/23 06/29/23 Rx tablet,extended release 24 hr nitroglycerin 0.4 mg sublingual 0.4 mg sublingual Q5M PRN Chest 12/26/22 10/18/23 05/28/23 Rx tablet (Nitrostat) Pain #25 tabs rosuvastatin 20 mg tablet 20 mg PO BEDTIME #90 tabs 12/26/22 10/18/23 06/29/23 Rx FreeStyle Andres 2 Sensor (flash #4 ea 04/28/23 10/18/23 Unknown Rx glucose sensor) insulin aspart U-100 100 unit/mL 40 sliding scale dose SUBCUT TID 05/28/23 10/18/23 05/28/23 History (3 mL) subcutaneous pen (Novolog FlexPen U-100 Insulin aspart) potassium chloride 10 mEq 10 meq PO BID 05/28/23 10/18/23 06/29/23 History tablet,extended release spironolactone 25 mg tablet 25 mg PO DAILY 05/28/23 10/18/23 06/29/23 History tamsulosin 0.4 mg capsule 0.4 mg PO BID 05/28/23 10/18/23 06/29/23 History furosemide 40 mg tablet 60 mg (1.5 x 40 mg) PO BID 30 days 06/03/23 10/18/23 06/29/23 Rx #90 tabs naproxen 500 mg tablet (Naprosyn) 500 mg PO BID PRN pain #20 tabs 06/30/23 10/18/23 Unknown Rx albuterol sulfate 90 mcg/actuation 2 inh inhalation Q4H PRN shortness 09/03/23 10/18/23 Unknown Rx aerosol inhaler of breath or wheezing #18 grams Allergies Allergy/AdvReac Type Severity Reaction Status Date / Time sulfabenzamide Allergy Unknown Unknown Verified 10/17/23 16:44 Sulfa (Sulfonamide Allergy Unknown Verified 10/17/23 16:44 Antibiotics) Current Medications Generic Name Dose Route Start Last Admin Trade Name Freq PRN Reason Stop Dose Admin Acetaminophen 500 mg 10/17/23 21:19 10/21/23 17:50 Acetaminophen 500 Mg Tablet PO 500 mg Q4H PRN Administration fever Amlodipine Besylate 10 mg 10/18/23 09:00 10/23/23 08:47 Amlodipine 10 Mg Tablet PO 10 mg DAILY AMADA Administration Aspirin 81 mg 10/23/23 10:55 10/23/23 11:52 Aspirin 81 Mg Ec Tablet PO 81 mg QAM AMADA Administration Buspirone HCl 10 mg 10/22/23 11:40 10/23/23 08:47 Buspirone 10 Mg Tablet PO 10 mg BID AMADA Administration Chlorthalidone 12.5 mg 10/17/23 21:25 10/22/23 09:13 Chlorthalidone 25 Mg Tablet PO 12.5 mg DAILY AMADA Administration Escitalopram Oxalate 30 mg 10/21/23 09:00 10/23/23 08:47 Escitalopram 10 Mg Tablet PO 30 mg DAILY AMADA Administration Gabapentin 100 mg 10/23/23 10:55 10/23/23 11:52 Gabapentin 100 Mg Capsule PO 100 mg BID AMADA Administration Heparin Sodium (Porcine) 5,000 unit 10/17/23 21:19 10/23/23 08:47 Heparin 5,000 Unit/Ml Inj 1 Ml SUBCUT 5,000 unit Q12H AMADA Administration Ciprofloxacin/Dextrose 400 mg in 200 mls @ 200 mls/hr 10/22/23 11:00 10/22/23 23:10 Cipro IV Infused Q12H AMADA Infusion Protocol Insulin Human Lispro 0 unit 10/20/23 12:00 10/23/23 11:53 Insulin Lispro 100 Unit/1 Ml SUBCUT 14 unit WM&BEDTIME AMADA Administration Protocol Insulin Human Lispro 5 unit 10/23/23 07:00 10/23/23 11:52 Insulin Lispro 100 Unit/1 Ml SUBCUT 5 unit AC AMADA Administration Trazodone HCl 25 mg 10/19/23 21:00 10/22/23 22:09 Trazodone 50 Mg Tablet PO 25 mg BEDTIME AMADA Administration PFSH Acute PFSH: Medical History BPH loc w urin obs/LUTS Chronic kidney disease, stage 3b Diabetic neuropathy CVA (cerebral vascular accident) BMI 45.0-49.9, adult Sleep apnea Diabetes mellitus, type II CAD (coronary artery disease) Hyperlipidemia CHF (congestive heart failure) HTN (hypertension) History of non-ST elevation myocardial infarction (NSTEMI) Surgical History S/P cervical spinal fusion S/P PTCA (percutaneous transluminal coronary angioplasty) Reports 7 stents and angioplasty x 3 Family History Mother , AT AGE 75 Hypertension Diabetes Father , AT AGE 72 Diabetes Hypertension Other CAD (coronary artery disease) Social History Smoking and tobacco/nicotine status: former use of tobacco/nicotine Alcohol intake: current Alcohol intake frequency: few times a month Substance/Drug Use: never Marital status: Current occupational status: retired Vitals/I&O/Wt Last Vital Signs Temp 97.7 F 10/23/23 11:14 Pulse 81 10/23/23 11:14 Resp 19 H 10/23/23 11:14 BP 141/82 10/23/23 11:14 Pulse Ox 97 10/23/23 11:14 O2 Del Method Nasal Cannula 10/23/23 11:14 O2 Flow Rate 2 10/23/23 09:29 10/22/23 10/23/23 10/23/23 22:59 06:59 14:59 Intake Total 2890 / 3370 548.333 / 3918.333 360 / 360 Output Total 800 / 800 1050 / 1850 Balance 2090 / 2570 -501.667 / 2068.333 360 / 360 Weight last 48 hrs Weight 281 lb 14.4 oz Weight 199 lb 12.8 oz Physical Exam Narrative: GENERAL: The patient is alert and oriented times three. Not in any acute distress. Morbidly obese HEENT: No significant pallor, icterus or lymphadenopathy.Oral cavity: There are no mucous membrane lesions. NECK: Trachea appears to be central. No masses noted. No JVD or thyromegaly appreciated. RESPIRATORY: Chest is symmetrical. No intercostals muscle retraction or any accessory muscle activation. There is no chest wall tenderness. Breath sounds are heard bilaterally. No rales or rhonchi heard. No evidence of any consolidation. BREASTS: Deferred. HEART: The heart sounds are normal. No S3 or S4. No significant murmurs. No pericardial rub ABDOMEN: No vessel pulsations or distention. No tenderness. No organomegaly appreciated. Bowel sounds are normally heard. : Deferred. RECTAL: Deferred. LYMPHATIC: No lymphadenopathy noted in the neck. EXTREMITIES: No edema or cyanosis. No clubbing. MUSCULOSKELETAL: 1+ edema both lower extremities. No cyanosis. Peripheral pulses are palpable but weak SKIN: There are no significant rashes or ecchymosis NEUROPSYCHIATRIC: The patient is alert and oriented x3. Appears to be in a good mood. No tremors or rigidity noted. Urinary Catheter Management: Daniel: Cath Placed During This Visit: yes Reason for Continuing Indwelling Catheter: Acute Urinary Retention or Obstruction Urinary Catheter Date of Insertion: 10/21/23 Data 10/23/23 04:45 10/23/23 04:45 Other Labs: Laboratory Last Values WBC 4.57 10^3/uL (3.29-11.43) 10/23/23 04:45 RBC 4.60 10^6/uL (3.85-5.65) 10/23/23 04:45 Hgb 13.50 g/dL (11.27-16.99) 10/23/23 04:45 Hct 42.1 % (37-53) 10/23/23 04:45 MCV 91.5 fl (82-101) 10/23/23 04:45 MCH 29.3 pg (27-33) 10/23/23 04:45 MCHC 32.1 g/dL (30-55) 10/23/23 04:45 RDW 13.5 % (12.1-15.1) 10/23/23 04:45 Plt Count 211 10^3/cmm (157-399) 10/23/23 04:45 MPV 10.6 fL (7.4-10.4) H 10/23/23 04:45 Neut % (Auto) 52.3 % 10/23/23 04:45 Lymph % (Auto) 27.1 % 10/23/23 04:45 [place] % (Auto) 19.5 % 10/23/23 04:45 Eos % (Auto) 0.2 % 10/23/23 04:45 Baso % (Auto) 0.7 % 10/23/23 04:45 Neut # (Auto) 2.39 10^3/uL (1.8-7.7) 10/23/23 04:45 Lymph # (Auto) 1.2 10^3/uL (0.8-4.8) 10/23/23 04:45 [place] # (Auto) 0.9 10^3/uL (0.2-0.9) 10/23/23 04:45 Eos # (Auto) 0.0 10^3/uL (0.0-0.8) 10/23/23 04:45 Baso # (Auto) 0.0 10^3/uL (0.0-0.1) 10/23/23 04:45 Nucleated RBC % (auto) 0 % 10/23/23 04:45 Nucleated RBCs # 0.0 /100WBC 10/23/23 04:45 Sodium 130 mmol/L (136-145) L 10/23/23 04:45 Potassium 3.1 mmol/L (3.5-5.1) L 10/23/23 04:45 Chloride 93 mmol/L (98-107) L 10/23/23 04:45 Carbon Dioxide 26 mmol/L (22-29) 10/23/23 04:45 Anion Gap 14.1 (5-19) 10/23/23 04:45 BUN 30 mg/dL (8-23) H 10/23/23 04:45 Creatinine 1.2 mg/dL (0.7-1.2) 10/23/23 04:45 GFR Calculation 60.0 mL/min (90-130) L 10/23/23 04:45 Glucose 174 mg/dL (65-115) H 10/23/23 04:45 POC Glucose 347 mg/dL (70-110) H 10/23/23 10:58 Estimat Average Glucose 289 10/17/23 17:27 Hemoglobin A1c 11.7 % (4.0-6.0) H 10/17/23 17:27 Calculated Osmolality 280 mOsm/kg (285-295) L 10/23/23 04:45 Calcium 8.0 mg/dL (8.5-10.5) L 10/23/23 04:45 Phosphorus 3.5 mg/dL (2.5-4.5) 10/18/23 21:13 Magnesium 2.6 mg/dL (1.7-2.3) H 10/19/23 04:52 Iron 19 ug/dL (59-158) L 10/23/23 04:45 TIBC 171 mcg/dl 10/23/23 04:45 % Saturation 11.1 % (20-50) L 10/23/23 04:45 Unsat Iron Binding 152 ug/dL (112-347) 10/23/23 04:45 Total Bilirubin 0.5 mg/dL (0.15-1.2) 10/23/23 04:45 AST 35 U/L (0-40) 10/23/23 04:45 ALT 26 U/L (0-41) 10/23/23 04:45 Alkaline Phosphatase 43 U/L (40-130) 10/23/23 04:45 Creatine Kinase 229 U/L (39-308) 10/23/23 04:45 C-Reactive Protein 12.3 mg/L (0.0-4.9) H 10/18/23 01:27 Total Protein 5.7 g/dL (6.6-8.7) L 10/23/23 04:45 Albumin 2.7 g/dL (3.5-5.2) L 10/23/23 04:45 Globulin 3.0 g/dL (1.3-4.6) 10/23/23 04:45 Vitamin B12 824 pg/mL (232-1245) 10/17/23 21:45 Procalcitonin 0.08 ng/mL (0-0.5) 10/17/23 21:45 TSH 2.08 uIU/mL (0.27-4.20) 10/17/23 21:45 Urine Color Light yellow (Yellow) 10/17/23 18:48 Urine Appearance Sl hazy (CLEAR) A 10/17/23 18:48 Urine pH 5 (5-7) 10/17/23 18:48 Ur Specific [place] 1.010 (1.005-1.030) 10/17/23 18:48 Urine Protein Neg (Negative) 10/17/23 18:48 Urine Glucose (UA) 4+ (Normal) H 10/17/23 18:48 Urine Ketones 1+ (Negative) H 10/17/23 18:48 Urine Blood Neg (Negative) 10/17/23 18:48 Urine Nitrate Positive (Negative) H 10/17/23 18:48 Urine Bilirubin Neg (Negative) 10/17/23 18:48 Urine Urobilinogen Norm mg/dL (Negative) 10/17/23 18:48 Ur Leukocyte Esterase Trace (Negative) H 10/17/23 18:48 Urine RBC 0-4 /hpf (0-2) H 10/17/23 18:48 Urine WBC 25-40 /hpf (0-5) H 10/17/23 18:48 Ur Squamous Epith Cells 0-4 /hpf (0-5) H 10/17/23 18:48 Ur Transition Epith Cell 0-4 /hpf 10/17/23 18:48 Amorphous Sediment Not Reportable 10/17/23 18:48 Urine Bacteria 1+ /hpf (NONE) H 10/17/23 18:48 Urine Mucus None /hpf 10/17/23 18:48 Nasal Influ A H1 2008 PCR Not detected (NOT DETECT) 10/19/23 12:15 Serum Ketones Negative (Negative) 10/17/23 17:16 Adenovirus (PCR) Not detected (NOT DETECT) 10/19/23 12:15 C. pneumoniae DNA (PCR) Not detected (NOT DETECT) 10/19/23 12:15 Coronavirus 229E (PCR) Not detected (NOT DETECT) 10/19/23 12:15 Human Metapneumovir PCR Not detected (NOT DETECT) 10/19/23 12:15 Influenza A (H1) PCR Not detected (NOT DETECT) 10/19/23 12:15 Influenza A (H3) PCR Not detected (NOT DETECT) 10/19/23 12:15 Influenza Type A (PCR) Not detected (NOT DETECT) 10/19/23 12:15 Influenza Type B (PCR) Not detected (NOT DETECT) 10/19/23 12:15 M. pneumoniae (PCR) Not detected (NOT DETECT) 10/19/23 12:15 Parainfluenza 1 (PCR) Not detected (NOT DETECT) 10/19/23 12:15 Parainfluenza 2 (PCR) Not detected (NOT DETECT) 10/19/23 12:15 Parainfluenza 3 (PCR) Not detected (NOT DETECT) 10/19/23 12:15 Parainfluenza 4 (PCR) Not detected (NOT DETECT) 10/19/23 12:15 RSV Type A (PCR) Not detected (NOT DETECT) 10/19/23 12:15 RSV Type B (PCR) Not detected (NOT DETECT) 10/19/23 12:15 Entero/Rhino (PCR) Not detected (NOT DETECT) 10/19/23 12:15 SARS-CoV-2 (PCR) Not detected (NOT DETECT) 10/19/23 12:15 Other data: EKG from 09/03/2023 Atrial fibrillation with a controlled ventricular response rate. Right bundle branch block. Poor R wave progression. Nonspecific T wave changes in the anterolateral leads. Possible relative of myocardial infarction. The Myocardial perfusion imaging on 05/29/2023 #1. Myocardial perfusion imaging revealing moderate to large area of persistent decreased tracer uptake in the inferior, inferolateral, apical and apical anterior regions suggesting myocardial scarring in the distribution of the left circumflex artery, right coronary artery and possible distal and descending artery. small areas of reversibility, may suggest tacho-infarction ischemia. #2 diminished LV ejection fraction 28%. #3 multiple wall motion abnormalities as mentioned above #4 moderately dilated LV cavity Compared to the study from 03/19/2018, patient appears to have more ischemic burden. The LV ejection fraction remains essentially unchanged Echocardiogram on 05/29/2023 There is a limited echocardiogram performed to assess LV systolic function. This is technically very limited quality echocardiogram with poor visualization. LV systolic function cannot be assessed as cardiac structures are not visualized Cardiac catheterization in 2020 Conclusions 1. For unstable angina patient underwent left heart cath after giving IV fluid for chronic venous renal failure in the hospital. Radial approach was switched to femoral approach due to tortuosity and difficult engagement. Please note that patient has high BMI due to body habitus body habitus image quality was not good.. 2. 1-Left main was normal2-LAD has luminal irregularity with patent previously placed ostial and proximal stent3-LCx has ostial high-grade 95% stenosis which is the culprit vessel4-RCA has chronically occluded mid segment, proximal RCA has 95% hazy stenosis. 3. There is total occlusion coronary artery disease with two vessel disease. 4. Proximal Right Coronary Artery was treated with a Balloon, and Drug Eluting Stent. 5. Proximal Circumflex was treated with a Balloon, Drug Eluting Stent, and Balloon. A&P Assessment and plan (1) Atherosclerotic heart disease of [place] coronary artery with other forms of angina pectoris: In view of the patient's ongoing symptoms of fatigue, episodes of chest pain and abnormal Myocardial perfusion imaging, in order to further evaluate the coronary status, a cardiac catheterization might be appropriate. The patient symptoms are somewhat vague. Because of his morbid obesity, the reliability of the noninvasive studies are compromised. He had LV ejection fraction of 25% even with the perfusion study in 2018. The echocardiogram could not evaluate the ejection fraction because of the lack of ultrasonic window (2) CHF (congestive heart failure): Patient has a history suggestive of congestive heart failure. He is LV ejection fraction has not changed? based on the perfusion scan from 2014 to 2022. Currently his heart failure seems to be compensated. May continue on the current medications. I have encouraged him to repeat BMP and a troponin T Qualifiers: Heart failure type: other Qualified Code(s): I50.9 - Heart failure, unspecified (3) Hyperlipidemia: May continue on the current medications Qualifiers: Hyperlipidemia type: other hyperlipidemia Qualified Code(s): E78.49 - Other hyperlipidemia (4) HTN (hypertension): Currently the blood pressure seems to be under control. Qualifiers: Hypertension type: essential hypertension Qualified Code(s): I10 - Essential (primary) hypertension (5) Major depression: Management as per the primary. Qualifiers: Active/Remission status: currently active Major depression episode severity: severe Major depression recurrence: single episode Psychotic features: without psychotic features Qualified Code(s): F32.2 - Major depressive disorder, single episode, severe without psychotic features (6) Diabetes mellitus, type II: The blood pressure seems to be getting under control. Management as per the primary. 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 Patient carries a high contrast-induced nephropathy Plan I discussed with the patient about the option of doing an angiogram. He carries a higher risk for contrast-induced nephropathy and other complications. Because of his morbid obesity the limitations of the noninvasive studies are discussed in detail. After discussing with the family members, patient has decided to hold off on any invasive procedures at this time. I may do a BNP and troponin T. Based on the results, further recommendations will be made So at this point, optimizing his medical treatment would be the plan of action. Thank you for the opportunity to evaluate this patient and make these recommendations Coding Level of Care Code 68497 Diagnoses Atherosclerotic heart disease of [place] coronary artery with other forms of angina pectoris I25.118 Other congestive heart failure I50.9 Heart failure type: other Other hyperlipidemia E78.49 Hyperlipidemia type: other hyperlipidemia Essential hypertension I10 Hypertension type: essential hypertension Major depression F32.2 Active/Remission status: currently active Major depression episode severity: severe Major depression recurrence: single episode Psychotic features: without psychotic features Type 2 diabetes mellitus with other oral complication, with long-term current use of insulin E11.638; Z79.4 Diabetes mellitus head waiter/waitress banquet insulin use: with head waiter/waitress banquet use Diabetes mellitus complication detail: with other oral complications Diabetes mellitus complication status: with oral complications Morbid obesity E66.01 Acute kidney injury N17.9
[2023-10-23] MEDS: insulin glargine 100 units/1 mL 40 UNIT SUBCUT ×2 (13:41→18:58)
[2023-10-23] MEDS: ciprofloxacin 400 MG/200 ML PREMIX IV ×2 (13:42→21:59)
--- NOTE | 2023-10-23 14:53 | ECG_ITS ---
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 Measurements Intervals [place] Rate: 80 P: 100 MS: 222 QRS: -75 QRSD: 166 T: 55 QT: 460 QTc: 533 Interpretive Statements SINUS RHYTHM WITH FIRST DEGREE AV BLOCK WITH OCCASIONAL SUPRAVENTRICULAR PREMATURE COMPLEXES RIGHT BUNDLE BRANCH BLOCK [120+ ms QRS DURATION, UPRIGHT V1, 40+ ms S IN I/aVL/V4/V5/V6] LEFT ANTERIOR FASCICULAR BLOCK [QRS AXIS <= -45, QR IN I, RS IN II] Compared to ECG 09/03/2023 15:43:40 First degree AV block now present Left anterior fascicular block now present Atrial fibrillation no longer present Myocardial infarct finding no longer present Electronically Signed On 10-23-2023 15:28:51 ENGINE DISPATCHER by Joey Barrios M.D. [email or web address]
--- NOTE | 2023-10-23 16:11 | P.NPUPN_ITS ---
Subjective NPU 2 Subjective: Patient presents today reporting that he is doing fine overall. He reports he is doing better with the medication and continues to deny any issues of lethality. He reports he is just awaiting word that his medical comorbidities have reached a significant enough resolution for him to be discharged. We discussed that I would pass along to the provider that he is feeling safe to go home but having a cough that is bothering him. He denies any side effects of the medications. Mental Status Exam 2 MSE Comments: This is a morbidly obese white male hospital gown with adequate grooming and eye contact. No abnormal movements. Cooperative with exam in mild distress. Speech was mostly normal rate and volume. Mood described as a little better, affect congruent. Thought process organized. Thought content: Patient denied suicidal or homicidal ideation, there were no delusions reported or noted, he denied any auditory or visual hallucinations. Attention and concentration appeared intact and memory appeared reliable but none were formally tested. He is alert and oriented x 3. Insight and judgment fair, impulse control fair. Vitals/I&O/Wt Last Vital Signs Temp 97.7 F 10/23/23 11:14 Pulse 81 10/23/23 11:14 Resp 19 H 10/23/23 11:14 BP 141/82 10/23/23 11:14 Pulse Ox 97 10/23/23 11:14 O2 Del Method Nasal Cannula 10/23/23 11:14 O2 Flow Rate 2 10/23/23 09:29 10/23/23 10/23/23 10/23/23 06:59 14:59 22:59 Intake Total 548.333 / 3918.333 600 / 600 Output Total 1050 / 1850 Balance -501.667 / 2068.333 600 / 600 Weight last 48 hrs Weight 127.868 kg Weight 90.628 kg Physical Exam 2 Urinary Catheter Management: Daniel: Cath Placed During This Visit: yes Reason for Continuing Indwelling Catheter: Acute Urinary Retention or Obstruction Urinary Catheter Date of Insertion: 10/21/23 Data NPU 10/23/23 04:45 10/23/23 04:45 Micro: Microbiology 10/20/23 23:40 Blood Culture - Preliminary Blood 10/20/23 23:35 Blood Culture - Preliminary Blood Microbiology 10/20/23 23:40 Blood Blood Culture - Preliminary 10/20/23 23:35 Blood Blood Culture - Preliminary A&P Assessment and plan (1) Major depression: Qualifiers: Active/Remission status: currently active Major depression episode severity: severe Major depression recurrence: single episode Psychotic features: without psychotic features Qualified Code(s): F32.2 - Major depressive disorder, single episode, severe without psychotic features (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: (3) HTN (hypertension): Qualifiers: Hypertension type: essential hypertension Qualified Code(s): I10 - Essential (primary) hypertension (4) CHF (congestive heart failure): Qualifiers: Heart failure type: other Qualified Code(s): I50.9 - Heart failure, unspecified (5) CAD (coronary artery disease): (6) Heart disease: (7) Hyperlipidemia: Qualifiers: Hyperlipidemia type: other hyperlipidemia Qualified Code(s): E78.49 - Other hyperlipidemia (8) Diabetes mellitus, type II: Qualifiers: Diabetes mellitus complication detail: with other oral complications D iabetes mellitus complication status: with oral complications 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 1. Continue current medication. Except: Increased Lexapro to 30 mg p.o. daily. Added BuSpar 10 mg p.o. twice daily. 2. No credible lethality noted. 3. No need for inpatient psychiatric services. Agree with discharge when medically appropriate. 4. Recommend outpatient mental health referral. 5. Will sign off today. Attestations NPU 2 Medical Necessity Statement*: N/A. Please see primary team note for medical necessity. Coding Level of Care Code Acute Code for [facility] Diagnoses Major depression F32.2 Active/Remission status: currently active Major depression episode severity: severe Major depression recurrence: single episode Psychotic features: without psychotic features Adjustment disorder with mixed disturbance of emotions and conduct F43.25 Essential hypertension I10 Hypertension type: essential hypertension Other congestive heart failure I50.9 Heart failure type: other Coronary artery disease involving [place] coronary artery of [place] heart with unstable angina pectoris I25.10 Heart disease I51.9 Other hyperlipidemia E78.49 Hyperlipidemia type: other hyperlipidemia Type 2 diabetes mellitus with other oral complication, with long-term current use of insulin E11.638; Z79.4 Diabetes mellitus complication detail: with other oral complications Diabetes mellitus complication status: with oral complications Diabetes mellitus alf insulin use: with petroleum terminal plant operator use Chronic hyperglycemia R73.9 BMI 45.0-49.9, adult Z68.42
--- NOTE | 2023-10-23 16:18 | PM.PN ---
Subjective Subjective: Hospital course, labs appreciated. Examination patient sitting on the chair. States he is feeling better but still feels exhausted and sluggish. Denies any nausea, vomiting, headache. States he has not had a bowel movement since admission. Saturating more than 97% on 2 L nasal cannula. Vitals/I&O/Wt Last Vital Signs Temp 97.7 F 10/23/23 11:14 Pulse 81 10/23/23 11:14 Resp 19 H 10/23/23 11:14 BP 141/82 10/23/23 11:14 Pulse Ox 97 10/23/23 11:14 O2 Del Method Nasal Cannula 10/23/23 11:14 O2 Flow Rate 2 10/23/23 09:29 10/23/23 10/23/23 10/23/23 06:59 14:59 22:59 Intake Total 548.333 / 3918.333 600 / 600 Output Total 1050 / 1850 Balance -501.667 / 2068.333 600 / 600 Weight last 48 hrs Weight 127.868 kg Weight 90.628 kg Physical Exam Narrative: Awake, alert, responsive. Const: COMMON NORMALS: alert GENERAL APPEARANCE: cooperative NUTRITIONAL APPEARANCE: obese ORIENTATION/CONSCIOUSNESS: Yes awake HENMT: COMMON NORMALS: oropharynx normal Neck/C-Spine: COMMON NORMALS: no JVD Resp: COMMON NORMALS: normal respiratory effort and clear to auscultation bilaterally AUSCULTATION: clear to auscultation bilaterally Cardio: COMMON NORMALS: no JVD, regular rhythm, S1 normal heart sound present, S2 normal heart sound present and No murmurs present (Cardio) RHYTHM: regular rhythm HEART SOUNDS: S1 normal heart sound present and S2 normal heart sound present GI: COMMON NORMALS: Normal to inspection, nondistended, normoactive bowel sounds present, Soft to palpation and non-tender PALPATION: Yes Soft to palpation Extremity: COMMON NORMALS: no joint enlargement and no pedal edema Neuro: COMMON NORMALS: moves all extremities SENSORIUM/ORIENTATION: Yes alert Skin: COMMON NORMALS: no rashes or lesions noted GENERAL SKIN EXAM: no rashes or lesions noted Urinary Catheter Management: Daniel: Cath Placed During This Visit: yes Reason for Continuing Indwelling Catheter: Acute Urinary Retention or Obstruction Urinary Catheter Date of Insertion: 10/21/23 Data 10/23/23 04:45 10/23/23 04:45 Micro: Microbiology 10/20/23 23:40 Blood Culture - Preliminary Blood 10/20/23 23:35 Blood Culture - Preliminary Blood A&P Assessment and plan (1) Generalized weakness: (2) Diabetes mellitus, type II: (3) Chronic hyperglycemia: (4) Positive cardiac stress test: (5) Atherosclerotic heart disease of [place] coronary artery with other forms of angina pectoris: (6) HTN (hypertension): Qualifiers: Hypertension type: essential hypertension Qualified Code(s): I10 - Essential (primary) hypertension (7) Chronic kidney disease, stage 3b: (8) Major depression: Qualifiers: Active/Remission status: currently active Major depression episode severity: severe Major depression recurrence: single episode Psychotic features: without psychotic features Qualified Code(s): F32.2 - Major depressive disorder, single episode, severe without psychotic features (9) BMI 45.0-49.9, adult: (10) BPH loc w urin obs/LUTS: (11) History of continuous positive airway pressure (CPAP) therapy at home: (12) Sleep apnea: (13) Weakness: Plan Generalized weakness/sluggishness: Likely a combination of UTI, chronic hyperglycemia with uncontrolled type 2 diabetes mellitus, depression leading to noncompliance and stopping of his chronic medications. Hyperglycemia has resolved. Patient started on antidepressive medications after psych evaluation. Psychiatrist team would like to follow-up as an outpatient. Patient has remained afebrile without leukocytosis for UTI. On review it does seem that patient has a positive stress test from 06/07. Patient was noncompliant to his cardiac medications. Denies any active chest pain. Discussed case with cardiology. Given no further explanation of generalized weakness and sluggishness with low EF there is a possibility of etiology being chronic angina. Will consult for possible cardiac angiogram. Positive stress test: Reviewed from 06/07. Restart home dose of baby aspirin and statin. Blood pressure mildly elevated. Will start patient on low-dose beta-alana with metoprolol 12.5 mg twice daily. Patient takes carvedilol at home. Type 2 diabetes mellitus: Uncontrolled. Noncompliant to medications. On admission concerns for metabolic syndrome with hyperglycemia without DKA. Resolved. Change Lantus to 40 units twice daily, continue with insulin sliding scale and 5 units lispro premeals. Complicated UTI: Urine culture growing Staphylococcus epidermidis. Concerns for nonobstructive pyelonephritis. Continue with IV ciprofloxacin 400 mg twice daily as per culture sensitivities. Will plan to treat overall for 10 days. SNEHAL Daniel. Follow-up blood cultures. Depression: Appreciate psychiatric recommendations. Continue with Lexapro 30 mg oral daily and BuSpar 10 mg twice daily. Out of bed to chair. Hypertension: Goal blood pressure less than 140/90 mmHg. At home patient takes carvedilol 25 mg twice daily, Imdur 60 mg daily. Blood pressure stable for now. Currently on amlodipine 10 mg daily. Hold off on amlodipine and will start beta-alana as above given history of CAD. Will try to add home dose of Imdur as well. Restart home dose of Flomax and gabapentin. Full code Carb consistent cardiac diet Heparin 5000 every 12 hourly for DVT prophylaxis Attestations Medical Necessity Statement*: Requires further hospitalization for management of generalized weakness and sluggishness in setting of positive cardiac stress test, complicated UTI, uncontrolled type 2 diabetes mellitus requiring IV antibiotics and possible cardiac angiogram. Diagnoses Generalized weakness R53.1 Diabetes mellitus, type II E11.9 Chronic hyperglycemia R73.9 Positive cardiac stress test R94.39 Atherosclerotic heart disease of [place] coronary artery with other forms of angina pectoris I25.118 Essential hypertension I10 Hypertension type: essential hypertension Chronic kidney disease, stage 3b N18.32 Major depression F32.2 Active/Remission status: currently active Major depression episode severity: severe Major depression recurrence: single episode Psychotic features: without psychotic features BMI 45.0-49.9, adult Z68.42 BPH loc w urin obs/LUTS N40.1 History of continuous positive airway pressure (CPAP) therapy at home Z99.89 Sleep apnea G47.30 Weakness R53.1
[2023-10-23 17:10] LABS: Glucose Point of Care 298 mg/dL (70-110)
[2023-10-23] MEDS: sennosides-docusate Tablet 1 TAB PO (18:22)
[2023-10-23] MEDS: potassium chloride ER 10 mEq Tablet PO (18:22)
[2023-10-23] MEDS: tamsulosin 0.4 mg Capsule PO (18:23)
[2023-10-23 21:04] LABS: Glucose Point of Care 272 mg/dL (70-110)
[2023-10-23] MEDS: trazodone 50 mg Tablet 25 MG PO (21:59)
[2023-10-23] MEDS: metoprolol tartrate 25 mg Tablet PO (21:59)
[2023-10-23] MEDS: atorvastatin 40 mg Tablet PO (21:59)
[2023-10-23 22:00] LABS: Troponin T (5th) Once 66 ng/L (0-15)
[2023-10-23 22:10] LABS: NT Pro B Type Natriuretic Pept 7625 pg/mL (0-125)
[2023-10-24] VITALS (8 sets, daily range): BP systolic 113–147; BP diastolic 57–87; PULSE 72–91; RESP 16–20; TEMP 36.4–36.8; O2SAT 92–97
[2023-10-24] MEDS: benzonatate 100 mg Capsule PO ×4 (02:01→21:17)
[2023-10-24 05:57] LABS: Basophils % 0.6 %; Eosinophils % 0.4 %; Hematocrit 42.5 % (37-53); Lymphocytes # 1.2 10^3/uL (0.8-4.8); Lymphocytes % 22.4 %; Mean Corpuscular HGB Conc 32.2 g/dL (30-55); Mean Corpuscular Hemoglobin 29.6 pg (27-33); Mean Corpuscular Volume 91.8 fl (82-101); Mean Platelet Volume 10.7 fL (7.4-10.4); Monocytes # 0.7 10^3/uL (0.2-0.9); Monocytes % 13.4 %; Neutrophils # 3.44 10^3/uL (1.8-7.7); Nucleated Red Blood Cells % 0 %; Platelet Count 230 10^3/cmm (157-399); Red Blood Count 4.63 10^6/uL (3.85-5.65); Red Cell Distribution Width 13.3 % (12.1-15.1); White Blood Count 5.45 10^3/uL (3.29-11.43)
[2023-10-24 06:20] LABS: Alanine Aminotransferase 35 U/L (0-41); Albumin Level 2.9 g/dL (3.5-5.2); Alkaline Phosphatase 47 U/L (40-130); Anion Gap 12.1 (5-19); Aspartate Amino Transferase 45 U/L (0-40); Blood Urea Nitrogen 33 mg/dL (8-23); Calcium 8.6 mg/dL (8.5-10.5); Carbon Dioxide 30 mmol/L (22-29); Chloride 95 mmol/L (98-107); Globulin 3.2 g/dL (1.3-4.6); Glomerular Filtration Rate 66.4 mL/min (90-130); Glucose 127 mg/dL (65-115); Osmolality Calculated 285 mOsm/kg (285-295); Potassium 4.1 mmol/L (3.5-5.1); Sodium 133 mmol/L (136-145); Total Bilirubin 0.4 mg/dL (0.15-1.2); Total Protein 6.1 g/dL (6.6-8.7)
[2023-10-24 06:22] LABS: Chol HDL Ratio 3.68 mg/dL (1.0-5.00); Cholesterol 114 mg/dL (0-200); HDL Cholesterol 31 mg/dL (60-100); LDL Cholesterol Calculated 63 mg/dL (50-129); Triglycerides 99 mg/dL (0-150); VLDL Cholestrol Calculation 20 mg/dL (0-30)
[2023-10-24 06:36] LABS: Glucose Point of Care 172 mg/dL (70-110)
[2023-10-24] MEDS: aspirin 81 mg EC Tablet PO (06:40)
[2023-10-24] MEDS: tamsulosin 0.4 mg Capsule PO ×2 (07:59→17:45)
[2023-10-24] MEDS: escitalopram 10 mg Tablet 30 MG PO (07:59)
[2023-10-24] MEDS: potassium chloride ER 10 mEq Tablet PO ×2 (07:59→17:45)
[2023-10-24] MEDS: metoprolol tartrate 25 mg Tablet PO ×2 (07:59→21:17)
[2023-10-24] MEDS: insulin lispro 100 unit/1 mL SUBCUT ×7 (08:00→21:22)
[2023-10-24] MEDS: insulin glargine 100 units/1 mL 40 UNIT SUBCUT ×2 (08:00→17:45)
[2023-10-24] MEDS: sennosides-docusate Tablet 1 TAB PO ×2 (08:00→17:45)
[2023-10-24] MEDS: gabapentin 100 mg Capsule PO ×2 (08:00→17:45)
[2023-10-24] MEDS: BuSPIRONE 10 mg Tablet PO ×2 (08:00→17:45)
--- NOTE | 2023-10-24 10:30 | XRR_ITS ---
PROCEDURE INFORMATION: Exam: XR Chest Exam date and time: 10/24/2023 10:58 AM Age: 68 years old Clinical indication: Cardiovascular condition or disease; Congestive heart failure (chf); Cause unknown; Type unknown; Prior surgery; Surgery date: 6+ months; Surgery type: Cardiac TECHNIQUE: Imaging protocol: Radiologic exam of the chest. Views: 1 view. COMPARISON: CR XR chest 1V portable [id number] 09/03/2023 3:39 PM FINDINGS: Lungs: Clear. Pleural spaces: No pleural effusion identified. Heart/Mediastinum: Cardiomediastinal silhouette is stable. Atherosclerotic calcification in the aortic arch. Bones/joints: No acute osseous abnormality identified. XR/XR chest 1V portable [id number] IMPRESSION: No acute cardiopulmonary abnormality identified.
[2023-10-24 11:27] LABS: Glucose Point of Care 246 mg/dL (70-110)
--- NOTE | 2023-10-24 11:38 | PM.PN ---
Subjective Subjective: Patient denies chest pain. Had stress test that is abnormal Vitals/I&O/Wt Last Vital Signs Temp 98.1 F 10/24/23 11:34 Pulse 72 10/24/23 11:34 Resp 16 10/24/23 11:34 BP 136/87 10/24/23 11:34 Pulse Ox 92 10/24/23 11:34 O2 Del Method Nasal Cannula 10/24/23 11:34 O2 Flow Rate 2 10/23/23 18:37 10/23/23 10/24/23 10/24/23 22:59 06:59 14:59 Intake Total 880 / 1480 880.833 / 2360.833 120 / 120 Output Total 1000 / 1000 850 / 1850 Balance -120 / 480 30.833 / 510.833 120 / 120 Weight last 48 hrs Weight 282 lb 6.4 oz Weight 281 lb 14.4 oz Physical Exam Narrative: GENERAL: Patient is alert, awake and oriented x3. [] NECK: No jugular vein distension. [] HEENT: No cyanosis. No icterus. No pallor. [] HEART: Regular S1 and S2. No murmur, rub or gallop. [] LUNGS: Clear to auscultate bilaterally. [] CENTRAL NERVOUS SYSTEM: Grossly nonfocal. [] EXTREMITIES: Lower extremities with 1+ edema bilaterally. Urinary Catheter Management: Daniel: Cath Placed During This Visit: yes, but has since been removed by the nurse Reason for Continuing Indwelling Catheter: Acute Urinary Retention or Obstruction Urinary Catheter Date of Insertion: 10/21/23 Urinary Catheter Time of Insertion: 02:17 Date Urinary Catheter Removed: 10/23/23 Time Urinary Catheter Discontinued: 13:30 Data 10/25/23 04:00 10/25/23 04:00 Micro: Microbiology 10/20/23 23:40 Blood Culture - Preliminary Blood 10/20/23 23:35 Blood Culture - Preliminary Blood A&P Assessment and plan (1) Atherosclerotic heart disease of [place] coronary artery with other forms of angina pectoris: Given patient's significant symptoms and stress test abnormalities, plan for coronary angiography with possible percutaneous coronary intervention. N.p.o. past midnight. Monitor renal function (2) CHF (congestive heart failure): Patient has significant CHF history. EF assessment is not accurate given morbid obesity. Echo was limited quality. Continue current medications. Qualifiers: Heart failure type: other Qualified Code(s): I50.9 - Heart failure, unspecified (3) Hyperlipidemia: Continue current medications Qualifiers: Hyperlipidemia type: other hyperlipidemia Qualified Code(s): E78.49 - Other hyperlipidemia (4) HTN (hypertension): Blood pressure is controlled. Qualifiers: Hypertension type: essential hypertension Qualified Code(s): I10 - Essential (primary) hypertension (5) Major depression: Management as per the primary. Qualifiers: Active/Remission status: currently active Major depression episode severity: severe Major depression recurrence: single episode Psychotic features: without psychotic features Qualified Code(s): F32.2 - Major depressive disorder, single episode, severe without psychotic features (6) Diabetes mellitus, type II: The blood pressure seems to be getting under control. Management as per the primary. Qualifiers: Diabetes mellitus complication detail: with other oral complications Diabetes mellitus complication status: with oral complications Diabetes mellitus long term care pharmacist insulin use: with intermediate use Qualified Code(s): E11.638 - 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; Z79.4 - terminal carman (current) use of insulin (7) Morbid obesity: (8) Acute kidney injury: Renal function has improved significantly. Plan Plan for coronary angiography with possible PCI. Risk and benefit of the procedure discussed with the patient in detail. He understands the risks and benefits and wants to proceed. Thank you for involving us with care of this patient. We will continue to follow. Please call with questions. Attestations Medical Necessity Statement*: Care expected to cross 2midnights. Coding Level of Care Code Acute Code for [facility] Diagnoses Atherosclerotic heart disease of [place] coronary artery with other forms of angina pectoris I25.118 Other congestive heart failure I50.9 Heart failure type: other Other hyperlipidemia E78.49 Hyperlipidemia type: other hyperlipidemia Essential hypertension I10 Hypertension type: essential hypertension Major depression F32.2 Active/Remission status: currently active Major depression episode severity: severe Major depression recurrence: single episode Psychotic features: without psychotic features Type 2 diabetes mellitus with other oral complication, with long-term current use of insulin E11.638; Z79.4 Diabetes mellitus complication detail: with other oral complications Diabetes mellitus complication status: with oral complications Diabetes mellitus long term care pharmacist insulin use: with long term care pharmacist use Morbid obesity E66.01 Acute kidney injury N17.9
[2023-10-24] MEDS: ciprofloxacin 400 MG/200 ML PREMIX 200 MG IV ×2 (11:47→22:57)
[2023-10-24] MEDS: heparin 5,000 unit/mL INJ 1 mL 5000 UNIT SUBCUT ×2 (11:47→21:18)
[2023-10-24] MEDS: guaiFENesin-dextromethorphan UDC 10 mL 5 ML PO ×2 (12:00→16:13)
--- NOTE | 2023-10-24 13:16 | P.PN_ITS ---
Subjective 2 Subjective: Daniel was removed yesterday. Patient retaining urine and Daniel was replaced after the 700 cc of saline was removed. Today morning seen laying comfortably in bed. Patient complaining of mild cough. Otherwise states he is feeling a lot better and feels safe to go back home. Discussed about need for angiogram. Patient is agreeable for angiogram today. Vitals/I&O/Wt Last Vital Signs Temp 98.1 F 10/24/23 11:34 Pulse 81 10/24/23 11:51 Resp 18 10/24/23 11:51 BP 136/87 10/24/23 11:34 Pulse Ox 92 10/24/23 11:51 O2 Del Method Nasal Cannula 10/24/23 11:51 O2 Flow Rate 2 10/24/23 11:51 10/23/23 10/24/23 10/24/23 22:59 06:59 14:59 Intake Total 880 / 1480 880.833 / 2360.833 240 / 240 Output Total 1000 / 1000 850 / 1850 Balance -120 / 480 30.833 / 510.833 240 / 240 Weight last 48 hrs Weight 128.094 kg Weight 127.868 kg Physical Exam 2 Narrative: Awake, alert, responsive. Const: COMMON NORMALS: alert GENERAL APPEARANCE: cooperative NUTRITIONAL APPEARANCE: obese ORIENTATION/CONSCIOUSNESS: Yes awake HENMT: COMMON NORMALS: oropharynx normal Neck/C-Spine: COMMON NORMALS: no JVD Resp: COMMON NORMALS: normal respiratory effort and clear to auscultation bilaterally AUSCULTATION: clear to auscultation bilaterally Cardio: COMMON NORMALS: no JVD, regular rhythm, S1 normal heart sound present, S2 normal heart sound present and No murmurs present (Cardio) RHYTHM: regular rhythm HEART SOUNDS: S1 normal heart sound present and S2 normal heart sound present GI: COMMON NORMALS: Normal to inspection, nondistended, normoactive bowel sounds present, Soft to palpation and non-tender PALPATION: Yes Soft to palpation Extremity: COMMON NORMALS: no joint enlargement and no pedal edema Neuro: COMMON NORMALS: moves all extremities SENSORIUM/ORIENTATION: Yes alert Skin: COMMON NORMALS: no rashes or lesions noted GENERAL SKIN EXAM: no rashes or lesions noted Urinary Catheter Management: Daniel: Cath Placed During This Visit: yes, but has since been removed by the nurse Reason for Continuing Indwelling Catheter: Acute Urinary Retention or Obstruction Urinary Catheter Date of Insertion: 10/21/23 Urinary Catheter Time of Insertion: 02:17 Date Urinary Catheter Removed: 10/23/23 Time Urinary Catheter Discontinued: 13:30 Data 10/24/23 05:28 10/24/23 05:28 Micro: Microbiology 10/21/23 18:47 Blood Culture - Preliminary Blood 10/21/23 18:54 Blood Culture - Preliminary Blood 10/20/23 23:40 Blood Culture - Preliminary Blood 10/20/23 23:35 Blood Culture - Preliminary Blood A&P Assessment and plan (1) Generalized weakness: (2) Diabetes mellitus, type II: Qualifiers: Diabetes mellitus complication detail: with other oral complications D iabetes mellitus complication status: with oral complications 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 insulin use: with custodial use Qualified Code(s): E11.638 - 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; Z79.4 - residential (current) use of insulin (3) Chronic hyperglycemia: (4) Positive cardiac stress test: (5) Atherosclerotic heart disease of [place] coronary artery with other forms of angina pectoris: (6) HTN (hypertension): Qualifiers: Hypertension type: essential hypertension Qualified Code(s): I10 - Essential (primary) hypertension (7) Chronic kidney disease, stage 3b: (8) Major depression: Qualifiers: Active/Remission status: currently active Major depression episode severity: severe Major depression recurrence: single episode Psychotic features: without psychotic features Qualified Code(s): F32.2 - Major depressive disorder, single episode, severe without psychotic features (9) BMI 45.0-49.9, adult: (10) BPH loc w urin obs/LUTS: (11) History of continuous positive airway pressure (CPAP) therapy at home: (12) Sleep apnea: (13) Weakness: Plan Generalized weakness/sluggishness: Likely a combination of UTI, chronic hyperglycemia with uncontrolled type 2 diabetes mellitus, depression leading to noncompliance and stopping of his chronic medications. Hyperglycemia has resolved. Patient started on antidepressive medications after psych evaluation. Psychiatrist team would like to follow-up as an outpatient. Patient has remained afebrile without leukocytosis for UTI. On review it does seem that patient has a positive stress test from 06/07. Patient was noncompliant to his cardiac medications. Denies any active chest pain. Discussed case with cardiology. Given no further explanation of generalized weakness and sluggishness with low EF there is a possibility of etiology being chronic angina. Will consult for possible cardiac angiogram. Positive stress test: Reviewed from 06/07. Restart home dose of baby aspirin and statin. Blood pressure mildly elevated. Will start patient on low-dose beta-alana with metoprolol 12.5 mg twice daily. Patient takes carvedilol at home. Type 2 diabetes mellitus: Uncontrolled. Noncompliant to medications. On admission concerns for metabolic syndrome with hyperglycemia without DKA. Resolved. Change Lantus to 40 units twice daily, continue with insulin sliding scale and 5 units lispro premeals. Complicated UTI: Urine culture growing Staphylococcus epidermidis. Concerns for nonobstructive pyelonephritis. Continue with IV ciprofloxacin 400 mg twice daily as per culture sensitivities. Will plan to treat overall for 10 days. DC Daniel. Follow-up blood cultures. Depression: Appreciate psychiatric recommendations. Continue with Lexapro 30 mg oral daily and BuSpar 10 mg twice daily. Out of bed to chair. Hypertension: Goal blood pressure less than 140/90 mmHg. At home patient takes carvedilol 25 mg twice daily, Imdur 60 mg daily. Blood pressure stable for now. Currently on amlodipine 10 mg daily. Hold off on amlodipine and will start beta-alana as above given history of CAD. Will try to add home dose of Imdur as well. Restart home dose of Flomax and gabapentin. Full code Carb consistent cardiac diet Heparin 5000 every 12 hourly for DVT prophylaxis Plan for today: Blood cultures so far negative. Continue with IV ciprofloxacin for staff epidermidis in urine. Plan to transition over to oral antibiotics prior to discharge. Patient will overall need a 7-day course of antibiotics. Patient failed removal of Daniel catheter yesterday. Start on Flomax 0.4 mg twice daily. Will plan for another voiding trial in next 24 hours. Discussed in detail with patient about possible need for angiogram giving low EF and recent positive stress test along with him being noncompliant with his cardiac medications. Patient is agreeable but wants to go ahead for an cardiac angiogram with intervention court bailiff or sheriff. Discussed in detail with Dr. Rasmussen and Dr. Barrios. Dr. Barrios will see the patient later in the day today for a possible cardiac angiogram tomorrow. N.p.o. after midnight if patient is agreeable later in the day as well. Continue antidepressant medications. Appreciate psych recs medications. Blood pressure stable. For cough most likely in setting of acute viral bronchitis. Check chest x-ray. Appreciate proBNP and troponin levels. Mahad Torres scheduled, Robitussin as needed. Add IV Protonix daily. Attestations 2 Medical Necessity Statement*: Requires further hospitalization for management of generalized weakness and sluggishness in setting of positive cardiac stress test in past, unstable angina, Staphylococcus epidermidis UTI. Diagnoses Generalized weakness R53.1 Type 2 diabetes mellitus with other oral complication, with long-term current use of insulin E11.638; Z79.4 Diabetes mellitus complication detail: with other oral complications Diabetes mellitus complication status: with oral complications Diabetes mellitus custodial insulin use: with custodial use Chronic hyperglycemia R73.9 Positive cardiac stress test R94.39 Atherosclerotic heart disease of [place] coronary artery with other forms of angina pectoris I25.118 Essential hypertension I10 Hypertension type: essential hypertension Chronic kidney disease, stage 3b N18.32 Major depression F32.2 Active/Remission status: currently active Major depression episode severity: severe Major depression recurrence: single episode Psychotic features: without psychotic features BMI 45.0-49.9, adult Z68.42 BPH loc w urin obs/LUTS N40.1 History of continuous positive airway pressure (CPAP) therapy at home Z99.89 Sleep apnea G47.30 Weakness R53.1
[2023-10-24] MEDS: pantoprazole 40 mg SDV IVP (16:13)
[2023-10-24 16:36] LABS: Glucose Point of Care 192 mg/dL (70-110)
[2023-10-24] MEDS: atorvastatin 40 mg Tablet PO (21:17)
[2023-10-24] MEDS: trazodone 50 mg Tablet 25 MG PO (21:17)
[2023-10-24] MEDS: magnesium hydroxide 30 mL UDC PO (21:18)
[2023-10-24 21:22] LABS: Glucose Point of Care 211 mg/dL (70-110)
[2023-10-25] VITALS (61 sets, daily range): BP systolic 92–130; BP diastolic 55–92; PULSE 58–81; RESP 16–37; TEMP 36.4–36.9; O2SAT 90–97
--- NOTE | 2023-10-25 02:12 | ECG_ITS ---
[facility] Test Date: 2023-10-25 Pat Name: Garrett Mares Department: Room: 258 Gender: Male Educational Program Director: : 1955 Requested By: Yvette Aldridge Order Number: [id number] Rosita MD: Joey Barrios M.D. Measurements Intervals [place] Rate: 66 P: 72 GA: 230 QRS: -75 QRSD: 155 T: -79 QT: 426 QTc: 447 Interpretive Statements SINUS RHYTHM WITH FIRST DEGREE AV BLOCK RIGHT BUNDLE BRANCH BLOCK [120+ ms QRS DURATION, UPRIGHT V1, 40+ ms S IN I/aVL/V4/V5/V6] LEFT ANTERIOR FASCICULAR BLOCK [QRS AXIS <= -45, QR IN I, RS IN II] INFERIOR MYOCARDIAL INFARCTION , OF INDETERMINATE AGE [40+ ms Q WAVE AND/OR ST/T ABNORMALITY IN II/aVF] Compared to ECG 10/23/2023 14:53:49 Myocardial infarct finding now present Electronically Signed On 10-25-2023 9:34:40 MANAGER RADIO by Joey Barrios M.D. [id number]
--- NOTE | 2023-10-25 02:17 | PC.NURSE ---
Pt c/o of minor chest pain at approximately 0210. V/s taken 97.7, 65, 110/76, 92% 2L NC. Pain described as sharp w/o radiation. Denies SOB, back pain, arm pain, or shoulder/jaw pain. Pt has a hx of cardiac disease. Scheduled for angiogram later this am. Bedside EKG performed and resulted as normal. Hospitalist notified of chest pain and bedside EKG results. No new orders at this time. Pt reports chest pain has subsided at this time
[2023-10-25 04:17] LABS: Basophils % 0.4 %; Eosinophils % 0.1 %; Hematocrit 44.2 % (37-53); Lymphocytes # 1.2 10^3/uL (0.8-4.8); Lymphocytes % 17.3 %; Mean Corpuscular HGB Conc 31.7 g/dL (30-55); Mean Corpuscular Hemoglobin 29.3 pg (27-33); Mean Corpuscular Volume 92.5 fl (82-101); Mean Platelet Volume 10.5 fL (7.4-10.4); Monocytes % 14.7 %; Neutrophils # 4.55 10^3/uL (1.8-7.7); Neutrophils % 67.2 %; Nucleated Red Blood Cells % 0 %; Platelet Count 247 10^3/cmm (157-399); Red Blood Count 4.78 10^6/uL (3.85-5.65); Red Cell Distribution Width 13.2 % (12.1-15.1); White Blood Count 6.78 10^3/uL (3.29-11.43)
[2023-10-25 04:36] LABS: Alanine Aminotransferase 40 U/L (0-41); Albumin Level 3.1 g/dL (3.5-5.2); Alkaline Phosphatase 60 U/L (40-130); Anion Gap 12.3 (5-19); Aspartate Amino Transferase 47 U/L (0-40); Blood Urea Nitrogen 30 mg/dL (8-23); Calcium 8.7 mg/dL (8.5-10.5); Carbon Dioxide 29 mmol/L (22-29); Chloride 95 mmol/L (98-107); Globulin 3.5 g/dL (1.3-4.6); Glucose 120 mg/dL (65-115); Osmolality Calculated 281 mOsm/kg (285-295); Potassium 4.3 mmol/L (3.5-5.1); Sodium 132 mmol/L (136-145); Total Bilirubin 0.5 mg/dL (0.15-1.2); Total Protein 6.6 g/dL (6.6-8.7)
[2023-10-25 05:11] LABS: Slide Review Slide Review Perform
--- NOTE | 2023-10-25 06:00 | XACV_ITS ---
Exam Room: [facility] Ht: 168 cm Wt: 128 kg BSA: 2.51 m2 Gender: Male : 1955 Any Known Allergies: Sulfa Exam Priority: Routine Procedure(s): Procedure Description: Diagnostic procedure Procedure Description: Left Heart Catheterization Procedure Description: Left ventriculography Procedure Description: Coronary Angiography Diagnostic Cath Status: Urgent Diagnostic Findings * INDICATION: LV dysfunction/abnormal stress test/chest pain. * Left Main has no significant disease. * Left Anterior Descending has patent prior stents. Has diffuse mild to moderate luminal irregularities. * Circumflex has patent prior stent. Diffuse moderate disease distally. * Proximal Right Coronary Artery:Chronic total occlusion, [place]: 0 flow. Collaterals seen from contralateral side. * Coronary angiography shows right dominance. Conclusions 1. 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 Patent prior stents in the LAD and left circumflex artery.. 3. Severe left ventricular systolic dysfunction. Ejection fraction of 15%. Recommendations * Aggressive risk factor modification. * Guideline directed heart failure therapy. * Outpatient cardiology follow up in 2 weeks. Interventional RX Recommendation: medical therapy and/or counseling Diagnostic RX Recommendation: medical therapy and/or counseling Anticoagulation: Heparin Ventriculography Ejection Fraction: 15.0 % Pressures Phase:Rest AO : 125 / 62 ( 81 ) @ 10:00:00 AM 130 / 71 ( 92 ) @ 10:09:00 AM LV : 126 / 8 / 32 @ 10:07:00 AM 130 / 14 / 36 @ 10:09:00 AM Clinical Evaluation EBL: 5mL-10mL Procedural Details Procedure Consent Obtained. Admit Source: In Patient. Pre-Procedure Time Out. Identified patient by full name and date of as verbalized by the patient/guarantor. Does the consent match the physician's order: Yes. Accurate & Complete Informed Consent: Yes. Inpatient/Outpatient History & Physical on Chart: Yes. If H&P is completed, is and addenduem needed: Yes; If yes, is the addendum complete: N/A. Visualize and Verify Site with Patient/Guarantor: N/A. Relevant Radiology Images available: N/A. The risks, benefits, and alternatives of sedation and/or procedure were discussed by physician. The patient agrees to continue. Procedure started. RT arrived to give breathing treatment for wheezing. [facility] Clinical Fraility Score: 6: Moderately Frail. Clip Loading Machine Feeder Indications: Worsening Angina. Chest Pain Symptom Assessment: Typical Angina Symptoms. Current diagnosis: Chest Pain, Abnormal stress test. PERRLA. Strong, equal hand mattress filling machine tender bilaterally. Lungs wheezing x 5 lobes. IV Fluids: 0.9% NaCl at KVO. 0 mL infused prior to medical lab technologist. Pre Procedural Pulses: bilateral radial was 2+. Pre Procedural Pulses: bilateral dorsalis pedis was Doppled. Pre Procedural Pulses: bilateral posterior tibial was Doppled. Oxygen started at 2liters/min via nasal canula. right radial was prepped with chloroprep then draped in the usual sterile fashion. right groin was prepped with chloroprep then draped in the usual sterile fashion. Physician notified. Baseline sample Acquired. HR: 37 BPM. Physician arrived. Physician scrubbed in. Immediate Pre-Procedure Time Out. Correct Patient: Yes; Correct Procedure: Yes; Correct Site: Yes; Correct Patient Position: Yes; Correct Supplies: Yes; Dried Flammable Prep: Yes; Blood Products Available: Yes;. Lidocaine 1% infiltrated to the right radial. Arterial access obtained. A 5 grenadian TIG catheter in over wire. Multiple views taken of left coronary artery. Catheter redirected to the RCA. Multiple views taken of right coronary artery. Catheter removed over the exchange wire. A 5 grenadian Angled Pig catheter in over wire. EDP Sample taken: LV 126/8,32; HR: 78 BPM; SpO2: 90%. LV gram performed in [place] @ 10 mL/second for a total of 30 mL. EDP Sample taken: LV 130/14,36; HR: 65 BPM; SpO2: 91%. Pullback taken: LV Off; AO Off; Mean: , Peak to Peak: , SEP: ; HR: 53 BPM; SpO2: 94%. Catheter removed over the exchange wire. Wire out. Physician scrubbed out. Post Procedure: Pulses reassessed and unchanged. PERRLA. Strong, equal hand mattress filling machine tender bilaterally. No VTE prophylaxis required. A TR Band was successful obtaining hemostatsis at the Right Radial artery insertion site. Medication's Wasted: Lidocaine 1% = 1 mL. Medication's Wasted: Other = Fentanyl 75mcg, Versed 1 mg. Medication's Wasted: Nitro = 49.8 mg. Medication's Wasted: Heparin = 1000 unit. Medication's Wasted: Other = furosemide 60 mg. Total IV fluids: 13 mL. Post-op diagnosis: PATIENT SERVICES COORDINATOR RCA. Complications: none. Estimated blood loss: 5mL-10mL. Responsiveness - Normal response to verbal stimuli; alert and oriented, PERRLA. Airway - Unaffected, no intervention required; spontaneous ventilation. Circulation: W/N/L, pulses unchanged. Nausea/Vomiting: No. Procedure completed. Patient transferred by stretcher to CPRU. Vital chart was stopped. Access Site Site: Right Radial artery Sheath Size: 6 Fr Hemostasis Method: TR Band Hemostasis Success: Successful Procedure Medications Start: 9:54 AM Stop: 9:54 AM Medication: Versed Amount: 1 mg Route: I.V. Start: 9:58 AM Stop: 9:58 AM Medication: Nitrogylcerin Amount: 200 mcg Route: I.A. Start: 9:58 AM Stop: 9:58 AM Medication: Fentanyl Amount: 25 mcg Route: I.V. Start: 10:00 AM Stop: 10:00 AM Medication: Heparin Amount: 5000 units Route: I.V. Start: 10:09 AM Stop: 10:09 AM Medication: Lasix (furosemide) Amount: 40 mg Route: I.V. I, the attending physician, have reviewed and verified all procedure medications. Yes, all medications given per verbal order History/Risk Factors Hypertension: Yes Dyslipidemia: Yes Peripheral Arterial Disease (PAD): No Myocardial Infarction (MO): Yes Obesity: No Renal Disease: No Prior Interventions PCI: Yes CABG: No Valve Surgery: No Date of PCI: 08/25/2021 Report Signatures Finalized by Joey Barrios MD on 11/08/2023 09:10 AM
[2023-10-25] MEDS: aspirin 81 mg EC Tablet PO (06:29)
[2023-10-25 06:45] LABS: Glucose Point of Care 102 mg/dL (70-110)
--- NOTE | 2023-10-25 07:09 | PM.PN ---
Subjective Subjective: Patient had coronary angiogram performed today. He has MEETING COORDINATOR of RCA. His left circumflex artery stent has moderate in-stent restenosis. LAD is patent. Cardiac function on LV gram is severely reduced with EF of around 15%. Denies chest pain today. Still has shortness of breath. Vitals/I&O/Wt Last Vital Signs Temp 97.6 F 10/25/23 04:00 Pulse 66 10/25/23 04:00 Resp 18 10/25/23 04:00 BP 111/74 10/25/23 04:00 Pulse Ox 93 10/25/23 04:00 O2 Del Method Nasal Cannula 10/25/23 04:00 O2 Flow Rate 2 10/24/23 16:58 10/24/23 10/25/23 10/25/23 22:59 06:59 14:59 Intake Total 200 / 640 Output Total 950 / 950 200 / 1150 Balance -950 / -510 0 / -510 Weight last 48 hrs Weight 282 lb 8 oz Weight 282 lb 6.4 oz Physical Exam Narrative: GENERAL: Patient is alert, awake and oriented x3. [] NECK: No jugular vein distension. [] HEENT: No cyanosis. No icterus. No pallor. [] HEART: Regular S1 and S2. No murmur, rub or gallop. [] LUNGS: Clear to auscultate bilaterally. [] CENTRAL NERVOUS SYSTEM: Grossly nonfocal. [] EXTREMITIES: Lower extremities with 1+ edema bilaterally. Urinary Catheter Management: Daniel: Cath Placed During This Visit: yes, but has since been removed by the nurse Reason for Continuing Indwelling Catheter: Acute Urinary Retention or Obstruction Urinary Catheter Date of Insertion: 10/21/23 Urinary Catheter Time of Insertion: 02:17 Date Urinary Catheter Removed: 10/23/23 Time Urinary Catheter Discontinued: 13:30 Data 10/25/23 04:00 10/26/23 03:14 Micro: Microbiology 10/21/23 18:47 Blood Culture - Preliminary Blood 10/21/23 18:54 Blood Culture - Preliminary Blood A&P Assessment and plan (1) Atherosclerotic heart disease of [place] coronary artery with other forms of angina pectoris: Patient has MEETING COORDINATOR of RCA. Left circumflex artery and LAD are patent. Aggressive medical therapy and risk factor modification. (2) CHF (congestive heart failure): EF on LV gram is severely reduced and is 15%. Optimal medical therapy. Uptitrate beta-alana. Start Entresto prior to discharge. LVEDP was elevated. Continue diuresis. Qualifiers: Heart failure type: other Qualified Code(s): I50.9 - Heart failure, unspecified (3) Hyperlipidemia: Continue current medications Qualifiers: Hyperlipidemia type: other hyperlipidemia Qualified Code(s): E78.49 - Other hyperlipidemia (4) HTN (hypertension): Blood pressure is controlled. Qualifiers: Hypertension type: essential hypertension Qualified Code(s): I10 - Essential (primary) hypertension (5) Major depression: Management as per the primary. Qualifiers: Active/Remission status: currently active Major depression episode severity: severe Major depression recurrence: single episode Psychotic features: without psychotic features Qualified Code(s): F32.2 - Major depressive disorder, single episode, severe without psychotic features (6) Diabetes mellitus, type II: The blood pressure seems to be getting under control. Management as per the primary. 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 Plan Thank you for involving us with care of this patient. We will continue to follow. Please call with questions. Attestations Medical Necessity Statement*: Care expected to cross 2 midnights. Coding Level of Care Code Acute Code for [facility] Diagnoses Atherosclerotic heart disease of [place] coronary artery with other forms of angina pectoris I25.118 Other congestive heart failure I50.9 Heart failure type: other Other hyperlipidemia E78.49 Hyperlipidemia type: other hyperlipidemia Essential hypertension I10 Hypertension type: essential hypertension Major depression F32.2 Active/Remission status: currently active Major depression episode severity: severe Major depression recurrence: single episode Psychotic features: without psychotic features Type 2 diabetes mellitus with other oral complication, with long-term current use of insulin E11.638; Z79.4 Diabetes mellitus complication detail: with other oral complications Diabetes mellitus complication status: with oral complications Diabetes mellitus intermediate frame tender insulin use: with senior care use Morbid obesity E66.01 Acute kidney injury N17.9
[2023-10-25] MEDS: tamsulosin 0.4 mg Capsule PO ×2 (08:10→17:47)
[2023-10-25] MEDS: escitalopram 10 mg Tablet 30 MG PO (08:11)
[2023-10-25] MEDS: sennosides-docusate Tablet 1 TAB PO ×2 (08:11→17:47)
[2023-10-25] MEDS: BuSPIRONE 10 mg Tablet PO ×2 (08:11→17:46)
[2023-10-25] MEDS: gabapentin 100 mg Capsule PO ×2 (08:11→17:47)
[2023-10-25] MEDS: pantoprazole 40 mg SDV IVP (08:11)
[2023-10-25] MEDS: benzonatate 100 mg Capsule PO ×3 (08:11→22:23)
[2023-10-25] MEDS: potassium chloride ER 10 mEq Tablet PO ×2 (08:11→17:44)
[2023-10-25] MEDS: metoprolol tartrate 25 mg Tablet PO (08:32)
[2023-10-25] MEDS: heparin 5,000 unit/mL INJ 1 mL 5000 UNIT SUBCUT ×2 (08:32→22:23)
[2023-10-25] MEDS: insulin glargine 100 units/1 mL 40 UNIT SUBCUT (08:32)
[2023-10-25] MEDS: ipratropium-albuterol 3 mL Neb INHALATION (09:49)
--- NOTE | 2023-10-25 09:50 | W.PM.OPSUD ---
Surgery/Procedure H&P Update DATE OF PROCEDURE: October 25, 2023 DATE H&P PERFORMED: 10/23/23 H&P UPDATE INFORMATION: I have reviewed H&P completed within last 30 days, I have examined patient prior to procedure and Changes to prior documentation as noted here CHANGES TO PREVIOUS DOCUMENTATION: Given patient is on and off chest pain symptoms and previous stress test with abnormality on it along with LV dysfunction, decision made to proceed with coronary angiography. PREOP DIAGNOSIS: LV dysfunction/abnormal stress test/chest pain PRIMARY INDICATION FOR PROCEDURE: LV dysfunction/abnormal stress test/chest pain PLANNED PROCEDURE: Left heart cath with possible percutaneous coronary intervention PATIENT REASSESSED PRIOR TO SEDATION, WITH NO CHANGE NOTED: Yes PHYSICAL EXAM: alert, oriented x 3 and regular rate & rhythm OTHER PERTINENT EXAM FINDINGS: Diminished air entry bilaterally. AIRWAY EVAL/ANESTHESIA PLAN: normal airway, ASA III, Local Anesthesia, Risks, benefits & alternatives of sedation and/or procedure discussed and Patient agrees to continue as planned ADDITIONAL INFORMATION: Moderate sedation
--- NOTE | 2023-10-25 10:20 | PC.NURSE ---
Recovery Note Pt arrived to CPRU room 3 for recovery until appropriate floor bed available. Pt placed on bedside monitoring and evaluation advisor. Breathing is even and non-labored on 3L NC. Drowsy and oriented. arouses to verbal stimuli. TR band to right wrist. TR site asymptomatic. No signs of bleeding/hematoma. Call light in reach.
[2023-10-25 11:27] LABS: Glucose Point of Care 158 mg/dL (70-110)
[2023-10-25] MEDS: ciprofloxacin 400 MG/200 ML PREMIX 200 MG IV ×2 (11:45→23:31)
[2023-10-25] MEDS: insulin lispro 100 unit/1 mL SUBCUT ×3 (12:15→17:44)
--- NOTE | 2023-10-25 12:59 | PC.NURSE ---
Pt respositioned on left side.
--- NOTE | 2023-10-25 13:27 | P.PN_ITS ---
Subjective 2 Subjective: No acute events overnight. Patient denies any chest pain. Continues to remain on 3 L of oxygen supplementation. Underwent cardiac catheterization. Complete report not available though patient has been advised medical management. Patient also found to have an EF of 10 to 15% with elevated LVEDP. Vitals/I&O/Wt Last Vital Signs Temp 98.0 F 10/25/23 07:50 Pulse 70 10/25/23 13:00 Resp 19 H 10/25/23 13:00 BP 115/74 10/25/23 13:00 Pulse Ox 92 10/25/23 12:15 O2 Del Method Nasal Cannula 10/25/23 11:00 O2 Flow Rate 3 10/25/23 11:00 10/24/23 10/25/23 10/25/23 22:59 06:59 14:59 Intake Total 200 / 640 200 / 200 Output Total 950 / 950 200 / 1150 875 / 875 Balance -950 / -510 0 / -510 -675 / -675 Weight last 48 hrs Weight 128.14 kg Weight 128.094 kg Physical Exam 2 Narrative: Awake, alert, responsive. Const: COMMON NORMALS: alert GENERAL APPEARANCE: cooperative NUTRITIONAL APPEARANCE: obese ORIENTATION/CONSCIOUSNESS: Yes awake HENMT: COMMON NORMALS: oropharynx normal Neck/C-Spine: COMMON NORMALS: no JVD Resp: COMMON NORMALS: normal respiratory effort and clear to auscultation bilaterally AUSCULTATION: clear to auscultation bilaterally Cardio: COMMON NORMALS: no JVD, regular rhythm, S1 normal heart sound present, S2 normal heart sound present and No murmurs present (Cardio) RHYTHM: regular rhythm HEART SOUNDS: S1 normal heart sound present and S2 normal heart sound present GI: COMMON NORMALS: Normal to inspection, nondistended, normoactive bowel sounds present, Soft to palpation and non-tender PALPATION: Yes Soft to palpation Extremity: COMMON NORMALS: no joint enlargement and no pedal edema Neuro: COMMON NORMALS: moves all extremities SENSORIUM/ORIENTATION: Yes alert Skin: COMMON NORMALS: no rashes or lesions noted GENERAL SKIN EXAM: no rashes or lesions noted Urinary Catheter Management: Daniel: Cath Placed During This Visit: yes, but has since been removed by the nurse Reason for Continuing Indwelling Catheter: Acute Urinary Retention or Obstruction Urinary Catheter Date of Insertion: 10/21/23 Urinary Catheter Time of Insertion: 02:17 Date Urinary Catheter Removed: 10/23/23 Time Urinary Catheter Discontinued: 13:30 Data 10/25/23 04:00 10/25/23 04:00 Micro: Microbiology 10/21/23 18:47 Blood Culture - Preliminary Blood 10/21/23 18:54 Blood Culture - Preliminary Blood A&P Assessment and plan (1) Atherosclerotic heart disease of [place] coronary artery with other forms of angina pectoris: (2) CHF (congestive heart failure): Qualifiers: Heart failure type: other Qualified Code(s): I50.9 - Heart failure, unspecified (3) Chronic kidney disease, stage 3b: (4) Generalized weakness: (5) Diabetes mellitus, type II: Qualifiers: Diabetes mellitus complication detail: with other oral complications D iabetes mellitus complication status: with oral complications Diabetes mellitus buttermaker helper insulin use: with buttermaker helper use Qualified Code(s): E11.638 - 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; 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 (6) Chronic hyperglycemia: (7) HTN (hypertension): Qualifiers: Hypertension type: essential hypertension Qualified Code(s): I10 - Essential (primary) hypertension (8) Major depression: Qualifiers: Active/Remission status: currently active Major depression episode severity: severe Major depression recurrence: single episode Psychotic features: without psychotic features Qualified Code(s): F32.2 - Major depressive disorder, single episode, severe without psychotic features (9) Sleep apnea: (10) History of continuous positive airway pressure (CPAP) therapy at home: (11) Weakness: (12) BMI 45.0-49.9, adult: (13) BPH loc w urin obs/LUTS: (14) Positive cardiac stress test: Plan History of CAD/positive stress test: Appreciate cardiology recommendations. Underwent cardiac catheterization. Plan for medical management. Continue with baby aspirin, atorvastatin 40 mg daily. Switch from metoprolol to tartrate to carvedilol 6.25 mg twice daily. Appreciate A1c, lipid panel. Systolic congestive heart failure: Echocardiogram shows poor windows. LV gram during catheterization shows EF of 10 to 15%. LVEDP high more than 30. Strict improper charting, daily weights. Fluid restriction up to 1500 cc. IV Lasix 40 mg daily. Monitor electrolytes. Daniel catheterization. Monitor renal functions. Plan to uptitrate medications as per guideline directed medical therapy for congestive heart failure Generalized weakness/sluggishness: Most likely in setting of severe congestive heart failure with a EF of 10 to 15% in setting of CAD along with likely combination of UTI, chronic hyperglycemia with uncontrolled type 2 diabetes mellitus, depression leading to noncompliance and stopping of his chronic medications. Hyperglycemia has resolved. Patient started on antidepressive medications after psych evaluation. Psychiatrist team would like to follow-up as an outpatient. Patient has remained afebrile without leukocytosis for UTI. Type 2 diabetes mellitus: Uncontrolled. Noncompliant to medications. On admission concerns for metabolic syndrome with hyperglycemia without DKA. Resolved. Change Lantus to 40 units twice daily, continue with insulin sliding scale and 5 units lispro premeals. Complicated UTI: Urine culture growing Staphylococcus epidermidis. Concerns for nonobstructive pyelonephritis. Continue with IV ciprofloxacin 400 mg twice daily as per culture sensitivities. Will plan to treat overall for 10 days. Continue Daniel catheterization. Follow-up blood cultures. Depression: Appreciate psychiatric recommendations. Continue with Lexapro 30 mg oral daily and BuSpar 10 mg twice daily. Out of bed to chair. Hypertension: Goal blood pressure less than 140/90 mmHg. At home patient takes carvedilol 25 mg twice daily, Imdur 60 mg daily. Blood pressure stable for now. Currently on amlodipine 10 mg daily. Hold off on amlodipine and will start beta-alana as above given history of CAD. Will try to add home dose of Imdur as well. Restart home dose of Flomax and gabapentin. Full code Carb consistent cardiac diet Heparin 5000 every 12 hourly for DVT prophylaxis Attestations 2 Medical Necessity Statement*: Garrett Mares is being changed to inpatient status as stay will now exceed 2 midnights. Ongoing hospital care is necessary for severe congestive heart failure with elevated LVEDP and LV function of 10 to 15% leading to generalized weakness and sluggishness, uncontrolled type 2 diabetes mellitus in a patient with positive stress test Diagnoses Atherosclerotic heart disease of [place] coronary artery with other forms of angina pectoris I25.118 Other congestive heart failure I50.9 Heart failure type: other Chronic kidney disease, stage 3b N18.32 Generalized weakness R53.1 Type 2 diabetes mellitus with other oral complication, with long-term current use of insulin E11.638; Z79.4 Diabetes mellitus complication detail: with other oral complications Diabetes mellitus complication status: with oral complications Diabetes mellitus buttermaker helper insulin use: with [facility] use Chronic hyperglycemia R73.9 Essential hypertension I10 Hypertension type: essential hypertension Major depression F32.2 Active/Remission status: currently active Major depression episode severity: severe Major depression recurrence: single episode Psychotic features: without psychotic features Sleep apnea G47.30 History of continuous positive airway pressure (CPAP) therapy at home Z99.89 Weakness R53.1 BMI 45.0-49.9, adult Z68.42 BPH loc w urin obs/LUTS N40.1 Positive cardiac stress test R94.39
--- NOTE | 2023-10-25 13:45 | PC.NURSE ---
TR band 1125- 2 ml air removed from right radial TR band. Site asymptomatic. Radial pulse palpable. 1140 -2 ml air removed from right radial TR band. Site asymptomatic. Radial pulse palpable. 1150 - 2 ml air removed from right radial TR band. Site asymptomatic. Radial pulse palpable. 1210 - 2 ml air removed from right radial TR band. Site asymptomatic. Radial pulse palpable. 1230 - 1 ml air removed from right radial TR band. Site asymptomatic. Radial pulse palpable. 1245 - 2 ml air removed from right radial TR band. Site asymptomatic. Radial pulse palpable. 1315 - 2 ml air removed from right radial TR band. Site asymptomatic. Radial pulse palpable. 1325 - 2 ml air removed from right radial TR band. Site asymptomatic. Radial pulse palpable.
--- NOTE | 2023-10-25 13:47 | PC.NURSE ---
Called report to BENNY Thurman. Pt transported to [facility] room 106 via stretcher.
[2023-10-25 16:44] LABS: Glucose Point of Care 129 mg/dL (70-110)
[2023-10-25] MEDS: carvedilol 6.25 mg Tablet PO (17:47)
[2023-10-25] MEDS: FUROsemide 10 mg/mL SDV 4mL 40 MG IVP (18:13)
[2023-10-25 22:17] LABS: Glucose Point of Care 77 mg/dL (70-110)
[2023-10-25] MEDS: trazodone 50 mg Tablet 25 MG PO (22:23)
[2023-10-25] MEDS: atorvastatin 40 mg Tablet PO (22:23)
[2023-10-25] MEDS: magnesium hydroxide 30 mL UDC PO (22:25)
[2023-10-26] VITALS (21 sets, daily range): BP systolic 103–132; BP diastolic 65–92; PULSE 58–88; RESP 16–29; TEMP 36.4–36.7; O2SAT 91–96
[2023-10-26] MEDS: ipratropium-albuterol 3 mL Neb INHALATION ×2 (01:54→11:08)
[2023-10-26 04:28] LABS: Alanine Aminotransferase 33 U/L (0-41); Albumin Level 2.9 g/dL (3.5-5.2); Alkaline Phosphatase 53 U/L (40-130); Blood Urea Nitrogen 34 mg/dL (8-23); Calcium 8.6 mg/dL (8.5-10.5); Carbon Dioxide 34 mmol/L (22-29); Chloride 96 mmol/L (98-107); Globulin 3.3 g/dL (1.3-4.6); Glomerular Filtration Rate 54.7 mL/min (90-130); Glucose 99 mg/dL (65-115); Osmolality Calculated 292 mOsm/kg (285-295); Sodium 137 mmol/L (136-145); Total Bilirubin 0.5 mg/dL (0.15-1.2); Total Protein 6.2 g/dL (6.6-8.7)
[2023-10-26 04:31] LABS: Anion Gap 11.1 (5-19); Aspartate Amino Transferase 37 U/L (0-40); Potassium 4.1 mmol/L (3.5-5.1)
[2023-10-26] MEDS: aspirin 81 mg EC Tablet PO (05:25)
[2023-10-26 06:07] LABS: Glucose Point of Care 104 mg/dL (70-110)
--- NOTE | 2023-10-26 08:02 | P.PN_ITS ---
Subjective 2 Subjective: Patient is doing well. No chest pain. Vitals/I&O/Wt Last Vital Signs Temp 97.9 F 10/26/23 07:17 Pulse 65 10/26/23 07:17 Resp 28 H 10/26/23 07:17 BP 109/65 10/26/23 07:17 Pulse Ox 92 10/26/23 07:17 O2 Del Method Nasal Cannula 10/26/23 07:17 O2 Flow Rate 2 10/26/23 01:54 10/25/23 10/26/23 10/26/23 22:59 06:59 14:59 Intake Total 650 / 1050 200 / 1250 Output Total 950 / 1825 550 / 2375 Balance -300 / -775 -350 / -1125 Weight last 48 hrs Weight 281 lb Weight 282 lb 8 oz Physical Exam 2 Narrative: GENERAL: Patient is alert, awake and oriented x3. [] NECK: No jugular vein distension. [] HEENT: No cyanosis. No icterus. No pallor. [] HEART: Regular S1 and S2. No murmur, rub or gallop. [] LUNGS: Clear to auscultate bilaterally. [] CENTRAL NERVOUS SYSTEM: Grossly nonfocal. [] EXTREMITIES: Lower extremities with 1+ edema bilaterally. 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 Left circumflex artery and LAD are patent. We will continue with dual anti-platelet therapy (2) CHF (congestive heart failure): EF on LV gram is severely reduced and is 15%. Patient has diuresed well. Creatinine went up. Monitor. If stable at time of discharge, we will start entresto. Qualifiers: Heart failure type: other Qualified Code(s): I50.9 - Heart failure, unspecified (3) Hyperlipidemia: Continue current medications Qualifiers: Hyperlipidemia type: other hyperlipidemia Qualified Code(s): E78.49 - Other hyperlipidemia (4) HTN (hypertension): Blood pressure is controlled. Qualifiers: Hypertension type: essential hypertension Qualified Code(s): I10 - Essential (primary) hypertension (5) Major depression: Management as per the primary. Qualifiers: Active/Remission status: currently active Major depression episode severity: severe Major depression recurrence: single episode Psychotic features: without psychotic features Qualified Code(s): F32.2 - Major depressive disorder, single episode, severe without psychotic features (6) Diabetes mellitus, type II: The blood pressure seems to be getting under control. Management as per the primary. 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 Went up today. Plan Thank you for involving us with care of this patient. We will continue to follow. Please call with questions. Attestations 2 Medical Necessity Statement*: Care expected to cross 2 midnights. Coding Level of Care Code Acute Code for [facility] Diagnoses Atherosclerotic heart disease of [place] coronary artery with other forms of angina pectoris I25.118 Other congestive heart failure I50.9 Heart failure type: other Other hyperlipidemia E78.49 Hyperlipidemia type: other hyperlipidemia Essential hypertension I10 Hypertension type: essential hypertension Major depression F32.2 Active/Remission status: currently active Major depression episode severity: severe Major depression recurrence: single episode Psychotic features: without psychotic features Type 2 diabetes mellitus with other oral complication, with long-term current use of insulin E11.638; Z79.4 Diabetes mellitus complication detail: with other oral complications Diabetes mellitus complication status: with oral complications Diabetes mellitus mcfp insulin use: with technician terminal and repeater use Morbid obesity E66.01 Acute kidney injury N17.9
[2023-10-26] MEDS: benzonatate 100 mg Capsule PO ×3 (09:18→20:33)
[2023-10-26] MEDS: tamsulosin 0.4 mg Capsule PO ×2 (09:18→17:30)
[2023-10-26] MEDS: potassium chloride ER 10 mEq Tablet PO ×2 (09:18→17:30)
[2023-10-26] MEDS: BuSPIRONE 10 mg Tablet PO ×2 (09:18→17:30)
[2023-10-26] MEDS: carvedilol 6.25 mg Tablet PO ×2 (09:18→17:30)
[2023-10-26] MEDS: heparin 5,000 unit/mL INJ 1 mL 5000 UNIT SUBCUT ×2 (09:19→20:33)
[2023-10-26] MEDS: escitalopram 10 mg Tablet 30 MG PO (09:19)
[2023-10-26] MEDS: gabapentin 100 mg Capsule PO ×2 (09:19→17:30)
[2023-10-26] MEDS: FUROsemide 10 mg/mL SDV 4mL 40 MG IVP (09:19)
[2023-10-26] MEDS: sennosides-docusate Tablet 1 TAB PO ×2 (09:19→17:30)
[2023-10-26] MEDS: pantoprazole 40 mg SDV IVP (09:19)
[2023-10-26 11:39] LABS: Glucose Point of Care 260 mg/dL (70-110)
[2023-10-26] MEDS: insulin glargine 100 units/1 mL 40 UNIT SUBCUT ×2 (12:44→17:30)
[2023-10-26] MEDS: ciprofloxacin 400 MG/200 ML PREMIX 200 MG IV ×2 (12:44→22:29)
[2023-10-26] MEDS: insulin lispro 100 unit/1 mL SUBCUT ×5 (12:45→20:34)
--- NOTE | 2023-10-26 16:19 | PM.PN ---
Subjective Subjective: No events overnight. Patient sitting comfortably. Denies any nausea vomiting, headache. States feeling slightly better. Hemodynamically remained stable. Urine output of 2300 cc in last 24 hours. Vitals/I&O/Wt Last Vital Signs Temp 97.6 F 10/26/23 11:22 Pulse 67 10/26/23 14:00 Resp 26 H 10/26/23 11:22 BP 132/92 10/26/23 11:22 Pulse Ox 95 10/26/23 11:22 O2 Del Method Nasal Cannula 10/26/23 11:22 O2 Flow Rate 2 10/26/23 08:00 10/26/23 10/26/23 10/26/23 06:59 14:59 22:59 Intake Total 200 / 1250 840 / 840 Output Total 550 / 2375 1300 / 1300 Balance -350 / -1125 -460 / -460 Weight last 48 hrs Weight 127.459 kg Weight 128.14 kg Physical Exam Narrative: Awake, alert, responsive. Const: COMMON NORMALS: alert GENERAL APPEARANCE: cooperative NUTRITIONAL APPEARANCE: obese ORIENTATION/CONSCIOUSNESS: Yes awake HENMT: COMMON NORMALS: oropharynx normal Neck/C-Spine: COMMON NORMALS: no JVD Resp: COMMON NORMALS: normal respiratory effort and clear to auscultation bilaterally AUSCULTATION: clear to auscultation bilaterally Cardio: COMMON NORMALS: no JVD, regular rhythm, S1 normal heart sound present, S2 normal heart sound present and No murmurs present (Cardio) RHYTHM: regular rhythm HEART SOUNDS: S1 normal heart sound present and S2 normal heart sound present GI: COMMON NORMALS: Normal to inspection, nondistended, normoactive bowel sounds present, Soft to palpation and non-tender PALPATION: Yes Soft to palpation Extremity: COMMON NORMALS: no joint enlargement and no pedal edema Neuro: COMMON NORMALS: moves all extremities SENSORIUM/ORIENTATION: Yes alert Skin: COMMON NORMALS: no rashes or lesions noted GENERAL SKIN EXAM: no rashes or lesions noted Urinary Catheter Management: Daniel: Cath Placed During This Visit: yes, but has since been removed by the nurse Reason for Continuing Indwelling Catheter: Accurate Measurement of Urinary Output in Critically Ill Patients Urinary Catheter Date of Insertion: 10/21/23 Urinary Catheter Time of Insertion: 02:17 Date Urinary Catheter Removed: 10/23/23 Time Urinary Catheter Discontinued: 13:30 Data 10/25/23 04:00 10/26/23 03:14 A&P Assessment and plan (1) Atherosclerotic heart disease of [place] coronary artery with other forms of angina pectoris: (2) CHF (congestive heart failure): Qualifiers: Heart failure type: other Qualified Code(s): I50.9 - Heart failure, unspecified (3) Chronic kidney disease, stage 3b: (4) Generalized weakness: (5) Diabetes mellitus, type II: Qualifiers: Diabetes mellitus complication detail: with other oral complications Diabetes mellitus complication status: with oral complications Diabetes mellitus alf insulin use: with alf use Qualified Code(s): E11.638 - 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; Z79.4 - [facility] (current) use of insulin (6) Chronic hyperglycemia: (7) HTN (hypertension): Qualifiers: Hypertension type: essential hypertension Qualified Code(s): I10 - Essential (primary) hypertension (8) Major depression: Qualifiers: Active/Remission status: currently active Major depression episode severity: severe Major depression recurrence: single episode Psychotic features: without psychotic features Qualified Code(s): F32.2 - Major depressive disorder, single episode, severe without psychotic features (9) Sleep apnea: (10) History of continuous positive airway pressure (CPAP) therapy at home: (11) Weakness: (12) BMI 45.0-49.9, adult: (13) BPH loc w urin obs/LUTS: (14) Positive cardiac stress test: Plan History of CAD/positive stress test: Appreciate cardiology recommendations. Underwent cardiac catheterization. Plan for medical management. Continue with baby aspirin, atorvastatin 40 mg daily. Switch from metoprolol to tartrate to carvedilol 6.25 mg twice daily. Appreciate A1c, lipid panel. Systolic congestive heart failure: Echocardiogram shows poor windows. LV gram during catheterization shows EF of 10 to 15%. LVEDP high more than 30. Strict improper charting, daily weights. Fluid restriction up to 1500 cc. IV Lasix 40 mg daily. Monitor electrolytes. Daniel catheterization. Monitor renal functions. Plan to uptitrate medications as per guideline directed medical therapy for congestive heart failure Generalized weakness/sluggishness: Most likely in setting of severe congestive heart failure with a EF of 10 to 15% in setting of CAD along with likely combination of UTI, chronic hyperglycemia with uncontrolled type 2 diabetes mellitus, depression leading to noncompliance and stopping of his chronic medications. Hyperglycemia has resolved. Patient started on antidepressive medications after psych evaluation. Psychiatrist team would like to follow-up as an outpatient. Patient has remained afebrile without leukocytosis for UTI. Type 2 diabetes mellitus: Uncontrolled. Noncompliant to medications. On admission concerns for metabolic syndrome with hyperglycemia without DKA. Resolved. Change Lantus to 40 units twice daily, continue with insulin sliding scale and 5 units lispro premeals. Complicated UTI: Urine culture growing Staphylococcus epidermidis. Concerns for nonobstructive pyelonephritis. Continue with IV ciprofloxacin 400 mg twice daily as per culture sensitivities. Will plan to treat overall for 10 days. Continue Daniel catheterization. Follow-up blood cultures. Depression: Appreciate psychiatric recommendations. Continue with Lexapro 30 mg oral daily and BuSpar 10 mg twice daily. Out of bed to chair. Hypertension: Goal blood pressure less than 140/90 mmHg. At home patient takes carvedilol 25 mg twice daily, Imdur 60 mg daily. Blood pressure stable for now. Currently on amlodipine 10 mg daily. Hold off on amlodipine and will start beta-alana as above given history of CAD. Will try to add home dose of Imdur as well. Restart home dose of Flomax and gabapentin. Full code Carb consistent cardiac diet Heparin 5000 every 12 hourly for DVT prophylaxis Plan for the day: Appreciate cardiac catheterization results. Appreciate cardiology recommendations. Continue with aggressive IV diuresis while monitoring renal functions. IV 40 Lasix once daily. Fluid restriction up to 1500 cc. Monitor renal functions daily. If renal function remains stable we will plan to add Entresto within next 24 hours. Continue with Coreg 6.25 mg twice daily. Continue ciprofloxacin to finish a 7 to 10-day course. Keep Daniel for now. Replete potassium. Attestations Medical Necessity Statement*: Requires further hospitalization for management of congestive heart failure with a EF of 15% secondary ischemic cardiomyopathy while guideline directed medical therapy is uptitrated Diagnoses Atherosclerotic heart disease of [place] coronary artery with other forms of angina pectoris I25.118 Other congestive heart failure I50.9 Heart failure type: other Chronic kidney disease, stage 3b N18.32 Generalized weakness R53.1 Type 2 diabetes mellitus with other oral complication, with long-term current use of insulin E11.638; Z79.4 Diabetes mellitus complication detail: with other oral complications Diabetes mellitus complication status: with oral complications Diabetes mellitus alf insulin use: with ad terminal makeup operator use Chronic hyperglycemia R73.9 Essential hypertension I10 Hypertension type: essential hypertension Major depression F32.2 Active/Remission status: currently active Major depression episode severity: severe Major depression recurrence: single episode Psychotic features: without psychotic features Sleep apnea G47.30 History of continuous positive airway pressure (CPAP) therapy at home Z99.89 Weakness R53.1 BMI 45.0-49.9, adult Z68.42 BPH loc w urin obs/LUTS N40.1 Positive cardiac stress test R94.39
[2023-10-26 16:42] LABS: Glucose Point of Care 317 mg/dL (70-110)
[2023-10-26 20:16] LABS: Glucose Point of Care 229 mg/dL (70-110)
[2023-10-26] MEDS: trazodone 50 mg Tablet 25 MG PO (20:33)
[2023-10-26] MEDS: magnesium hydroxide 30 mL UDC PO (20:33)
[2023-10-26] MEDS: atorvastatin 40 mg Tablet PO (20:33)
[2023-10-26] MEDS: guaiFENesin-dextromethorphan UDC 10 mL 5 ML PO (20:37)
[2023-10-26] MEDS: ALPRAZolam 0.5 mg Tablet 0.25 MG PO (22:28)
[2023-10-27] VITALS (12 sets, daily range): BP systolic 117–175; BP diastolic 68–94; PULSE 54–79; RESP 18–23; TEMP 36.4–36.9; O2SAT 95–98
[2023-10-27 05:05] LABS: Alanine Aminotransferase 27 U/L (0-41); Albumin Level 2.9 g/dL (3.5-5.2); Alkaline Phosphatase 59 U/L (40-130); Anion Gap 10.7 (5-19); Aspartate Amino Transferase 27 U/L (0-40); Blood Urea Nitrogen 38 mg/dL (8-23); Calcium 8.8 mg/dL (8.5-10.5); Carbon Dioxide 35 mmol/L (22-29); Chloride 96 mmol/L (98-107); Globulin 3.4 g/dL (1.3-4.6); Glomerular Filtration Rate 50.2 mL/min (90-130); Glucose 53 mg/dL (65-115); Osmolality Calculated 293 mOsm/kg (285-295); Potassium 3.7 mmol/L (3.5-5.1); Sodium 138 mmol/L (136-145); Total Bilirubin 0.4 mg/dL (0.15-1.2); Total Protein 6.3 g/dL (6.6-8.7)
[2023-10-27] MEDS: aspirin 81 mg EC Tablet PO (05:48)
[2023-10-27 06:14] LABS: Glucose Point of Care 51 mg/dL (70-110)
[2023-10-27 06:53] LABS: Glucose Point of Care 57 mg/dL (70-110)
[2023-10-27 08:41] LABS: Glucose Point of Care 70 mg/dL (70-110)
--- NOTE | 2023-10-27 08:41 | PM.PN ---
Subjective Subjective: Patient is doing well. no chest pain. Vitals/I&O/Wt Last Vital Signs Temp 97.7 F 10/27/23 04:08 Pulse 54 L 10/27/23 08:33 Resp 18 10/27/23 08:33 BP 142/93 10/27/23 04:08 Pulse Ox 95 10/27/23 08:33 O2 Del Method Nasal Cannula 10/27/23 08:33 O2 Flow Rate 3 10/27/23 08:33 10/26/23 10/27/23 10/27/23 22:59 06:59 14:59 Intake Total 510 / 1350 430 / 1780 Output Total 540 / 1840 1350 / 3190 Balance -30 / -490 -920 / -1410 Weight last 48 hrs Weight 280 lb 6.4 oz Weight 281 lb Physical Exam Narrative: GENERAL: Patient is alert, awake and oriented x3. [] NECK: No jugular vein distension. [] HEENT: No cyanosis. No icterus. No pallor. [] HEART: Regular S1 and S2. No murmur, rub or gallop. [] LUNGS: Clear to auscultate bilaterally. [] CENTRAL NERVOUS SYSTEM: Grossly nonfocal. [] EXTREMITIES: Lower extremities with 1+ edema bilaterally. Urinary Catheter Management: Daniel: Cath Placed During This Visit: yes, but has since been removed by the nurse Reason for Continuing Indwelling Catheter: Accurate Measurement of Urinary Output in Critically Ill Patients Urinary Catheter Date of Insertion: 10/21/23 Urinary Catheter Time of Insertion: 02:17 Date Urinary Catheter Removed: 10/23/23 Time Urinary Catheter Discontinued: 13:30 Data 10/25/23 04:00 10/27/23 04:00 A&P Assessment and plan (1) Atherosclerotic heart disease of [place] coronary artery with other forms of angina pectoris: Angiogram did not show significant changes from before. Continue current medications. (2) CHF (congestive heart failure): EF on LV gram is severely reduced and is 15%. He is diuresing well. Has mild increase in BUN and creatinine. Continue IV diuresis for today Qualifiers: Heart failure type: other Qualified Code(s): I50.9 - Heart failure, unspecified (3) Hyperlipidemia: Continue current medications Qualifiers: Hyperlipidemia type: other hyperlipidemia Qualified Code(s): E78.49 - Other hyperlipidemia (4) HTN (hypertension): Blood pressure is controlled. Qualifiers: Hypertension type: essential hypertension Qualified Code(s): I10 - Essential (primary) hypertension (5) Major depression: Management as per the primary. Qualifiers: Active/Remission status: currently active Major depression episode severity: severe Major depression recurrence: single episode Psychotic features: without psychotic features Qualified Code(s): F32.2 - Major depressive disorder, single episode, severe without psychotic features (6) Diabetes mellitus, type II: The blood pressure seems to be getting under control. Management as per the primary. Qualifiers: Diabetes mellitus complication detail: with other oral complications Diabetes mellitus complication status: with oral complications Diabetes mellitus ad terminal makeup operator insulin use: with ad terminal makeup operator use Qualified Code(s): E11.638 - 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; Z79.4 - correction (current) use of insulin (7) Morbid obesity: (8) Acute kidney injury: Monitor renal function. Plan Thank you for involving us with care of this patient. We will continue to follow. Please call with questions. Attestations Medical Necessity Statement*: Care expected to cross 2 midnights. Coding Level of Care Code Acute Code for [facility] Diagnoses Atherosclerotic heart disease of [place] coronary artery with other forms of angina pectoris I25.118 Other congestive heart failure I50.9 Heart failure type: other Other hyperlipidemia E78.49 Hyperlipidemia type: other hyperlipidemia Essential hypertension I10 Hypertension type: essential hypertension Major depression F32.2 Active/Remission status: currently active Major depression episode severity: severe Major depression recurrence: single episode Psychotic features: without psychotic features Type 2 diabetes mellitus with other oral complication, with long-term current use of insulin E11.638; Z79.4 Diabetes mellitus complication detail: with other oral complications Diabetes mellitus complication status: with oral complications Diabetes mellitus ad terminal makeup operator insulin use: with [facility] use Morbid obesity E66.01 Acute kidney injury N17.9
[2023-10-27] MEDS: gabapentin 100 mg Capsule PO ×2 (09:59→18:24)
[2023-10-27] MEDS: heparin 5,000 unit/mL INJ 1 mL 5000 UNIT SUBCUT ×2 (10:00→20:57)
[2023-10-27] MEDS: potassium chloride ER 10 mEq Tablet PO ×2 (10:00→18:24)
[2023-10-27] MEDS: sennosides-docusate Tablet 1 TAB PO ×2 (10:00→18:25)
[2023-10-27] MEDS: tamsulosin 0.4 mg Capsule PO ×2 (10:00→18:25)
[2023-10-27] MEDS: BuSPIRONE 10 mg Tablet PO ×2 (10:00→18:25)
[2023-10-27] MEDS: carvedilol 6.25 mg Tablet PO ×2 (10:00→18:25)
[2023-10-27] MEDS: FUROsemide 10 mg/mL SDV 4mL 40 MG IVP ×2 (10:00→18:24)
[2023-10-27] MEDS: escitalopram 10 mg Tablet 30 MG PO (10:00)
[2023-10-27] MEDS: benzonatate 100 mg Capsule PO ×3 (10:00→20:54)
[2023-10-27] MEDS: pantoprazole 40 mg SDV IVP (10:01)
[2023-10-27] MEDS: ciprofloxacin 400 MG/200 ML PREMIX 200 MG IV ×2 (10:11→22:36)
[2023-10-27 11:07] LABS: Glucose Point of Care 115 mg/dL (70-110)
--- NOTE | 2023-10-27 11:20 | PC.SOCIAL ---
IMM Update pg 2 of IMM updated and reviewed w/ patient. Copy signed and copy dated, initialed and placed in chart. Copy provided to the patient.
--- NOTE | 2023-10-27 12:15 | PM.PN ---
Subjective Subjective: No acute events overnight. Patient has remained hemodynamically stable and afebrile. Blood pressures today morning slightly elevated. He states he had a restless night and was not able to sleep until he got Xanax after which she slept really well. Denies any nausea, ting, headache. Seems to be having good urine output with IV Lasix today. Sitting up in chair on examination. Plan to work with physical therapy. Had episodes of hypoglycemia earlier today morning. Patient's blood sugars on review were pretty high yesterday evening up to 300. Vitals/I&O/Wt Last Vital Signs Temp 98.2 F 10/27/23 08:00 Pulse 54 L 10/27/23 08:33 Resp 18 10/27/23 08:33 BP 175/94 10/27/23 08:00 Pulse Ox 95 10/27/23 08:33 O2 Del Method Nasal Cannula 10/27/23 08:33 O2 Flow Rate 3 10/27/23 08:33 10/26/23 10/27/23 10/27/23 22:59 06:59 14:59 Intake Total 510 / 1350 430 / 1780 Output Total 540 / 1840 1350 / 3190 Balance -30 / -490 -920 / -1410 Weight last 48 hrs Weight 127.187 kg Weight 127.459 kg Physical Exam Narrative: Awake, alert, responsive. Const: COMMON NORMALS: alert GENERAL APPEARANCE: cooperative NUTRITIONAL APPEARANCE: obese ORIENTATION/CONSCIOUSNESS: Yes awake HENMT: COMMON NORMALS: oropharynx normal Neck/C-Spine: COMMON NORMALS: no JVD Resp: COMMON NORMALS: normal respiratory effort and clear to auscultation bilaterally AUSCULTATION: clear to auscultation bilaterally Cardio: COMMON NORMALS: no JVD, regular rhythm, S1 normal heart sound present, S2 normal heart sound present and No murmurs present (Cardio) RHYTHM: regular rhythm HEART SOUNDS: S1 normal heart sound present and S2 normal heart sound present GI: COMMON NORMALS: Normal to inspection, nondistended, normoactive bowel sounds present, Soft to palpation and non-tender PALPATION: Yes Soft to palpation Extremity: COMMON NORMALS: no joint enlargement and no pedal edema Neuro: COMMON NORMALS: moves all extremities SENSORIUM/ORIENTATION: Yes alert Skin: COMMON NORMALS: no rashes or lesions noted GENERAL SKIN EXAM: no rashes or lesions noted Urinary Catheter Management: Daniel: Cath Placed During This Visit: yes, but has since been removed by the nurse Reason for Continuing Indwelling Catheter: Accurate Measurement of Urinary Output in Critically Ill Patients Urinary Catheter Date of Insertion: 10/21/23 Urinary Catheter Time of Insertion: 02:17 Date Urinary Catheter Removed: 10/23/23 Time Urinary Catheter Discontinued: 13:30 Data 10/25/23 04:00 10/27/23 04:00 Micro: Microbiology 10/20/23 23:40 Blood Culture - Final Blood 10/20/23 23:35 Blood Culture - Final Blood A&P Assessment and plan (1) Atherosclerotic heart disease of [place] coronary artery with other forms of angina pectoris: (2) CHF (congestive heart failure): Qualifiers: Heart failure type: other Qualified Code(s): I50.9 - Heart failure, unspecified (3) Chronic kidney disease, stage 3b: (4) Generalized weakness: (5) Diabetes mellitus, type II: Qualifiers: Diabetes mellitus complication detail: with other oral complications Diabetes mellitus complication status: with oral complications Diabetes mellitus ocean transportation intermediary insulin use: with [facility] use Qualified Code(s): E11.638 - 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; Z79.4 - adjunct faculty for medical terminology (current) use of insulin (6) Chronic hyperglycemia: (7) HTN (hypertension): Qualifiers: Hypertension type: essential hypertension Qualified Code(s): I10 - Essential (primary) hypertension (8) Major depression: Qualifiers: Active/Remission status: currently active Major depression episode severity: severe Major depression recurrence: single episode Psychotic features: without psychotic features Qualified Code(s): F32.2 - Major depressive disorder, single episode, severe without psychotic features (9) Sleep apnea: (10) History of continuous positive airway pressure (CPAP) therapy at home: (11) Weakness: (12) BMI 45.0-49.9, adult: (13) BPH loc w urin obs/LUTS: (14) Positive cardiac stress test: Plan History of CAD/positive stress test: Appreciate cardiology recommendations. Underwent cardiac catheterization. Plan for medical management. Continue with baby aspirin, atorvastatin 40 mg daily, Coreg 6.25 mg twice daily. Appreciate A1c, lipid panel. Systolic congestive heart failure: Echocardiogram shows poor windows. LV gram during catheterization shows EF of 10 to 15%. LVEDP high more than 30. Strict input and output charting, daily weights. Fluid restriction up to 1500 cc. Patient's electrolytes have remained stable though creatinine slightly trending up. Urine output seems to be improving. Switch from IV Lasix to oral Lasix 40 mg daily. Continue with Daniel catheterization. Monitor renal functions. Plan to uptitrate medications as per guideline directed medical therapy for congestive heart failure gradually. Patient already on beta-alana and Lasix. Will plan to add spironolactone before discharge if renal functions remained stable. Plan to add Entresto as an outpatient. Generalized weakness/sluggishness: Most likely in setting of severe congestive heart failure with a EF of 10 to 15% in setting of CAD along with likely combination of UTI, chronic hyperglycemia with uncontrolled type 2 diabetes mellitus, depression leading to noncompliance and stopping of his chronic medications. Hyperglycemia has resolved. Patient started on antidepressive medications after psych evaluation. Psychiatrist team would like to follow-up as an outpatient. Patient has remained afebrile without leukocytosis for UTI. Type 2 diabetes mellitus: Uncontrolled. Noncompliant to medications. Episode of hypoglycemia earlier today morning. On admission concerns for metabolic syndrome with hyperglycemia without DKA. Resolved. For now change Lantus to 40 units nightly. Continue with insulin sliding scale. Stop 5 units lispro premeals. Hypertension: Goal blood pressure less than 140/90 mmHg. Blood pressure is elevated today. At home patient takes carvedilol 25 mg twice daily, Imdur 60 mg daily. Continue with Coreg 6.25 mg twice daily. Will add Imdur 30 mg twice daily for now. Uptitrate as for goal blood pressures. Complicated UTI: Urine culture growing Staphylococcus epidermidis. Concerns for nonobstructive pyelonephritis. Continue with IV ciprofloxacin 400 mg twice daily as per culture sensitivities. Will plan to treat overall for 10 days. Continue Daniel catheterization. Follow-up blood cultures. Depression: Appreciate psychiatric recommendations. Continue with Lexapro 30 mg oral daily and BuSpar 10 mg twice daily. Out of bed to chair. Full code Carb consistent cardiac diet Heparin 5000 every 12 hourly for DVT prophylaxis Attestations Medical Necessity Statement*: Requires further hospitalization for management of congestive heart failure in a patient with EF of 10 to 15% while renal functions are closely monitored Diagnoses Atherosclerotic heart disease of [place] coronary artery with other forms of angina pectoris I25.118 Other congestive heart failure I50.9 Heart failure type: other Chronic kidney disease, stage 3b N18.32 Generalized weakness R53.1 Type 2 diabetes mellitus with other oral complication, with long-term current use of insulin E11.638; Z79.4 Diabetes mellitus complication detail: with other oral complications Diabetes mellitus complication status: with oral complications Diabetes mellitus [facility] insulin use: with ocean transportation intermediary use Chronic hyperglycemia R73.9 Essential hypertension I10 Hypertension type: essential hypertension Major depression F32.2 Active/Remission status: currently active Major depression episode severity: severe Major depression recurrence: single episode Psychotic features: without psychotic features Sleep apnea G47.30 History of continuous positive airway pressure (CPAP) therapy at home Z99.89 Weakness R53.1 BMI 45.0-49.9, adult Z68.42 BPH loc w urin obs/LUTS N40.1 Positive cardiac stress test R94.39
[2023-10-27 17:10] LABS: Glucose Point of Care 363 mg/dL (70-110)
[2023-10-27 17:11] LABS: Anion Gap 13.1 (5-19); Blood Urea Nitrogen 37 mg/dL (8-23); Calcium 8.7 mg/dL (8.5-10.5); Carbon Dioxide 30 mmol/L (22-29); Chloride 94 mmol/L (98-107); Glomerular Filtration Rate 54.7 mL/min (90-130); Glucose 334 mg/dL (65-115); Osmolality Calculated 298 mOsm/kg (285-295); Potassium 4.1 mmol/L (3.5-5.1); Sodium 133 mmol/L (136-145)
[2023-10-27] MEDS: insulin lispro 100 unit/1 mL SUBCUT ×2 (18:25→21:46)
[2023-10-27] MEDS: trazodone 50 mg Tablet 75 MG PO (20:53)
[2023-10-27] MEDS: atorvastatin 40 mg Tablet PO (20:54)
[2023-10-27] MEDS: guaiFENesin-dextromethorphan UDC 10 mL 5 ML PO (20:57)
[2023-10-27 21:14] LABS: Glucose Point of Care 358 mg/dL (70-110)
[2023-10-27] MEDS: insulin glargine 100 units/1 mL 40 UNIT SUBCUT (21:47)
[2023-10-28] VITALS (10 sets, daily range): BP systolic 131–147; BP diastolic 52–76; PULSE 59–77; RESP 16–22; TEMP 36.5–36.7; O2SAT 93–98
[2023-10-28 03:24] LABS: Basophils % 0.4 %; Eosinophils # 0.1 10^3/uL (0.0-0.8); Eosinophils % 2.3 %; Hematocrit 43.4 % (37-53); Lymphocytes # 1.4 10^3/uL (0.8-4.8); Lymphocytes % 25.6 %; Mean Corpuscular HGB Conc 31.3 g/dL (30-55); Mean Corpuscular Hemoglobin 29.4 pg (27-33); Mean Corpuscular Volume 93.7 fl (82-101); Mean Platelet Volume 10.4 fL (7.4-10.4); Monocytes # 0.8 10^3/uL (0.2-0.9); Monocytes % 13.9 %; Neutrophils # 3.22 10^3/uL (1.8-7.7); Neutrophils % 57.3 %; Nucleated Red Blood Cells % 0 %; Platelet Count 244 10^3/cmm (157-399); Red Blood Count 4.63 10^6/uL (3.85-5.65); Red Cell Distribution Width 12.9 % (12.1-15.1); White Blood Count 5.62 10^3/uL (3.29-11.43)
[2023-10-28 03:49] LABS: Alanine Aminotransferase 25 U/L (0-41); Albumin Level 2.6 g/dL (3.5-5.2); Alkaline Phosphatase 64 U/L (40-130); Aspartate Amino Transferase 22 U/L (0-40); Blood Urea Nitrogen 32 mg/dL (8-23); Calcium 8.4 mg/dL (8.5-10.5); Carbon Dioxide 34 mmol/L (22-29); Chloride 98 mmol/L (98-107); Globulin 3.5 g/dL (1.3-4.6); Glomerular Filtration Rate 54.7 mL/min (90-130); Glucose 258 mg/dL (65-115); Osmolality Calculated 304 mOsm/kg (285-295); Sodium 139 mmol/L (136-145); Total Bilirubin 0.3 mg/dL (0.15-1.2); Total Protein 6.1 g/dL (6.6-8.7)
[2023-10-28 03:50] LABS: Anion Gap 10.7 (5-19); Potassium 3.7 mmol/L (3.5-5.1)
[2023-10-28] MEDS: aspirin 81 mg EC Tablet PO (05:26)
[2023-10-28 06:31] LABS: Glucose Point of Care 164 mg/dL (70-110)
[2023-10-28] MEDS: benzonatate 100 mg Capsule PO ×2 (09:08→15:15)
[2023-10-28] MEDS: sennosides-docusate Tablet 1 TAB PO ×2 (09:08→17:18)
[2023-10-28] MEDS: tamsulosin 0.4 mg Capsule PO ×2 (09:08→17:18)
[2023-10-28] MEDS: FUROsemide 40 mg Tablet PO (09:08)
[2023-10-28] MEDS: escitalopram 10 mg Tablet 30 MG PO (09:08)
[2023-10-28] MEDS: carvedilol 6.25 mg Tablet PO ×2 (09:08→17:18)
[2023-10-28] MEDS: potassium chloride ER 10 mEq Tablet PO ×2 (09:08→17:18)
[2023-10-28] MEDS: gabapentin 100 mg Capsule PO ×2 (09:08→17:19)
[2023-10-28] MEDS: BuSPIRONE 10 mg Tablet PO ×2 (09:08→17:18)
[2023-10-28] MEDS: heparin 5,000 unit/mL INJ 1 mL 5000 UNIT SUBCUT (09:09)
[2023-10-28] MEDS: insulin lispro 100 unit/1 mL SUBCUT ×3 (09:09→17:19)
[2023-10-28] MEDS: pantoprazole 40 mg SDV IVP (09:09)
[2023-10-28] MEDS: guaiFENesin-dextromethorphan UDC 10 mL 5 ML PO ×2 (09:18→15:14)
--- NOTE | 2023-10-28 10:31 | P.PN_ITS ---
Subjective 2 Subjective: Patient is alert awake up in a chair Chest pain or shortness of breath no acute distress. Vitals/I&O/Wt Last Vital Signs Temp 98.0 F 10/28/23 07:11 Pulse 68 10/28/23 08:00 Resp 16 10/28/23 08:00 BP 134/59 10/28/23 07:11 Pulse Ox 96 10/28/23 08:00 O2 Del Method Nasal Cannula 10/28/23 08:00 O2 Flow Rate 3 10/28/23 08:00 10/27/23 10/28/23 10/28/23 22:59 06:59 14:59 Intake Total 700 / 940 600 / 1540 240 / 240 Output Total 2200 / 2700 500 / 3200 580 / 580 Balance -1500 / -1760 100 / -1660 -340 / -340 Weight last 48 hrs Weight 275 lb Weight 280 lb 6.4 oz Physical Exam 2 Narrative: Awake, alert, responsive. Const: COMMON NORMALS: alert GENERAL APPEARANCE: cooperative NUTRITIONAL APPEARANCE: obese ORIENTATION/CONSCIOUSNESS: Yes awake HENMT: COMMON NORMALS: oropharynx normal Neck/C-Spine: COMMON NORMALS: no JVD Resp: COMMON NORMALS: normal respiratory effort and clear to auscultation bilaterally AUSCULTATION: clear to auscultation bilaterally Cardio: COMMON NORMALS: no JVD, regular rhythm, S1 normal heart sound present, S2 normal heart sound present and No murmurs present (Cardio) RHYTHM: regular rhythm HEART SOUNDS: S1 normal heart sound present and S2 normal heart sound present GI: COMMON NORMALS: Normal to inspection, nondistended, normoactive bowel sounds present, Soft to palpation and non-tender PALPATION: Yes Soft to palpation Extremity: COMMON NORMALS: no joint enlargement and no pedal edema Neuro: COMMON NORMALS: moves all extremities SENSORIUM/ORIENTATION: Yes alert Skin: COMMON NORMALS: no rashes or lesions noted GENERAL SKIN EXAM: no rashes or lesions noted Urinary Catheter Management: Daniel: Cath Placed During This Visit: yes, but has since been removed by the nurse Reason for Continuing Indwelling Catheter: Accurate Measurement of Urinary Output in Critically Ill Patients Urinary Catheter Date of Insertion: 10/21/23 Urinary Catheter Time of Insertion: 02:17 Date Urinary Catheter Removed: 10/23/23 Time Urinary Catheter Discontinued: 13:30 Data 10/28/23 02:58 10/28/23 02:58 Micro: Microbiology 10/21/23 18:47 Blood Culture - Final Blood 10/21/23 18:54 Blood Culture - Final Blood 10/20/23 23:40 Blood Culture - Final Blood 10/20/23 23:35 Blood Culture - Final Blood A&P Assessment and plan (1) Cardiomyopathy: Patient overall improved. No significant edema. Ejection fraction 15% with no significant CAD. Patient will benefit from life vest. Continue beta-alana patient had recent acute kidney injury with creatinine up to 3. Will hold off on ESTHELA inhibitor or Entresto. Could be started as an outpatient once his renal function stabilized after his diuresis. (2) Acute kidney injury: Creatinine currently 1.3 previously was higher. (3) HTN (hypertension): Adequately controlled. Qualifiers: Hypertension type: essential hypertension Qualified Code(s): I10 - Essential (primary) hypertension Attestations 2 Medical Necessity Statement*: Deferred to internal medicine Coding Level of Care Code 02668 Diagnoses Cardiomyopathy I42.9 Acute kidney injury N17.9 Essential hypertension I10 Hypertension type: essential hypertension
[2023-10-28] MEDS: ciprofloxacin 400 MG/200 ML PREMIX 200 MG IV (10:58)
[2023-10-28] MEDS: FUROsemide 10 mg/mL SDV 4mL 40 MG IVP (10:58)
[2023-10-28 11:45] LABS: Glucose Point of Care 237 mg/dL (70-110)
--- NOTE | 2023-10-28 12:26 | PM.DCS ---
Discharge Providers Date of Admission: 10/25/23 10:13 Date of Discharge: October 28, 2023 Attending Provider at Admission: Juwan Arambula MD Attending Provider at Discharge: Francisco Murillo MD Consults: Neuropsych: Dr. Colby Cardiology: Dr. Barrios Primary Care Provider: Kyle Corrigan MD Diagnoses at Discharge Discharge Diagnosis (1) Cardiomyopathy: Status: Acute (2) Acute kidney injury: Status: Acute (3) HTN (hypertension): Status: Acute Qualifiers: Hypertension type: essential hypertension Qualified Code(s): I10 - Essential (primary) hypertension (4) Major depression: Status: Acute Qualifiers: Active/Remission status: currently active Major depression episode severity: severe Major depression recurrence: single episode Psychotic features: without psychotic features Qualified Code(s): F32.2 - Major depressive disorder, single episode, severe without psychotic features (5) CHF (congestive heart failure): Status: Chronic Qualifiers: Heart failure type: other Qualified Code(s): I50.9 - Heart failure, unspecified Permanent problem details: Systolic, 10 to 15% as per left heart catheterization-10/25/2023, elevated LVEDP (6) Atherosclerotic heart disease of [place] coronary artery with other forms of angina pectoris: Status: Acute (7) Positive cardiac stress test: Status: Acute (8) Diabetes mellitus, type II: Status: Acute Qualifiers: Diabetes mellitus complication detail: with other oral complications Diabetes mellitus complication status: with oral complications Diabetes mellitus usp insulin use: with oysterman use Qualified Code(s): E11.638 - 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; Z79.4 - residential (current) use of insulin (9) Chronic hyperglycemia: Status: Acute (10) Chronic kidney disease, stage 3b: Status: Chronic Reason for Visit Reason for Visit: fall with weakness Brief History: History as per HPI: Garrett Mares is a 68 year old male history of insulin-dependent diabetes, takes 16 is of Lantus in the morning and 40 at night along sliding scale, lives alone but daughter check on him, has been struggling with depression, stating that he present to the hospital today for worsening of his weakness, excessive thirst and polyuria. Patient has not taken insulin for the last 30 days attributing this to his severe depression, patient is stating that he is depressed because of losing custody of his grandson who is 5 years old, he has no purpose to live but he has no ideation to hurt himself he is denying suicidal ideation, patient stating that he would like to be treated now and then continue with his insulin at home, his daughter was put on phone she heard our conversation, she was not aware that he was avoiding insulin for last 1 month. Patient has enough refills at home. He has not noticed any chest pain, cough, diarrhea, abdominal pain, fever. He is denying urinary tract infection symptoms. He has received antibiotics in the ER for possible UTI he has hyperglycemia without ketones, I have requested insulin drip we do not have ICU beds we will treat him in the ER because patient does not want to be transferred, he is in a gap is 22 without significant acidosis anion gap will most likely close in next few hours, will keep him n.p.o. start DKA protocol Start normal saline with potassium supplementation Hospital Course Hospital Course Patient was initially admitted to the hospital for management of weakness and tiredness along with sluggish behavior which at first was thought to be secondary to hyperglycemia without DKA and uncontrolled type 2 diabetes mellitus along with major depression leading him to stop his medications for last few months. Patient denies any suicidal ideations. He was started on IV hydration along with broad-spectrum antibiotics and insulin for hyperglycemia. A1c was found to be 11.7. Psychiatry was consulted. His medications were adjusted as per psych evaluation. During hospitalization urine cultures came back positive for Staphylococcus epidermidis and the blood cultures remain negative. Antibiotics were de-escalated as per culture sensitivities. Even after correction of blood sugars, changing of psych medications and resolution of UTI patient continued to feel sluggish. On review of chart further it was noted that he is known to have congestive heart failure with a positive stress test in May 2023 for which he had undergone a stress test which was reported positive though he was advised medical management at that time because of renal dysfunction. Cardiology was consulted and he underwent cardiac angiogram on 10/25 where he was found to have TRAVEL ASSISTANT of RCA, LCx and LAD were patent along with LV gram showing severely reduced EF of 15% with elevated LVEDP. He remained in hospital for aggressive IV diuresis while monitoring his renal functions given severely elevated LVEDP. Patient's renal functions have remained stable. LifeVest is being arranged for the patient given low EF though it has been difficult as patient's echocardiogram shows unsatisfactory echo windows EF has to be relied up asked by the LV gram. He has been discharged in hemodynamically stable condition on adjusted medications, Lasix twice daily along with spironolactone once daily with advised to repeat BMP in 1 week along with lifestyle modification as per congestive heart failure. He is to come as an outpatient for fixing of LifeVest. Patient is agreeable. Discharge details were discussed in detail with patient and patient's family at bedside. They verbalized understanding. They were given ample amount of time to discuss any concerns or questions. Physical Exam Narrative: Awake, alert, responsive. Const: COMMON NORMALS: alert GENERAL APPEARANCE: cooperative NUTRITIONAL APPEARANCE: obese ORIENTATION/CONSCIOUSNESS: Yes awake HENMT: COMMON NORMALS: oropharynx normal Neck/C-Spine: COMMON NORMALS: no JVD Resp: COMMON NORMALS: normal respiratory effort and clear to auscultation bilaterally AUSCULTATION: clear to auscultation bilaterally Cardio: COMMON NORMALS: no JVD, regular rhythm, S1 normal heart sound present, S2 normal heart sound present and No murmurs present (Cardio) RHYTHM: regular rhythm HEART SOUNDS: S1 normal heart sound present and S2 normal heart sound present GI: COMMON NORMALS: Normal to inspection, nondistended, normoactive bowel sounds present, Soft to palpation and non-tender PALPATION: Yes Soft to palpation Extremity: COMMON NORMALS: no joint enlargement and no pedal edema Neuro: COMMON NORMALS: moves all extremities SENSORIUM/ORIENTATION: Yes alert Skin: COMMON NORMALS: no rashes or lesions noted GENERAL SKIN EXAM: no rashes or lesions noted Urinary Catheter Management: Daniel: Cath Placed During This Visit: yes, but has since been removed by the nurse Reason for Continuing Indwelling Catheter: Accurate Measurement of Urinary Output in Critically Ill Patients Urinary Catheter Date of Insertion: 10/21/23 Urinary Catheter Time of Insertion: 02:17 Date Urinary Catheter Removed: 10/23/23 Time Urinary Catheter Discontinued: 13:30 Discharge Data Studies Completed and Pending Completed Studies During Hospitalization Category Date Time Status CT kidney stone 81981 Routine Cat Scan 10/22/23 08:00 Completed XR chest 1V portable [id number] Routine Exams 10/24/23 10:30 Completed Blood Cultures ([facility]) Routine Lab 10/20/23 23:35 Completed Blood Cultures ([facility]) Routine Lab 10/20/23 23:40 Completed Blood Cultures ([facility]) Routine Lab 10/21/23 18:47 Completed Blood Cultures ([facility]) Routine Lab 10/21/23 18:54 Completed Pending at discharge Category Date Time Status [employer] AD[employer]ISTRATOR request for service Routine Exams 10/25/23 06:00 Taken Radiology Impressions Abdomen/Pelvis CT 10/22/23 08:00 IMPRESSION: 1. Diffuse thickening of the urinary bladder wall, which given clinical history is consistent with cystitis. 2. Nonspecific mild stranding of the perirenal fat bilaterally. Pyelonephritis should be considered in the adequate clinical setting. COMMENTS: Consistent with the [employer]'s Incidental Findings Committee white paper (J Am Ras Radiol 2018): Any incidental renal lesion less than 1 cm or classified as too small to characterize, or any incidental cystic renal lesion characterized as simple-appearing, is likely benign. No follow-up imaging is recommended for these lesions per consensus recommendations based on imaging criteria. Chest X-Ray 10/24/23 10:30 IMPRESSION: No acute cardiopulmonary abnormality identified. Microbiology 10/21/23 18:47 Blood Blood Culture - Final 10/21/23 18:54 Blood Blood Culture - Final 10/20/23 23:40 Blood Blood Culture - Final 10/20/23 23:35 Blood Blood Culture - Final 10/17/23 18:48 Urine,Clean Catch Urine Culture - Final Staphylococcus epidermidis Laboratory Results WBC 5.62 10^3/uL (3.29-11.43) 10/28/23 02:58 RBC 4.63 10^6/uL (3.85-5.65) 10/28/23 02:58 Hgb 13.60 g/dL (11.27-16.99) 10/28/23 02:58 Hct 43.4 % (37-53) 10/28/23 02:58 MCV 93.7 fl (82-101) 10/28/23 02:58 MCH 29.4 pg (27-33) 10/28/23 02:58 MCHC 31.3 g/dL (30-55) 10/28/23 02:58 RDW 12.9 % (12.1-15.1) 10/28/23 02:58 Plt Count 244 10^3/cmm (157-399) 10/28/23 02:58 MPV 10.4 fL (7.4-10.4) 10/28/23 02:58 Neut % (Auto) 57.3 % 10/28/23 02:58 Lymph % (Auto) 25.6 % 10/28/23 02:58 [place] % (Auto) 13.9 % 10/28/23 02:58 Eos % (Auto) 2.3 % 10/28/23 02:58 Baso % (Auto) 0.4 % 10/28/23 02:58 Neut # (Auto) 3.22 10^3/uL (1.8-7.7) 10/28/23 02:58 Lymph # (Auto) 1.4 10^3/uL (0.8-4.8) 10/28/23 02:58 [place] # (Auto) 0.8 10^3/uL (0.2-0.9) 10/28/23 02:58 Eos # (Auto) 0.1 10^3/uL (0.0-0.8) 10/28/23 02:58 Baso # (Auto) 0.0 10^3/uL (0.0-0.1) 10/28/23 02:58 Nucleated RBC % (auto) 0 % 10/28/23 02:58 Nucleated RBCs # 0.0 /100WBC 10/28/23 02:58 Sodium 139 mmol/L (136-145) 10/28/23 02:58 Potassium 3.7 mmol/L (3.5-5.1) 10/28/23 02:58 Chloride 98 mmol/L (98-107) 10/28/23 02:58 Carbon Dioxide 34 mmol/L (22-29) H 10/28/23 02:58 Anion Gap 10.7 (5-19) 10/28/23 02:58 BUN 32 mg/dL (8-23) H 10/28/23 02:58 Creatinine 1.3 mg/dL (0.7-1.2) H 10/28/23 02:58 GFR Calculation 54.7 mL/min (90-130) L 10/28/23 02:58 Glucose 258 mg/dL (65-115) H 10/28/23 02:58 POC Glucose 237 mg/dL (70-110) H 10/28/23 11:25 Estimat Average Glucose 289 10/17/23 17:27 Hemoglobin A1c 11.7 % (4.0-6.0) H 10/17/23 17:27 Calculated Osmolality 304 mOsm/kg (285-295) H 10/28/23 02:58 Calcium 8.4 mg/dL (8.5-10.5) L 10/28/23 02:58 Phosphorus 3.5 mg/dL (2.5-4.5) 10/18/23 21:13 Magnesium 2.6 mg/dL (1.7-2.3) H 10/19/23 04:52 Iron 19 ug/dL (59-158) L 10/23/23 04:45 TIBC 171 mcg/dl 10/23/23 04:45 % Saturation 11.1 % (20-50) L 10/23/23 04:45 Unsat Iron Binding 152 ug/dL (112-347) 10/23/23 04:45 Total Bilirubin 0.3 mg/dL (0.15-1.2) 10/28/23 02:58 AST 22 U/L (0-40) 10/28/23 02:58 ALT 25 U/L (0-41) 10/28/23 02:58 Alkaline Phosphatase 64 U/L (40-130) 10/28/23 02:58 Creatine Kinase 229 U/L (39-308) 10/23/23 04:45 Troponin T 5th Gen ng/L 66 ng/L (0-15) H 10/23/23 21:20 C-Reactive Protein 12.3 mg/L (0.0-4.9) H 10/18/23 01:27 NT-Pro-B Natriuret Pep 7625 pg/mL (0-125) H 10/23/23 21:20 Total Protein 6.1 g/dL (6.6-8.7) L 10/28/23 02:58 Albumin 2.6 g/dL (3.5-5.2) L 10/28/23 02:58 Globulin 3.5 g/dL (1.3-4.6) 10/28/23 02:58 Triglycerides 99 mg/dL (0-150) 10/24/23 05:28 Cholesterol 114 mg/dL (0-200) 10/24/23 05:28 LDL Cholesterol, Calc 63 mg/dL (50-129) 10/24/23 05:28 Total VLDL Cholesterol 20 mg/dL (0-30) 10/24/23 05:28 HDL Cholesterol 31 mg/dL (60-100) L 10/24/23 05:28 Cholesterol/HDL Ratio 3.68 mg/dL (1.0-5.00) 10/24/23 05:28 Vitamin B12 824 pg/mL (232-1245) 10/17/23 21:45 Folate 13.0 ng/mL (4.5-32.2) 10/24/23 05:28 Procalcitonin 0.08 ng/mL (0-0.5) 10/17/23 21:45 TSH 2.08 uIU/mL (0.27-4.20) 10/17/23 21:45 Urine Color Light yellow (Yellow) 10/17/23 18:48 Urine Appearance Sl hazy (CLEAR) A 10/17/23 18:48 Urine pH 5 (5-7) 10/17/23 18:48 Ur Specific [place] 1.010 (1.005-1.030) 10/17/23 18:48 Urine Protein Neg (Negative) 10/17/23 18:48 Urine Glucose (UA) 4+ (Normal) H 10/17/23 18:48 Urine Ketones 1+ (Negative) H 10/17/23 18:48 Urine Blood Neg (Negative) 10/17/23 18:48 Urine Nitrate Positive (Negative) H 10/17/23 18:48 Urine Bilirubin Neg (Negative) 10/17/23 18:48 Urine Urobilinogen Norm mg/dL (Negative) 10/17/23 18:48 Ur Leukocyte Esterase Trace (Negative) H 10/17/23 18:48 Urine RBC 0-4 /hpf (0-2) H 10/17/23 18:48 Urine WBC 25-40 /hpf (0-5) H 10/17/23 18:48 Ur Squamous Epith Cells 0-4 /hpf (0-5) H 10/17/23 18:48 Ur Transition Epith Cell 0-4 /hpf 10/17/23 18:48 Amorphous Sediment Not Reportable 10/17/23 18:48 Urine Bacteria 1+ /hpf (NONE) H 10/17/23 18:48 Urine Mucus None /hpf 10/17/23 18:48 Nasal Influ A H1 2008 PCR Not detected (NOT DETECT) 10/19/23 12:15 Serum Ketones Negative (Negative) 10/17/23 17:16 Adenovirus (PCR) Not detected (NOT DETECT) 10/19/23 12:15 C. pneumoniae DNA (PCR) Not detected (NOT DETECT) 10/19/23 12:15 Coronavirus 229E (PCR) Not detected (NOT DETECT) 10/19/23 12:15 Human Metapneumovir PCR Not detected (NOT DETECT) 10/19/23 12:15 Influenza A (H1) PCR Not detected (NOT DETECT) 10/19/23 12:15 Influenza A (H3) PCR Not detected (NOT DETECT) 10/19/23 12:15 Influenza Type A (PCR) Not detected (NOT DETECT) 10/19/23 12:15 Influenza Type B (PCR) Not detected (NOT DETECT) 10/19/23 12:15 M. pneumoniae (PCR) Not detected (NOT DETECT) 10/19/23 12:15 Parainfluenza 1 (PCR) Not detected (NOT DETECT) 10/19/23 12:15 Parainfluenza 2 (PCR) Not detected (NOT DETECT) 10/19/23 12:15 Parainfluenza 3 (PCR) Not detected (NOT DETECT) 10/19/23 12:15 Parainfluenza 4 (PCR) Not detected (NOT DETECT) 10/19/23 12:15 RSV Type A (PCR) Not detected (NOT DETECT) 10/19/23 12:15 RSV Type B (PCR) Not detected (NOT DETECT) 10/19/23 12:15 Entero/Rhino (PCR) Not detected (NOT DETECT) 10/19/23 12:15 SARS-CoV-2 (PCR) Not detected (NOT DETECT) 10/19/23 12:15 Vitals Last Vital Signs Temp 97.8 F 10/28/23 11:22 Pulse 65 10/28/23 11:22 Resp 16 10/28/23 08:00 BP 147/73 10/28/23 11:22 Pulse Ox 98 10/28/23 11:22 O2 Del Method Nasal Cannula 10/28/23 11:22 O2 Flow Rate 3 10/28/23 08:00 Discharge Plan Discharge Patient Disposition: Home Health Service Condition: Stable Prescriptions: New escitalopram oxalate 10 mg Tablet 30 mg PO DAILY 30 Days Qty: 90 0RF carvedilol 6.25 mg Tablet 6.25 mg PO BID 30 Days Qty: 60 0RF metolazone 2.5 mg tablet 2.5 mg PO EVERY OTHER DAY Qty: 30 0RF ciprofloxacin HCl 500 mg tablet 500 mg PO Q12H Qty: 10 0RF buspirone 10 mg Tablet 10 mg PO BID 30 Days Qty: 60 0RF trazodone 50 mg Tablet 50 mg PO BEDTIME 30 Days Qty: 30 0RF Continued montelukast 10 mg tablet 10 mg PO BEDTIME clopidogrel [Plavix] 75 mg tablet 75 mg PO DAILY Qty: 90 3RF Nitrostat 0.4 mg tablet, sublingual 0.4 mg SUBLINGUAL Q5M PRN (Reason: Chest Pain) Qty: 25 2RF Rx Instructions: do not exceed 3 doses per episode rosuvastatin 20 mg tablet 20 mg PO BEDTIME Qty: 90 3RF (DME) FreeStyle Andres 2 Sensor Kit See Rx Instructions .ROUTE .MEDSUPPLY Qty: 4 5RF Rx Instructions: change every 14 days gabapentin 100 mg capsule 100 mg PO BID aspirin [Adult Low Dose Aspirin] 81 mg tablet,delayed release (DR/EC) 81 mg PO QAM spironolactone 25 mg tablet 25 mg PO DAILY potassium chloride 10 mEq tablet extended release 10 meq PO BID tamsulosin 0.4 mg capsule 0.4 mg PO BID furosemide 40 mg tablet 60 mg PO BID 30 Days Qty: 90 1RF albuterol sulfate 90 mcg/actuation HFA aerosol inhaler 2 inh INHALATION Q4H PRN (Reason: shortness of breath or wheezing) Qty: 18 0RF Changed isosorbide mononitrate 60 mg tablet extended release 24 hr 30 mg PO BID Qty: 180 3RF insulin degludec [Tresiba FlexTouch U-200] 200 unit/mL (3 mL) insulin pen 40 unit SUBCUT BID MDD 150 units Qty: 9 0RF insulin aspart U-100 [Novolog FlexPen U-100 Insulin] 100 unit/mL (3 mL) insulin pen See Protocol SUBCUT TID Qty: 15 0RF Protocol: Insulin Corrective High-Dose Regimen Condition: Fingerstick Blood Glucose Dose/Route: Insulin Units Condition: 141-180 mg/dl Dose/Route: 6 units/SQ Condition: 181-220 mg/dl Dose/Route: 8 units/SQ Condition: 221-260 mg/dl Dose/Route: 10 units/SQ Condition: 261-300 mg/dl Dose/Route: 12 units/SQ Condition: 301-350 mg/dl Dose/Route: 14 units/SQ Condition: 351-400 mg/dl Dose/Route: 16 units/SQ Condition: greater than 400 mg/dl Dose/Route: 18 units/SQ Discontinued citalopram 40 mg tablet 40 mg PO QPM carvedilol 25 mg tablet 25 mg PO BID Qty: 180 3RF naproxen [Naprosyn] 500 mg tablet 500 mg PO BID PRN (Reason: pain) Qty: 20 0RF Discharge Orders: Discharge Order (Routine); Ordered 10/28/23 Ordered By: Francisco Murillo Referrals: [facility] Home [facility] ([facility]) [Outside] Joey Barrios M.D [Physician] - (Your Dr. Barrios follow up appointment will be scheduled during your Aishwarya Jones appointment. Thank you.) Aishwarya Jones FNP [Nurse Practitioner] - 11/02/23 2:30 pm Kyle Corrigan MD [Primary Care Provider] - 10/27/23 9:50 am Discharge Diet: Cardiac and Diabetic Discharge Activity: Resume usual activity and Increase activity as tolerated Patient Instructions: Metolazone (By mouth) (Zaroxolyn), Buspirone (By mouth), Trazodone (By mouth) (Desyrel, Desyrel Dividose, Oleptro, Trazamine), Carvedilol (By mouth) (Coreg, Coreg CR, Hypertenevide-12.5), Escitalopram (By mouth) (Lexapro), Heart Failure (DC), Wearable Cardioverter Defibrillator (DC), CHF Stoplight, Opioid Safety, Post Angiogram Home Care Instructions Activity Restrictions/Additional Instructions: He is to restrict fluid intake to less than 1500 cc, salt intake to less than 2 g daily. He was advised to check his weight daily at home. He is advised that weight today would be his dry weight and if his body weight increases by around 5 pounds he is to take an extra dose of Lasix daily till his body weight comes down to weight today. If not able to come down to dry body weight in 1 week he is to call cardiology office for further recommendations. Patient was counseled in detail to take her medications regularly. Take Lasix 60 mg twice daily along with spironolactone 25 mg once daily and metolazone 2.5 mg every other day. Please follow-up with a primary care provider within next 1 week for repeat BMP. Please follow-up with Aishwarya Jones from cardiology onsite appointment. Please follow-up as an outpatient for LifeVest. Please take your medications as prescribed daily, continue with lifestyle modification discussed in detail. Repeat A1c in 6 months. Discharge Attestations Time Spent in Discharge Care*: greater than 30 min Specific Discharge Activities: educating patient, educating and/or supporting family/caregiver, discussing with pcp/other providers, discussing with family preservation caseworker/social workers/dc planners, documenting/other paperwork and evaluating patient/reviewing data Status at Discharge: Cognitive status at discharge: cognitively intact, Behavioral status at discharge: cooperative, Functional status at discharge: uses cane/walker, Overall status at discharge: patient is progressing back to baseline Quality Metrics Clinical Quality Measures [ No reported AMI, CVA or VTE this stay] Coding Level of Care Code 39045 Total time (in minutes) for Discharge: 60 Diagnoses Cardiomyopathy I42.9 Acute kidney injury N17.9 Essential hypertension I10 Hypertension type: essential hypertension Major depression F32.2 Active/Remission status: currently active Major depression episode severity: severe Major depression recurrence: single episode Psychotic features: without psychotic features Other congestive heart failure I50.9 Heart failure type: other Atherosclerotic heart disease of [place] coronary artery with other forms of angina pectoris I25.118 Positive cardiac stress test R94.39 Type 2 diabetes mellitus with other oral complication, with long-term current use of insulin E11.638; Z79.4 Diabetes mellitus complication detail: with other oral complications Diabetes mellitus complication status: with oral complications Diabetes mellitus oysterman insulin use: with usp use Chronic hyperglycemia R73.9 Chronic kidney disease, stage 3b N18.32
--- NOTE | 2023-10-28 13:43 | PM.PN ---
Subjective Subjective: no chest pain or sob Vitals/I&O/Wt Last Vital Signs Temp 97.8 F 10/28/23 11:22 Pulse 65 10/28/23 11:22 Resp 16 10/28/23 08:00 BP 147/73 10/28/23 11:22 Pulse Ox 98 10/28/23 11:22 O2 Del Method Nasal Cannula 10/28/23 11:22 O2 Flow Rate 3 10/28/23 08:00 10/27/23 10/28/23 10/28/23 22:59 06:59 14:59 Intake Total 700 / 940 600 / 1540 240 / 240 Output Total 2200 / 2700 500 / 3200 1730 / 1730 Balance -1500 / -1760 100 / -1660 -1490 / -1490 Weight last 48 hrs Weight 275 lb Weight 280 lb 6.4 oz Physical Exam Urinary Catheter Management: Daniel: Cath Placed During This Visit: yes, but has since been removed by the nurse Reason for Continuing Indwelling Catheter: Accurate Measurement of Urinary Output in Critically Ill Patients Urinary Catheter Date of Insertion: 10/21/23 Urinary Catheter Time of Insertion: 02:17 Date Urinary Catheter Removed: 10/23/23 Time Urinary Catheter Discontinued: 13:30 Data 10/28/23 02:58 10/28/23 02:58 Micro: Microbiology 10/21/23 18:47 Blood Culture - Final Blood 10/21/23 18:54 Blood Culture - Final Blood 10/20/23 23:40 Blood Culture - Final Blood 10/20/23 23:35 Blood Culture - Final Blood Coding Level of Care Code Acute Code for [facility] Fwd
[2023-10-28 16:38] LABS: Glucose Point of Care 224 mg/dL (70-110)
--- NOTE | 2023-10-28 19:19 | PC.NURSE ---
Discharge Note Patient discharged to [home] via [w/c to POV] accompanied by [his daughter]. Discharge instructions reviewed with patient and/or service support representative. Mobile pharmacy medications and/or prescriptions provided. Belongings/home medications returned.
== END 2023-10-28 17:45 | disposition home health service (06) ==
LOC: ER 20:09 → MEDSURG 20:54 → CSU 10-25 12:21 → MEDSURG 10-27 08:14 → CSU 10-27 11:52
PROVIDERS: Internal Medicine; Internal Medicine Cardiovascular Disease; Admitting Provider Internal Medicine; Emergency Provider Emergency Medicine; PCP Family Medicine; Visit Provider Student in an Organized Health Care Education/Training Program
DX: I42.9 Cardiomyopathy, unspecified (principal); N17.9 Acute kidney failure, unspecified; F32.2 Major depressive disorder, single episode, severe without psychotic features; E11.22 Type 2 diabetes mellitus with diabetic chronic kidney disease; I13.0 Hypertensive heart and chronic kidney disease with heart failure and stage 1 through stage 4 chronic kidney disease, or unspecified chronic kidney disease; N18.32 Chronic kidney disease, stage 3b; I50.20 Unspecified systolic (congestive) heart failure; I25.118 Atherosclerotic heart disease of native coronary artery with other forms of angina pectoris; R94.39 Abnormal result of other cardiovascular function study; E11.638 Type 2 diabetes mellitus with other oral complications; Z79.4 Long term (current) use of insulin; Z91.148 Patient's other noncompliance with medication regimen for other reason; N39.0 Urinary tract infection, site not specified; B95.8 Unspecified staphylococcus as the cause of diseases classified elsewhere; G47.30 Sleep apnea, unspecified; N40.1 Benign prostatic hyperplasia with lower urinary tract symptoms; N13.8 Other obstructive and reflux uropathy; E11.649 Type 2 diabetes mellitus with hypoglycemia without coma; E66.01 Morbid (severe) obesity due to excess calories; Z68.41 Body mass index [BMI] 40.0-44.9, adult; Z79.82 Long term (current) use of aspirin; Z87.891 Personal history of nicotine dependence; Z98.1 Arthrodesis status
CPT/HCPCS: 36415; 36416; 51702; 71045; 74176; 80048; 80053; 80061; 81001; 82009; 82550; 82607; 82746; 82962; 83036; 83540; 83550; 83735; 83880; 84100; 84145; 84443; 84484; 85025; 86140; 87040; 87077; 87086; 87186; 87486; 87581; 87633; 90471; 90686; 93005; 93458; 94640; 94660; 96365; 96366; 96367; 96372; 96375; 96376; 97110; 97116; 97161; 97530; 99152; 99285; C1769; C1887; C1894; C9113; G0378; J0696; J0744; J1644; J1815; J1940; J2020; J2250; J3010; J3490; J7030; J7120; Q9967

== ENCOUNTER 2023-11-02 20:11 | Emergency (ER) | payer MEDICARE, SELFPAY ==
[2023-11-02] VITALS (7 sets, daily range): BP systolic 114–163; BP diastolic 49–83; PULSE 87–91; RESP 16–18; TEMP 36.6; O2SAT 94–97; BMI 44.4
[2023-11-02 20:29] LABS: Glucose Point of Care > 600 mg/dL (70-110)
[2023-11-02 21:00] LABS: Basophils % 0.4 %; Eosinophils # 0.1 10^3/uL (0.0-0.8); Hematocrit 45.3 % (37-53); Lymphocytes # 1.4 10^3/uL (0.8-4.8); Lymphocytes % 19.5 %; Mean Corpuscular HGB Conc 32.9 g/dL (30-55); Mean Corpuscular Hemoglobin 29.6 pg (27-33); Mean Corpuscular Volume 89.9 fl (82-101); Mean Platelet Volume 9.5 fL (7.4-10.4); Monocytes # 0.9 10^3/uL (0.2-0.9); Monocytes % 12.9 %; Neutrophils # 4.54 10^3/uL (1.8-7.7); Neutrophils % 65.8 %; Nucleated Red Blood Cells % 0 %; Platelet Count 336 10^3/cmm (157-399); Red Blood Count 5.04 10^6/uL (3.85-5.65); Red Cell Distribution Width 12.8 % (12.1-15.1); White Blood Count 6.91 10^3/uL (3.29-11.43)
--- NOTE | 2023-11-02 21:06 | ED_ITS ---
HPI - General Adult 2 General: Chief complaint: General Medical Stated complaint: blood sugar high Time Seen by Provider: 11/02/23 20:47 Source: patient Mode of arrival: ambulatory Limitations: no limitations History of Present Illness: 68-year-old male has a history of diabet es states that he had went to his cardiology clinic and his blood drawn then called him and told him his blood sugar is high and he should come to the ER. He states he has not checked his blood sugar all day he is unsure if he took his insulin today has no medical complaints denies any pain anywhere denies any vomiting or diarrhea. Associated symptoms: Deny chest pain, dyspnea, headache(s), nausea, rash or vomiting Review of Systems 2 Const: Denies: fever(s), chills, body aches or change in appetite Eyes: Denies: blurry vision or eye discomfort ENMT: Denies: throat pain or dental pain Card: Denies: chest pain Resp: Denies: dyspnea GI: Denies: abdominal pain, nausea, vomiting or diarrhea : Denies: dysuria Musc: Denies: neck pain or back pain Skin/Breast: Denies: rash Neuro: Denies: headache(s) Psych: Denies: depression Jatinder/Lymph: Denies: easy bruising All/Imm: Denies: urticaria PFSH ED 2 PFSH: Medical History (Updated 11/02/23 @ 23:10 by Song Melendez MD) Acute kidney injury Fall from standing Coarse tremors BPH loc w urin obs/LUTS Chronic kidney disease, stage 3b Diabetic neuropathy CVA (cerebral vascular accident) BMI 45.0-49.9, adult Sleep apnea Diabetes mellitus, type II CAD (coronary artery disease) Hyperlipidemia CHF (congestive heart failure) Systolic, 10 to 15% as per left heart catheterization-10/25/2023, elevated LVEDP HTN (hypertension) History of non-ST elevation myocardial infarction (NSTEMI) Surgical History S/P cervical spinal fusion S/P PTCA (percutaneous transluminal coronary angioplasty) Reports 7 stents and angioplasty x 3 Family History Mother , AT AGE 75 Hypertension Diabetes Father , AT AGE 72 Diabetes Hypertension Other CAD (coronary artery disease) Social History Smoking and tobacco/nicotine status: former use of tobacco/nicotine Alcohol intake: current Alcohol intake frequency: few times a month Substance/Drug Use: never Marital status: Current occupational status: retired Physical Exam 2 Const: COMMON NORMALS: no acute distress, patient oriented x3 and healthy appearing HENMT: COMMON NORMALS: normocephalic and atraumatic HEAD & SCALP: n ormocephalic and atraumatic Neck/C-Spine: COMMON NORMALS: full ROM and supple Chest: COMMONS NORMALS: normal inspection of the chest Resp: COMMON NORMALS: normal respiratory effort, No retractions, No use of accessory muscles and clear to auscultation bilaterally AUSCULTATION: clear to auscultation bilaterally Cardio: COMMON NORMALS: regular rate, regular rhythm and No murmurs present (Cardio) RATE: regular rate RHYTHM: regular rhythm GI: COMMON NORMALS: Normal to inspection, nondistended, normoactive bowel sounds present, Soft to palpation, non-tender and no masses PALPATION: Yes Soft to palpation Extremity: COMMON NORMALS: normal to inspection and full ROM Neuro: COMMON NORMALS: patient oriented x3, moves all extremities and no focal motor deficits Psych: COMMON NORMALS: mental status grossly normal, Normal thought process present and cooperative THOUGHT PROCESS: Normal thought process present Skin: COMMON NORMALS: no rashes or lesions noted and no wounds GENERAL SKIN EXAM: no rashes or lesions noted Course 2 Vital Signs: Vital signs: Vital Signs Temperature 97.9 F 11/02/23 20:18 Pulse Rate 87 11/02/23 23:11 Respiratory Rate 16 11/02/23 23:00 Blood Pressure 114/58 11/02/23 23:11 Pulse Oximetry 97 11/02/23 23:11 Oxygen Delivery Me thod Nasal Cannula 11/02/23 23:00 Oxygen Flow Rate 2 11/02/23 23:00 MDM - General Adult Medical Decision Making Patient presents here with hyperglycemia he is not DKA blood sugar is coming down here patient is stable for discharge at this time he is follow-up with PCP and return if worsening. Medical Records I reviewed the patient's medical records. Lab Data I reviewed the patient's lab results. 11/02/23 20:53 11/02/23 20:53 Laboratory Results WBC 6.91 10^3/uL (3.29-11.43) 11/02/23 20:53 RBC 5.04 10^6/uL (3.85-5.65) 11/02/23 20:53 Hgb 14.90 g/dL (11.27-16.99) 11/02/23 20:53 Hct 45.3 % (37-53) 11/02/23 20:53 MCV 89.9 fl (82-101) 11/02/23 20:53 MCH 29.6 pg (27-33) 11/02/23 20:53 MCHC 32.9 g/dL (30-55) 11/02/23 20:53 RDW 12.8 % (12.1-15.1) 11/02/23 20:53 Plt Count 336 10^3/cmm (157-399) 11/02/23 20:53 MPV 9.5 fL (7.4-10.4) 11/02/23 20:53 Neut % (Auto) 65.8 % 11/02/23 20:53 Lymph % (Auto) 19.5 % 11/02/23 20:53 Swain % (Auto) 12.9 % 11/02/23 20:53 Eos % (Auto) 1.0 % 11/02/23 20:53 Baso % (Auto) 0.4 % 11/02/23 20:53 Neut # (Auto) 4.54 10^3/uL (1.8-7.7) 11/02/23 20:53 Lymph # (Auto) 1.4 10^3/uL (0.8-4.8) 11/02/23 20:53 Swain # (Auto) 0.9 10^3/uL (0.2-0.9) 11/02/23 20:53 Eos # (Auto) 0.1 10^3/uL (0.0-0.8) 11/02/23 20:53 Baso # (Auto) 0.0 10^3/uL (0.0-0.1) 11/02/23 20:53 Nucleated RBC % (auto) 0 % 11/02/23 20:53 Nucleated RBCs # 0.0 /100WBC 11/02/23 20:53 Sodium 131 mmol/L (136-145) L 11/02/23 20:53 Potassium 4.2 mmol/L (3.5-5.1) 11/02/23 20:53 Chloride 85 mmol/L (98-107) L 11/02/23 20:53 Carbon Dioxide 34 mmol/L (22-29) H 11/02/23 20:53 Anion Gap 16.2 (5-19) 11/02/23 20:53 BUN 31 mg/dL (8-23) H 11/02/23 20:53 Creatinine 1.7 mg/dL (0.7-1.2) H 11/02/23 20:53 GFR Calculation 40.2 mL/min (90-130) L 11/02/23 20:53 Glucose 724 mg/dL (65-115) H* 11/02/23 20:53 POC Glucose 398 mg/dL (70-110) H 11/02/23 23:03 Calculated Osmolality 313 mOsm/kg (285-295) H 11/02/23 20:53 Calcium 9.1 mg/dL (8.5-10.5) 11/02/23 20:53 Total Bilirubin 0.3 mg/dL (0.15-1.2) 11/02/23 20:53 AST 21 U/L (0-40) 11/02/23 20:53 ALT 30 U/L (0-41) 11/02/23 20:53 Alkaline Phosphatase 101 U/L (40-130) 11/02/23 20:53 Total Protein 7.2 g/dL (6.6-8.7) 11/02/23 20:53 Albumin 3.5 g/dL (3.5-5.2) 11/02/23 20:53 Globulin 3.7 g/dL (1.3-4.6) 11/02/23 20:53 No radiology studies performed this visit Discharge Plan Discharge Patient Disposition: Home Clinical Impression: Hyperglycemia Condition: Stable Prescriptions: No Action montelukast 10 mg tablet 10 mg PO BEDTIME carvedilol 6.25 mg tablet 6.25 mg PO BID Qty: 180 1RF furosemide 40 mg tablet 60 mg PO BID Qty: 180 1RF metolazone 2.5 mg tablet 2.5 mg PO EVERY OTHER DAY Qty: 60 0RF spironolactone 25 mg tablet 25 mg PO DAILY Qty: 90 1RF potassium chloride 10 mEq tablet extended release 10 meq PO BID Qty: 180 1RF clopidogrel [Plavix] 75 mg tablet 75 mg PO DAILY Qty: 90 3RF Nitrostat 0.4 mg tablet, sublingual 0.4 mg SUBLINGUAL Q5M PRN (Reason: Chest Pain) Qty: 25 2RF Rx Instructions: do not exceed 3 doses per episode rosuvastatin 20 mg tablet 20 mg PO BEDTIME Qty: 90 3RF (DME) FreeStyle Andres 2 Sensor Kit See Rx Instructions .ROUTE .MEDSUPPLY Qty: 4 5RF Rx Instructions: change every 14 days gabapentin 100 mg capsule 100 mg PO BID aspirin [Adult Low Dose Aspirin] 81 mg tablet,delayed release (DR/EC) 81 mg PO QAM tamsulosin 0.4 mg capsule 0.4 mg PO BID albuterol sulfate 90 mcg/actuation HFA aerosol inhaler 2 inh INHALATION Q4H PRN (Reason: shortness of breath or wheezing) Qty: 18 0RF trazodone 50 mg Tablet 50 mg PO BEDTIME 30 Days Qty: 30 0RF buspirone 10 mg Tablet 10 mg PO BID 30 Days Qty: 60 0RF escitalopram oxalate 10 mg Tablet 30 mg PO DAILY 30 Days Qty: 90 0RF isosorbide mononitrate 60 mg tablet extended release 24 hr 30 mg PO BID Qty: 180 3RF Novolog FlexPen U-100 Insulin 100 unit/mL (3 mL) insulin pen See Protocol SUBCUT TID Qty: 15 0RF Protocol: Insulin Corrective High-Dose Regimen Condition: Fingerstick Blood Glucose Dose/Route: Insulin Units Condition: 141-180 mg/dl Dose/Route: 6 units/SQ Condition: 181-220 mg/dl Dose/Route: 8 units/SQ Condition: 221-260 mg/dl Dose/Route: 10 units/SQ Condition: 261-300 mg/dl Dose/Route: 12 units/SQ Condition: 301-350 mg/dl Dose/Route: 14 units/SQ Condition: 351-400 mg/dl Dose/Route: 16 units/SQ Condition: greater than 400 mg/dl Dose/Route: 18 units/SQ Tresiba FlexTouch U-200 200 unit/mL (3 mL) insulin pen 40 unit SUBCUT BID MDD 150 units Qty: 9 0RF ciprofloxacin HCl 500 mg tablet 500 mg PO Q12H Qty: 10 0RF Discharge Orders: Discharge ED (Routine); Ordered 11/02/23 Ordered By: Song Melendez Referrals: Kyle Corrigan MD [Primary Care Provider] - 1-3 days Discharge Diet: Advance as tolerated Discharge Activity: Resume usual activity Patient Instructions: Diabetic Hyperglycemia (ED) Coding Level of Care Code ED Funds Development Director for [facility]
[2023-11-02] MEDS: insulin regular-human 100 units/1 mL 15 UNIT IVP (21:09)
[2023-11-02 21:19] LABS: Alanine Aminotransferase 30 U/L (0-41); Albumin Level 3.5 g/dL (3.5-5.2); Alkaline Phosphatase 101 U/L (40-130); Anion Gap 16.2 (5-19); Aspartate Amino Transferase 21 U/L (0-40); Blood Urea Nitrogen 31 mg/dL (8-23); Calcium 9.1 mg/dL (8.5-10.5); Carbon Dioxide 34 mmol/L (22-29); Chloride 85 mmol/L (98-107); Globulin 3.7 g/dL (1.3-4.6); Glomerular Filtration Rate 40.2 mL/min (90-130); Potassium 4.2 mmol/L (3.5-5.1); Sodium 131 mmol/L (136-145); Total Bilirubin 0.3 mg/dL (0.15-1.2); Total Protein 7.2 g/dL (6.6-8.7)
[2023-11-02 21:27] LABS: Osmolality Calculated 313 mOsm/kg (285-295)
[2023-11-02 21:32] LABS: Glucose 724 mg/dL (65-115)
[2023-11-02] MEDS: sodium chloride 0.9% 1,000 ML 999 ML IV (21:44)
[2023-11-02 22:23] LABS: Glucose Point of Care 487 mg/dL (70-110)
[2023-11-02] MEDS: insulin regular-human 100 units/1 mL 10 UNIT IVP (22:27)
[2023-11-02 23:07] LABS: Glucose Point of Care 398 mg/dL (70-110)
--- NOTE | 2023-11-02 23:08 | PC.NURSE ---
POC BG 398
== END 2023-11-02 23:32 | disposition home or self-care (01) ==
PROVIDERS: Emergency Provider Emergency Medicine; PCP Family Medicine
DX: E11.65 Type 2 diabetes mellitus with hyperglycemia (principal); Z79.02 Long term (current) use of antithrombotics/antiplatelets; Z79.82 Long term (current) use of aspirin; Z79.4 Long term (current) use of insulin; Z87.891 Personal history of nicotine dependence; E11.22 Type 2 diabetes mellitus with diabetic chronic kidney disease; I13.0 Hypertensive heart and chronic kidney disease with heart failure and stage 1 through stage 4 chronic kidney disease, or unspecified chronic kidney disease; N18.32 Chronic kidney disease, stage 3b; I50.9 Heart failure, unspecified; I25.10 Atherosclerotic heart disease of native coronary artery without angina pectoris; I25.2 Old myocardial infarction
CPT/HCPCS: 36415; 36416; 80048; 80053; 82962; 85025; 96361; 96374; 96376; 99214; 99284; J1815; J7030

== ENCOUNTER 2023-11-06 23:13 | Emergency (ER) | payer MEDICARE, SELFPAY ==
[2023-11-06 23:14] VITALS: BP 138/105; PULSE 89; RESP 22; TEMP 36.5; O2SAT 94; BMI 44.4
--- NOTE | 2023-11-06 23:14 | ECG_ITS ---
[facility] Test Date: 2023-11-06 Pat Name: Garrett Mares Department: Room: Gender: Male Subacute Nurse: : 1955 Requested By: Jamie Zhu Order Number: [id number] Rosita MD: Sarahi Rasmussen M.D. Measurements Intervals [place] Rate: 86 P: 92 IA: 246 QRS: -83 QRSD: 144 T: 49 QT: 408 QTc: 490 Interpretive Statements SINUS RHYTHM WITH FIRST DEGREE AV BLOCK RIGHT BUNDLE BRANCH BLOCK [120+ ms QRS DURATION, UPRIGHT V1, 40+ ms S IN I/aVL/V4/V5/V6] POSSIBLE ANTERIOR MYOCARDIAL INFARCTION , PROBABLY OLD [30 ms Q WAVE IN V3/V4, OR R < 0.2 mV IN V4] INFERIOR MYOCARDIAL INFARCTION , OF INDETERMINATE AGE [40+ ms Q WAVE AND/OR ST/T ABNORMALITY IN II/aVF] Compared to ECG 10/25/2023 02:12:01 Left anterior fascicular block no longer present Myocardial infarct finding still present Electronically Signed On 11-07-2023 19:47:30 CATEGORY DEVELOPMENT ANALYST by Sarahi Rasmussen M.D. [id number]
--- NOTE | 2023-11-06 23:14 | XRR_ITS ---
PROCEDURE INFORMATION: Exam: XR Chest Exam date and time: 11/06/2023 11:31 PM Age: 68 years old Clinical indication: Chest wall pain; Additional info: Chest pain TECHNIQUE: Imaging protocol: Radiologic exam of the chest. Views: 1 view. COMPARISON: CR XR chest 1V portable [id number] 10/24/2023 10:58 AM FINDINGS: Lungs: See Heart/Mediastinum finding. Pleural spaces: Unremarkable. No pleural effusion. No pneumothorax. Heart/Mediastinum: Cardiomegaly, negative for infiltrate. Bones/joints: Unremarkable. XR/XR chest 1V portable [id number] IMPRESSION: Cardiomegaly, negative for infiltrate.
--- NOTE | 2023-11-06 23:19 | ED_ITS ---
HPI - Chest Pain 2 General: Chief Complaint: Chest Pain Stated Complaint: Chest Pain Time Seen by Provider: 11/06/23 23:14 History of Present Illness: Patient presents to the ER by EMS with complaints of left-sided chest pain that has resolved. Patient stated the chest pain started about 9 PM lasted about 30 minutes until he took 1 nitro did not resolve that. EMS did not have to give the patient a medicine. EKG is performed in the field were negative for acute acute changes per EMS. Patient arrived to the ER pain-free. Patient does have a cardiac history and has approximately 5 stents. Per the patient he does wear [place] and has had it on for the last week. Per hospital record it does appear that he sees Dr. Pizano and he had his last visit with cardiology office with Aishwarya Jones on November 02, 2023. Patient currently takes Plavix, Lasix, insulin, metolazone, spironolactone, per record patient does have CHF with ejection fraction history of 10 to 15% per left heart cath on October 25, 2023, history of non-STEMI SC, hypertension, CAD, diabetes 2, CKD 3B, Review of Systems 2 General: Reports: 10 or more systems reviewed and unremarkable except in HPI and below PFSH ED 2 PFSH: Medical History Acute kidney injury Fall from standing Coarse tremors BPH loc w urin obs/LUTS Chronic kidney disease, stage 3b Diabetic neuropathy CVA (cerebral vascular accident) BMI 45.0-49.9, adult Sleep apnea Diabetes mellitus, type II CAD (coronary artery disease) Hyperlipidemia CHF (congestive heart failure) Systolic, 10 to 15% as per left heart catheterization-10/25/2023, elevated LVEDP HTN (hypertension) History of non-ST elevation myocardial infarction (NSTEMI) Surgical History S/P cervical spinal fusion S/P PTCA (percutaneous transluminal coronary angioplasty) Reports 7 stents and angioplasty x 3 Family History Mother , AT AGE 75 Hypertension Diabetes Father , AT AGE 72 Diabetes Hypertension Other CAD (coronary artery disease) Social History Smoking and tobacco/nicotine status: former use of tobacco/nicotine Alcohol intake: current Alcohol intake frequency: few times a month Substance/Drug Use: never Marital status: Current occupational status: retired Physical Exam 2 Const: COMMON NORMALS: no acute distress, average body habitus, patient oriented x3, no limitations, healthy appearing, alert and well nourished HENMT: COMMON NORMALS: normocephalic, atraumatic, hearing grossly normal bilaterally, external ears normal, EAC's normal, Normal external nose present, moist oral mucous membranes and oropharynx normal HEAD & SCALP: normocephalic and atraumatic NOSE: Normal external nose present EXTERNAL EAR: Yes external ears normal EXTERNAL AUDITORY CANAL: EAC's normal Neck/C-Spine: COMMON NORMALS: no JVD Chest: COMMONS NORMALS: normal inspection of the chest and normal palpation of entire chest wall Resp: COMMON NORMALS: normal respiratory effort, No retractions, No use of accessory muscles and clear to auscultation bilaterally AUSCULTATION: clear to auscultation bilaterally Cardio: COMMON NORMALS: no JVD, regular rate, regular rhythm, S1 normal heart sound present, S2 normal heart sound present, No gallops present (Cardio), No clicks present (Cardio), No murmurs present (Cardio) and No rub (Cardio) R ATE: regular rate RHYTHM: regular rhythm HEART SOUNDS: S1 normal heart sound present and S2 normal heart sound present GI: COMMON NORMALS: Normal to inspection, nondistended, normoactive bowel sounds present (Obese), Soft to palpation, non-tender, No hepatosplenomegaly present and no masses PALPATION: Yes Soft to palpation and Yes No hepatosplenomegaly present Extremity: NARRATIVE EXTREMITY EXAM: 1+ pitting edema bilateral lower extremi ties Neuro: COMMON NORMALS: patient oriented x3 SENSORIUM/ORIENTATION: Yes alert Course 2 Vital Signs: Vital signs: Vital Signs Temperature 97.7 F 11/06/23 23:14 Pulse Rate 80 11/07/23 01:48 Respiratory Rate 18 11/07/23 01:48 Blood Pressure 144/97 11/07/23 01:48 Pulse Oximetry 95 11/07/23 01:48 Oxygen Delivery Me thod Room Air 11/06/23 23:50 MDM - Chest Pain Medical Decision Making Patient presents to the ER with for chest pain. Patient was chest pain-free upon arrival. Chest pain workup included chest x-ray which was negative for infiltrate, serial EKGs which were unchanged with no acute changes. Lab work which was stable for the patient other than an elevated BUN and creatinine of 54 and 2.0 these are both mildly elevated for the patient. Patient is on multiple diuretics. These results was discussed with the patient upon discussing these patient asked for more muscle relaxers that was given to him for his shoulder during his last visit. The patient's chart was reviewed and did not appear to be discharged on any muscle relaxer that could be found. Patient should follow- up with his PCP regarding this. And also his elevated BUN and creatinine as he may need his diuretics adjusted. Patient should see him within the next 5 to 7 days. Differential Diagnosis Unlikely acute massive pulmonary embolism, acute respiratory failure, acute myocardial infarction, cardiac arrest or sudden cardiac Medical Records I reviewed the patient's medical records. Lab Data I reviewed the patient's lab results. 11/06/23 23:35 11/06/23 23:35 Radiology Impressions Chest X-Ray 11/06/23 23:14 IMPRESSION: Cardiomegaly, negative for infiltrate. Laboratory Results WBC 8.38 10^3/uL (3.29-11.43) 11/06/23 23:35 RBC 5.14 10^6/uL (3.85-5.65) 11/06/23 23:35 Hgb 15.10 g/dL (11.27-16.99) 11/06/23 23:35 Hct 45.4 % (37-53) 11/06/23 23:35 MCV 88.3 fl (82-101) 11/06/23 23:35 MCH 29.4 pg (27-33) 11/06/23 23:35 MCHC 33.3 g/dL (30-55) 11/06/23 23:35 RDW 12.9 % (12.1-15.1) 11/06/23 23:35 Plt Count 339 10^3/cmm (157-399) 11/06/23 23:35 MPV 10.4 fL (7.4-10.4) 11/06/23 23:35 Neut % (Auto) 64.4 % 11/06/23 23:35 Lymph % (Auto) 20.5 % 11/06/23 23:35 Cowley % (Auto) 12.4 % 11/06/23 23:35 Eos % (Auto) 1.6 % 11/06/23 23:35 Baso % (Auto) 0.7 % 11/06/23 23:35 Neut # (Auto) 5.40 10^3/uL (1.8-7.7) 11/06/23 23:35 Lymph # (Auto) 1.7 10^3/uL (0.8-4.8) 11/06/23 23:35 Cowley # (Auto) 1.0 10^3/uL (0.2-0.9) H 11/06/23 23:35 Eos # (Auto) 0.1 10^3/uL (0.0-0.8) 11/06/23 23:35 Baso # (Auto) 0.1 10^3/uL (0.0-0.1) 11/06/23 23:35 Nucleated RBC % (auto) 0 % 11/06/23 23:35 Nucleated RBCs # 0.0 /100WBC 11/06/23 23:35 PT 13.70 SECONDS (12.1-14.9) 11/06/23 23:35 INR 1.02 (0.8-1.2) 11/06/23 23:35 Sodium 134 mmol/L (136-145) L 11/06/23 23:35 Potassium 3.5 mmol/L (3.5-5.1) 11/06/23 23:35 Chloride 84 mmol/L (98-107) L 11/06/23 23:35 Carbon Dioxide 37 mmol/L (22-29) H 11/06/23 23:35 Anion Gap 16.5 (5-19) 11/06/23 23:35 BUN 54 mg/dL (8-23) H 11/06/23 23:35 Creatinine 2.0 mg/dL (0.7-1.2) H 11/06/23 23:35 GFR Calculation 33.3 mL/min (90-130) L 11/06/23 23:35 Glucose 379 mg/dL (65-115) H 11/06/23 23:35 Calculated Osmolality 308 mOsm/kg (285-295) H 11/06/23 23:35 Calcium 10.1 mg/dL (8.5-10.5) 11/06/23 23:35 Magnesium 2.3 mg/dL (1.7-2.3) 11/06/23 23:35 Total Bilirubin 0.4 mg/dL (0.15-1.2) 11/06/23 23:35 AST 23 U/L (0-40) 11/06/23 23:35 ALT 24 U/L (0-41) 11/06/23 23:35 Alkaline Phosphatase 82 U/L (40-130) 11/06/23 23:35 Troponin T Baseline 81 ng/L (0-15) H 11/06/23 23:35 Troponin T 120 Minute 77.54 ng/L (0-15) H 11/07/23 01:08 Delta Troponin T -3.46 ABS# (0-10) L 11/07/23 01:08 NT-Pro-B Natriuret Pep 1983 pg/mL (0-125) H 11/06/23 23:35 Total Protein 7.2 g/dL (6.6-8.7) 11/06/23 23:35 Albumin 3.9 g/dL (3.5-5.2) 11/06/23 23:35 Globulin 3.3 g/dL (1.3-4.6) 11/06/23 23:35 All radiology interpretation(s) finalized by discharge EKG Data EKG 1: I personally reviewed and interpreted this EKG as follows: EKG interpretation date: 11/06/23 EKG interpretation time: 23:16 Prior EKG tracings: available for review Interpretation: EKG showed ventricular rate 86 bpm, KS interval 246, QRS duration 144, QTc of 452, sinus rhythm with first-degree AV block, right bundle branch block, EKG 2: I personally reviewed and interpreted this EKG as follows: EKG interpretation date: 11/07/23 EKG interpretation time: :23 Prior EKG tracings: available for review Interpretation: EKG showed ventricular rate 81 beats minute, KS interval 231, QRS duration 158, QTc of 443, sinus rhythm with first-degree AV block, right axis deviation, right bundle branch block, Discharge Plan Discharge Patient Disposition: Home Clinical Impression: Chest pain, Chronic kidney disease, Acute pain of left shoulder Condition: Stable Prescriptions: No Action montelukast 10 mg tablet 10 mg PO BEDTIME carvedilol 6.25 mg tablet 6.25 mg PO BID Qty: 180 1RF furosemide 40 mg tablet 60 mg PO BID Qty: 180 1RF metolazone 2.5 mg tablet 2.5 mg PO EVERY OTHER DAY Qty: 60 0RF spironolactone 25 mg tablet 25 mg PO DAILY Qty: 90 1RF potassium chloride 10 mEq tablet extended release 10 meq PO BID Qty: 180 1RF clopidogrel [Plavix] 75 mg tablet 75 mg PO DAILY Qty: 90 3RF Nitrostat 0.4 mg tablet, sublingual 0.4 mg SUBLINGUAL Q5M PRN (Reason: Chest Pain) Qty: 25 2RF Rx Instructions: do not exceed 3 doses per episode rosuvastatin 20 mg tablet 20 mg PO BEDTIME Qty: 90 3RF (DME) FreeStyle Andres 2 Sensor Kit See Rx Instructions .ROUTE .MEDSUPPLY Qty: 4 5RF Rx Instructions: change every 14 days gabapentin 100 mg capsule 100 mg PO BID aspirin [Adult Low Dose Aspirin] 81 mg tablet,delayed release (DR/EC) 81 mg PO QAM tamsulosin 0.4 mg capsule 0.4 mg PO BID albuterol sulfate 90 mcg/actuation HFA aerosol inhaler 2 inh INHALATION Q4H PRN (Reason: shortness of breath or wheezing) Qty: 18 0RF trazodone 50 mg Tablet 50 mg PO BEDTIME 30 Days Qty: 30 0RF buspirone 10 mg Tablet 10 mg PO BID 30 Days Qty: 60 0RF escitalopram oxalate 10 mg Tablet 30 mg PO DAILY 30 Days Qty: 90 0RF isosorbide mononitrate 60 mg tablet extended release 24 hr 30 mg PO BID Qty: 180 3RF Novolog FlexPen U-100 Insulin 100 unit/mL (3 mL) insulin pen See Protocol SUBCUT TID Qty: 15 0RF Protocol: Insulin Corrective High-Dose Regimen Condition: Fingerstick Blood Glucose Dose/Route: Insulin Units Condition: 141-180 mg/dl Dose/Route: 6 units/SQ Condition: 181-220 mg/dl Dose/Route: 8 units/SQ Condition: 221-260 mg/dl Dose/Route: 10 units/SQ Condition: 261-300 mg/dl Dose/Route: 12 units/SQ Condition: 301-350 mg/dl Dose/Route: 14 units/SQ Condition: 351-400 mg/dl Dose/Route: 16 units/SQ Condition: greater than 400 mg/dl Dose/Route: 18 units/SQ Tresiba FlexTouch U-200 200 unit/mL (3 mL) insulin pen 40 unit SUBCUT BID MDD 150 units Qty: 9 0RF ciprofloxacin HCl 500 mg tablet 500 mg PO Q12H Qty: 10 0RF Discharge Orders: Discharge ED (Routine); Ordered 11/07/23 Ordered By: Jamie Zhu Referrals: Kyle Corrigan MD [Primary Care Provider] - Patient Instructions: Chest Pain (ED), Impaired Kidney Function (ED), Shoulder Pain (ED) Activity Restrictions/Additional Instructions: Your evaluation did not show any acute cardiac cause of your chest pain. Is felt to be noncardiac in nature at this time. Your kidney function was elevated above your baseline. This may be due to your diuretic usage. Please talk to about this to your family practice physician as your diuretics may need to be adjusted. Please follow-up with them within the next 5 to 7 days for further evaluation and treatment. Also discussed the muscle relaxer usage and needing more of it for your shoulder. Coding Level of Care Code ED Command Center Analyst for Luna Booth
[2023-11-06 23:49] LABS: Basophils # 0.1 10^3/uL (0.0-0.1); Basophils % 0.7 %; Eosinophils # 0.1 10^3/uL (0.0-0.8); Eosinophils % 1.6 %; Hematocrit 45.4 % (37-53); Lymphocytes # 1.7 10^3/uL (0.8-4.8); Lymphocytes % 20.5 %; Mean Corpuscular HGB Conc 33.3 g/dL (30-55); Mean Corpuscular Hemoglobin 29.4 pg (27-33); Mean Corpuscular Volume 88.3 fl (82-101); Mean Platelet Volume 10.4 fL (7.4-10.4); Monocytes % 12.4 %; Neutrophils % 64.4 %; Nucleated Red Blood Cells % 0 %; Platelet Count 339 10^3/cmm (157-399); Red Blood Count 5.14 10^6/uL (3.85-5.65); Red Cell Distribution Width 12.9 % (12.1-15.1); White Blood Count 8.38 10^3/uL (3.29-11.43)
[2023-11-06 23:50] VITALS: O2SAT 92
[2023-11-06 23:58] LABS: INR 1.02 (0.8-1.2)
[2023-11-07 00:08] LABS: Troponin(5th) Baseline 81 ng/L (0-15)
[2023-11-07 00:15] LABS: Alanine Aminotransferase 24 U/L (0-41); Albumin Level 3.9 g/dL (3.5-5.2); Alkaline Phosphatase 82 U/L (40-130); Anion Gap 16.5 (5-19); Aspartate Amino Transferase 23 U/L (0-40); Blood Urea Nitrogen 54 mg/dL (8-23); Calcium 10.1 mg/dL (8.5-10.5); Carbon Dioxide 37 mmol/L (22-29); Chloride 84 mmol/L (98-107); Globulin 3.3 g/dL (1.3-4.6); Glomerular Filtration Rate 33.3 mL/min (90-130); Glucose 379 mg/dL (65-115); Magnesium 2.3 mg/dL (1.7-2.3); NT Pro B Type Natriuretic Pept 1983 pg/mL (0-125); Osmolality Calculated 308 mOsm/kg (285-295); Potassium 3.5 mmol/L (3.5-5.1); Sodium 134 mmol/L (136-145); Total Bilirubin 0.4 mg/dL (0.15-1.2); Total Protein 7.2 g/dL (6.6-8.7)
[2023-11-07 00:29] VITALS: BP 163/83; PULSE 80; RESP 20; O2SAT 93
[2023-11-07 01:04] VITALS: BP 158/90; PULSE 78; RESP 19; O2SAT 92
--- NOTE | 2023-11-07 01:23 | ECG_ITS ---
[facility] Test Date: 2023-11-07 Pat Name: Garrett Mares Department: Room: Gender: Male General Assignment Reporter: : 1955 Requested By: Jamie Zhu Order Number: [id number] Rosita MD: Sarahi Rasmussen M.D. Measurements Intervals [place] Rate: 81 P: 91 SD: 231 QRS: 269 QRSD: 158 T: 28 QT: 406 QTc: 472 Interpretive Statements SINUS RHYTHM WITH FIRST DEGREE AV BLOCK RIGHT AXIS DEVIATION [QRS AXIS > 100] RIGHT BUNDLE BRANCH BLOCK [120+ ms QRS DURATION, UPRIGHT V1, 40+ ms S IN I/aVL/V4/V5/V6] POSSIBLE ANTERIOR MYOCARDIAL INFARCTION , PROBABLY OLD [30 ms Q WAVE IN V3/V4, OR R < 0.2 mV IN V4] INFERIOR MYOCARDIAL INFARCTION , PROBABLY OLD [40+ ms Q WAVE AND/OR ST/T ABNORMALITY IN II/aVF] Compared to ECG 11/06/2023 23:16:19 Right-axis deviation now present Myocardial infarct finding still present Electronically Signed On 11-07-2023 20:11:54 LINE MAINTENANCE TECHNICIAN by Sarahi Rasmussen M.D. [id number]
[2023-11-07 01:29] LABS: Troponin 5 2HR 77.54 ng/L (0-15)
[2023-11-07 01:40] LABS: Troponin 5 2HR Delta -3.46 ABS# (0-10)
[2023-11-07 01:48] VITALS: BP 144/97; PULSE 80; RESP 18; O2SAT 95
[2023-11-07 02:02] VITALS: BP 144/91; PULSE 80; RESP 17; O2SAT 97
[2023-11-07 02:18] VITALS: BP 137/90; PULSE 67; RESP 18; O2SAT 97
== END 2023-11-07 02:19 | disposition home or self-care (01) ==
PROVIDERS: Emergency Provider Emergency Medicine; PCP Family Medicine
DX: R07.9 Chest pain, unspecified (principal); M25.512 Pain in left shoulder; E11.22 Type 2 diabetes mellitus with diabetic chronic kidney disease; I13.0 Hypertensive heart and chronic kidney disease with heart failure and stage 1 through stage 4 chronic kidney disease, or unspecified chronic kidney disease; N18.32 Chronic kidney disease, stage 3b; I50.9 Heart failure, unspecified; Z86.73 Personal history of transient ischemic attack (TIA), and cerebral infarction without residual deficits; I25.10 Atherosclerotic heart disease of native coronary artery without angina pectoris; I25.2 Old myocardial infarction; Z87.891 Personal history of nicotine dependence; Z79.02 Long term (current) use of antithrombotics/antiplatelets; Z79.82 Long term (current) use of aspirin; Z79.4 Long term (current) use of insulin
CPT/HCPCS: 71045; 80053; 83735; 83880; 84484; 85025; 85610; 93005; 99285

== ENCOUNTER 2023-11-09 14:09 | Outpatient (CLI) | payer MEDICARE, SELFPAY ==
[2023-11-09 15:05] LABS: Anion Gap 15.9 (5-19); Blood Urea Nitrogen 57 mg/dL (8-23); Calcium 9.8 mg/dL (8.5-10.5); Carbon Dioxide 36 mmol/L (22-29); Chloride 81 mmol/L (98-107); Glomerular Filtration Rate 43.1 mL/min (90-130); Osmolality Calculated 312 mOsm/kg (285-295); Sodium 130 mmol/L (136-145)
[2023-11-09 15:11] LABS: Potassium 2.9 mmol/L (3.5-5.1)
[2023-11-09 16:43] LABS: Glucose 564 mg/dL (65-115)
== END 2023-11-09 14:10 | disposition home or self-care (01) ==
LOC: LAB 14:11
PROVIDERS: PCP Family Medicine; Visit Provider Family Medicine
DX: I50.9 Heart failure, unspecified (principal)
CPT/HCPCS: 80048

== ENCOUNTER 2023-11-10 17:56 | Emergency (ER) | payer MEDICARE, SELFPAY ==
[2023-11-10 18:05] VITALS: BP 92/64; PULSE 75; RESP 16; TEMP 36.4; O2SAT 94
--- NOTE | 2023-11-10 18:14 | XRR_ITS ---
PROCEDURE INFORMATION: Exam: XR Chest Exam date and time: 11/10/2023 6:32 PM Age: 68 years old Clinical indication: Patient HX: Cough; Weakness; Bradycardia TECHNIQUE: Imaging protocol: Radiologic exam of the chest. Views: 1 view. COMPARISON: CR (CHEST, ) 11/06/2023 11:31 PM FINDINGS: Tubes, catheters and devices: Multiple electronic devices and associated wiring project through the mediastinum and left upper chest. Lungs: No focal consolidation. Pleural spaces: Unremarkable. No pleural effusion. No pneumothorax. Heart/Mediastinum: Unremarkable. No cardiomegaly. Bones/joints: Unremarkable. XR/XR chest 1V portable [id number] IMPRESSION: No focal consolidation.
[2023-11-10 18:48] LABS: Influenza A by IFA negative (Negative); Influenza B by IFA negative (Negative); SARS Covid-2 Antigen negative (Negative)
[2023-11-10 19:07] LABS: Basophils # 0.1 10^3/uL (0.0-0.1); Basophils % 0.5 %; Eosinophils # 0.1 10^3/uL (0.0-0.8); Eosinophils % 0.9 %; Hematocrit 45.8 % (37-53); Lymphocytes # 1.8 10^3/uL (0.8-4.8); Lymphocytes % 15.9 %; Mean Corpuscular HGB Conc 34.3 g/dL (30-55); Mean Corpuscular Hemoglobin 29.5 pg (27-33); Mean Corpuscular Volume 85.9 fl (82-101); Mean Platelet Volume 10.5 fL (7.4-10.4); Monocytes # 1.2 10^3/uL (0.2-0.9); Monocytes % 11.2 %; Neutrophils # 7.86 10^3/uL (1.8-7.7); Neutrophils % 71.1 %; Nucleated Red Blood Cells % 0 %; Platelet Count 355 10^3/cmm (157-399); Red Blood Count 5.33 10^6/uL (3.85-5.65); Red Cell Distribution Width 12.9 % (12.1-15.1); White Blood Count 11.04 10^3/uL (3.29-11.43)
[2023-11-10 20:01] LABS: INR 1.07 (0.8-1.2)
[2023-11-10 20:06] LABS: Lactic Sepsis W/Reflex 1.9 mmol/L (0.5-2.2)
[2023-11-10 20:17] LABS: NT Pro B Type Natriuretic Pept 4834 pg/mL (0-125); Procalcitonin 0.16 ng/mL (0-0.5)
[2023-11-10 20:20] LABS: Ketone (Acetest) Serum Negative (Negative)
[2023-11-10 20:29] LABS: Alanine Aminotransferase 19 U/L (0-41); Albumin Level 3.8 g/dL (3.5-5.2); Alkaline Phosphatase 74 U/L (40-130); Anion Gap 14.2 (5-19); Aspartate Amino Transferase 18 U/L (0-40); Blood Urea Nitrogen 58 mg/dL (8-23); Calcium 10.1 mg/dL (8.5-10.5); Carbon Dioxide 37 mmol/L (22-29); Chloride 84 mmol/L (98-107); Globulin 4.4 g/dL (1.3-4.6); Glomerular Filtration Rate 35.3 mL/min (90-130); Glucose 45 mg/dL (65-115); Osmolality Calculated 289 mOsm/kg (285-295); Sodium 133 mmol/L (136-145); Total Bilirubin 0.6 mg/dL (0.15-1.2); Total Protein 8.2 g/dL (6.6-8.7)
[2023-11-10 20:37] LABS: Potassium 2.2 mmol/L (3.5-5.1)
[2023-11-10 20:45] VITALS: BP 136/63; PULSE 40; RESP 14; O2SAT 92
[2023-11-10 21:02] VITALS: BP 136/71; PULSE 58; RESP 14; O2SAT 91
[2023-11-10] MEDS: potassium chloride ER 20 mEq Tablet 40 MEQ PO (21:07)
[2023-11-10] MEDS: potassium chloride premix 100 ML 50 MEQ IV (21:10)
[2023-11-10 21:23] LABS: Glucose Point of Care 74 mg/dL (70-110)
[2023-11-10 21:24] LABS: Add Urine Microscopic? YES; Protein Urine 1+ (Negative); Urine Appearance Cloudy (CLEAR); Urine Color Yellow (Yellow); pH Urine 5 (5-7)
[2023-11-10 21:25] LABS: Bacteria Urine TRACE /hpf; Bilirubin Urine Neg (Negative); Blood Urine 2+ (Negative); Glucose Urine UA 2+ (Normal); Ketones Urine Negative (Negative); Leukocyte Esterase Urine 2+ (Negative); Nitrate Urine Negative (Negative); RBC Urine 25-40 /hpf (0-2); Urobilinogen Urine Norm (Negative); WBC Urine 80-100 /hpf (0-5)
[2023-11-10 21:26] LABS: Add Urine Culture? Yes
[2023-11-10 21:55] LABS: Glucose Point of Care 107 mg/dL (70-110)
--- NOTE | 2023-11-10 22:44 | W.ED.WEAKNES ---
HPI - Weakness General: Chief complaint: Weakness Stated complaint: weakness Time Seen by Provider: 11/10/23 18:13 History of Present Illness: 68-year-old male presents emergency department via EMS personnel from the long-term care facility. Patient's started feeling very weak throughout the day today and has not had much to eat or drink throughout the day. He denies pain at this time but does appear to be very lethargic and somnolent. He is a poor historian regarding his medical condition. Review of Systems General: Reports: 10 or more systems reviewed and unremarkable except in HPI and below Const: Reports: fatigue and malaise PFS ED PFSH: Medical History Acute kidney injury Fall from standing Coarse tremors BPH loc w urin obs/LUTS Chronic kidney disease, stage 3b Diabetic neuropathy CVA (cerebral vascular accident) BMI 45.0-49.9, adult Sleep apnea Diabetes mellitus, type II CAD (coronary artery disease) Hyperlipidemia CHF (congestive heart failure) Systolic, 10 to 15% as per left heart catheterization-10/25/2023, elevated LVEDP HTN (hypertension) History of non-ST elevation myocardial infarction (NSTEMI) Surgical History S/P cervical spinal fusion S/P PTCA (percutaneous transluminal coronary angioplasty) Reports 7 stents and angioplasty x 3 Family History Mother , AT AGE 75 Hypertension Diabetes Father , AT AGE 72 Diabetes Hypertension Other CAD (coronary artery disease) Social History Smoking and tobacco/nicotine status: former use of tobacco/nicotine Alcohol intake: current Alcohol intake frequency: few times a month Substance/Drug Use: never Marital status: Current occupational status: retired Physical Exam Narrative: EXAM NARRATIVE: Constitutional: the patient appears well nourished and of normal development. Vital signs as documented. No acute distress at present. Alert and oriented-to person, and situation. Lethargic, somnolent. Unkept appearance Head, eyes, ears, nose, mouth, throat: Normocephalic, atraumatic. Pupils-equal, round, reactive to light. No scleral icterus. Normal-appearing external ears. Normal appearing nasal turbinates, no drainage. No obvious oral lesions, posterior oropharynx without erythema or exudates. Neck: Supple, trachea is midline, no lymphadenopathy, no jugular venous distension, thyromegaly, or carotid bruits. Carotid upstrokes are brisk bilaterally. Lungs: clear to auscultation to all lung mijares. Symmetrical rise and fall of chest, no obvious signs of increased work of breathing at present. Cardiac: Regular rate and rhythm, positive S1, S2. No murmurs, rubs or gallops that I can appreciate Abdomen: Soft, non-tender to palpation, normal active bowel sounds to all quadrants. No palpable masses, no organomegaly and abdominal bruits. Extremities: 2+ pulses in the upper extremities that are equal bilaterally, 2+ pulses in the lower extremities that are equal bilaterally. Non-edematous. Moves all extremities well, sensation to all extremities are noted. Skin: Warm, dry, intact. Course Vital Signs: Vital signs: Vital Signs Temperature 97.5 F L 11/10/23 18:05 Pulse Rate 78 11/11/23 00:23 Respiratory Rate 18 11/11/23 00:23 Blood Pressure 163/85 11/10/23 23:16 Pulse Oximetry 96 11/11/23 00:23 Oxygen Delivery Me thod Nasal Cannula 11/10/23 23:16 Oxygen Flow Rate 1.5 11/10/23 23:16 MDM - Weakness Medical Decision Making Physical exam completed document I will obtain laboratory evaluation to include a CBC, CMP, urinalysis, patient does have a history of BPH and is having difficulty urinating we will place a Daniel catheter, and do an Accu-Chek for his blood glucose as he does have a history of diabetes. Reevaluation after determine the patient's glucose was 45 and his potassium was 2.2 we will provide p.o. as well as IV repletion of his potassium and provide him dextrose 50% in the IV and provide him something additional by mouth once he is more awake. Medical Records I reviewed the patient's medical records. Lab Data I reviewed the patient's lab results. 11/10/23 18:53 11/10/23 19:36 Radiology Impressions Chest X-Ray 11/10/23 18:14 IMPRESSION: No focal consolidation. Laboratory Results WBC 11.04 10^3/uL (3.29-11.43) 11/10/23 18:53 RBC 5.33 10^6/uL (3.85-5.65) 11/10/23 18:53 Hgb 15.70 g/dL (11.27-16.99) 11/10/23 18:53 Hct 45.8 % (37-53) 11/10/23 18:53 MCV 85.9 fl (82-101) 11/10/23 18:53 MCH 29.5 pg (27-33) 11/10/23 18:53 MCHC 34.3 g/dL (30-55) 11/10/23 18:53 RDW 12.9 % (12.1-15.1) 11/10/23 18:53 Plt Count 355 10^3/cmm (157-399) 11/10/23 18:53 MPV 10.5 fL (7.4-10.4) H 11/10/23 18:53 Neut % (Auto) 71.1 % 11/10/23 18:53 Lymph % (Auto) 15.9 % 11/10/23 18:53 Schleicher % (Auto) 11.2 % 11/10/23 18:53 Eos % (Auto) 0.9 % 11/10/23 18:53 Baso % (Auto) 0.5 % 11/10/23 18:53 Neut # (Auto) 7.86 10^3/uL (1.8-7.7) H 11/10/23 18:53 Lymph # (Auto) 1.8 10^3/uL (0.8-4.8) 11/10/23 18:53 Schleicher # (Auto) 1.2 10^3/uL (0.2-0.9) H 11/10/23 18:53 Eos # (Auto) 0.1 10^3/uL (0.0-0.8) 11/10/23 18:53 Baso # (Auto) 0.1 10^3/uL (0.0-0.1) 11/10/23 18:53 Nucleated RBC % (auto) 0 % 11/10/23 18:53 Nucleated RBCs # 0.0 /100WBC 11/10/23 18:53 PT 14.20 SECONDS (12.1-14.9) 11/10/23 19:36 INR 1.07 (0.8-1.2) 11/10/23 19:36 Sodium 133 mmol/L (136-145) L 11/10/23 19:36 Potassium 2.2 mmol/L (3.5-5.1) L* 11/10/23 19:36 Chloride 84 mmol/L (98-107) L 11/10/23 19:36 Carbon Dioxide 37 mmol/L (22-29) H 11/10/23 19:36 Anion Gap 14.2 (5-19) 11/10/23 19:36 BUN 58 mg/dL (8-23) H 11/10/23 19:36 Creatinine 1.9 mg/dL (0.7-1.2) H 11/10/23 19:36 GFR Calculation 35.3 mL/min (90-130) L 11/10/23 19:36 Glucose 45 mg/dL (65-115) L 11/10/23 19:36 POC Glucose 138 mg/dL (70-110) H 11/10/23 23:11 Calculated Osmolality 289 mOsm/kg (285-295) 11/10/23 19:36 Lactic Acid 1.9 mmol/L (0.5-2.2) 11/10/23 19:36 Calcium 10.1 mg/dL (8.5-10.5) 11/10/23 19:36 Total Bilirubin 0.6 mg/dL (0.15-1.2) 11/10/23 19:36 AST 18 U/L (0-40) 11/10/23 19:36 ALT 19 U/L (0-41) 11/10/23 19:36 Alkaline Phosphatase 74 U/L (40-130) 11/10/23 19:36 NT-Pro-B Natriuret Pep 4834 pg/mL (0-125) H 11/10/23 19:36 Total Protein 8.2 g/dL (6.6-8.7) 11/10/23 19:36 Albumin 3.8 g/dL (3.5-5.2) 11/10/23 19:36 Globulin 4.4 g/dL (1.3-4.6) 11/10/23 19:36 Procalcitonin 0.16 ng/mL (0-0.5) 11/10/23 19:36 Urine Color Yellow (Yellow) 11/10/23 21:02 Urine Appearance Cloudy (CLEAR) A 11/10/23 21:02 Urine pH 5 (5-7) 11/10/23 21:02 Ur Specific [place] 1.010 (1.005-1.030) 11/10/23 21:02 Urine Protein 1+ (Negative) H 11/10/23 21:02 Urine Glucose (UA) 2+ (Normal) H 11/10/23 21:02 Urine Ketones Negative (Negative) 11/10/23 21: Urine Blood 2+ (Negative) H 11/10/23 21: Urine Nitrate Negative (Negative) 11/10/23 21: Urine Bilirubin Neg (Negative) 11/10/23 21: Urine Urobilinogen Norm mg/dL (Negative) 11/10/23 21:02 Ur Leukocyte Esterase 2+ (Negative) H 11/10/23 21:02 Urine RBC 25-40 /hpf (0-2) H 11/10/23 21:02 Urine WBC 80-100 /hpf (0-5) H 11/10/23 21:02 Ur Squamous Epith Cells 5-10 /hpf (0-5) H 11/10/23 21:02 Amorphous Sediment Not Reportable 11/10/23 21:02 Urine Bacteria Trace /hpf (NONE) 11/10/23 21:02 Serum Ketones Negative (Negative) 11/10/23 19:36 Influenza Type A Ag negative (Negative) 11/10/23 18:25 Influenza Type B Ag negative (Negative) 11/10/23 18:25 SARS-CoV-2 Ag (Rapid) negative (Negative) 11/10/23 18:25 All radiology interpretation(s) finalized by discharge Discharge Plan Discharge Patient Disposition: Home Clinical Impression: Acute UTI, Acute hypokalemia, Enlarged prostate with urinary retention Diabetes mellitus with hypoglycemia Qualifiers: Diabetes mellitus type: type 1 Diabetes mellitus complication detail: without coma Qualified Code(s): E10.649 - Type 1 diabetes mellitus with hypoglycemia without coma Condition: Stable Prescriptions: New Macrobid 100 mg capsule 100 mg PO Q12H 10 Days Qty: 20 0RF Rx Instructions: must administer with a meal/food No Action montelukast 10 mg tablet 10 mg PO BEDTIME carvedilol 6.25 mg tablet 6.25 mg PO BID Qty: 180 1RF furosemide 40 mg tablet 60 mg PO BID Qty: 180 1RF metolazone 2.5 mg tablet 2.5 mg PO EVERY OTHER DAY Qty: 60 0RF spironolactone 25 mg tablet 25 mg PO DAILY Qty: 90 1RF potassium chloride 10 mEq tablet extended release 10 meq PO BID Qty: 180 1RF clopidogrel [Plavix] 75 mg tablet 75 mg PO DAILY Qty: 90 3RF rosuvastatin 20 mg tablet 20 mg PO BEDTIME Qty: 90 3RF (DME) FreeStyle Andres 2 Sensor Kit See Rx Instructions .ROUTE .MEDSUPPLY Qty: 4 5RF Rx Instructions: change every 14 days Nitrostat 0.4 mg tablet, sublingual 0.4 mg SUBLINGUAL Q5M PRN (Reason: Chest Pain) Qty: 25 2RF Rx Instructions: do not exceed 3 doses per episode gabapentin 100 mg capsule 100 mg PO BID aspirin [Adult Low Dose Aspirin] 81 mg tablet,delayed release (DR/EC) 81 mg PO QAM tamsulosin 0.4 mg capsule 0.4 mg PO BID albuterol sulfate 90 mcg/actuation HFA aerosol inhaler 2 inh INHALATION Q4H PRN (Reason: shortness of breath or wheezing) Qty: 18 0RF trazodone 50 mg Tablet 50 mg PO BEDTIME 30 Days Qty: 30 0RF buspirone 10 mg Tablet 10 mg PO BID 30 Days Qty: 60 0RF escitalopram oxalate 10 mg Tablet 30 mg PO DAILY 30 Days Qty: 90 0RF isosorbide mononitrate 60 mg tablet extended release 24 hr 30 mg PO BID Qty: 180 3RF Novolog FlexPen U-100 Insulin 100 unit/mL (3 mL) insulin pen See Protocol SUBCUT TID Qty: 15 0RF Protocol: Insulin Corrective High-Dose Regimen Condition: Fingerstick Blood Glucose Dose/Route: Insulin Units Condition: 141-180 mg/dl Dose/Route: 6 units/SQ Condition: 181-220 mg/dl Dose/Route: 8 units/SQ Condition: 221-260 mg/dl Dose/Route: 10 units/SQ Condition: 261-300 mg/dl Dose/Route: 12 units/SQ Condition: 301-350 mg/dl Dose/Route: 14 units/SQ Condition: 351-400 mg/dl Dose/Route: 16 units/SQ Condition: greater than 400 mg/dl Dose/Route: 18 units/SQ Tresiba FlexTouch U-200 200 unit/mL (3 mL) insulin pen 40 unit SUBCUT BID MDD 150 units Qty: 9 0RF ciprofloxacin HCl 500 mg tablet 500 mg PO Q12H Qty: 10 0RF Discharge Orders: Discharge ED (Routine); Ordered 11/10/23 Ordered By: Kobe Elizabeth Referrals: Kyle Corrigan MD [Primary Care Provider] - Discharge Diet: Advance as tolerated Discharge Activity: Resume usual activity Patient Instructions: Opioid Safety, Pain Management Activity Restrictions/Additional Instructions: Activity Restrictions/Additional Instructions: Thank you for choosing [facility] for your healthcare needs today. Please realize that you were seen in the Emergency Department and that we are providing you with an emergency medical screening exam and this may not be a complete and all inclusive of all the testing and or medical work-up that you may need to determine your ailment or severity of your illness. It is very important that you follow-up as instructed with your Primary care provider or Specialist for additional evaluation and to discuss your medical treatment plan. You may return to the Emergency Department should you have concerns or if your condition changes or worsens in any way. Call to make a Follow-up appointment: [facility] [address] [place] [address] [facility] [address] [place] [address] Phone--[phone] Coding Level of Care Code ED Industrial Safety And Health Manager for Luna Booth
[2023-11-10 23:15] LABS: Glucose Point of Care 138 mg/dL (70-110)
[2023-11-10 23:16] VITALS: BP 163/85; PULSE 78; RESP 18; O2SAT 96
[2023-11-10] MEDS: cefTRIAXone 1,000 MG in sodium chloride 0.9% (plus) 50 ML 100 MG IV (23:18)
[2023-11-11 00:23] VITALS: PULSE 78; RESP 18; O2SAT 96
== END 2023-11-11 00:15 | disposition home or self-care (01) ==
PROVIDERS: Emergency Provider Internal Medicine; PCP Family Medicine
DX: N39.0 Urinary tract infection, site not specified (principal); E87.6 Hypokalemia; N40.1 Benign prostatic hyperplasia with lower urinary tract symptoms; R33.8 Other retention of urine; Z79.02 Long term (current) use of antithrombotics/antiplatelets; Z79.82 Long term (current) use of aspirin; Z79.4 Long term (current) use of insulin; Z11.52 Encounter for screening for COVID-19; Z87.891 Personal history of nicotine dependence; E11.22 Type 2 diabetes mellitus with diabetic chronic kidney disease; I13.0 Hypertensive heart and chronic kidney disease with heart failure and stage 1 through stage 4 chronic kidney disease, or unspecified chronic kidney disease; N18.32 Chronic kidney disease, stage 3b; I50.9 Heart failure, unspecified; Z86.73 Personal history of transient ischemic attack (TIA), and cerebral infarction without residual deficits; I25.10 Atherosclerotic heart disease of native coronary artery without angina pectoris; E78.5 Hyperlipidemia, unspecified; I25.2 Old myocardial infarction; E11.649 Type 2 diabetes mellitus with hypoglycemia without coma
CPT/HCPCS: 36415; 36416; 51702; 71045; 80053; 81001; 82009; 82962; 83605; 83880; 84145; 85025; 85610; 87086; 87106; 87426; 87804; 96365; 96366; 96375; 99284; J0696; J3480

== ENCOUNTER 2023-11-21 15:25 | Outpatient (CLI) | payer MEDICARE, SELFPAY ==
[2023-11-21 15:58] LABS: Anion Gap 18.2 (5-19); Blood Urea Nitrogen 71 mg/dL (8-23); Calcium 10.1 mg/dL (8.5-10.5); Carbon Dioxide 39 mmol/L (22-29); Chloride 83 mmol/L (98-107); Glucose 115 mg/dL (65-115); Osmolality Calculated 308 mOsm/kg (285-295); Sodium 138 mmol/L (136-145)
[2023-11-21 16:09] LABS: Potassium 2.2 mmol/L (3.5-5.1)
== END 2023-11-21 15:26 | disposition home or self-care (01) ==
LOC: LAB 15:29
PROVIDERS: PCP Family Medicine; Visit Provider Family Medicine
DX: I50.9 Heart failure, unspecified (principal)
CPT/HCPCS: 80048